=== PATIENT | male | born 1970 | race African-American/Black ===

== ENCOUNTER 2016-07-07 11:31 | Inpatient (IN) | payer OTHER ==
[2016-07-07 12:10] VITALS: BMI 34.2
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
[2016-07-07] MEDS ORDERED: guaiFENesin/D-METHORPHAN HB 10 ML UNIT-DOSE CUPS PO PRN (15:28)
[2016-07-07] MEDS ORDERED: MENTHOL/PHENOL 1 EACH UD MM PRN (15:28)
[2016-07-07] MEDS ORDERED: LOPERAMIDE HCL 2 MG CAPSULE PO PRN (15:28)
[2016-07-07] MEDS ORDERED: IBUPROFEN 400 MG TABLET (FP) PO PRN (15:28)
[2016-07-07] MEDS ORDERED: hydrOXYzine PAMOATE 50 MG CAPSULE (FP) PO PRN (15:28)
[2016-07-07] MEDS ORDERED: diphenhydrAMINE HCL 50 MG CAPSULE PO PRN (15:28)
[2016-07-07] MEDS ORDERED: chlordiazePOXIDE HCL 25 MG CAPSULE PO PRN (15:28)
[2016-07-07] MEDS ORDERED: P-EPHED 60MG/TRIPROLIDI 2.5MG TABLET PO PRN (15:28)
[2016-07-07] MEDS ORDERED: MAG HYDROX/AL HYDROX/SIMETH 30 ML UNIT-DOSE CUP PO PRN (15:28)
[2016-07-07] MEDS ORDERED: MAGNESIUM CITRATE 300 ML BOTTLE PO PRN (15:28)
[2016-07-07] MEDS ORDERED: MAGNESIUM HYDROX 2400MG/30ML ORAL SUSPENSION 30 ML CUP PO PRN (15:28)
[2016-07-07] MEDS ORDERED: ACETAMINOPHEN 325 MG TABLET (FP) PO PRN (15:28)
[2016-07-07] MEDS ORDERED: NICOTINE POLACRILEX 2 MG GUM BC PRN (15:28)
[2016-07-07] MEDS ORDERED: LABETALOL HCL 200 MG TABLET (FP) PO SCH (15:45)
[2016-07-07] MEDS ORDERED: chlordiazePOXIDE HCL 25 MG CAPSULE PO ONE (15:51)
[2016-07-07] MEDS: SPIRONOLACTONE 25 MG TABLET (FP) PO SCH (17:39)
[2016-07-07] MEDS: NICOTINE 21 MG/24 HOURS TOPICAL PATCH TD SCH (17:39)
[2016-07-07] MEDS: chlordiazePOXIDE HCL 25 MG CAPSULE PO SCH ×2 (17:39→22:23)
[2016-07-07] MEDS: amLODIPine BESYLATE 10 MG TABLET (FP) PO SCH (17:40)
--- NOTE | 2016-07-07 19:09 | PN ---
S Progress Note Note: Psychiatry Attending-trigonometry tutor note : Called by nurse to enter orders for medications :seroquel + trazodone. Readmission to [facility] for Thompson Venegas. 46 y/o male with issues of alcohol/nicotine dependence. Seeking detoxification treatment. [facility] report is appreciated.Medical co-morbidities noted. Patient is requesting continuation of his medications. Medications reconciled.Pharmacy claims revisited. Filled scripts on 06/26/16 @ [facility]. Doses are confirmed.Normal vitals. Orders are entered for : Seroquel 200 mg po hs. Trazodone 100 mg po hs. Discussed with nurse on duty.
[2016-07-07 20:09] LABS: URINE APPEARANCE CLEAR; URINE BILIRUBIN NEGATIVE (NEGATIVE); URINE BLOOD NEGATIVE (NEGATIVE); URINE COLOR YELLOW; URINE GLUCOSE (UA) NEGATIVE (NEGATIVE); URINE KETONE NEGATIVE (NEGATIVE); URINE LEUK ESTERASE NEGATIVE (NEGATIVE); URINE NITRITE NEGATIVE (NEGATIVE); URINE PROTEIN NEGATIVE (NEGATIVE); URINE UROBILINOGEN 2.0 E.U/dl E.U./dl (0.2-1.0)
[2016-07-07] MEDS: LABETALOL HCL 100 MG TABLET (FP) PO SCH (22:21)
[2016-07-07] MEDS: QUEtiapine FUMARATE 200 MG TABLET PO SCH (22:23)
[2016-07-07] MEDS: THIAMINE HCL 100 MG TABLET (FP) PO SCH (22:23)
[2016-07-07] MEDS: traZODone HCL 50 MG TABLET (FP) PO SCH (22:23)
[2016-07-08] MEDS: chlordiazePOXIDE HCL 25 MG CAPSULE PO SCH ×4 (06:01→22:15)
[2016-07-08] MEDS: LABETALOL HCL 100 MG TABLET (FP) PO SCH ×2 (06:05→13:33)
[2016-07-08] MEDS: PRENATAL VITAMINS W/ FOLIC ACID TABLET (FP) PO SCH (10:11)
[2016-07-08] MEDS: SPIRONOLACTONE 25 MG TABLET (FP) PO SCH ×2 (10:11→17:31)
[2016-07-08] MEDS: NICOTINE 21 MG/24 HOURS TOPICAL PATCH TD SCH (10:12)
[2016-07-08] MEDS: amLODIPine BESYLATE 10 MG TABLET (FP) PO SCH (10:12)
[2016-07-08 10:19] LABS: MCH 33.1 pg (25.7-33.7); MEAN CELL VOLUME 100.3 fl (80-96); PLATELET COUNT 221 K/MM3 (134-434); RDW 13.8 % (11.9-15.9); WHITE BLOOD COUNT 5.9 K/mm3 (4.0-10.0)
[2016-07-08 10:40] LABS: ALBUMIN 4.5 g/dl (3.4-5.0); ALK PHOS 59 U/L (45-117); ANION GAP 11 (8-16); BILIRUBIN,TOTAL 1.3 mg/dL (0.2-1.0); CALCIUM 8.5 mg/dL (8.5-10.1); CO2 25 mmol/L (21-32); CREATININE 1.1 mg/dL (0.7-1.3); GLUCOSE,RANDOM 102 mg/dL (74-106); SGOT/AST 70 U/L (15-37); SGPT/ALT 69 U/L (12-78); TOT PROT 8.6 g/dl (6.4-8.2)
--- NOTE | 2016-07-08 11:10 | PN ---
[facility] CIWA - CIWA Score Nausea/Vomitin-No Nausea/No Vomiting Muscle Tremors: 4-Moderate,w/Arms Extend Anxiety: 4-Mod. Anxious/Guarded Agitation: 4-Moderately Restless Paroxysmal Sweats: 1-Minimal Palms Moist Orientation: 0-Oriented Tacttile Disturbances: 3-Moderate Itch/Numb/Burn Auditory Disturbances: 0-None Visual Disturbances: 0-None Headache: 0-None Present CIWA-Ar Total Score: 16 BHS Progress Note (SOAP) Subjective: ANXIETY,SWEATS,TREMORS, NAUSEA. Objective: 07/08/16 11:06 Vital Signs Temperature 96.1 F L 07/08/16 09:40 Pulse Rate 87 07/08/16 09:40 Respiratory Rate 18 07/08/16 09:40 Blood Pressure 116/73 07/08/16 09:40 O2 Sat by Pulse Oximetry (%) Laboratory Last Values WBC 5.9 K/mm3 (4.0-10.0) 07/08/16 06:00 RBC 4.51 M/mm3 (4.00-5.60) 07/08/16 06:00 Hgb 14.9 GM/dL (11.7-16.9) 07/08/16 06:00 Hct 45.3 % (35.4-49) 07/08/16 06:00 MCV 100.3 fl (80-96) H 07/08/16 06:00 MCHC 33.0 g/dl (32.0-35.9) 07/08/16 06:00 RDW 13.8 % (11.9-15.9) D 07/08/16 06:00 Plt Count 221 K/MM3 (134-434) D 07/08/16 06:00 MPV 8.0 fl (7.5-11.1) 07/08/16 06:00 Sodium 138 mmol/L (136-145) 07/08/16 06:00 Potassium 4.1 mmol/L (3.5-5.1) 07/08/16 06:00 Chloride 102 mmol/L (98-107) 07/08/16 06:00 Carbon Dioxide 25 mmol/L (21-32) 07/08/16 06:00 Anion Gap 11 (8-16) 07/08/16 06:00 BUN 13 mg/dL (7-18) D 07/08/16 06:00 Creatinine 1.1 mg/dL (0.7-1.3) D 07/08/16 06:00 Creat Clearance w eGFR > 60 (>60) 07/08/16 06:00 Random Glucose 102 mg/dL (74-106) 07/08/16 06:00 Calcium 8.5 mg/dL (8.5-10.1) 07/08/16 06:00 Total Bilirubin 1.3 mg/dL (0.2-1.0) H 07/08/16 06:00 AST 70 U/L (15-37) H D 07/08/16 06:00 ALT 69 U/L (12-78) D 07/08/16 06:00 Alkaline Phosphatase 59 U/L (45-117) 07/08/16 06:00 Total Protein 8.6 g/dl (6.4-8.2) H 07/08/16 06:00 Albumin 4.5 g/dl (3.4-5.0) D 07/08/16 06:00 Urine Color Yellow 07/07/16 13:00 Urine Appearance Clear 07/07/16 13:00 Urine pH 6.0 (5.0-8.0) D 07/07/16 13:00 Ur Specific Summers 1.014 (1.001-1.035) 07/07/16 13:00 Urine Protein Negative (NEGATIVE) 07/07/16 13:00 Urine Glucose (UA) Negative (NEGATIVE) 07/07/16 13:00 Urine Ketones Negative (NEGATIVE) 07/07/16 13:00 Urine Blood Negative (NEGATIVE) 07/07/16 13:00 Urine Nitrite Negative (NEGATIVE) 07/07/16 13:00 Urine Bilirubin Negative (NEGATIVE) 07/07/16 13:00 Urine Urobilinogen 2.0 e.u/dl E.U./dl (0.2-1.0) 07/07/16 13:00 Ur Leukocyte Esterase Negative (NEGATIVE) 07/07/16 13:00 Assessment: 07/08/16 11:07 WITHDRAWAL SX Plan: CONTINUE DETOX
--- NOTE | 2016-07-08 11:13 | EKG ---
Test Reason : Blood Pressure : / mmHG Vent. Rate : 096 BPM Atrial Rate : 097 BPM P-R Int : 162 ms QRS Dur : 072 ms QT Int : 368 ms P-R-T Axes : 070 -10 025 degrees QTc Int : 464 ms NORMAL SINUS RHYTHM POSSIBLE LEFT ATRIAL ENLARGEMENT LEFT VENTRICULAR HYPERTROPHY CANNOT RULE OUT SEPTAL INFARCT (CITED ON OR BEFORE 07-DEC-2013) ABNORMAL ECG WHEN COMPARED WITH ECG OF 07-DEC-2013 08:52, ST NOW DEPRESSED IN ANTERIOR LEADS T WAVE INVERSION NO LONGER EVIDENT IN INFERIOR LEADS T WAVE INVERSION NO LONGER EVIDENT IN LATERAL LEADS Confirmed by NEW CARTER MD ([id number]) on 07/08/2016 11:13:25 AM Referred By: Confirmed By:NEW CARTER MD
[2016-07-08] MEDS ORDERED: ONDANSETRON *ODT* 4 MG TABLET SL PRN (11:19)
--- NOTE | 2016-07-08 13:36 | CONSULT ---
[id number] [facility] Identifying data: Readmission to [facility] for this 46 y/o AA male seeking detox treatment on for alcohol and marijuana dependence.Patient is single,a father of four,domiciled,unemployed and supported on SSI benefits. Substance Abuse History: - Smoking Cessation. Smoking history: Current every day smoker. Have you smoked in the past 12 months: Yes. Aproximately how many cigarettes per day: 10. Cigars Per Day: 0. Hx Chewing Tobacco Use: No. Initiated information on smoking cessation: Yes. 'Breaking Loose' booklet given : 07/07/16. - Substance & Tx. History. Hx Alcohol Use: Yes. Hx Substance Use : No. Substance Use Type: Alcohol. Hx Substance Use Treatment: Yes (detox). - Substances Abused. Alcohol. Route: Oral. Frequency: Daily. Amount used : 3 40 OZ BEERS/ 2 PINTS VODKA. Age of first use: 19. Date of Last Use: . Confirmed by the patient in this session. Medical History: Hypertension and history of CABG for dissecting aorta (2013). Psychiatric History: Reported history of two psychiatric hospitalizations about four years ago ([facility]).Diagnosed with Bipolar Disorder.Medications : seroquel 200 mg/hs + trazodone 100 mg/hs.No OPD care providers.Mr Venegas explains that he prefers using emergency room settings to get medications refills.Patient denies history of suicide attempts. Physical/Sexual Abuse/Trauma History: Patient denies. Additional Comment: Urine Drug Screen Results: BZO-Benzodiazepines.Noted. Mental Status Exam - Mental Status Exam Alert and Oriented to: Time, Place, Person Cognitive Function: Good Patient Appearance: Well Groomed Mood: Hopeful, Euthymic Affect: Appropriate, Normal Range Patient Behavior: Fatigued, Appropriate, Cooperative Speech Pattern: Clear, Appropriate Voice Loudness: Normal Thought Process: Goal Oriented Thought Disorder: Not Present Hallucinations: Denies Suicidal Ideation: Denies Homicidal Ideation: Denies Insight/Judgement: Poor Sleep: Well (on trazodone and seroquel) Appetite: Good Muscle strength/Tone: Normal Gait/Station: Normal Psychiatric Findings - Problem List ([place] 1, 2,3) (1) Alcohol dependence with uncomplicated withdrawal Status: Acute (2) Nicotine dependence Status: Acute (3) bipolar disorder Status: Active (4) Substance induced mood disorder Status: Acute (5) Essential hypertension Status: Chronic (6) Insomnia Status: Acute - Initial Treatment Plan Initial Treatment Plan: Psychoeducation.Detoxification.Medications : seroquel 200 mg po hs + trazodone 100 mg po hs.Side effects/benefits discussed with the patient.He is made aware of the risk of priapism (trazodone) and he is advised to alert MD/RN if painful/prolonged erection.Patient agrees with this plan of care.Observation.
[2016-07-08] MEDS: THIAMINE HCL 100 MG TABLET (FP) PO SCH (22:14)
[2016-07-08] MEDS: QUEtiapine FUMARATE 200 MG TABLET PO SCH (22:14)
[2016-07-08] MEDS: traZODone HCL 50 MG TABLET (FP) PO SCH (22:15)
[2016-07-08] MEDS: LABETALOL HCL 200 MG TABLET (FP) PO SCH (22:15)
[2016-07-09] MEDS: chlordiazePOXIDE HCL 25 MG CAPSULE PO SCH ×2 (05:53→10:10)
[2016-07-09] MEDS: LABETALOL HCL 200 MG TABLET (FP) PO SCH ×3 (05:53→23:36)
[2016-07-09] MEDS: PRENATAL VITAMINS W/ FOLIC ACID TABLET (FP) PO SCH (10:10)
[2016-07-09] MEDS: NICOTINE 21 MG/24 HOURS TOPICAL PATCH TD SCH (10:10)
[2016-07-09] MEDS: amLODIPine BESYLATE 10 MG TABLET (FP) PO SCH (10:10)
[2016-07-09] MEDS: SPIRONOLACTONE 25 MG TABLET (FP) PO SCH ×2 (10:10→17:43)
--- NOTE | 2016-07-09 16:05 | PN ---
S CIWA - CIWA Score Nausea/Vomitin-No Nausea/No Vomiting Muscle Tremors: 4-Moderate,w/Arms Extend Anxiety: 3 Agitation: 2 Paroxysmal Sweats: 3 Orientation: 1-Uncertain about Date Tacttile Disturbances: 1-Very Mild Itch/Numbness Auditory Disturbances: 0-None Visual Disturbances: 0-None Headache: 2-Mild CIWA-Ar Total Score: 16 BHS Progress Note (SOAP) Subjective: Tremors, Headache, Sweating, Hot / Cold Sensations. Objective: PT. A & O X 2 (DISORIENTED ABOUT DAY / DATE). 07/09/16 16:02 Vital Signs Temperature 96.9 F L 07/09/16 14:38 Pulse Rate 91 H 07/09/16 14:38 Respiratory Rate 18 07/09/16 14:38 Blood Pressure 122/78 07/09/16 14:38 O2 Sat by Pulse Oximetry (%) Laboratory Last Values WBC 5.9 K/mm3 (4.0-10.0) 07/08/16 06:00 RBC 4.51 M/mm3 (4.00-5.60) 07/08/16 06:00 Hgb 14.9 GM/dL (11.7-16.9) 07/08/16 06:00 Hct 45.3 % (35.4-49) 07/08/16 06:00 MCV 100.3 fl (80-96) H 07/08/16 06:00 MCHC 33.0 g/dl (32.0-35.9) 07/08/16 06:00 RDW 13.8 % (11.9-15.9) D 07/08/16 06:00 Plt Count 221 K/MM3 (134-434) D 07/08/16 06:00 MPV 8.0 fl (7.5-11.1) 07/08/16 06:00 Sodium 138 mmol/L (136-145) 07/08/16 06:00 Potassium 4.1 mmol/L (3.5-5.1) 07/08/16 06:00 Chloride 102 mmol/L (98-107) 07/08/16 06:00 Carbon Dioxide 25 mmol/L (21-32) 07/08/16 06:00 Anion Gap 11 (8-16) 07/08/16 06:00 BUN 13 mg/dL (7-18) D 07/08/16 06:00 Creatinine 1.1 mg/dL (0.7-1.3) D 07/08/16 06:00 Creat Clearance w eGFR > 60 (>60) 07/08/16 06:00 Random Glucose 102 mg/dL (74-106) 07/08/16 06:00 Calcium 8.5 mg/dL (8.5-10.1) 07/08/16 06:00 Total Bilirubin 1.3 mg/dL (0.2-1.0) H 07/08/16 06:00 AST 70 U/L (15-37) H D 07/08/16 06:00 ALT 69 U/L (12-78) D 07/08/16 06:00 Alkaline Phosphatase 59 U/L (45-117) 07/08/16 06:00 Total Protein 8.6 g/dl (6.4-8.2) H 07/08/16 06:00 Albumin 4.5 g/dl (3.4-5.0) D 07/08/16 06:00 Urine Color Yellow 07/07/16 13:00 Urine Appearance Clear 07/07/16 13:00 Urine pH 6.0 (5.0-8.0) D 07/07/16 13:00 Ur Specific Alvin 1.014 (1.001-1.035) 07/07/16 13:00 Urine Protein Negative (NEGATIVE) 07/07/16 13:00 Urine Glucose (UA) Negative (NEGATIVE) 07/07/16 13:00 Urine Ketones Negative (NEGATIVE) 07/07/16 13:00 Urine Blood Negative (NEGATIVE) 07/07/16 13:00 Urine Nitrite Negative (NEGATIVE) 07/07/16 13:00 Urine Bilirubin Negative (NEGATIVE) 07/07/16 13:00 Urine Urobilinogen 2.0 e.u/dl E.U./dl (0.2-1.0) 07/07/16 13:00 Ur Leukocyte Esterase Negative (NEGATIVE) 07/07/16 13:00 RPR Titer Nonreactive (NONREACTIVE) 07/08/16 06:00 LABS NOTED. 07/09/16 16:04 Assessment: 07/09/16 16:04 WITHDRAWAL SYMPTOMS. Plan: CONTINUE DETOX.
[2016-07-09 17:31] VITALS: BP 138/80; PULSE 83; TEMP 98.4
[2016-07-09] MEDS: chlordiazePOXIDE 5 MG CAPSULE PO SCH ×2 (17:43→23:34)
--- NOTE | 2016-07-09 20:05 | PN ---
S Progress Note Note: patient complaint of left precordial chest pain sclae of 10 history of surgery for aortic resection in 2013 in [facility] hx of hypertension alert heent normal heart normal heart sound mid sternal scar abdomen soft,no distension no guarding bowel sound active no calf tenderness ekg nsr 84/min inverted t in 3 pulse oxymetry 100 treatment o2 nasal canula 2 l.min to er for evaluation at [facility] to be transported by [facility] acls spoke with dr bridges bp 135/87,p88.r20,t96.1 impression chest pain etiology hx of surgery for aortic resection hypertension
[2016-07-09] MEDS: traZODone HCL 50 MG TABLET (FP) PO SCH (23:34)
[2016-07-09] MEDS: QUEtiapine FUMARATE 200 MG TABLET PO SCH (23:36)
[2016-07-09] MEDS: THIAMINE HCL 100 MG TABLET (FP) PO SCH (23:36)
[2016-07-10] MEDS ORDERED: chlordiazePOXIDE HCL 10 MG CAPSULE PO SCH (17:00)
--- NOTE | 2016-07-11 00:47 | EKG ---
Test Reason : Blood Pressure : / mmHG Vent. Rate : 088 BPM Atrial Rate : 088 BPM P-R Int : 122 ms QRS Dur : 080 ms QT Int : 378 ms P-R-T Axes : 039 -01 -13 degrees QTc Int : 457 ms NORMAL SINUS RHYTHM SEPTAL INFARCT (CITED ON OR BEFORE 07-DEC-2013) ABNORMAL ECG WHEN COMPARED WITH ECG OF 09-JUL-2016 19:20, NO SIGNIFICANT CHANGE WAS FOUND Confirmed by LATRELL DEJESUS, EFRA ([id number]) on 07/11/2016 12:47:15 AM Referred By: Confirmed By:EFRA SAMS MD
--- NOTE | 2016-07-30 17:20 | DS ---
[facility] Detox Discharge Summary Admission Date: 07/07/16 Discharge Date: 07/09/16 - History Present History: Alcohol Dependence Pertinent Past History: HTN Hx. of Aortic dissection repair - Physical Exam Results Vital Signs: Vital Signs Temperature 98.4 F 07/09/16 17:31 Pulse Rate 83 07/09/16 17:31 Respiratory Rate 18 07/09/16 17:31 Blood Pressure 138/80 07/09/16 17:31 O2 Sat by Pulse Oximetry (%) Pertinent Admission Physical Exam Findings: Withdrawal sx. Laboratory Last Values WBC 5.9 K/mm3 (4.0-10.0) 07/08/16 06:00 RBC 4.51 M/mm3 (4.00-5.60) 07/08/16 06:00 Hgb 14.9 GM/dL (11.7-16.9) 07/08/16 06:00 Hct 45.3 % (35.4-49) 07/08/16 06:00 MCV 100.3 fl (80-96) H 07/08/16 06:00 MCHC 33.0 g/dl (32.0-35.9) 07/08/16 06:00 RDW 13.8 % (11.9-15.9) D 07/08/16 06:00 Plt Count 221 K/MM3 (134-434) D 07/08/16 06:00 MPV 8.0 fl (7.5-11.1) 07/08/16 06:00 Sodium 138 mmol/L (136-145) 07/08/16 06:00 Potassium 4.1 mmol/L (3.5-5.1) 07/08/16 06:00 Chloride 102 mmol/L (98-107) 07/08/16 06:00 Carbon Dioxide 25 mmol/L (21-32) 07/08/16 06:00 Anion Gap 11 (8-16) 07/08/16 06:00 BUN 13 mg/dL (7-18) D 07/08/16 06:00 Creatinine 1.1 mg/dL (0.7-1.3) D 07/08/16 06:00 Creat Clearance w eGFR > 60 (>60) 07/08/16 06:00 Random Glucose 102 mg/dL (74-106) 07/08/16 06:00 Calcium 8.5 mg/dL (8.5-10.1) 07/08/16 06:00 Total Bilirubin 1.3 mg/dL (0.2-1.0) H 07/08/16 06:00 AST 70 U/L (15-37) H D 07/08/16 06:00 ALT 69 U/L (12-78) D 07/08/16 06:00 Alkaline Phosphatase 59 U/L (45-117) 07/08/16 06:00 Total Protein 8.6 g/dl (6.4-8.2) H 07/08/16 06:00 Albumin 4.5 g/dl (3.4-5.0) D 07/08/16 06:00 Urine Color Yellow 07/07/16 13:00 Urine Appearance Clear 07/07/16 13:00 Urine pH 6.0 (5.0-8.0) D 07/07/16 13:00 Ur Specific [place] 1.014 (1.001-1.035) 07/07/16 13:00 Urine Protein Negative (NEGATIVE) 07/07/16 13:00 Urine Glucose (UA) Negative (NEGATIVE) 07/07/16 13:00 Urine Ketones Negative (NEGATIVE) 07/07/16 13:00 Urine Blood Negative (NEGATIVE) 07/07/16 13:00 Urine Nitrite Negative (NEGATIVE) 07/07/16 13:00 Urine Bilirubin Negative (NEGATIVE) 07/07/16 13:00 Urine Urobilinogen 2.0 e.u/dl E.U./dl (0.2-1.0) 07/07/16 13:00 Ur Leukocyte Esterase Negative (NEGATIVE) 07/07/16 13:00 RPR Titer Nonreactive (NONREACTIVE) 07/08/16 06:00 labs noted - Treatment Patient has Accepted a Rehab Referral to: [facility] revelations when medically clear - Medication Discharge Medications: Ambulatory Orders Acetaminophen [Pain Relief] 650 mg PO Q4H PRN 07/07/16 Amlodipine Besylate [Norvasc -] 10 mg PO DAILY 07/07/16 Spironolactone [Aldactone -] 25 mg PO BID 07/07/16 Quetiapine Fumarate [Seroquel -] 200 mg PO HS #30 tab 07/08/16 Trazodone HCl 100 mg PO HS #30 tablet 07/08/16 Chlordiazepoxide [Librium -] 5 mg PO QID 07/10/16 Ondansetron HCl [Zofran] 4 mg PO PRN 07/10/16 Vitamins (Sjr) - 07/10/16 Thiamine HCl [B-1] 100 mg PO 07/10/16 Aspirin [ASA -] 81 mg PO DAILY tab.chew 07/12/16 Atorvastatin Ca [Lipitor] 20 mg NR HS #30 tablet 07/12/16 Ibuprofen [Motrin -] 600 mg PO Q6H PRN #0 tablet 07/12/16 Metoprolol Succinate [Toprol XL -] 25 mg PO DAILY #30 tab.sr.24h 07/12/16 - Diagnosis (1) Essential hypertension Status: Chronic (2) Aortic dissection Status: Resolved (3) Nicotine dependence Status: Acute Qualifiers: Nicotine product type: cigarettes Substance use status: uncomplicated Qualified Code(s): F17.210 - Nicotine dependence, cigarettes, uncomplicated (4) Alcohol dependence with uncomplicated withdrawal Status: Acute - AMA Did Patient Leave Against Medical Advice: No (transferred to medical unit)
== END 2016-07-09 20:22 | disposition short-term general hospital (02) | DRG 775 ==
LOC: YASAS 11:31 → Y3N 14:14
PROVIDERS: ADMIT Internal Medicine; ATTEND Internal Medicine
PROC: HZ2ZZZZ Detoxification Services for Substance Abuse Treatment (ICD-10-PCS; principal; 2016-07-09)
DX: F10.230 Alcohol dependence with withdrawal, uncomplicated (principal); F17.210 Nicotine dependence, cigarettes, uncomplicated; F32.9 Major depressive disorder, single episode, unspecified; F19.24 Other psychoactive substance dependence with psychoactive substance-induced mood disorder; G47.00 Insomnia, unspecified; I10 Essential (primary) hypertension
CPT/HCPCS: 36415; 80053; 81003; 85027; 86593; 93005; 93010

== ENCOUNTER 2016-07-09 20:39 | Observation (INO) | payer OTHER ==
[2016-07-09] MEDS ORDERED: ASPIRIN 81 MG CHEWABLE TABLETS PO ONE (21:02)
[2016-07-09] MEDS ORDERED: KETOROLAC TROMETHAMINE 30 MG/1 ML VIAL IVPUSH ONE (21:12)
[2016-07-09] MEDS ORDERED: ASPIRIN 81 MG CHEWABLE TABLETS ONE (21:15)
[2016-07-09] MEDS ORDERED: KETOROLAC TROMETHAMINE 30 MG/1 ML VIAL ONE ×2 (21:32→21:35)
[2016-07-09 21:49] LABS: BASOPHIL 0.5 % (0-2.0); EOSINOPHIL 2.3 % (0-4.5); MCH 33.1 pg (25.7-33.7); MCHC 33.9 g/dl (32.0-35.9); MEAN CELL VOLUME 97.8 fl (80-96); MEAN PLT VOLUME 7.3 fl (7.5-11.1); PLATELET COUNT 192 K/MM3 (134-434); RDW 13.9 % (11.9-15.9); WHITE BLOOD COUNT 7.1 K/mm3 (4.0-10.0)
--- NOTE | 2016-07-09 21:54 | PDOC ---
History of Present Illness - General Stated Complaint: CHEST PAIN Time Seen by Provider: 07/09/16 20:56 - History of Present Illness Initial Comments: 07/09/16 21:54 CHIEF COMPLAINT: chest pain HISTORY OF PRESENT ILLNESS: 46-year-old man with history of aortic dissection, chronic alcoholism, bipolar disorder, HTN, CAD and s/p CABG presents to ED with chest pain 1 hour. Patient describes the pain as lower localized to his left side and radiating to his left underarm. Patient denies any shortness of breath or palpitations. Patient requests pain medication for his pain. No recent travel or sick contacts. PAST MEDICAL HISTORY: as per HPI FAMILY HISTORY: Denies SOCIAL HISTORY: Hx of alcohol abuse, currently in detox program, reports drinking 2 bottles of liquor and 3 40s daily, last drink was 3 days ago prior to detox. Current smoker. Hx of drug abuse. SURGICAL HISTORY: Denies ALLERGIES: nitroglycerin, pork REVIEW OF SYSTEMS General/Constitutional: Denies fever or chills. Denies weakness, weight change. HEENT: Denies change in vision. Denies ear pain or discharge. Denies sore throat. Cardiovascular: Chest pain since 1 hour ago. Denies shortness of breath. Respiratory: Denies cough, wheezing, or hemoptysis. Gastrointestinal: Denies nausea, vomiting, diarrhea or constipation. Denies rectal bleeding. Genitourinary: Denies dysuria, frequency, or change in urination. Musculoskeletal: Denies joint or muscle swelling or pain. Denies neck or back pain. Skin and breasts: Denies rash or easy bruising. Neurologic: Denies headache, vertigo, loss of consciousness, or loss of sensation. PHYSICAL EXAM General Appearance: Well-appearing, appropriately dressed. No apparent distress , no intoxication. HEENT: EOMI, PERRLA, normal ENT inspection, normal voice, TMs normal, pharynx normal. No conjunctival pallor. No photophobia, scleral icterus. Neck: Supple. Trachea midline. No tenderness, rigidity, carotid bruit, stridor , lymphadenopathy, or thyromegaly. Respiratory/Chest: Lungs CTAB. No shortness of breath, chest tenderness, respiratory distress, accessory muscle use. No crackles, rales, rhonchi, stridor , wheezing, dullness Cardiovascular: RRR. S1, S2. No JVD, murmur, bradycardia, tachycardia. Vascular Pulses: Dorsalis-Pedis (R): 2+, Dorsalis-Pedis (L): 2+ Gastrointestinal/Abdominal: Normal bowel sounds. Abdomen soft, non-distended. No tenderness or rebound tenderness. No organomegaly, pulsatile mass, guarding , hernia, hepatomegaly, splenomegaly. Lymphatic: No adenopathy, tenderness. Musculoskeletal/Extremities: Normal inspection. FROM of all extremities, normal capillary refill. Pelvis Stable. No CVA tenderness. No tenderness to extremities, pedal edema, swelling, erythema or deformity. Integumentary: Appropriate color, dry, warm. No cyanosis, erythema, jaundice or rash Neurologic: floor worker well service II-XII intact. Fully oriented, alert. Appropriate mood/affect. Motor strength 5/5. No appreciable EOM palsy, facial droop or sensory deficit. 07/10/16 01:57 Past History - Past Medical History Allergies/Adverse Reactions: Allergies Allergy/AdvReac Type Severity Reaction Status Date / Time nitroglycerin Allergy Intermediate Rash Verified 07/07/16 13:48 No Known Drug Allergies Allergy Verified 07/07/16 13:48 Pork/Porcine Containing AdvReac Verified 07/07/16 13:48 Products Home Medications: Ambulatory Orders Acetaminophen [Pain Relief] 650 mg PO Q4H PRN 07/07/16 Amlodipine Besylate [Norvasc -] 10 mg PO DAILY 07/07/16 Clonidine HCl [Catapres -] 0.1 mg PO Q8H 07/07/16 Folic Acid/Mv,Fe,Min [One Daily Complete Tablet] 1 each PO DAILY 07/07/16 Gabapentin [Neurontin] 600 mg PO BID 07/07/16 Labetalol HCl [Normodyne -] 800 mg PO Q4H 07/07/16 Quetiapine Fumarate [Seroquel -] 200 mg PO HS 07/07/16 Spironolactone [Aldactone] 25 mg PO DAILY 07/07/16 Trazodone HCl [Desyrel -] 100 mg PO HS 07/07/16 Quetiapine Fumarate [Seroquel -] 200 mg PO HS #30 tab 07/08/16 Trazodone HCl 100 mg PO HS #30 tablet 07/08/16 Anemia: No Asthma: No Cancer: No Cardiac Disorders: Yes (aortic dissection in 2013) CVA: No COPD: No CHF: No Dementia: No Diabetes: No GI Disorders: No Disorders: No HTN: Yes (on meds.) Hypercholesterolemia: Yes Kidney Stones: No Liver Disease: No Suicide Attempt (Hx): No Seizures: No Thyroid Disease: No - Surgical History Abdominal Surgery: No Appendectomy: No Cardiac Surgery: Yes (CABG 2014 AORTIC DISSECTION IN 2013,Repair of aorta) Cholecystectomy: No Lung Surgery: No Neurologic Surgery: No Orthopedic Surgery: No - Reproductive History Testicular Surgery: No - Immunization History Immunization Up to Date: Yes - Psycho/Social/Smoking Cessation Hx Anxiety: Yes Suicidal Ideation: No Smoking History: Current every day smoker Have you smoked in the past 12 months: Yes Number of Cigarettes Smoked Daily: 10 Cigars Per Day: 0 'Breaking Loose' booklet given: 07/07/16 Hx Alcohol Use: Yes Drug/Substance Use Hx: No Substance Use Type: Alcohol Hx Substance Use Treatment: Yes (detox) Cardiac Specific PMH - Complaint Specific PMHX Pacemaker: No *Physical Exam - Vital Signs Last Vital Signs Temp Pulse Resp BP Pulse Ox 97.6 F 74 17 123/74 98 07/10/16 04:20 07/10/16 04:20 07/10/16 04:20 07/10/16 04:20 07/10/16 04:41 Heart Score/ECG Review - History History: Moderately suspicious - Electrocardiogram EKG: Normal - Age Age: </= 45 - Risk Factors Risk Factors Heart Score: Yes Hx Hypertension, Yes Smoking History, Yes Positive family hx of cardiac disease, Yes Hx Obesity Based on the list above the patient has:: >/=3 risk factors or Hx atherosclerotic disease - Troponin Troponin: </= normal limit - Score Heart Score - Total: 3 ED Treatment Course - LABORATORY CBC & Chemistry Diagram: 07/09/16 21:20 07/09/16 21:20 - ADDITIONAL ORDERS Additional order review: Laboratory Results 07/09/16 07/09/16 07/09/16 21:20 21:20 21:20 INR 1.06 Sodium 136 Potassium 4.1 Chloride 102 Carbon Dioxide 25 Anion Gap 9 BUN 10 D Creatinine 0.9 Creat Clearance w eGFR > 60 Random Glucose 96 Calcium 8.6 Magnesium 1.8 Total Bilirubin 0.6 D AST 50 H D ALT 57 Alkaline Phosphatase 47 D Creatine Kinase 600 H D Creatine Kinase Index 0.3 CK-MB (CK-2) 1.685 CK-MB (CK-2) Rel Index Cancelled Troponin I < 0.02 Total Protein 7.5 Albumin 3.6 07/09/16 21:20 RBC 4.35 MCV 97.8 H MCHC 33.9 RDW 13.9 MPV 7.3 L Neutrophils % 68.0 Lymphocytes % 23.2 Monocytes % 6.0 Eosinophils % 2.3 Basophils % 0.5 - RADIOLOGY Radiology Studies Ordered: Category Date Time Status CHEST CTA [CT] Stat CT Scan 07/10/16 00:18 Taken CHEST - PA [RAD] Stat Radiology 07/09/16 21:01 Taken - Medications Given in the ED: ED Medications Discontinued Medications Generic Name Dose Route Start Last Admin Trade Name Freq PRN Reason Stop Dose Admin Aspirin 162 mg 07/09/16 21:02 07/09/16 21:30 Asa - PO 07/09/16 21:03 162 mg ONCE ONE Administration Ketorolac Tromethamine 30 mg 07/09/16 21:12 07/09/16 21:41 Toradol Injection - IVPUSH 07/09/16 21:13 30 mg ONCE ONE Administration Morphine Sulfate 4 mg 07/09/16 23:24 07/09/16 23:30 Morphine Injection - IVPUSH 07/09/16 23:25 4 mg ONCE ONE Administration Morphine Sulfate 4 mg 07/10/16 01:33 07/10/16 02:15 Morphine Injection - IVPUSH 07/10/16 01:34 4 mg ONCE ONE Administration Quetiapine Fumarate 200 mg 07/10/16 03:10 07/10/16 03:31 Seroquel - PO 07/10/16 03:11 200 mg ONCE ONE Administration Trazodone HCl 100 mg 07/10/16 03:11 07/10/16 03:46 Desyrel - PO 07/10/16 03:12 100 mg ONCE ONE Administration Medical Decision Making - Medical Decision Making 07/10/16 01:57 46-year-old man with history of aortic dissection, chronic alcoholism, bipolar disorder, HTN, CAD and s/p CABG presents to ED with chest pain 1 hour. Patient is well appearing, vitals signs stable. Left BP 120/78, Right BP 109/ 66. -CXR, EKG -CBC, CMP, PT/INR, Mg, cardiac profile -CTA r/o dissection -ASA 162 mg Patient is allergic to nitroglycerin, will hold nitro SL tabs. Patient continues complaining of pain. -4 mg morphine IVPB CTA results: FINDINGS: Again note is made of a thoracoabdominal aortic dissection which begins just distal to the left subclavian artery and extends into the abdomen. The entire extent of the dissection is not included on the scan. The dissection was present previously. The aneurysmal dilatation of the distal arch is unchanged. Negative for pulmonary embolus. Lungs are clear acute disease. Borderline dilated pancreatic duct again noted, unchanged. Read by: Anthony Dangelo MD Patient reassessed continues to complain of pain. Discussed case with ER attending Nalini, will give one more dose of morphine for pain and admit to obs for LANDRY. Patient states he was told at [facility] that "they wanted to do stents" but has not gotten the procedure done yet. He also reports that he had a stress test done "at [facility] around 4 months ago" but he does not know what the results were. Discussed case with hospitalist MD Martini who admits patient to tele obs for LANDRY. 07/10/16 04:51 *DC/Admit/Observation/Transfer Diagnosis at time of Disposition: Alcohol dependence Chest pain Qualifiers: Chest pain type: unspecified Qualified Code(s): R07.9 - Chest pain, unspecified - Discharge Dispostion Admit: Yes
[2016-07-09 21:58] LABS: INR 1.06 (0.82-1.09); PROTHROMBIN TIME (PATIENT) 11.7 SEC (9.98-11.88)
[2016-07-09 22:04] VITALS: BMI 34.2
[2016-07-09 22:22] LABS: ALBUMIN 3.6 g/dl (3.4-5.0); ANION GAP 9 (8-16); BILIRUBIN,TOTAL 0.6 mg/dL (0.2-1.0); CALCIUM 8.6 mg/dL (8.5-10.1); CO2 25 mmol/L (21-32); CREATININE 0.9 mg/dL (0.7-1.3); GLUCOSE,RANDOM 96 mg/dL (74-106); MAGNESIUM 1.8 mg/dL (1.8-2.4); SGOT/AST 50 U/L (15-37); SGPT/ALT 57 U/L (12-78); TOT PROT 7.5 g/dl (6.4-8.2)
[2016-07-09 22:25] LABS: ALK PHOS 47 U/L (45-117); TROPONIN I < 0.02 ng/ml (0.00-0.05)
[2016-07-09] MEDS ORDERED: morphine CARPU-JECT 4 MG/1 ML DISP.SYRIN IVPUSH ONE (23:24)
[2016-07-09] MEDS ORDERED: morphine CARPU-JECT 4 MG/1 ML DISP.SYRIN ONE (23:26)
[2016-07-10] MEDS ORDERED: morphine CARPU-JECT 4 MG/1 ML DISP.SYRIN IVPUSH ONE (01:33)
[2016-07-10] MEDS ORDERED: morphine CARPU-JECT 4 MG/1 ML DISP.SYRIN ONE (02:27)
--- NOTE | 2016-07-10 02:34 | HP ---
CHIEF COMPLAINT: Chest Pain PCP: HISTORY OF PRESENT ILLNESS: This is a 46 y/o male with a past medical history of Aortic Dissection (2013), CAD s/p CABG, HTN, Chronic Alcoholism, Bipolar Disorder. Who presents to the emergency department from [facility] with chest pain x this am. Patient reports the pain as sharp radiating to his midsternum and left arm. Patient denies SOB, diaphoresis, N/V. Patient denies recent cocaine use. Patient denies fever, chills, cough, AP, constipation, dysuria. Patient reports last alcohol use 3-4 days ago. ER course was notable for: (1) CT of Chest: Negative for PE. Lungs are clear of acute disease. The aneurysmal dilatation of the distal arch is unchanged (2) EKG- NSR 88 bpm, Septal Infarct (cited on or before 2013) (3) CK 600, Trop I < 0.02 Recent Travel: None PAST MEDICAL HISTORY: See HPI PAST SURGICAL HISTORY: See HPI Social History: Smokin/2 PPD Alcohol: 2 Bottles Vodka, 3 Beers- 40oz daily (Last drink 3 days ago) Drugs: Denies Family History: Mother: HTN Allergies nitroglycerin Allergy (Intermediate, Verified 07/07/16 13:48) Rash No Known Drug Allergies Allergy (Verified 07/07/16 13:48) Pork/Porcine Containing Products Adverse Reaction (Verified 07/07/16 13:48) HOME MEDICATIONS: Home Medications Medication Instructions Recorded Acetaminophen [Pain Relief] 650 mg PO Q4H PRN 07/07/16 Amlodipine Besylate [Norvasc -] 10 mg PO DAILY 07/07/16 Clonidine HCl [Catapres -] 0.1 mg PO Q8H 07/07/16 Folic Acid/Mv,Fe,Min [One Daily 1 each PO DAILY 07/07/16 Complete Tablet] Gabapentin [Neurontin] 600 mg PO BID 07/07/16 Labetalol HCl [Normodyne -] 800 mg PO Q4H 07/07/16 Quetiapine Fumarate [Seroquel -] 200 mg PO HS 07/07/16 Spironolactone [Aldactone] 25 mg PO DAILY 07/07/16 Trazodone HCl [Desyrel -] 100 mg PO HS 07/07/16 Quetiapine Fumarate [Seroquel -] 200 mg PO HS #30 tab 07/08/16 Trazodone HCl 100 mg PO HS #30 tablet 07/08/16 REVIEW OF SYSTEMS CONSTITUTIONAL: Absent: fever, chills, diaphoresis, generalized weakness, malaise, loss of appetite, weight change HEENT: Absent: rhinorrhea, nasal congestion, throat pain, throat swelling, difficulty swallowing, mouth swelling, ear pain, eye pain, visual changes CARDIOVASCULAR: chest pain Absent: syncope, palpitations, irregular heart rate, lightheadedness, peripheral edema RESPIRATORY: Absent: cough, shortness of breath, dyspnea with exertion, orthopnea, wheezing, stridor, hemoptysis GASTROINTESTINAL: Absent: abdominal pain, abdominal distension, nausea, vomiting, diarrhea, constipation, melena, hematochezia GENITOURINARY: Absent: dysuria, frequency, urgency, hesitancy, hematuria, flank pain, genital pain MUSCULOSKELETAL: Absent: myalgia, arthralgia, joint swelling, back pain, neck pain SKIN: Absent: rash, itching, pallor HEMATOLOGIC/IMMUNOLOGIC: Absent: easy bleeding, easy bruising, lymphadenopathy, frequent infections ENDOCRINE: Absent: unexplained weight gain, unexplained weight loss, heat intolerance, cold intolerance NEUROLOGIC: Absent: headache, focal weakness or paresthesias, dizziness, unsteady gait, seizure, mental status changes, bladder or bowel incontinence PSYCHIATRIC: Absent: anxiety, depression, suicidal or homicidal ideation, hallucinations. PHYSICAL EXAMINATION Vital Signs - 24 hr 07/09/16 07/09/16 07/09/16 20:40 23:23 23:24 Temperature 98.6 F Pulse Rate 86 Pulse Rate [ 82 Left] Pulse Rate [ 81 Right] Respiratory 16 Rate Blood Pressure 136/75 Blood Pressure 120/78 109/66 [Left Arm] O2 Sat by Pulse 97 Oximetry (%) GENERAL: Awake, alert, and fully oriented, in no acute distress. HEAD: Normal with no signs of trauma. EYES: Pupils equal, round and reactive to light, extraocular movements intact, sclera anicteric, conjunctiva clear. No lid lag. EARS, NOSE, THROAT: Ears normal, nares patent, oropharynx clear without exudates. Moist mucous membranes. NECK: Normal range of motion, supple without lymphadenopathy, JVD, or masses. LUNGS: Breath sounds equal, clear to auscultation bilaterally. No wheezes, and no crackles. No accessory muscle use. HEART: Regular rate and rhythm, normal S1 and S2 without murmur, rub or gallop. Chest Pain reproducible on palpitation ABDOMEN: Soft, nontender, not distended, normoactive bowel sounds, no guarding, no rebound, no masses. No hepatomegaly or splenomegaly. MUSCULOSKELETAL: Normal range of motion at all joints. No bony deformities or tenderness. No CVA tenderness. UPPER EXTREMITIES: 2+ pulses, warm, well-perfused. No cyanosis. No clubbing. Cap refill <2 seconds. No peripheral edema. LOWER EXTREMITIES: 2+ pulses, warm, well-perfused. No calf tenderness. No peripheral edema. NEUROLOGICAL: Cranial nerves II-XII intact. Normal speech. Normal gait. PSYCHIATRIC: Cooperative. Good eye contact. Appropriate mood and affect. SKIN: Warm, dry, normal turgor, no rashes or lesions noted. Laboratory Results - last 24 hr 07/09/16 07/09/16 07/09/16 21:20 21:20 21:20 WBC 7.1 RBC 4.35 Hgb 14.4 Hct 42.5 MCV 97.8 H MCHC 33.9 RDW 13.9 Plt Count 192 MPV 7.3 L Neutrophils % 68.0 Lymphocytes % 23.2 Monocytes % 6.0 Eosinophils % 2.3 Basophils % 0.5 INR 1.06 Sodium 136 Potassium 4.1 Chloride 102 Carbon Dioxide 25 Anion Gap 9 BUN 10 D Creatinine 0.9 Creat Clearance w eGFR > 60 Random Glucose 96 Calcium 8.6 Magnesium 1.8 Total Bilirubin 0.6 D AST 50 H D ALT 57 Alkaline Phosphatase 47 D Creatine Kinase 600 H D Creatine Kinase Index 0.3 CK-MB (CK-2) 1.685 CK-MB (CK-2) Rel Index Troponin I < 0.02 Total Protein 7.5 Albumin 3.6 07/09/16 21:20 WBC RBC Hgb Hct MCV MCHC RDW Plt Count MPV Neutrophils % Lymphocytes % Monocytes % Eosinophils % Basophils % INR Sodium Potassium Chloride Carbon Dioxide Anion Gap BUN Creatinine Creat Clearance w eGFR Random Glucose Calcium Magnesium Total Bilirubin AST ALT Alkaline Phosphatase Creatine Kinase Creatine Kinase Index CK-MB (CK-2) CK-MB (CK-2) Rel Index Cancelled Troponin I Total Protein Albumin ASSESSMENT/PLAN: This is a 46 y/o male with a PMHx of: Aortic Dissection (2013), CAD s/p CABG ( 2013), HTN, Chronic Alcoholism, Bipolar Disorder. Presents to the ED with Chest Pain. Placed in Tele Observation for Chest Pain r/o NH for further evaluation of their emergent condition. Plan: 1. Chest Pain r/o NH vs Aortic Dissection - Tele monitoring - HEART Score 3 - Serial Enzymes - CT chest- reviewed - Echo in am - ASA, Morphine given in ED - Continue Asa - Lipid Panel, Hgb A1C in am - Continue home meds - f/u with [employer] upon d/c 2. HTN - Continue home med - Monitor BP 3. Chronic Alcoholism - Continue Rehab upon d/c - Counseled on Alcohol Cessation 4. Bipolar Disorder - Continue Seroquel 5. FEN - PO Fluids - Replete lytes prn - Low Na Diet 6. DVT Prophylaxis - OOB - SCDs - Consider AC if LOS > 48 hrs Code Status: Full Code Problem List - Problem (2) Alcohol dependence Code(s): F10.20 - ALCOHOL DEPENDENCE, UNCOMPLICATED (3) Chest pain Code(s): R07.9 - CHEST PAIN, UNSPECIFIED Qualifiers: Chest pain type: unspecified Qualified Code(s): R07.9 - Chest pain, unspecified (4) Essential hypertension Code(s): I10 - ESSENTIAL (PRIMARY) HYPERTENSION (5) Aortic aneurysm and dissection Code(s): I71.00 - DISSECTION OF UNSPECIFIED SITE OF AORTA (6) Nicotine dependence Code(s): F17.200 - NICOTINE DEPENDENCE, UNSPECIFIED, UNCOMPLICATED (7) Substance induced mood disorder Code(s): F19.94 - OTH PSYCHOACTIVE SUBSTANCE USE, UNSP W MOOD DISORDER (8) Bipolar disorder current episode depressed Code(s): F31.30 - BIPOLAR DISORD, CRNT EPSD DEPRESS, MILD OR MOD SEVERT, UNSP (9) DVT prophylaxis Code(s): RHB7791 - Visit type - Emergency Visit Emergency Visit: Yes ED Registration Date: 07/09/16 Care time: The patient presented to the Emergency Department on the above date and was hospitalized for further evaluation of their emergent condition. - New Patient This patient is new to me today: Yes Date on this admission: 07/10/16 - Critical Care Critical Care patient: No
[2016-07-10] MEDS ORDERED: QUEtiapine FUMARATE 200 MG TABLET PO ONE (03:10)
[2016-07-10] MEDS ORDERED: traZODone HCL 100 MG TABLET (FP) PO ONE (03:11)
[2016-07-10] MEDS ORDERED: traMADol HCL 50 MG TABLET ONE (03:20)
[2016-07-10] MEDS ORDERED: QUEtiapine FUMARATE 100 MG TABLET (FP) ONE (03:20)
[2016-07-10] MEDS ORDERED: SERTRALINE HCL 50 MG TABLET (FP) ONE (03:24)
[2016-07-10 03:55] LABS: TROPONIN I < 0.02 ng/ml (0.00-0.05)
[2016-07-10] MEDS ORDERED: morphine CARPU-JECT 2 MG/1 ML DISP.SYRIN IVPUSH ONE (06:24)
[2016-07-10 06:45] LABS: BASOPHIL 0.7 % (0-2.0); EOSINOPHIL 2.8 % (0-4.5); MCH 33.2 pg (25.7-33.7); MCHC 33.7 g/dl (32.0-35.9); MEAN CELL VOLUME 98.4 fl (80-96); MEAN PLT VOLUME 7.1 fl (7.5-11.1); NEUTROPHILS 57.3 % (42.8-82.8); PLATELET COUNT 196 K/MM3 (134-434); RDW 13.6 % (11.9-15.9); WHITE BLOOD COUNT 6.2 K/mm3 (4.0-10.0)
[2016-07-10 07:02] LABS: CALCIUM 8.7 mg/dL (8.5-10.1); CREATININE 0.9 mg/dL (0.7-1.3); PHOSPHOROUS 2.6 mg/dL (2.5-4.9)
[2016-07-10 07:07] LABS: TROPONIN I < 0.02 ng/ml (0.00-0.05)
[2016-07-10] MEDS ORDERED: chlordiazePOXIDE 5 MG CAPSULE ONE ×2 (10:18→14:10)
[2016-07-10] MEDS ORDERED: SPIRONOLACTONE 25 MG TABLET (FP) ONE (10:19)
[2016-07-10] MEDS ORDERED: ASPIRIN 81 MG CHEWABLE TABLETS ONE (10:19)
[2016-07-10] MEDS: SPIRONOLACTONE 25 MG TABLET (FP) PO SCH ×2 (10:19→21:48)
[2016-07-10] MEDS: chlordiazePOXIDE 5 MG CAPSULE PO SCH ×4 (10:19→21:48)
[2016-07-10] MEDS: ASPIRIN 81 MG CHEWABLE TABLETS PO SCH (10:19)
[2016-07-10] MEDS: amLODIPine BESYLATE 10 MG TABLET (FP) PO SCH (10:19)
[2016-07-10] MEDS ORDERED: amLODIPine BESYLATE 5 MG TABLET (FP) ONE (10:19)
--- NOTE | 2016-07-10 11:56 | PN ---
Physical Exam: SUBJECTIVE: Patient seen and examined at bedside. Pt states feeling sharp pain to the left side, under his arm and his back, that worsens with coughing and deep breathing, and improves only with morphine. OBJECTIVE: Vital Signs Period Temp Pulse Resp BP Sys/Garcia Pulse Ox Last 24 Hr 97.6 F-98 F 74-84 17-20 112-123/74-74 98-100 GENERAL: The patient is awake, alert, and fully oriented, in no acute distress. LUNGS: Breath sounds shallow, equal, clear to auscultation bilaterally, no wheezes, no accessory muscle use. HEART: Regular rate and rhythm, S1, S2 without murmur, rub or gallop. ABDOMEN: Soft, nontender, nondistended, rounded, normoactive bowel sounds. EXTREMITIES: 2+ pulses, warm, well-perfused, no edema. NEUROLOGICAL: Cranial nerves II through XII grossly intact. Normal speech, gait not observed. PSYCH: Normal mood, normal affect. SKIN: Warm, dry, normal turgor. CBCD WBC 6.2 K/mm3 (4.0-10.0) 07/10/16 06:25 RBC 4.25 M/mm3 (4.00-5.60) 07/10/16 06:25 Hgb 14.1 GM/dL (11.7-16.9) 07/10/16 06:25 Hct 41.8 % (35.4-49) 07/10/16 06:25 MCV 98.4 fl (80-96) H 07/10/16 06:25 MCHC 33.7 g/dl (32.0-35.9) 07/10/16 06:25 RDW 13.6 % (11.9-15.9) 07/10/16 06:25 Plt Count 196 K/MM3 (134-434) 07/10/16 06:25 MPV 7.1 fl (7.5-11.1) L 07/10/16 06:25 CMP Sodium 137 mmol/L (136-145) 07/10/16 06:25 Potassium 4.0 mmol/L (3.5-5.1) 07/10/16 06:25 Chloride 105 mmol/L (98-107) 07/10/16 06:25 Carbon Dioxide 25 mmol/L (21-32) 07/10/16 06:25 Anion Gap 7 (8-16) L 07/10/16 06:25 BUN 9 mg/dL (7-18) 07/10/16 06:25 Creatinine 0.9 mg/dL (0.7-1.3) 07/10/16 06:25 Creat Clearance w eGFR > 60 (>60) 07/09/16 21:20 Random Glucose 102 mg/dL (74-106) 07/10/16 06:25 Calcium 8.7 mg/dL (8.5-10.1) 07/10/16 06:25 Total Bilirubin 0.6 mg/dL (0.2-1.0) D 07/09/16 21:20 AST 50 U/L (15-37) H D 07/09/16 21:20 ALT 57 U/L (12-78) 07/09/16 21:20 Alkaline Phosphatase 47 U/L (45-117) D 07/09/16 21:20 Total Protein 7.5 g/dl (6.4-8.2) 07/09/16 21:20 Albumin 3.6 g/dl (3.4-5.0) 07/09/16 21:20 CARDIAC ENZYMES Laboratory Tests 07/09/16 07/10/16 07/10/16 21:20 03:20 06:25 Creatine Kinase 600 H D 952 H D CK-MB (CK-2) 1.685 2.665 Troponin I < 0.02 < 0.02 < 0.02 Active Medications Generic Name Dose Route Start Last Admin Trade Name Freq PRN Reason Stop Dose Admin Amlodipine Besylate 10 mg 07/10/16 10:00 07/10/16 10:19 Norvasc - PO 10 mg DAILY JOSE LUIS Administration Aspirin 81 mg 07/10/16 10:00 07/10/16 10:19 Asa - PO 81 mg DAILY JOSE LUIS Administration Chlordiazepoxide HCl 5 mg 07/10/16 10:00 07/10/16 10:19 Librium - PO 5 mg QID JOSE LUIS Administration Quetiapine Fumarate 200 mg 07/10/16 22:00 Seroquel - PO HS JOSE LUIS Spironolactone 25 mg 07/10/16 10:00 07/10/16 10:19 Aldactone - PO 25 mg BID JOSE LUIS Administration Trazodone HCl 100 mg 07/10/16 22:00 [address] - [facility] ASSESSMENT: This is a 46 year old male with a PMH of aortic dissection in 2013, CAD s/p CABG, HTN, Chronic Alcoholism, Bipolar disorder, who presented to the ED from [facility] with chest pain, the patient reported as sharp radiating to his midsternum and left arm. Patient admitted for chest pain to rule out DE vs Aortic dissection. PLAN: Cardiac: Chest pain work up to rule out DE/Aortic Dissection - Troponin negative x3 - CK 600 -> 952, CK-MB 1.685 -> 2.665, repeate CK-MB - EKG showed NSR, with septal infarct consistent with previous EKG - CXR showed no acute pathology or significant changes from previous - Echo pending - CTA showed aneurysmal dilatation of the distal arch is unchanged - Continue telemetry monitoring - Continue aspirin - Cardiology consult Hypertension: - Continue home medications Neuro: Bipolar Disorder - Continue home meds: seroquel, trazadone
--- NOTE | 2016-07-10 12:26 | HOSP ---
Physical Examination Vital Signs: Vital Signs Temperature 98 F 07/10/16 10:25 Pulse Rate 84 07/10/16 10:25 Respiratory Rate 20 07/10/16 10:25 Blood Pressure 112/74 07/10/16 10:25 O2 Sat by Pulse Oximetry (%) 100 07/10/16 10:25 Labs: CBC, BMP 07/10/16 06:25 07/10/16 06:25 Hospitalist Encounter Assessment: SUBJECTIVE: Patient seen and examined at bedside. Pt states feeling sharp pain to the left side, under his arm and his back, that worsens with coughing and deep breathing, and improves only with morphine. Trop x3 negative Current Medications Generic Name Dose Route Start Last Admin Trade Name Freq PRN Reason Stop Dose Admin Amlodipine Besylate 10 mg 07/10/16 10:00 07/10/16 10:19 Norvasc - PO 10 mg DAILY JOSE LUIS Administration Aspirin 81 mg 07/10/16 10:00 07/10/16 10:19 Asa - PO 81 mg DAILY JOSE LUIS Administration Chlordiazepoxide HCl 5 mg 07/10/16 10:00 07/10/16 10:19 Librium - PO 5 mg QID JOSE LUIS Administration Quetiapine Fumarate 200 mg 07/10/16 22:00 Seroquel - PO HS JOSE LUIS Spironolactone 25 mg 07/10/16 10:00 07/10/16 10:19 Aldactone - PO 25 mg BID JOSE LUIS Administration Trazodone HCl 100 mg 07/10/16 22:00 Desyrel - PO HS [facility] OBJECTIVE: Vital Signs Period Temp Pulse Resp BP Sys/Garcia Pulse Ox Last 24 Hr 97.6 F-98 F 74-84 17-20 112-123/74-74 98-100 GENERAL: The patient is awake, alert, and fully oriented, in no acute distress. LUNGS: Breath sounds shallow, equal, clear to auscultation bilaterally, no wheezes, no accessory muscle use. HEART: Regular rate and rhythm, S1, S2 without murmur, rub or gallop. ABDOMEN: Soft, nontender, nondistended, rounded, normoactive bowel sounds. EXTREMITIES: 2+ pulses, warm, well-perfused, no edema. NEUROLOGICAL: Cranial nerves II through XII grossly intact. Normal speech, gait not observed. PSYCH: Normal mood, normal affect. SKIN: Warm, dry, normal turgor. CBCD WBC 6.2 K/mm3 (4.0-10.0) 07/10/16 06:25 RBC 4.25 M/mm3 (4.00-5.60) 07/10/16 06:25 Hgb 14.1 GM/dL (11.7-16.9) 07/10/16 06:25 Hct 41.8 % (35.4-49) 07/10/16 06:25 MCV 98.4 fl (80-96) H 07/10/16 06:25 MCHC 33.7 g/dl (32.0-35.9) 07/10/16 06:25 RDW 13.6 % (11.9-15.9) 07/10/16 06:25 Plt Count 196 K/MM3 (134-434) 07/10/16 06:25 MPV 7.1 fl (7.5-11.1) L 07/10/16 06:25 CMP Sodium 137 mmol/L (136-145) 07/10/16 06:25 Potassium 4.0 mmol/L (3.5-5.1) 07/10/16 06:25 Chloride 105 mmol/L (98-107) 07/10/16 06:25 Carbon Dioxide 25 mmol/L (21-32) 07/10/16 06:25 Anion Gap 7 (8-16) L 07/10/16 06:25 BUN 9 mg/dL (7-18) 07/10/16 06:25 Creatinine 0.9 mg/dL (0.7-1.3) 07/10/16 06:25 Creat Clearance w eGFR > 60 (>60) 07/09/16 21:20 Random Glucose 102 mg/dL (74-106) 07/10/16 06:25 Calcium 8.7 mg/dL (8.5-10.1) 07/10/16 06:25 Total Bilirubin 0.6 mg/dL (0.2-1.0) D 07/09/16 21:20 AST 50 U/L (15-37) H D 07/09/16 21:20 ALT 57 U/L (12-78) 07/09/16 21:20 Alkaline Phosphatase 47 U/L (45-117) D 07/09/16 21:20 Total Protein 7.5 g/dl (6.4-8.2) 07/09/16 21:20 Albumin 3.6 g/dl (3.4-5.0) 07/09/16 21:20 CARDIAC ENZYMES Laboratory Tests 07/09/16 07/10/16 07/10/16 21:20 03:20 06:25 Creatine Kinase 600 H D 952 H D CK-MB (CK-2) 1.685 2.665 Troponin I < 0.02 < 0.02 < 0.02 ASSESSMENT: This is a 46 year old male with a PMH of aortic dissection in 2013, CAD s/p CABG, HTN, Chronic Alcoholism, Bipolar disorder, who presented to the ED from [facility] with chest pain, the patient reported as sharp radiating to his midsternum and left arm. Patient admitted for chest pain to rule out OR vs Aortic dissection. Denies dizziness, headache, dyspnea, palpitations. PLAN: Cardiac: Chest pain work up to rule out OR/Aortic Dissection - Troponin negative x3 - EKG showed NSR, with septal infarct consistent with previous EKG - CXR showed no acute pathology or significant changes from previous - Echo pending - Preliminary CTA showed aneurysmal dilatation of the distal arch is unchanged. Awaiting final read. Will need outpatient cardiology follow-up for close monitoring - Continue telemetry monitoring - Continue aspirin - Cardiology consult Hypertension: - Continue home medications - Continue to monitor - Pending lipid panel MSK: Mild rhabdomyolysis - CK trending up, encourgaged po intake - If continues to trend up, consider starting IV fluids - Continue to trend Neuro: Bipolar Disorder - Continue home meds: seroquel, trazadone Psych: Chronic Alcoholism - Return to [facility] upon discharge F/E/N: - Low sodium diet - Monitor electrolytes Disposition: - Discharge back to [facility] once improved Code Status: - Full code
[2016-07-10 15:15] LABS: TROPONIN I < 0.02 ng/ml (0.00-0.05)
[2016-07-10] MEDS ORDERED: IBUPROFEN 600 MG TABLET (FP) PO PRN (17:05)
--- NOTE | 2016-07-10 19:17 | CON.CARD ---
Consult Consult Specialty:: Cardiology Referred by:: Hospitalist Reason for Consultation:: Cardiac evaluation - History of Present Illness Chief Complaint: Chest pain History of Present Illness: Patient is a 46 year old male with underlying history of aortic dissection in 2013, s/p repair, hypertension, bipolar disorder and ETOH abuse who presents with chest pain started this morning. He describes the pain as sharp radiating to his left arm. He denies shortness of breath or palpitations. He denies fever or chills. Denies headache or lightheadedness. He has not drank ETOH for 3-4 days. Cardiology consultation was called for further evaluation. CTA results: FINDINGS: Again note is made of a thoracoabdominal aortic dissection which begins just distal to the left subclavian artery and extends into the abdomen. The entire extent of the dissection is not included on the scan. The dissection was present previously. The aneurysmal dilatation of the distal arch is unchanged. Negative for pulmonary embolus. Lungs are clear acute disease. Borderline dilated pancreatic duct again noted, unchanged. - History Source History Provided By: Patient, Medical Record Limitations to Obtaining History: No Limitations - Past Medical History Cardio/Vascular: Yes: Aneurysm (aortic dissection s/p repair), CAD, HTN Psych: Yes: Addictions, Bipolar - Past Surgical History Past Surgical History: Yes: CABG Additional Surgical History: Aortic dissection repair - Alcohol/Substance Use Hx Alcohol Use: Yes (LAST DRINK 07/07/16) - Smoking History Smoking history: Current every day smoker Have you smoked in the past 12 months: Yes Aproximately how many cigarettes per day: 10 Home Medications - Allergies Allergies/Adverse Reactions: Allergies Allergy/AdvReac Type Severity Reaction Status Date / Time nitroglycerin Allergy Intermediate Rash Verified 07/07/16 13:48 No Known Drug Allergies Allergy Verified 07/07/16 13:48 Pork/Porcine Containing AdvReac Verified 07/07/16 13:48 Products - Home Medications Home Medications: Ambulatory Orders Acetaminophen [Pain Relief] 650 mg PO Q4H PRN 07/07/16 Amlodipine Besylate [Norvasc -] 10 mg PO DAILY 07/07/16 Labetalol HCl [Normodyne -] 800 mg PO Q4H 07/07/16 Spironolactone [Aldactone] 25 mg PO BID 07/07/16 Quetiapine Fumarate [Seroquel -] 200 mg PO HS #30 tab 07/08/16 Trazodone HCl 100 mg PO HS #30 tablet 07/08/16 Chlordiazepoxide [Librium -] 5 mg PO QID 07/10/16 Ondansetron HCl [Zofran] 4 mg PO PRN 07/10/16 Vitamins (Sjr) - 07/10/16 Thiamine HCl [B-1] 100 mg PO 07/10/16 Family Disease History - Family Disease History Family Disease History: Heart Disease: Mother (HTN), Other: Father (Alcoholism) Review of Systems - Review of Systems Constitutional: denies: Chills, Fever Cardiovascular: reports: Chest Pain. denies: Palpitations, Shortness of Breath Respiratory: denies: Cough, Hemoptysis, Orthopnea, PND, SOB, SOB on Exertion Gastrointestinal: denies: Abdominal Pain, Constipation, Diarrhea, Melena, Nausea , Rectal Bleeding, Vomiting Neurological: denies: Dizziness, Headache, Numbness, Seizure, Syncope Vital Signs: Vital Signs Temperature 98.2 F 07/10/16 16:35 Pulse Rate 73 07/10/16 16:35 Respiratory Rate 18 07/10/16 16:35 Blood Pressure 127/71 07/10/16 16:35 O2 Sat by Pulse Oximetry (%) 98 07/10/16 15:38 Neck: Yes: Supple Respiratory: Yes: CTA Bilaterally Gastrointestinal: Yes: Normal Bowel Sounds, Soft. No: Tenderness Cardiovascular: Yes: Regular Rate and Rhythm JVD: No Carotid Bruit: No PMI: Non-Displaced Heart Sounds: Yes: S1, S2. No: Gallop Edema: No - Other Data Labs, Other Data: CBC, BMP 07/10/16 06:25 07/10/16 06:25 INR, PTT INR 1.06 (0.82-1.09) 07/09/16 21:20 Troponin, BNP 07/10/16 07/10/16 07/10/16 03:20 06:25 14:20 Troponin I < 0.02 < 0.02 < 0.02 Laboratory Results - last 24 hr 07/09/16 07/09/16 07/09/16 21:20 21:20 21:20 WBC 7.1 RBC 4.35 Hgb 14.4 Hct 42.5 MCV 97.8 H MCHC 33.9 RDW 13.9 Plt Count 192 MPV 7.3 L Neutrophils % 68.0 Lymphocytes % 23.2 Monocytes % 6.0 Eosinophils % 2.3 Basophils % 0.5 INR 1.06 Sodium 136 Potassium 4.1 Chloride 102 Carbon Dioxide 25 Anion Gap 9 BUN 10 D Creatinine 0.9 Creat Clearance w eGFR > 60 Random Glucose 96 Hemoglobin A1c % Calcium 8.6 Phosphorus Magnesium 1.8 Total Bilirubin 0.6 D AST 50 H D ALT 57 Alkaline Phosphatase 47 D Creatine Kinase 600 H D Creatine Kinase Index 0.3 CK-MB (CK-2) 1.685 CK-MB (CK-2) Rel Index Troponin I < 0.02 Total Protein 7.5 Albumin 3.6 07/10/16 07/10/16 07/10/16 06:25 06:25 06:25 WBC 6.2 RBC 4.25 Hgb 14.1 Hct 41.8 MCV 98.4 H MCHC 33.7 RDW 13.6 Plt Count 196 MPV 7.1 L Neutrophils % 57.3 Lymphocytes % 31.3 D Monocytes % 7.9 Eosinophils % 2.8 Basophils % 0.7 INR Sodium 137 Potassium 4.0 Chloride 105 Carbon Dioxide 25 Anion Gap 7 L BUN 9 Creatinine 0.9 Creat Clearance w eGFR Random Glucose 102 Hemoglobin A1c % Calcium 8.7 Phosphorus 2.6 D Magnesium 2.0 Total Bilirubin AST ALT Alkaline Phosphatase Creatine Kinase 952 H D Creatine Kinase Index 0.3 CK-MB (CK-2) 2.665 CK-MB (CK-2) Rel Index Troponin I < 0.02 Total Protein Albumin Sinus rhythm, possible septal infarct Imaging - Results Chest X-ray: Report Reviewed Cat Scan: Report Reviewed (CTA of chest: see HPI) EKG: Report Reviewed Problem List - Problems (1) Alcohol dependence Code(s): F10.20 - ALCOHOL DEPENDENCE, UNCOMPLICATED (2) Aortic aneurysm and dissection Code(s): I71.00 - DISSECTION OF UNSPECIFIED SITE OF AORTA (3) Chest pain Code(s): R07.9 - CHEST PAIN, UNSPECIFIED Qualifiers: Chest pain type: unspecified Qualified Code(s): R07.9 - Chest pain, unspecified (5) Essential hypertension Code(s): I10 - ESSENTIAL (PRIMARY) HYPERTENSION (6) Bipolar disorder current episode depressed Code(s): F31.30 - BIPOLAR DISORD, CRNT EPSD DEPRESS, MILD OR MOD SEVERT, UNSP Qualifiers: Current episode severity: mild Qualified Code(s): F31.31 - Bipolar disorder, current episode depressed, mild Assessment/Plan 1. Chest pain syndrome with underlying history of aortic dissection repair ( thoracic) 2. HTN/HCVD 3. Substance abuse (ETOH) 4. Bipolar disorder PLAN: 1. Currently on Amlodipine (tolerating) 2. Continue Spironoactone 3. Add ASA 81 mg QD 4. Check lipid panel 5. Librium taper 6. Consider low dose beta nehal 7. Transthoracic echocardiography to assess LV and valvular function. Further plans are to follow Hong Frausto MD
--- NOTE | 2016-07-10 21:28 | EKG ---
Test Reason : Blood Pressure : / mmHG Vent. Rate : 084 BPM Atrial Rate : 084 BPM P-R Int : 136 ms QRS Dur : 084 ms QT Int : 386 ms P-R-T Axes : 061 -11 -12 degrees QTc Int : 456 ms NORMAL SINUS RHYTHM POSSIBLE LEFT ATRIAL ENLARGEMENT LEFT VENTRICULAR HYPERTROPHY SEPTAL INFARCT (CITED ON OR BEFORE 07-DEC-2013) ABNORMAL ECG WHEN COMPARED WITH ECG OF 07-JUL-2016 17:44, Confirmed by EFRA SAMS MD ([id number]) on 07/10/2016 9:28:35 PM Referred By: Confirmed By:EFRA SAMS MD
[2016-07-10] MEDS ORDERED: traZODone HCL 50 MG TABLET (FP) ONE (21:44)
[2016-07-10] MEDS ORDERED: PT OWN MED DRAWER 7, Y5N ONE (21:44)
[2016-07-10] MEDS: traZODone HCL 100 MG TABLET (FP) PO SCH (21:48)
[2016-07-10] MEDS: QUEtiapine FUMARATE 200 MG TABLET PO SCH (22:06)
[2016-07-11] MEDS: chlordiazePOXIDE 5 MG CAPSULE PO SCH ×4 (09:25→21:45)
[2016-07-11] MEDS: amLODIPine BESYLATE 10 MG TABLET (FP) PO SCH (09:26)
--- NOTE | 2016-07-11 09:26 | PN ---
Progress Note, Physician - Current Medication List Current Medications: Active Medications Amlodipine Besylate (Norvasc -) 10 mg PO DAILY [facility] Last Admin: 07/10/16 10:19 Dose: 10 mg Aspirin (Asa -) 81 mg PO DAILY [facility] Last Admin: 07/10/16 10:19 Dose: 81 mg Chlordiazepoxide HCl (Librium -) 5 mg PO QID [facility] Last Admin: 07/10/16 21:48 Dose: 5 mg Ibuprofen (Motrin -) 600 mg PO Q6H PRN PRN Reason: FEVER Quetiapine Fumarate (Seroquel -) 200 mg PO [facility] Last Admin: 07/10/16 22:06 Dose: 200 mg Spironolactone (Aldactone -) 25 mg PO BID [facility] Last Admin: 07/10/16 21:48 Dose: 25 mg Trazodone HCl (Desyrel -) 100 mg PO [facility] Last Admin: 07/10/16 21:48 Dose: 100 mg - Objective Vital Signs: Vital Signs Temperature 97.8 F 07/11/16 06:00 Pulse Rate 82 07/11/16 06:00 Respiratory Rate 16 07/11/16 06:00 Blood Pressure 134/76 07/11/16 06:00 O2 Sat by Pulse Oximetry (%) 98 07/10/16 22:00 Labs: CBC, BMP 07/10/16 06:25 07/10/16 06:25 INR, PTT INR 1.06 (0.82-1.09) 07/09/16 21:20 Assessment/Plan - Problems (1) Alcohol dependence Code(s): F10.20 - ALCOHOL DEPENDENCE, UNCOMPLICATED (2) Aortic aneurysm and dissection Code(s): I71.00 - DISSECTION OF UNSPECIFIED SITE OF AORTA (3) Chest pain Code(s): R07.9 - CHEST PAIN, UNSPECIFIED Qualifiers: Chest pain type: unspecified Qualified Code(s): R07.9 - Chest pain, unspecified (5) Essential hypertension Code(s): I10 - ESSENTIAL (PRIMARY) HYPERTENSION (6) Bipolar disorder current episode depressed Code(s): F31.30 - BIPOLAR DISORD, CRNT EPSD DEPRESS, MILD OR MOD SEVERT, UNSP Qualifiers: Current episode severity: mild Qualified Code(s): F31.31 - Bipolar disorder, current episode depressed, mild Assessment/Plan 1. Chest pain syndrome with underlying history of CAD s/p CABG and aortic dissection repair (thoracic) 2. HTN/HCVD 3. Substance abuse (ETOH) 4. Bipolar disorder PLAN: 1. Currently on Amlodipine (tolerating) 2. Continue Spironoactone 3. Add ASA 81 mg QD 4. Check lipid panel 5. Librium taper 6. Consider low dose beta nehal 7. Transthoracic echocardiography to assess LV and valvular function. Amlodipine Besylate (Norvasc -) 10 mg PO DAILY [facility] Last Admin: 07/10/16 10:19 Dose: 10 mg Aspirin (Asa -) 81 mg PO DAILY [facility] Last Admin: 07/10/16 10:19 Dose: 81 mg Chlordiazepoxide HCl (Librium -) 5 mg PO QID [facility] Last Admin: 07/10/16 21:48 Dose: 5 mg Ibuprofen (Motrin -) 600 mg PO Q6H PRN PRN Reason: FEVER Quetiapine Fumarate (Seroquel -) 200 mg PO HS [facility] Last Admin: 07/10/16 22:06 Dose: 200 mg Spironolactone (Aldactone -) 25 mg PO BID [facility] Last Admin: 07/10/16 21:48 Dose: 25 mg Trazodone HCl (Desyrel -) 100 mg PO HS [facility] Last Admin: 07/10/16 21:48 Dose: 100 mg
[2016-07-11] MEDS: SPIRONOLACTONE 25 MG TABLET (FP) PO SCH ×2 (09:27→21:45)
[2016-07-11] MEDS: ASPIRIN 81 MG CHEWABLE TABLETS PO SCH (09:27)
--- NOTE | 2016-07-11 09:42 | PN ---
Progress Note, Physician Chief Complaint: Episode of chest discomfort left mid sternum intermittently History of Present Illness: Patient was seen and examined. Awake and alert. Chart was reviewed Intermittent mid sternal chest discomfort. Denies SOB or palpitations Asks for pain medications - Current Medication List Current Medications: Active Medications Amlodipine Besylate (Norvasc -) 10 mg PO DAILY [facility] Last Admin: 07/11/16 09:26 Dose: 10 mg Aspirin (Asa -) 81 mg PO DAILY [facility] Last Admin: 07/11/16 09:27 Dose: 81 mg Chlordiazepoxide HCl (Librium -) 5 mg PO QID [facility] Last Admin: 07/11/16 09:25 Dose: 5 mg Ibuprofen (Motrin -) 600 mg PO Q6H PRN PRN Reason: FEVER Last Admin: 07/11/16 09:26 Dose: 600 mg Quetiapine Fumarate (Seroquel -) 200 mg PO [facility] Last Admin: 07/10/16 22:06 Dose: 200 mg Spironolactone (Aldactone -) 25 mg PO BID [facility] Last Admin: 07/11/16 09:27 Dose: 25 mg Trazodone HCl (Desyrel -) 100 mg PO [facility] Last Admin: 07/10/16 21:48 Dose: 100 mg - Objective Vital Signs: Vital Signs Temperature 97.8 F 07/11/16 06:00 Pulse Rate 82 07/11/16 06:00 Respiratory Rate 16 07/11/16 06:00 Blood Pressure 134/76 07/11/16 06:00 O2 Sat by Pulse Oximetry (%) 98 07/10/16 22:00 Neck: Yes: Supple Cardiovascular: Yes: Regular Rate and Rhythm, S1, S2 Respiratory: Yes: CTA Bilaterally Gastrointestinal: Yes: Normal Bowel Sounds, Soft. No: Tenderness Edema: No Additional Findings/Remarks: - Review of Systems Constitutional: denies: Chills, Fever Cardiovascular: reports: Chest Pain. denies: Palpitations, Shortness of Breath Respiratory: denies: Cough, Hemoptysis, Orthopnea, PND, SOB, SOB on Exertion Gastrointestinal: denies: Abdominal Pain, Constipation, Diarrhea, Melena, Nausea , Rectal Bleeding, Vomiting Neurological: denies: Dizziness, Headache, Numbness, Seizure, Syncope Labs: CBC, BMP 07/10/16 06:25 07/10/16 06:25 Problem List - Problems (1) Alcohol dependence Code(s): F10.20 - ALCOHOL DEPENDENCE, UNCOMPLICATED (2) Aortic aneurysm and dissection Code(s): I71.00 - DISSECTION OF UNSPECIFIED SITE OF AORTA (3) Chest pain Code(s): R07.9 - CHEST PAIN, UNSPECIFIED Qualifiers: Chest pain type: unspecified Qualified Code(s): R07.9 - Chest pain, unspecified (5) Essential hypertension Code(s): I10 - ESSENTIAL (PRIMARY) HYPERTENSION (6) Bipolar disorder current episode depressed Code(s): F31.30 - BIPOLAR DISORD, CRNT EPSD DEPRESS, MILD OR MOD SEVERT, UNSP Qualifiers: Current episode severity: mild Qualified Code(s): F31.31 - Bipolar disorder, current episode depressed, mild Assessment/Plan 1. Chest pain syndrome with underlying history of aortic dissection repair ( thoracic) 2. HTN/HCVD 3. Substance abuse (ETOH) 4. Bipolar disorder PLAN: 1. Currently on Amlodipine (tolerating) 2. Continue Spironoactone 3. Add ASA 81 mg QD 4. Check lipid panel 5. Librium taper and monitor for withdrawl 6. Consider low dose beta nehal 7. Transthoracic echocardiography to assess LV and valvular function. 8. Consider nuclear myocardial perfusion imaging tomorrow Further plans are to follow Hong Frausto MD
[2016-07-11] MEDS: METOPROLOL SUCCINATE 25 MG TAB.SR.24H (FP) PO SCH (11:27)
--- NOTE | 2016-07-11 15:53 | PN ---
Physical Exam: SUBJECTIVE: Patient seen and examined. He states he has intermittent left sided chest pain, denies shortness of breath Asking for pain medications OBJECTIVE: Vital Signs Period Temp Pulse Resp BP Sys/Garcia Pulse Ox Last 24 Hr 97.0 F-98.2 F 73-90 16-20 124-147/64-76 98-98 GENERAL: The patient is awake, alert, and fully oriented, in no acute distress. HEAD: Normal with no signs of trauma. EYES: PERRL, extraocular movements intact, sclera anicteric, conjunctiva clear. No ptosis. ENT: Ears normal, nares patent, oropharynx clear without exudates, moist mucous membranes. NECK: Trachea midline, full range of motion, supple. LUNGS: Breath sounds equal, clear to auscultation bilaterally, no wheezes, no crackles, no accessory muscle use. HEART: Regular rate and rhythm ABDOMEN: Soft, nontender, nondistended, normoactive bowel sounds, no guarding NEUROLOGICAL: Normal speech PSYCH: Normal mood, normal affect. SKIN: Warm, dry, normal turgor, no rashes or lesions noted Active Medications Generic Name Dose Route Start Last Admin Trade Name Freq PRN Reason Stop Dose Admin Amlodipine Besylate 10 mg 07/10/16 10:00 07/11/16 09:26 Norvasc - PO 10 mg DAILY JOSE LUIS Administration Aspirin 81 mg 07/10/16 10:00 07/11/16 09:27 Asa - PO 81 mg DAILY JOSE LUIS Administration Chlordiazepoxide HCl 5 mg 07/10/16 10:00 07/11/16 13:42 Librium - PO 5 mg QID JOSE LUIS Administration Ibuprofen 600 mg 07/10/16 17:05 07/11/16 09:26 Motrin - PO 600 mg Q6H PRN Administration FEVER Metoprolol Succinate 25 mg 07/11/16 11:00 07/11/16 11:27 Toprol Xl - PO 25 mg DAILY JOSE LUIS Administration Morphine Sulfate 2 mg 07/11/16 16:00 Morphine Injection - IVPUSH 07/11/16 16:01 ONCE ONE Quetiapine Fumarate 200 mg 07/10/16 22:00 07/10/16 22:06 Seroquel - PO 200 mg HS JOSE LUIS Administration Spironolactone 25 mg 07/10/16 10:00 07/11/16 09:27 Aldactone - PO 25 mg BID JOSE LUIS Administration Trazodone HCl 100 mg 07/10/16 22:00 07/10/16 21:48 Desyrel - PO 100 mg HS JOSE LUIS Administration ASSESSMENT/PLAN: Mr. Venegas is a 46 year old male with a PMHx of aortic dissection in 2013, CAD s/p CABG, hypertension, ETOH abuse and bipolar disorder. He presented to the ED on 07/10/16 from [facility] with complaints of chest pain. He describes his pain as "sharp" pain that radiates from midsternum to the left side of his back. He denies any shortness of breath. Cardiology: Chest Pain Syndrome/rule out ACS Assessment/Plan: Troponins x 3 negative On ASA 81mg Echo 07/11/2016 - no regional wall abnormalities, mild tricuspid regurg, mild to mod aortic regurg, mild to mod pulm valvular regurg. Cardiology following Lipid panel for a.m. Nuclear myocardial perfusion test in a.m. Hypertension - chronic Assessment/Plan: On Toprol XL 25mg daily Muscular Skeletal Rhabdomyolysis - acute Assessment/Plan: CK 952 > 473 labs in a.m. Psych Bipolar Disorder Assessment/Plan: On seroquel and Trazadone Chronic Alcoholism Assessment/Plan: Librium QID, monitor Continue rehab at [facility] F.E.N. Fluids: Encourage PO intake Electrolytes: within normal limits Nutrition: Low sodium diet Prophylaxis: DVT: ambulatory GI: protonix PO Disposition: Discharge back to [facility] once improved. Full code. Visit type - Emergency Visit Emergency Visit: Yes ED Registration Date: 07/10/16 Care time: The patient presented to the Emergency Department on the above date and was hospitalized for further evaluation of their emergent condition. - New Patient This patient is new to me today: Yes Date on this admission: 07/12/16 - Critical Care Critical Care patient: No - Discharge Referral Referred to [facility] No
[2016-07-11] MEDS ORDERED: morphine CARPU-JECT 2 MG/1 ML DISP.SYRIN IVPUSH ONE ×2 (16:00→17:00)
[2016-07-11] MEDS ORDERED: traZODone HCL 50 MG TABLET (FP) ONE (21:43)
[2016-07-11] MEDS: traZODone HCL 100 MG TABLET (FP) PO SCH (21:45)
[2016-07-11] MEDS: QUEtiapine FUMARATE 200 MG TABLET PO SCH (21:45)
[2016-07-12 07:12] LABS: BASOPHIL 0.7 % (0-2.0); EOSINOPHIL 2.5 % (0-4.5); MCH 33.4 pg (25.7-33.7); MCHC 33.8 g/dl (32.0-35.9); MEAN CELL VOLUME 98.8 fl (80-96); NEUTROPHILS 58.4 % (42.8-82.8); PLATELET COUNT 190 K/MM3 (134-434); RDW 14.1 % (11.9-15.9)
--- NOTE | 2016-07-12 08:06 | DS ---
Physical Exam: SUBJECTIVE: Patient seen and examined. Primary RN asked me to see patient early this a.m. as pt was asking to leave AMA. On exam, pt appeared anxious, asking to go home. He is refusing nuclear stress test as he had one before and does not want another one. He denies any chest pain or shortness of breath. OBJECTIVE: GENERAL: The patient is awake, alert, and fully oriented. He is anxious about leaving, wants to leave without stress test. HEAD: Normal with no signs of trauma. EYES: PERRL, extraocular movements intact, sclera anicteric, conjunctiva clear. No ptosis. ENT: Ears normal, nares patent, oropharynx clear without exudates, moist mucous membranes. NECK: Trachea midline, full range of motion, supple. LUNGS: Breath sounds equal, clear to auscultation bilaterally, no wheezes, no crackles, no accessory muscle use. HEART: Regular rate and rhythm ABDOMEN: Soft, nontender, nondistended, normoactive bowel sounds, no guarding, RUQ without tenderness or pain on light/deep palpation NEUROLOGICAL: Normal speech PSYCH: Normal mood, normal affect. SKIN: Warm, dry, normal turgor, no rashes or lesions noted Vital Signs Period Temp Pulse Resp BP Sys/Garcia Pulse Ox Last 24 Hr 97.5 F-98.5 F 80-90 18-20 118-147/64-83 97-100 PHYSICAL EXAM LABS Laboratory Results - last 24 hr 07/12/16 07/12/16 05:35 05:35 WBC 8.0 RBC 4.65 Hgb 15.5 Hct 45.9 MCV 98.8 H MCHC 33.8 RDW 14.1 Plt Count 190 MPV 7.0 L Neutrophils % 58.4 Lymphocytes % 29.9 Monocytes % 8.5 Eosinophils % 2.5 Basophils % 0.7 Triglycerides Cancelled Cholesterol Cancelled Total LDL Cholesterol Cancelled HDL Cholesterol Cancelled HOSPITAL COURSE: Date of Admission:07/10/16 Date of Discharge: 07/12/16 ASSESSMENT/PLAN: Mr. Venegas is a 46 year old male with a PMHx of aortic dissection in 2013, CAD s/p CABG, hypertension, ETOH abuse and bipolar disorder. He presented to the ED on 07/10/16 from [facility] with complaints of chest pain. He describes his pain as "sharp" pain that radiates from midsternum to the left side of his back. He denies any shortness of breath. Cardiology: Chest Pain Syndrome/rule out ACS - resolved Assessment/Plan: Troponins x 3 negative On ASA 81mg Echo 07/11/2016 - no regional wall abnormalities, mild tricuspid regurg, mild to mod aortic regurg, mild to mod pulm valvular regurg. Patient denies chest pain, or shortness of breath Lipid panel LDL 118, triglycerides 135, cholesterol 163, HDL 39 Refusing stress test, pt states he will get stress test as an outpatient. GI: Elevated Liver Enzymes - acute vs. chronic Assessment/Plan: AST/ALT elevated, liver ultrasound shows mild diffuse fatty infiltration of the liver. Shown to be elevated on prior admissions. Also shows 3.1cm distal AAA. Reviewed findings with patient, patient follow up with a vascular surgeon as outpatient, (Dr. Crook), referral placed hepatitis panel ordered Will hold off on initiating Lipitor until pt sees PCP. Hypertension - chronic Assessment/Plan: On Toprol XL 25mg daily Follow up with outpatient cardiology Psych Bipolar Disorder Assessment/Plan: On seroquel and Trazadone Chronic Alcoholism Assessment/Plan: Librium taper complete Continue rehab at [facility] as outpatient Disposition: Discharge back to [facility] once improved, however, no beds available at [facility]. Pt choose to go home and will follow up with [facility]. Full code. Minutes to complete discharge: 60 Discharge Summary Reason For Visit: ALCOHOL DEPENDENCE, CHEST PAIN Current Active Problems Alcohol dependence (Acute 12/03/13) Aortic aneurysm and dissection (Acute) Chest pain (Acute) DVT prophylaxis (Acute) Condition: Improved - Instructions Diet, Activity, Other Instructions: Please follow up with your hub lead on discharge to discuss further work up such as a stress test. An exercise stress test is used to help your hub lead determine if your heart receives enough oxygen and proper blood flow when it needs it the most ( physical exertion). It is usually ordered for those who experience chest pain or other heart symptoms. Please return to the ER if you experience: Chest pain Shortness of breath Jaw pain As discussed, referrals have been made for the following: Dr. Xander Bassett MD [phone] - primary care physician Dr. Andrey Crook MD- vascular surgeon for follow up on CT findings ( 3.1cm distal AAA) [phone] or [address] Pitts - hub lead for outpatient stress test and hub lead follow up [phone] Do not take the Lipitor until cleared by PCP. Referrals: Devin Nam MD [Staff Physician] - Ambrocio Membreno MD [Staff Physician] - Andrey Crook MD [Staff Physician] - Disposition: HOME - Home Medications Comprehensive Discharge Medication List: Ambulatory Orders Acetaminophen [Pain Relief] 650 mg PO Q4H PRN 07/07/16 Amlodipine Besylate [Norvasc -] 10 mg PO DAILY 07/07/16 Spironolactone [Aldactone -] 25 mg PO BID 07/07/16 Quetiapine Fumarate [Seroquel -] 200 mg PO HS #30 tab 07/08/16 Trazodone HCl 100 mg PO HS #30 tablet 07/08/16 Chlordiazepoxide [Librium -] 5 mg PO QID 07/10/16 Ondansetron HCl [Zofran] 4 mg PO PRN 07/10/16 Vitamins (Sjr) - 07/10/16 Thiamine HCl [B-1] 100 mg PO 07/10/16 Aspirin [ASA -] 81 mg PO DAILY tab.chew 07/12/16 Ibuprofen [Motrin -] 600 mg PO Q6H PRN #0 tablet 07/12/16 Metoprolol Succinate [Toprol XL -] 25 mg PO DAILY #30 tab.sr.24h 07/12/16 This patient is new to me today: No Emergency Visit: Yes ED Registration Date: 07/10/16 Care time: The patient presented to the Emergency Department on the above date and was hospitalized for further evaluation of their emergent condition. Critical Care patient: No - Discharge Referral Referred to [facility] No
[2016-07-12 08:18] LABS: ALBUMIN 4.2 g/dl (3.4-5.0); ALK PHOS 50 U/L (45-117); ANION GAP 7 (8-16); BILIRUBIN,TOTAL 1.1 mg/dL (0.2-1.0); CALCIUM 9.1 mg/dL (8.5-10.1); CHOLESTEROL 163 mg/dL (50-200); CO2 29 mmol/L (21-32); CREATININE 1.1 mg/dL (0.7-1.3); GLUCOSE,RANDOM 90 mg/dL (74-106); LDL CHOLESTEROL (ONLY SJRH) 118 mg/dL (5-100); SGOT/AST 114 U/L (15-37); SGPT/ALT 126 U/L (12-78); TOT PROT 8.5 g/dl (6.4-8.2)
--- NOTE | 2016-07-12 09:14 | PN ---
Progress Note, Physician Chief Complaint: Feels better, but anxious about abnormal liver function Refused nuclear stress test History of Present Illness: Patient was seen and examined. Awake and alert. Chart was reviewed Intermittent mid sternal chest discomfort has resolved this am. Denies SOB or palpitations - Current Medication List Current Medications: Active Medications Amlodipine Besylate (Norvasc -) 10 mg PO DAILY [facility] Last Admin: 07/11/16 09:26 Dose: 10 mg Aspirin (Asa -) 81 mg PO DAILY [facility] Last Admin: 07/11/16 09:27 Dose: 81 mg Chlordiazepoxide HCl (Librium -) 5 mg PO QID [facility] Last Admin: 07/11/16 21:45 Dose: 5 mg Metoprolol Succinate (Toprol Xl -) 25 mg PO DAILY [facility] Last Admin: 07/11/16 11:27 Dose: 25 mg Quetiapine Fumarate (Seroquel -) 200 mg PO [facility] Last Admin: 07/11/16 21:45 Dose: 200 mg Spironolactone (Aldactone -) 25 mg PO BID [facility] Last Admin: 07/11/16 21:45 Dose: 25 mg Trazodone HCl (Desyrel -) 100 mg PO [facility] Last Admin: 07/11/16 21:45 Dose: 100 mg - Objective Vital Signs: Vital Signs Temperature 98.5 F 07/12/16 05:00 Pulse Rate 80 07/12/16 05:00 Respiratory Rate 18 07/12/16 05:00 Blood Pressure 118/64 07/12/16 05:00 O2 Sat by Pulse Oximetry (%) 100 07/12/16 05:00 Neck: Yes: Supple Cardiovascular: Yes: Regular Rate and Rhythm, S1, S2. No: Murmur Respiratory: Yes: CTA Bilaterally Gastrointestinal: Yes: Normal Bowel Sounds, Soft. No: Tenderness Edema: No Additional Findings/Remarks: - Review of Systems Constitutional: denies: Chills, Fever Cardiovascular: reports: Chest Pain. denies: Palpitations, Shortness of Breath Respiratory: denies: Cough, Hemoptysis, Orthopnea, PND, SOB, SOB on Exertion Gastrointestinal: denies: Abdominal Pain, Constipation, Diarrhea, Melena, Nausea , Rectal Bleeding, Vomiting Neurological: denies: Dizziness, Headache, Numbness, Seizure, Syncope Labs: CBC, BMP 07/12/16 05:35 07/12/16 05:35 INR, PTT INR 1.06 (0.82-1.09) 07/09/16 21:20 Laboratory Results - last 24 hr 07/12/16 07/12/16 07/12/16 05:35 05:35 05:35 WBC 8.0 RBC 4.65 Hgb 15.5 Hct 45.9 MCV 98.8 H MCHC 33.8 RDW 14.1 Plt Count 190 MPV 7.0 L Neutrophils % 58.4 Lymphocytes % 29.9 Monocytes % 8.5 Eosinophils % 2.5 Basophils % 0.7 Sodium 137 Potassium 4.2 Chloride 101 Carbon Dioxide 29 Anion Gap 7 L BUN 11 D Creatinine 1.1 D Creat Clearance w eGFR > 60 Random Glucose 90 Calcium 9.1 Total Bilirubin 1.1 H D AST 114 H D ALT 126 H D Alkaline Phosphatase 50 Total Protein 8.5 H Albumin 4.2 Triglycerides 135 D Cancelled Cholesterol 163 D Cancelled Total LDL Cholesterol 118 H D Cancelled HDL Cholesterol 39 L Cancelled Problem List - Problems (1) Alcohol dependence Code(s): F10.20 - ALCOHOL DEPENDENCE, UNCOMPLICATED (2) Aortic aneurysm and dissection Code(s): I71.00 - DISSECTION OF UNSPECIFIED SITE OF AORTA (3) Chest pain Code(s): R07.9 - CHEST PAIN, UNSPECIFIED Qualifiers: Chest pain type: unspecified Qualified Code(s): R07.9 - Chest pain, unspecified (5) Essential hypertension Code(s): I10 - ESSENTIAL (PRIMARY) HYPERTENSION (6) Bipolar disorder current episode depressed Code(s): F31.30 - BIPOLAR DISORD, CRNT EPSD DEPRESS, MILD OR MOD SEVERT, UNSP Qualifiers: Current episode severity: mild Qualified Code(s): F31.31 - Bipolar disorder, current episode depressed, mild (7) Abnormal LFTs (liver function tests) Code(s): R79.89 - OTHER SPECIFIED ABNORMAL FINDINGS OF BLOOD CHEMISTRY Assessment/Plan 1. Chest pain syndrome with underlying history of aortic dissection repair ( thoracic) 2. HTN/HCVD 3. Substance abuse (ETOH) 4. Bipolar disorder 5. Abnormal LFT PLAN: 1. Currently on Amlodipine (tolerating) 2. Continue Spironoactone 3. Continue ASA 81 mg QD 4. LFT and lipid panel noted. Liver US shows fatty liver. Consider alcoholic hepatits. GI evaluation if needed 5. Librium taper and monitor for withdrawl 6. Continue Metoptolol ER 7. Transthoracic echocardiography reviewed - normal left ventricular systolic function, moderate AR, TX and mild TR 8. Consider nuclear myocardial perfusion imaging, but patient refuses. Further plans are to follow Hong Frausto MD
[2016-07-12] MEDS: chlordiazePOXIDE 5 MG CAPSULE PO SCH (09:17)
[2016-07-12] MEDS: SPIRONOLACTONE 25 MG TABLET (FP) PO SCH (09:18)
[2016-07-12] MEDS: ASPIRIN 81 MG CHEWABLE TABLETS PO SCH (09:18)
[2016-07-12] MEDS: METOPROLOL SUCCINATE 25 MG TAB.SR.24H (FP) PO SCH (09:18)
[2016-07-12] MEDS: amLODIPine BESYLATE 10 MG TABLET (FP) PO SCH (09:18)
[2016-07-12 09:51] VITALS: BP 125/70; PULSE 84; TEMP 98
[2016-07-12] MEDS ORDERED: DIPYRIDAMOLE STRESS TEST 50 MG in DEXTROSE 5%-WATER - 40 ML IVPB ONE (10:00)
[2016-07-12] MEDS ORDERED: ATORVASTATIN CA 20 MG TABLET (FP) PO SCH (22:00)
== END 2016-07-12 11:44 | disposition home or self-care (01) ==
LOC: JER 20:39 → JERBED 07-10 02:31 → J4W 07-10 15:20
PROVIDERS: ADMIT Internal Medicine; ATTEND Nurse Practitioner Family
PROC: HZ2ZZZZ Detoxification Services for Substance Abuse Treatment (ICD-10-PCS; principal; 2016-07-10)
DX: R07.89 Other chest pain (principal); I25.10 Atherosclerotic heart disease of native coronary artery without angina pectoris; F31.89 Other bipolar disorder; R94.5 Abnormal results of liver function studies; F17.210 Nicotine dependence, cigarettes, uncomplicated; F10.10 Alcohol abuse, uncomplicated; I71.4 Abdominal aortic aneurysm, without rupture; M62.82 Rhabdomyolysis; F19.94 Other psychoactive substance use, unspecified with psychoactive substance-induced mood disorder; I71.00 Dissection of unspecified site of aorta; I11.9 Hypertensive heart disease without heart failure; Z95.1 Presence of aortocoronary bypass graft
CPT/HCPCS: 36415; 71010-TC; 71275-TC; 76705-TC; 80048; 80053; 80061; 80074; 82550; 82553; 83036; 83721; 83735; 84100; 84484; 85025; 85610; 93005; 93010; 93306-TC; 99284-25; G0378

== ENCOUNTER 2016-10-01 14:02 | Inpatient (IN) | payer OTHER ==
[2016-10-01 14:29] VITALS: BMI 35.2
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
[2016-10-01] MEDS ORDERED: chlordiazePOXIDE HCL 25 MG CAPSULE PO ONE (16:44)
[2016-10-01] MEDS ORDERED: MAGNESIUM HYDROX 2400MG/30ML ORAL SUSPENSION 30 ML CUP PO PRN (16:44)
[2016-10-01] MEDS ORDERED: LOPERAMIDE HCL 2 MG CAPSULE PO PRN (16:44)
[2016-10-01] MEDS ORDERED: MAGNESIUM CITRATE 300 ML BOTTLE PO PRN (16:44)
[2016-10-01] MEDS ORDERED: P-EPHED 60MG/TRIPROLIDI 2.5MG TABLET PO PRN (16:44)
[2016-10-01] MEDS ORDERED: MAG HYDROX/AL HYDROX/SIMETH 30 ML UNIT-DOSE CUP PO PRN (16:44)
[2016-10-01] MEDS ORDERED: guaiFENesin/D-METHORPHAN HB 10 ML UNIT-DOSE CUPS PO PRN (16:44)
[2016-10-01] MEDS ORDERED: diphenhydrAMINE HCL 50 MG CAPSULE PO PRN (16:44)
[2016-10-01] MEDS: NICOTINE 21 MG/24 HOURS TOPICAL PATCH TD SCH (18:07)
[2016-10-01] MEDS: IBUPROFEN 400 MG TABLET (FP) PO PRN (18:49)
[2016-10-01] MEDS ORDERED: PATIENT'S OWN MEDICATION (NON-FORMULARY) (Clonidine Hcl [Clonidine Hcl] 0.2 MG) PO SCH (22:00)
[2016-10-01] MEDS: chlordiazePOXIDE HCL 25 MG CAPSULE PO SCH (22:23)
[2016-10-01] MEDS: ATORVASTATIN CA 10 MG TABLET (FP) PO SCH (22:23)
[2016-10-01] MEDS: THIAMINE HCL 100 MG TABLET (FP) PO SCH (22:23)
[2016-10-01] MEDS: cloNIDine HCL 0.1 MG TABLET PO SCH (22:23)
[2016-10-02] MEDS: IBUPROFEN 400 MG TABLET (FP) PO PRN ×3 (01:29→20:58)
[2016-10-02] MEDS: hydrOXYzine PAMOATE 50 MG CAPSULE (FP) PO PRN ×2 (01:29→08:20)
[2016-10-02] MEDS: cloNIDine HCL 0.1 MG TABLET PO SCH ×3 (06:02→22:26)
[2016-10-02] MEDS: chlordiazePOXIDE HCL 25 MG CAPSULE PO SCH ×4 (06:03→22:26)
[2016-10-02 09:49] LABS: MCHC 33.2 g/dl (32.0-35.9); MEAN CELL VOLUME 99.3 fl (80-96); PLATELET COUNT 208 K/MM3 (134-434); RDW 15.7 % (11.9-15.9); WHITE BLOOD COUNT 6.2 K/mm3 (4.0-10.0)
[2016-10-02 10:20] LABS: ALBUMIN 3.5 g/dl (3.4-5.0); ALK PHOS 42 U/L (45-117); ANION GAP 11 (8-16); BILIRUBIN,TOTAL 0.7 mg/dL (0.2-1.0); CALCIUM 8.5 mg/dL (8.5-10.1); CO2 24 mmol/L (21-32); COCKROFT - GAULT 146.49; CREATININE 0.9 mg/dL (0.7-1.3); GLUCOSE,RANDOM 94 mg/dL (74-106); SGOT/AST 41 U/L (15-37); SGPT/ALT 40 U/L (12-78); TOT PROT 6.9 g/dl (6.4-8.2)
[2016-10-02] MEDS: PRENATAL VITAMINS W/ FOLIC ACID TABLET (FP) PO SCH (10:42)
[2016-10-02] MEDS: amLODIPine BESYLATE 10 MG TABLET (FP) PO SCH (10:42)
[2016-10-02] MEDS: ASPIRIN 81 MG CHEWABLE TABLETS PO SCH (10:42)
[2016-10-02] MEDS: METOPROLOL SUCCINATE 25 MG TAB.SR.24H (FP) PO SCH (10:43)
[2016-10-02] MEDS: NICOTINE 21 MG/24 HOURS TOPICAL PATCH TD SCH (10:43)
[2016-10-02] MEDS: VALSARTAN 160 MG TABLET (UD) PO SCH (12:38)
[2016-10-02] MEDS: chlordiazePOXIDE HCL 25 MG CAPSULE PO PRN (14:21)
--- NOTE | 2016-10-02 17:01 | PN ---
S CIWA - CIWA Score Nausea/Vomitin Muscle Tremors: 4-Moderate,w/Arms Extend Anxiety: 2 Agitation: 1-Slight > Activity Paroxysmal Sweats: 3 Orientation: 1-Uncertain about Date Tacttile Disturbances: 2-Mild Itch/Numbness/Burn Auditory Disturbances: 0-None Visual Disturbances: 3-Moderate Sensitivity Headache: 0-None Present CIWA-Ar Total Score: 19 S Progress Note (SOAP) Subjective: Interrupted Sleep, Tremors, Nausea, Body Aches, Sweating. Objective: PT. A & O X 2 (DISORIENTED ABOUT DAY / DATE). 10/02/16 16:59 Vital Signs Temperature 96.7 F L 10/02/16 13:26 Pulse Rate 97 H 10/02/16 13:26 Respiratory Rate 22 10/02/16 13:26 Blood Pressure 116/77 10/02/16 13:26 O2 Sat by Pulse Oximetry (%) Laboratory Last Values WBC 6.2 K/mm3 (4.0-10.0) 10/02/16 07:30 RBC 3.90 M/mm3 (4.00-5.60) L 10/02/16 07:30 Hgb 12.9 GM/dL (11.7-16.9) D 10/02/16 07:30 Hct 38.7 % (35.4-49) D 10/02/16 07:30 MCV 99.3 fl (80-96) H 10/02/16 07:30 MCHC 33.2 g/dl (32.0-35.9) 10/02/16 07:30 RDW 15.7 % (11.9-15.9) D 10/02/16 07:30 Plt Count 208 K/MM3 (134-434) 10/02/16 07:30 MPV 7.0 fl (7.5-11.1) L 10/02/16 07:30 Sodium 141 mmol/L (136-145) 10/02/16 07:30 Potassium 3.8 mmol/L (3.5-5.1) 10/02/16 07:30 Chloride 106 mmol/L (98-107) 10/02/16 07:30 Carbon Dioxide 24 mmol/L (21-32) 10/02/16 07:30 Anion Gap 11 (8-16) 10/02/16 07:30 BUN 14 mg/dL (7-18) D 10/02/16 07:30 Creatinine 0.9 mg/dL (0.7-1.3) 10/02/16 07:30 Creat Clearance w eGFR > 60 (>60) 10/02/16 07:30 Random Glucose 94 mg/dL (74-106) 10/02/16 07:30 Calcium 8.5 mg/dL (8.5-10.1) 10/02/16 07:30 Total Bilirubin 0.7 mg/dL (0.2-1.0) D 10/02/16 07:30 AST 41 U/L (15-37) H D 10/02/16 07:30 ALT 40 U/L (12-78) D 10/02/16 07:30 Alkaline Phosphatase 42 U/L (45-117) L 10/02/16 07:30 Total Protein 6.9 g/dl (6.4-8.2) 10/02/16 07:30 Albumin 3.5 g/dl (3.4-5.0) 10/02/16 07:30 RPR Titer Nonreactive (NONREACTIVE) 10/02/16 07:30 LABS NOTED. Assessment: 10/02/16 17:00 WITHDRAWAL SYMPTOMS. Plan: CONTINUE DETOX. ADVISED PATIENT TO FOLLOW-UP WITH GEODETIC SURVEY DIRECTOR AFTER DISCHARGE FROM DETOX FOR GENERAL MEDICAL ASSESSMENT AND FOR ABNORMAL ADMISSION LAB VALUES.
[2016-10-02] MEDS: THIAMINE HCL 100 MG TABLET (FP) PO SCH (22:27)
[2016-10-02] MEDS: ATORVASTATIN CA 10 MG TABLET (FP) PO SCH (22:27)
[2016-10-02] MEDS: traZODone HCL 100 MG TABLET (FP) PO SCH (22:27)
[2016-10-02] MEDS: QUEtiapine FUMARATE 200 MG TABLET PO SCH (22:27)
[2016-10-03] MEDS: cloNIDine HCL 0.1 MG TABLET PO SCH ×3 (05:59→22:43)
[2016-10-03] MEDS: chlordiazePOXIDE HCL 25 MG CAPSULE PO SCH ×3 (06:00→16:56)
[2016-10-03] MEDS: IBUPROFEN 400 MG TABLET (FP) PO PRN ×2 (06:02→13:59)
[2016-10-03] MEDS: ASPIRIN 81 MG CHEWABLE TABLETS PO SCH (10:49)
[2016-10-03] MEDS: PRENATAL VITAMINS W/ FOLIC ACID TABLET (FP) PO SCH (10:49)
[2016-10-03] MEDS: amLODIPine BESYLATE 10 MG TABLET (FP) PO SCH (10:49)
[2016-10-03] MEDS: NICOTINE 21 MG/24 HOURS TOPICAL PATCH TD SCH (10:50)
[2016-10-03] MEDS: VALSARTAN 160 MG TABLET (UD) PO SCH (10:50)
[2016-10-03] MEDS: METOPROLOL SUCCINATE 25 MG TAB.SR.24H (FP) PO SCH (10:50)
[2016-10-03] MEDS: ACETAMINOPHEN 325 MG TABLET (FP) PO PRN (10:51)
--- NOTE | 2016-10-03 12:43 | PN ---
S CIWA - CIWA Score Nausea/Vomitin-No Nausea/No Vomiting Muscle Tremors: 4-Moderate,w/Arms Extend Anxiety: 4-Mod. Anxious/Guarded Agitation: 3 Paroxysmal Sweats: 3 Orientation: 0-Oriented Tacttile Disturbances: 2-Mild Itch/Numbness/Burn Auditory Disturbances: 0-None Visual Disturbances: 0-None Headache: 0-None Present CIWA-Ar Total Score: 16 BHS Progress Note (SOAP) Subjective: Anxiety,tremors,sweating,interrupted sleep,restless. Objective: 10/03/16 12:42 Vital Signs - 8 hr 10/03/16 10/03/16 06:20 09:20 Temperature 96.6 F L 97.2 F L Pulse Rate 93 H 92 H Respiratory 18 20 Rate Blood Pressure 120/75 117/73 Laboratory Tests 10/02/16 10/02/16 10/02/16 07:30 07:30 07:30 WBC 6.2 RBC 3.90 L Hgb 12.9 D Hct 38.7 D MCV 99.3 H MCHC 33.2 RDW 15.7 D Plt Count 208 MPV 7.0 L Sodium 141 Potassium 3.8 Chloride 106 Carbon Dioxide 24 Anion Gap 11 BUN 14 D Creatinine 0.9 Creat Clearance w eGFR > 60 Random Glucose 94 Calcium 8.5 Total Bilirubin 0.7 D AST 41 H D ALT 40 D Alkaline Phosphatase 42 L Total Protein 6.9 Albumin 3.5 RPR Titer Nonreactive labs noted Assessment: 10/03/16 12:42 Withdrawal sx. Plan: Continue detox
--- NOTE | 2016-10-03 13:04 | EKG ---
Test Reason : Blood Pressure : / mmHG Vent. Rate : 128 BPM Atrial Rate : 128 BPM P-R Int : 128 ms QRS Dur : 078 ms QT Int : 332 ms P-R-T Axes : 076 -02 011 degrees QTc Int : 484 ms SINUS TACHYCARDIA POSSIBLE LEFT ATRIAL ENLARGEMENT LEFT VENTRICULAR HYPERTROPHY ABNORMAL ECG WHEN COMPARED WITH ECG OF 09-JUL-2016 20:53, T WAVE VARIATION VENT. RATE HAS INCREASED Confirmed by LATRELL DEJESUS, EFRA ([id number]) on 10/03/2016 1:03:46 PM Referred By: Confirmed By:EFRA SAMS MD
[2016-10-03] MEDS ORDERED: QUEtiapine FUMARATE 50 MG TABLET PO ONE (15:27)
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
[2016-10-03 16:15] LABS: URINE APPEARANCE CLEAR; URINE BILIRUBIN NEGATIVE (NEGATIVE); URINE BLOOD NEGATIVE (NEGATIVE); URINE COLOR STRAW; URINE GLUCOSE (UA) NEGATIVE (NEGATIVE); URINE KETONE NEGATIVE (NEGATIVE); URINE LEUK ESTERASE NEGATIVE (NEGATIVE); URINE NITRITE NEGATIVE (NEGATIVE); URINE PROTEIN NEGATIVE (NEGATIVE); URINE UROBILINOGEN NEGATIVE E.U./dl (0.2-1.0)
[2016-10-03] MEDS: chlordiazePOXIDE HCL 25 MG CAPSULE PO PRN (19:08)
[2016-10-03] MEDS: chlordiazePOXIDE 5 MG CAPSULE PO SCH (22:43)
[2016-10-03] MEDS: THIAMINE HCL 100 MG TABLET (FP) PO SCH (22:43)
[2016-10-03] MEDS: ATORVASTATIN CA 10 MG TABLET (FP) PO SCH (22:43)
[2016-10-03] MEDS: traZODone HCL 100 MG TABLET (FP) PO SCH (22:43)
[2016-10-03] MEDS: QUEtiapine FUMARATE 200 MG TABLET PO SCH (22:43)
[2016-10-04] MEDS: chlordiazePOXIDE 5 MG CAPSULE PO SCH ×3 (05:23→16:48)
[2016-10-04] MEDS: cloNIDine HCL 0.1 MG TABLET PO SCH ×3 (05:23→22:32)
[2016-10-04] MEDS: ACETAMINOPHEN 325 MG TABLET (FP) PO PRN (05:24)
[2016-10-04] MEDS: amLODIPine BESYLATE 10 MG TABLET (FP) PO SCH (11:04)
[2016-10-04] MEDS: ASPIRIN 81 MG CHEWABLE TABLETS PO SCH (11:04)
[2016-10-04] MEDS: QUEtiapine FUMARATE 100 MG TABLET (FP) PO SCH (11:04)
[2016-10-04] MEDS: METOPROLOL SUCCINATE 25 MG TAB.SR.24H (FP) PO SCH (11:05)
[2016-10-04] MEDS: VALSARTAN 160 MG TABLET (UD) PO SCH (11:05)
[2016-10-04] MEDS: PRENATAL VITAMINS W/ FOLIC ACID TABLET (FP) PO SCH (11:05)
[2016-10-04] MEDS: IBUPROFEN 400 MG TABLET (FP) PO PRN ×2 (11:06→20:08)
[2016-10-04] MEDS: NICOTINE 21 MG/24 HOURS TOPICAL PATCH TD SCH (11:10)
--- NOTE | 2016-10-04 11:58 | PN ---
BHS Progress Note (SOAP) Subjective: Sweating,interrupted sleep,restless Objective: 10/04/16 11:57 Vital Signs - 8 hr 10/04/16 10/04/16 06:30 10:03 Temperature 97.2 F L 95.2 F L Pulse Rate 93 H 102 H Respiratory 18 18 Rate Blood Pressure 137/86 112/73 Laboratory Last Values WBC 6.2 K/mm3 (4.0-10.0) 10/02/16 07:30 RBC 3.90 M/mm3 (4.00-5.60) L 10/02/16 07:30 Hgb 12.9 GM/dL (11.7-16.9) D 10/02/16 07:30 Hct 38.7 % (35.4-49) D 10/02/16 07:30 MCV 99.3 fl (80-96) H 10/02/16 07:30 MCHC 33.2 g/dl (32.0-35.9) 10/02/16 07:30 RDW 15.7 % (11.9-15.9) D 10/02/16 07:30 Plt Count 208 K/MM3 (134-434) 10/02/16 07:30 MPV 7.0 fl (7.5-11.1) L 10/02/16 07:30 Sodium 141 mmol/L (136-145) 10/02/16 07:30 Potassium 3.8 mmol/L (3.5-5.1) 10/02/16 07:30 Chloride 106 mmol/L (98-107) 10/02/16 07:30 Carbon Dioxide 24 mmol/L (21-32) 10/02/16 07:30 Anion Gap 11 (8-16) 10/02/16 07:30 BUN 14 mg/dL (7-18) D 10/02/16 07:30 Creatinine 0.9 mg/dL (0.7-1.3) 10/02/16 07:30 Creat Clearance w eGFR > 60 (>60) 10/02/16 07:30 Random Glucose 94 mg/dL (74-106) 10/02/16 07:30 Calcium 8.5 mg/dL (8.5-10.1) 10/02/16 07:30 Total Bilirubin 0.7 mg/dL (0.2-1.0) D 10/02/16 07:30 AST 41 U/L (15-37) H D 10/02/16 07:30 ALT 40 U/L (12-78) D 10/02/16 07:30 Alkaline Phosphatase 42 U/L (45-117) L 10/02/16 07:30 Total Protein 6.9 g/dl (6.4-8.2) 10/02/16 07:30 Albumin 3.5 g/dl (3.4-5.0) 10/02/16 07:30 Urine Color Straw 10/03/16 15:30 Urine Appearance Clear 10/03/16 15:30 Urine pH 5.0 (5.0-8.0) 10/03/16 15:30 Ur Specific [place] <= 1.005 (1.005-1.025) 10/03/16 15:30 Urine Protein Negative (NEGATIVE) 10/03/16 15:30 Urine Glucose (UA) Negative (NEGATIVE) 10/03/16 15:30 Urine Ketones Negative (NEGATIVE) 10/03/16 15:30 Urine Blood Negative (NEGATIVE) 10/03/16 15:30 Urine Nitrite Negative (NEGATIVE) 10/03/16 15:30 Urine Bilirubin Negative (NEGATIVE) 10/03/16 15:30 Urine Urobilinogen Negative E.U./dl (0.2-1.0) 10/03/16 15:30 Ur Leukocyte Esterase Negative (NEGATIVE) 10/03/16 15:30 RPR Titer Nonreactive (NONREACTIVE) 10/02/16 07:30 labs noted Assessment: 10/04/16 11:58 Withdrawal sx. Plan: Continue detox
[2016-10-04] MEDS: THIAMINE HCL 100 MG TABLET (FP) PO SCH (22:32)
[2016-10-04] MEDS: ATORVASTATIN CA 10 MG TABLET (FP) PO SCH (22:32)
[2016-10-04] MEDS: traZODone HCL 100 MG TABLET (FP) PO SCH (22:32)
[2016-10-04] MEDS: chlordiazePOXIDE HCL 10 MG CAPSULE PO SCH (22:32)
[2016-10-04] MEDS: QUEtiapine FUMARATE 200 MG TABLET PO SCH (22:32)
[2016-10-05] MEDS: chlordiazePOXIDE HCL 10 MG CAPSULE PO SCH ×2 (05:52→11:05)
--- NOTE | 2016-10-05 07:52 | PN ---
S Progress Note (SOAP) Subjective: ALERT,NO COMPLAINT Objective: 10/05/16 07:50 Vital Signs Temperature 97.2 F L 10/05/16 06:33 Pulse Rate 111 H 10/05/16 06:33 Respiratory Rate 18 10/05/16 06:33 Blood Pressure 114/71 10/05/16 06:33 O2 Sat by Pulse Oximetry (%) Assessment: 10/05/16 07:50 DETOX COMPLETED,NO WITHDRAWAL SYMPTOM Plan: DISCHARGE TODAY,FOLLOW UP WITH AFTER CARE PROGRAM ARRANGEMENT
[2016-10-05] MEDS: cloNIDine HCL 0.1 MG TABLET PO SCH (08:00)
--- NOTE | 2016-10-05 08:09 | DS ---
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 PATIENT HAS ALL MEDICATION WITH HIM Pertinent Past History: AORTIC ANEURYSM WITH DISSECTION S/P SURGERY HYPERTENSION HYPERCHOLESTEROLEMIA HISTORY OF RIGHT ANKLE INJURY CRUTCHES AMBULATORY AID BIPOLAR DISORDER INSOMNIA - Physical Exam Results Vital Signs: Vital Signs Temperature 97.2 F L 10/05/16 06:33 Pulse Rate 111 H 10/05/16 06:33 Respiratory Rate 18 10/05/16 06:33 Blood Pressure 114/71 10/05/16 06:33 O2 Sat by Pulse Oximetry (%) - Treatment Hospital Course: Detox Protocol Followed, Detoxed Safely, Responded well, Discharged Condition Good, Rehab Referral Accepted Patient has Accepted a Rehab Referral to: [facility] - Medication Discharge Medications: Ambulatory Orders Amlodipine Besylate [Norvasc -] 10 mg PO DAILY 07/07/16 Quetiapine Fumarate [Seroquel -] 200 mg PO HS #30 tab 07/08/16 Trazodone HCl 100 mg PO HS #30 tablet 07/08/16 Thiamine HCl [B-1] 100 mg PO DAILY 07/10/16 Aspirin [ASA -] 81 mg PO DAILY tab.chew 07/12/16 Metoprolol Succinate [Toprol XL -] 25 mg PO DAILY #30 tab.sr.24h 07/12/16 Clonidine HCl 0.2 mg PO TID 10/01/16 Folic Acid - 1 mg PO DAILY 10/01/16 Gabapentin 600 mg PO BID 10/01/16 Oxycodone HCl/Acetaminophen [Oxycodone-Acetaminophen 10-325] 1 each PO BID 10/01 Rosuvastatin [Crestor -] 10 mg PO HS 10/01/16 Valsartan 160 mg PO DAILY 10/01/16 Quetiapine Fumarate [Seroquel -] 200 mg PO BID #60 tab 10/03/16 Trazodone HCl 100 mg PO HS #30 tablet 10/03/16 - Diagnosis (1) Alcohol dependence with uncomplicated withdrawal Current Visit: Yes Status: Acute (2) Aortic aneurysm and dissection Current Visit: Yes Status: Acute (3) Bipolar disorder current episode depressed Current Visit: No Status: Acute Qualifiers: Current episode severity: mild Qualified Code(s): F31.31 - Bipolar disorder, current episode depressed, mild (4) Insomnia Current Visit: Yes Status: Acute (5) Nicotine dependence Current Visit: Yes Status: Acute Qualifiers: Nicotine product type: cigarettes Substance use status: uncomplicated Qualified Code(s): F17.210 - Nicotine dependence, cigarettes, uncomplicated (6) Essential hypertension Current Visit: Yes Status: Chronic (7) Hypercholesterolemia Current Visit: Yes Status: Acute (8) Injury of right ankle Current Visit: Yes Status: Acute (9) Crutches as ambulation aid Current Visit: Yes Status: Acute - AMA Did Patient Leave Against Medical Advice: No
[2016-10-05 10:18] VITALS: BP 137/86; PULSE 97; TEMP 96.1
[2016-10-05] MEDS: QUEtiapine FUMARATE 100 MG TABLET (FP) PO SCH (10:52)
[2016-10-05] MEDS: VALSARTAN 160 MG TABLET (UD) PO SCH (10:52)
[2016-10-05] MEDS: PRENATAL VITAMINS W/ FOLIC ACID TABLET (FP) PO SCH (10:52)
[2016-10-05] MEDS: ASPIRIN 81 MG CHEWABLE TABLETS PO SCH (10:52)
[2016-10-05] MEDS: amLODIPine BESYLATE 10 MG TABLET (FP) PO SCH (10:52)
[2016-10-05] MEDS: METOPROLOL SUCCINATE 25 MG TAB.SR.24H (FP) PO SCH (10:52)
[2016-10-05] MEDS: NICOTINE 21 MG/24 HOURS TOPICAL PATCH TD SCH (10:58)
== END 2016-10-05 11:20 | disposition home or self-care (01) | DRG 775 ==
LOC: YASAS 14:02 → Y3N 15:13
PROVIDERS: ADMIT Internal Medicine Addiction Medicine; ATTEND Internal Medicine Addiction Medicine
PROC: HZ2ZZZZ Detoxification Services for Substance Abuse Treatment (ICD-10-PCS; principal; 2016-10-05)
DX: F10.230 Alcohol dependence with withdrawal, uncomplicated (principal); F17.210 Nicotine dependence, cigarettes, uncomplicated; F31.81 Bipolar II disorder; G47.00 Insomnia, unspecified; I10 Essential (primary) hypertension; E78.00 Pure hypercholesterolemia, unspecified; Z86.79 Personal history of other diseases of the circulatory system; R26.89 Other abnormalities of gait and mobility; Z99.89 Dependence on other enabling machines and devices
CPT/HCPCS: 36415; 80053; 81003; 85027; 86593; 93005; 93010

== ENCOUNTER 2018-07-05 10:36 | Inpatient (IN) | payer OTHER ==
[2018-07-05 10:59] VITALS: BMI 35.6
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
[2018-07-05] MEDS ORDERED: guaiFENesin/D-METHORPHAN HB 10 ML UNIT-DOSE CUPS PO PRN (13:49)
[2018-07-05] MEDS ORDERED: MAG HYDROX/AL HYDROX/SIMETH 30 ML UNIT-DOSE CUP PO PRN (13:49)
[2018-07-05] MEDS ORDERED: MAGNESIUM CITRATE 300 ML BOTTLE PO PRN (13:49)
[2018-07-05] MEDS ORDERED: hydrOXYzine PAMOATE 50 MG CAPSULE (FP) PO PRN (13:49)
[2018-07-05] MEDS ORDERED: IBUPROFEN 400 MG TABLET (FP) PO PRN (13:49)
[2018-07-05] MEDS ORDERED: MENTHOL/PHENOL 1 EACH UD MM PRN (13:49)
[2018-07-05] MEDS ORDERED: LOPERAMIDE HCL 2 MG CAPSULE PO PRN (13:49)
[2018-07-05] MEDS ORDERED: MAGNESIUM HYDROX 2400MG/30ML ORAL SUSPENSION 30 ML CUP PO PRN (13:49)
[2018-07-05] MEDS ORDERED: P-EPHED 60MG/TRIPROLIDI 2.5MG TABLET PO PRN (13:49)
[2018-07-05] MEDS: chlordiazePOXIDE HCL 25 MG CAPSULE PO SCH ×2 (16:36→22:14)
[2018-07-05] MEDS: NICOTINE 21 MG/24 HOURS TOPICAL PATCH TD SCH (16:39)
[2018-07-05] MEDS: ACETAMINOPHEN 325 MG TABLET (FP) PO PRN (20:51)
[2018-07-05] MEDS ORDERED: MELATONIN 5 MG TABLETS PO PRN (22:00)
[2018-07-05] MEDS: THIAMINE HCL 100 MG TABLET (FP) PO SCH (22:13)
[2018-07-05] MEDS: LABETALOL HCL 200 MG TABLET (FP) PO SCH (22:14)
[2018-07-05] MEDS: ROSUVASTATIN CA 10 MG TABLET (FP) PO SCH (22:14)
[2018-07-06] MEDS: chlordiazePOXIDE HCL 25 MG CAPSULE PO SCH ×4 (06:37→22:26)
--- NOTE | 2018-07-06 10:54 | PN ---
BHS CIWA - CIWA Score Nausea/Vomitin Muscle Tremors: 2 Anxiety: 2 Agitation: 2 Paroxysmal Sweats: 1-Minimal Palms Moist Orientation: 0-Oriented Tacttile Disturbances: 1-Very Mild Itch/Numbness Auditory Disturbances: 1-Very Mild Visual Disturbances: 0-None Headache: 2-Mild CIWA-Ar Total Score: 13 BHS Progress Note (SOAP) Subjective: alert,irritable,tremor,interrupted sleep,pain in the body Objective: 07/06/18 10:53 Vital Signs Temperature 98.2 F 07/06/18 09:20 Pulse Rate 97 H 07/06/18 09:20 Respiratory Rate 20 07/06/18 09:20 Blood Pressure 125/77 07/06/18 09:20 O2 Sat by Pulse Oximetry (%) Laboratory Last Values POC Glucometer 116 UNITS (80-120) 07/06/18 06:34 Assessment: 07/06/18 10:53 labs pending 07/06/18 10:54 withdrawal symptom Plan: continue detox
[2018-07-06] MEDS: ASPIRIN 81 MG CHEWABLE TABLETS PO SCH (11:00)
[2018-07-06] MEDS: NICOTINE 21 MG/24 HOURS TOPICAL PATCH TD SCH (11:00)
[2018-07-06] MEDS: LABETALOL HCL 200 MG TABLET (FP) PO SCH ×2 (11:00→22:26)
[2018-07-06] MEDS: PRENATAL VITAMINS W/ FOLIC ACID TABLET (FP) PO SCH (11:00)
[2018-07-06 11:22] LABS: HEMATOCRIT 40.1 % (35.4-49); HEMOGLOBIN 13.6 GM/dL (11.7-16.9); MCH 33.4 pg (25.7-33.7); MCHC 33.9 g/dl (32.0-35.9); MEAN CELL VOLUME 98.8 fl (80-96); MEAN PLT VOLUME 7.6 fl (7.5-11.1); PLATELET COUNT 220 K/MM3 (134-434); RBC 4.06 M/mm3 (4.00-5.60); RDW 15.6 % (11.9-15.9); WHITE BLOOD COUNT 8.6 K/mm3 (4.0-10.0)
[2018-07-06] MEDS ORDERED: FLU VACCINE QUAD 60 MCG/0.5 ML (MDV 18-19) IM ONE (12:00)
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
[2018-07-06 12:18] LABS: ALBUMIN 3.9 g/dl (3.4-5.0); ALK PHOS 53 U/L (45-117); ANION GAP 10 MMOL/L (8-16); BILIRUBIN,TOTAL 0.6 mg/dL (0.2-1); BLOOD UREA NITROGEN 25 mg/dL (7-18); CALCIUM 8.7 mg/dL (8.5-10.1); CHLORIDE 102 mmol/L (98-107); CHOLESTEROL 102 mg/dL (50-200); CO2 24 mmol/L (21-32); CREATININE 1.7 mg/dL (0.55-1.3); GLUCOSE,RANDOM 131 mg/dL (74-106); HDL CHOLESTEROL 14 mg/dL (40-60); POTASSIUM 3.7 mmol/L (3.5-5.1); SGOT/AST 46 U/L (15-37); SGPT/ALT 38 U/L (13-61); SODIUM 136 mmol/L (136-145); TRIGLYCERIDES 416 mg/dL (0-150)
--- NOTE | 2018-07-06 12:43 | EKG ---
Test Reason : Blood Pressure : / mmHG Vent. Rate : 144 BPM Atrial Rate : 144 BPM P-R Int : 122 ms QRS Dur : 072 ms QT Int : 270 ms P-R-T Axes : 073 -09 -21 degrees QTc Int : 418 ms SINUS TACHYCARDIA POSSIBLE LEFT ATRIAL ENLARGEMENT LEFT VENTRICULAR HYPERTROPHY NONSPECIFIC ST AND T WAVE ABNORMALITY ABNORMAL ECG WHEN COMPARED WITH ECG OF 01-OCT-2016 17:10, NONSPECIFIC T WAVE ABNORMALITY, WORSE IN INFERIOR LEADS Confirmed by PATRICIA CORRALES MD ([id number]) on 07/06/2018 12:43:00 PM Referred By: Confirmed By:PATRICIA CORRALES MD
[2018-07-06] MEDS: ROSUVASTATIN CA 10 MG TABLET (FP) PO SCH (22:26)
[2018-07-06] MEDS: QUEtiapine FUMARATE 400 MG TABLET PO SCH (22:26)
[2018-07-06] MEDS: THIAMINE HCL 100 MG TABLET (FP) PO SCH (22:26)
[2018-07-07] MEDS: chlordiazePOXIDE HCL 25 MG CAPSULE PO PRN (02:52)
[2018-07-07] MEDS: metFORMIN HCL 500 MG TABLET (FP) PO SCH ×2 (06:31→17:30)
[2018-07-07] MEDS: chlordiazePOXIDE HCL 25 MG CAPSULE PO SCH ×2 (06:31→12:01)
[2018-07-07] MEDS: ACETAMINOPHEN 325 MG TABLET (FP) PO PRN (07:35)
[2018-07-07] MEDS: PRENATAL VITAMINS W/ FOLIC ACID TABLET (FP) PO SCH (12:01)
[2018-07-07] MEDS: LABETALOL HCL 200 MG TABLET (FP) PO SCH ×2 (12:01→22:04)
[2018-07-07] MEDS: ASPIRIN 81 MG CHEWABLE TABLETS PO SCH (12:01)
--- NOTE | 2018-07-07 12:01 | PN ---
S CIWA - CIWA Score Nausea/Vomitin-No Nausea/No Vomiting Muscle Tremors: None Anxiety: 2 Agitation: 0-Normal Activity Paroxysmal Sweats: No Perspiration Orientation: 0-Oriented Tacttile Disturbances: 0-None Auditory Disturbances: 0-None Visual Disturbances: 0-None Headache: 2-Mild CIWA-Ar Total Score: 4 BHS Progress Note (SOAP) Subjective: pt c/o headache, o/w doing well with detox protocol O: Vital Signs - 24 hr 07/06/18 07/06/18 07/07/18 18:54 22:33 08:43 Temperature 98.4 F 98.4 F 97.9 F Pulse Rate 104 H 101 H 94 H Respiratory 20 18 20 Rate Blood Pressure 140/93 141/86 116/74 07/07/18 09:42 Temperature 98 F Pulse Rate 94 H Respiratory 18 Rate Blood Pressure 123/66 Laboratory Tests 07/05/18 07/05/18 07/06/18 12:11 16:32 06:00 WBC 8.6 RBC 4.06 Hgb 13.6 Hct 40.1 MCV 98.8 H MCH 33.4 MCHC 33.9 RDW 15.6 Plt Count 220 MPV 7.6 Sodium Potassium Chloride Carbon Dioxide Anion Gap BUN Creatinine Creat Clearance w eGFR POC Glucometer 212 141 Random Glucose Calcium Total Bilirubin AST ALT Alkaline Phosphatase Total Protein Albumin Triglycerides Cholesterol Total LDL Cholesterol HDL Cholesterol RPR Titer 07/06/18 07/06/18 07/06/18 06:00 06:00 06:34 WBC RBC Hgb Hct MCV MCH MCHC RDW Plt Count MPV Sodium 136 Potassium 3.7 Chloride 102 Carbon Dioxide 24 Anion Gap 10 BUN 25 H Creatinine 1.7 H Creat Clearance w eGFR 43.61 POC Glucometer 116 Random Glucose 131 H Calcium 8.7 Total Bilirubin 0.6 AST 46 H ALT 38 Alkaline Phosphatase 53 Total Protein 8.0 Albumin 3.9 Triglycerides 416 H Cholesterol 102 Total LDL Cholesterol 35 HDL Cholesterol 14 L RPR Titer Nonreactive 07/06/18 07/07/18 16:37 07:29 WBC RBC Hgb Hct MCV MCH MCHC RDW Plt Count MPV Sodium Potassium Chloride Carbon Dioxide Anion Gap BUN Creatinine Creat Clearance w eGFR POC Glucometer 130 140 Random Glucose Calcium Total Bilirubin AST ALT Alkaline Phosphatase Total Protein Albumin Triglycerides Cholesterol Total LDL Cholesterol HDL Cholesterol RPR Titer a/p: renal insufficiency alcohol detox protocol- pt doing well f/u counselor re d/c f/u
[2018-07-07] MEDS: NICOTINE 21 MG/24 HOURS TOPICAL PATCH TD SCH (12:02)
[2018-07-07] MEDS: chlordiazePOXIDE 5 MG CAPSULE PO SCH ×2 (17:42→22:04)
[2018-07-07] MEDS: traZODone HCL 100 MG TABLET (FP) PO PRN (22:04)
[2018-07-07] MEDS: THIAMINE HCL 100 MG TABLET (FP) PO SCH (22:04)
[2018-07-07] MEDS: ROSUVASTATIN CA 10 MG TABLET (FP) PO SCH (22:05)
[2018-07-07] MEDS: QUEtiapine FUMARATE 400 MG TABLET PO SCH (22:05)
[2018-07-08] MEDS: chlordiazePOXIDE HCL 25 MG CAPSULE PO PRN (02:25)
[2018-07-08] MEDS: ACETAMINOPHEN 325 MG TABLET (FP) PO PRN (04:00)
[2018-07-08] MEDS: chlordiazePOXIDE 5 MG CAPSULE PO SCH ×2 (09:19→10:46)
[2018-07-08] MEDS: metFORMIN HCL 500 MG TABLET (FP) PO SCH ×2 (09:19→17:17)
[2018-07-08] MEDS: ASPIRIN 81 MG CHEWABLE TABLETS PO SCH (10:46)
[2018-07-08] MEDS: PRENATAL VITAMINS W/ FOLIC ACID TABLET (FP) PO SCH (10:46)
[2018-07-08] MEDS: NICOTINE 21 MG/24 HOURS TOPICAL PATCH TD SCH (10:46)
[2018-07-08] MEDS: LABETALOL HCL 200 MG TABLET (FP) PO SCH ×2 (10:47→22:31)
--- NOTE | 2018-07-08 12:31 | PN ---
[facility] Progress Note Note: PATIENT CONTINUES WITH DETOX REGIMEN FOR ETOH WITHDRAWAL SX. PATIENT STATES HE FEELS BETTER. C/O MILD SHAKES AND ANXIETY. Laboratory Tests 07/05/18 07/05/18 07/06/18 12:11 16:32 06:00 WBC 8.6 RBC 4.06 Hgb 13.6 Hct 40.1 MCV 98.8 H MCH 33.4 MCHC 33.9 RDW 15.6 Plt Count 220 MPV 7.6 Sodium Potassium Chloride Carbon Dioxide Anion Gap BUN Creatinine Creat Clearance w eGFR POC Glucometer 212 141 Random Glucose Calcium Total Bilirubin AST ALT Alkaline Phosphatase Total Protein Albumin Triglycerides Cholesterol Total LDL Cholesterol HDL Cholesterol RPR Titer 07/06/18 07/06/18 07/06/18 06:00 06:00 06:34 WBC RBC Hgb Hct MCV MCH MCHC RDW Plt Count MPV Sodium 136 Potassium 3.7 Chloride 102 Carbon Dioxide 24 Anion Gap 10 BUN 25 H Creatinine 1.7 H Creat Clearance w eGFR 43.61 POC Glucometer 116 Random Glucose 131 H Calcium 8.7 Total Bilirubin 0.6 AST 46 H ALT 38 Alkaline Phosphatase 53 Total Protein 8.0 Albumin 3.9 Triglycerides 416 H Cholesterol 102 Total LDL Cholesterol 35 HDL Cholesterol 14 L RPR Titer Nonreactive 07/06/18 07/07/18 07/07/18 16:37 07:29 16:35 WBC RBC Hgb Hct MCV MCH MCHC RDW Plt Count MPV Sodium Potassium Chloride Carbon Dioxide Anion Gap BUN Creatinine Creat Clearance w eGFR POC Glucometer 130 140 143 Random Glucose Calcium Total Bilirubin AST ALT Alkaline Phosphatase Total Protein Albumin Triglycerides Cholesterol Total LDL Cholesterol HDL Cholesterol RPR Titer 07/08/18 09:15 WBC RBC Hgb Hct MCV MCH MCHC RDW Plt Count MPV Sodium Potassium Chloride Carbon Dioxide Anion Gap BUN Creatinine Creat Clearance w eGFR POC Glucometer 160 Random Glucose Calcium Total Bilirubin AST ALT Alkaline Phosphatase Total Protein Albumin Triglycerides Cholesterol Total LDL Cholesterol HDL Cholesterol RPR Titer PE: ALERT AND ORIENTED X 3 SKIN WARM AND DRY EXT FULL ROM, NO VISIBLE TREMORS AMB AD HOLLIE MILDLY ANXIOUS A/P: WITHDRAWAL SX CONTINUE DETOX ENCOURAGE ORAL FLUIDS FOR D/ HOME IN AM
[2018-07-08] MEDS: chlordiazePOXIDE HCL 10 MG CAPSULE PO SCH ×2 (17:18→22:31)
[2018-07-08] MEDS: ROSUVASTATIN CA 10 MG TABLET (FP) PO SCH (22:31)
[2018-07-08] MEDS: traZODone HCL 100 MG TABLET (FP) PO PRN (22:31)
[2018-07-08] MEDS: QUEtiapine FUMARATE 400 MG TABLET PO SCH (22:31)
[2018-07-08] MEDS: THIAMINE HCL 100 MG TABLET (FP) PO SCH (23:05)
[2018-07-09] MEDS: chlordiazePOXIDE HCL 10 MG CAPSULE PO SCH (06:11)
[2018-07-09] MEDS: metFORMIN HCL 500 MG TABLET (FP) PO SCH (06:11)
--- NOTE | 2018-07-09 09:46 | PN ---
[facility] Progress Note Note: PATIENT SCHEDULED FOR DISCHARGE FROM DETOX UNIT TODAY. HOWEVER, PATIENT REPORTS CHEST PAIN X LAST FEW MINUTES. PATIENT REPORTS PAIN TO HAVE SHARP QUALITY. PATIENT REPORTS HISTORY OF AORTIC DISSECTION, FOR WHICH HE HAD ONE SURGICAL PROCEDURE APPROX. 5 YEARS AGO. HOWEVER, ACCORDING TO PATIENT, HE WAS RECOMMENDED BY MEDICAL PROVIDER TO HAVE ADDITIONAL SURGICAL PROCEDURE WITHIN THE LAST YEAR, ALTHOUGH HE DID NOT FOLLOW-UP AND HAVE 2nd PROCEDURE RECOMMEND. PATIENT REPORTS THAT MEDICAL PROVIDER WAS LOCATED AT [facility] ([place], [place]), HOWEVER, PATIENT UNABLE TO RECALL MEDICAL PROVIDER'S NAME A THIS TIME. PATIENT HISTORY OF SIMILAR INCIDENTS OF CHEST PAIN OVER LAST YEAR. STAT ECG ORDERED. RESULTS: POSSIBLE LEFT ATRIAL ENLARGEMENT; LEFT VENTRICULAR HYPERTROPHY, T WAVE ABNORMALITY (CONSIDER INFERIOR ISCHEMIA), PROLONGED QT). CONTACT WITH PHARMACIST (ALONA) AT PATIENT'S PHARMACY ([facility], [place], [place]) REVEALS THAT PATIENT HAS BEEN PRESCRIBED SEVERAL DIFFERENT CARDIAC (ANTI-HYPERTENSIVE) MEDICATIONS OVER LAST COUPLE OF MONTHS BY DIFFERENT MEDICAL PROVIDERS. SOME OF THESE MEDICATIONS ARE DIFFERENT THAN THAT WHICH PATIENT REPORTED AT TIME OF ADMISSION TO DETOX. VS: BP: 109/63; P: 94; RR : 18; T: 97.0; OS: 100%. REPORT GIVEN TO DR. SHEPARD AT [facility]. PATIENT TO BE TAKEN VIA AMBULANCE TO [facility] FOR FURTHER MEDICAL EVALUATION. PENDING MEDICAL EVALUATION / TREATMENT BY MEDICAL PROVIDER AT [facility], PATIENT ADVISED TO FOLLOW-UP WITH MEDICAL PROVIDER AT [facility] SOON POSSIBLE AFTER DISCHARGE FROM [facility]. PATIENT VERBALIZED UNDERSTANDING OF RECOMMENDATION. PATIENT TO BE TAKEN VIA AMBULANCE TO [facility] FOR FURTHER MEDICAL EVALUATION. PATIENT ROLLINS NOT NEED TO RETURN TO [facility] DETOX UNIT AFTER EVALUATION AT [facility] BECAUSE HE HAS COMPLETED HIS FULL DETOX REGIMEN AT THIS TIME. Cristiano MAY NP
[2018-07-09 09:52] VITALS: BP 109/63; PULSE 94; TEMP 97
[2018-07-09] MEDS: PRENATAL VITAMINS W/ FOLIC ACID TABLET (FP) PO SCH (10:13)
[2018-07-09] MEDS: ASPIRIN 81 MG CHEWABLE TABLETS PO SCH (10:13)
--- NOTE | 2018-07-09 10:24 | DS ---
[facility] Detox Discharge Summary Admission Date: 07/05/18 Discharge Date: 07/09/18 - History Present History: Alcohol Dependence Additional Comments: PATIENT SCHEDULED FOR DISCHARGE FROM [facility] DETOX UNIT TODAY. HOWEVER, PATIENT REPORTS CHEST PAIN DURING AM ROUNDS ASSESSMENT PRIOR TO TIME OF DISCHARGE FROM DETOX UNIT. PATIENT TO BE TAKEN VIA AMBULANCE TO [facility] ER FOR FURTHER MEDICAL EVALUATION AND TO BE DISCHARGED FROM [facility] PENDING DISCHARGE RECOMMENDATIONS / INSTRUCTIONS FROM ER MEDICAL PROVIDER. SEE PRECEDING [facility] PROGRESS NOTE. Pertinent Past History: Nicotine Dependence, History of Aortic Dissection (with Repair, 2013), History of Bipolar Disorder, HTN, Hypercholesterolemia, Insomnia, Schizoaffective Disorder, Chest Pain, Type II DM. - Physical Exam Results Vital Signs: Vital Signs Temperature 97.0 F L 07/09/18 09:52 Pulse Rate 94 H 07/09/18 09:52 Respiratory Rate 18 07/09/18 09:52 Blood Pressure 109/63 07/09/18 09:52 O2 Sat by Pulse Oximetry (%) Pertinent Admission Physical Exam Findings: WITHDRAWAL SYMPTOMS. Laboratory Tests 07/05/18 07/05/18 07/06/18 12:11 16:32 06:00 WBC 8.6 RBC 4.06 Hgb 13.6 Hct 40.1 MCV 98.8 H MCH 33.4 MCHC 33.9 RDW 15.6 Plt Count 220 MPV 7.6 Sodium Potassium Chloride Carbon Dioxide Anion Gap BUN Creatinine Creat Clearance w eGFR POC Glucometer 212 141 Random Glucose Calcium Total Bilirubin AST ALT Alkaline Phosphatase Total Protein Albumin Triglycerides Cholesterol Total LDL Cholesterol HDL Cholesterol RPR Titer 07/06/18 07/06/18 07/06/18 06:00 06:00 06:34 WBC RBC Hgb Hct MCV MCH MCHC RDW Plt Count MPV Sodium 136 Potassium 3.7 Chloride 102 Carbon Dioxide 24 Anion Gap 10 BUN 25 H Creatinine 1.7 H Creat Clearance w eGFR 43.61 POC Glucometer 116 Random Glucose 131 H Calcium 8.7 Total Bilirubin 0.6 AST 46 H ALT 38 Alkaline Phosphatase 53 Total Protein 8.0 Albumin 3.9 Triglycerides 416 H Cholesterol 102 Total LDL Cholesterol 35 HDL Cholesterol 14 L RPR Titer Nonreactive 07/06/18 07/07/18 07/07/18 16:37 07:29 16:35 WBC RBC Hgb Hct MCV MCH MCHC RDW Plt Count MPV Sodium Potassium Chloride Carbon Dioxide Anion Gap BUN Creatinine Creat Clearance w eGFR POC Glucometer 130 140 143 Random Glucose Calcium Total Bilirubin AST ALT Alkaline Phosphatase Total Protein Albumin Triglycerides Cholesterol Total LDL Cholesterol HDL Cholesterol RPR Titer 07/08/18 07/08/18 07/09/18 09:15 16:33 06:36 WBC RBC Hgb Hct MCV MCH MCHC RDW Plt Count MPV Sodium Potassium Chloride Carbon Dioxide Anion Gap BUN Creatinine Creat Clearance w eGFR POC Glucometer 160 143 167 Random Glucose Calcium Total Bilirubin AST ALT Alkaline Phosphatase Total Protein Albumin Triglycerides Cholesterol Total LDL Cholesterol HDL Cholesterol RPR Titer LABS NOTED. - Treatment Hospital Course: Detox Protocol Followed, Detoxed Safely, Responded well, Discharged Condition Good Patient has Accepted a Rehab Referral to: PT TO BE TAKEN TO [facility] , SEE PRECEDING S PROGRESS NOTE - Medication Discharge Medications: Ambulatory Orders Quetiapine Fumarate [Seroquel -] 300 mg PO BID 07/05/18 Aspirin [ASA -] 81 mg PO DAILY #14 tab.chew 07/08/18 Labetalol HCl [Normodyne -] 200 mg PO BID #28 tablet 07/08/18 Rosuvastatin [Crestor -] 10 mg PO HS #14 tablet 07/08/18 metFORMIN HCL [Metformin HCl] 850 mg PO DAILY #14 tablet 07/08/18 - Diagnosis (1) DM2 (diabetes mellitus, type 2) Current Visit: Yes Status: Chronic Qualifiers: Diabetes mellitus detention insulin use: without intermediate school teacher use Diabetes mellitus complication status: with unspecified complications Qualified Code(s) : E11.8 - Type 2 diabetes mellitus with unspecified complications (2) Alcohol dependence with uncomplicated withdrawal Current Visit: Yes Status: Acute (3) Chest pain Current Visit: Yes Status: Acute Qualifiers: Chest pain type: unspecified Qualified Code(s): R07.9 - Chest pain, unspecified (4) Essential hypertension Current Visit: Yes Status: Chronic (5) Hypercholesterolemia Current Visit: Yes Status: Chronic (6) Nicotine dependence Current Visit: Yes Status: Chronic Qualifiers: Nicotine product type: cigarettes Substance use status: uncomplicated Qualified Code(s): F17.210 - Nicotine dependence, cigarettes, uncomplicated (7) bipolar disorder Current Visit: Yes Status: Chronic (8) Aortic aneurysm and dissection Current Visit: Yes Status: Chronic (9) Bipolar disorder current episode depressed Current Visit: Yes Status: Ruled-out Qualifiers: Current episode severity: mild Qualified Code(s): F31.31 - Bipolar disorder , current episode depressed, mild (10) Cannabis dependence Current Visit: Yes Status: Acute (11) Substance-induced sleep disorder Current Visit: Yes Status: Acute (12) Schizoaffective disorder Current Visit: Yes Status: Chronic Qualifiers: Schizoaffective disorder type: unspecified Qualified Code(s): F25.9 - Schizoaffective disorder, unspecified (13) Insomnia Current Visit: Yes Status: Acute Qualifiers: Insomnia type: unspecified Qualified Code(s): G47.00 - Insomnia, unspecified - AMA Did Patient Leave Against Medical Advice: No
--- NOTE | 2018-07-09 10:39 | EKG ---
Test Reason : Blood Pressure : / mmHG Vent. Rate : 093 BPM Atrial Rate : 093 BPM P-R Int : 126 ms QRS Dur : 086 ms QT Int : 370 ms P-R-T Axes : 075 -17 -41 degrees QTc Int : 460 ms NORMAL SINUS RHYTHM POSSIBLE LEFT ATRIAL ENLARGEMENT LEFT VENTRICULAR HYPERTROPHY T WAVE ABNORMALITY, CONSIDER INFERIOR ISCHEMIA PROLONGED QT ABNORMAL ECG WHEN COMPARED WITH ECG OF 05-JUL-2018 15:41, VENT. RATE HAS DECREASED BY 51 BPM Confirmed by EFRA SAMS MD ([id number]) on 07/09/2018 10:39:12 AM Referred By: KAVON MAY Confirmed By:EFRA SAMS MD
== END 2018-07-09 10:50 | disposition short-term general hospital (02) | DRG 775 ==
LOC: YASAS 10:36 → Y6N 14:14
PROVIDERS: ADMIT Surgery; ATTEND Surgery
PROC: HZ2ZZZZ Detoxification Services for Substance Abuse Treatment (ICD-10-PCS; principal; 2018-07-05)
DX: F10.230 Alcohol dependence with withdrawal, uncomplicated (principal); F12.20 Cannabis dependence, uncomplicated; F17.210 Nicotine dependence, cigarettes, uncomplicated; F31.31 Bipolar disorder, current episode depressed, mild; F25.9 Schizoaffective disorder, unspecified; F19.24 Other psychoactive substance dependence with psychoactive substance-induced mood disorder; F19.282 Other psychoactive substance dependence with psychoactive substance-induced sleep disorder; I10 Essential (primary) hypertension; E11.8 Type 2 diabetes mellitus with unspecified complications; E78.00 Pure hypercholesterolemia, unspecified; I71.01 Dissection of thoracic aorta; G47.00 Insomnia, unspecified; R07.9 Chest pain, unspecified; Z95.1 Presence of aortocoronary bypass graft
CPT/HCPCS: 36415; 80053; 80061; 82962; 83721; 85027; 86593; 90688; 93005; 93010; G0008

== ENCOUNTER 2018-07-09 11:10 | Emergency (ER) | payer OTHER ==
[2018-07-09 11:18] VITALS: TEMP 98.7; BMI 35.2
--- NOTE | 2018-07-09 11:36 | PDOC ---
History of Present Illness - General Chief Complaint: Chest Pain Stated Complaint: CHEST PAIN Time Seen by Provider: 07/09/18 11:23 - History of Present Illness Initial Comments: 07/09/18 11:30 48 year old man coming from [facility] with a history of aortic dissection (2013), CAD s/o CABG, HTN, chronic alcoholism, bipolar disorder who presents with constant chest pain that started apprx 2 hours ago, rated 10/10 stabbing contact non radiating chest pain, associated with some nausea, slight diaphoresis and slight lightheadedness. The patient got ASA en route to the ED. He denies palpitations, loss of consciousness. Patient denies recent recreational drug abuse. Patient reports last alcohol use 3-4 days ago. He has no other complaints at bedside. Past History - Past Medical History Allergies/Adverse Reactions: Allergies Allergy/AdvReac Type Severity Reaction Status Date / Time nitroglycerin Allergy Intermediate Rash Verified 07/05/18 11:53 Pork/Porcine Containing AdvReac Verified 07/05/18 11:53 Products Home Medications: Ambulatory Orders Quetiapine Fumarate [Seroquel -] 300 mg PO BID 07/05/18 Aspirin [ASA -] 81 mg PO DAILY #14 tab.chew 07/08/18 Labetalol HCl [Normodyne -] 200 mg PO BID #28 tablet 07/08/18 Rosuvastatin [Crestor -] 10 mg PO HS #14 tablet 07/08/18 metFORMIN HCL [Metformin HCl] 850 mg PO DAILY #14 tablet 07/08/18 Anemia: No Asthma: No Cancer: No Cardiac Disorders: Yes (diseccting aortic aneurysm-2013 at [facility]) CVA: No COPD: No CHF: No Dementia: No Diabetes: Yes GI Disorders: No Disorders: No HTN: Yes (on meds) Hypercholesterolemia: Yes (on med) Kidney Stones: No Liver Disease: No Seizures: No Thyroid Disease: No - Surgical History Abdominal Surgery: No Appendectomy: No Cardiac Surgery: Yes (CABG 2014 AORTIC DISSECTION IN 2013,Repair of aorta) Cholecystectomy: No Lung Surgery: No Neurologic Surgery: No Orthopedic Surgery: Yes (torn ligaments in rt ankle 1 month ago) - Reproductive History Testicular Surgery: No - Immunization History Immunization Up to Date: Yes - Suicide/Smoking/Psychosocial Hx Smoking History: Unknown if ever smoked Have you smoked in the past 12 months: Yes Number of Cigarettes Smoked Daily: 10 Cigars Per Day: 0 'Breaking Loose' booklet given: 07/05/18 Hx Alcohol Use: Yes Drug/Substance Use Hx: Yes Substance Use Type: Alcohol, Marijuana Hx Substance Use Treatment: Yes (aci in 04/08 completed) *Physical Exam - Vital Signs Last Vital Signs Temp Pulse Resp BP Pulse Ox 98.7 F 86 18 130/75 99 07/09/18 11:15 07/09/18 11:15 07/09/18 11:15 07/09/18 11:15 07/09/18 11:15 - Physical Exam Comments: 07/09/18 11:35 GENERAL: Awake, alert, and fully oriented, in no acute distress HEAD: No signs of trauma, normocephalic, atraumatic EYES: EOMI, + scleral icterus, conjunctiva clear ENT: oropharynx clear without exudates. Moist mucosa NECK: Normal ROM, supple LUNGS: No distress, speaks full sentences, clear to auscultation bilaterally HEART: Regular rate and rhythm, normal S1 and S2, no murmurs, rubs or gallops, peripheral pulses normal and equal bilaterally. ABDOMEN: Soft, nontender, normoactive bowel sounds. No guarding, no rebound. No masses EXTREMITIES : Normal inspection, Normal range of motion, no edema. No clubbing or cyanosis. slight hand tremor, equal bilateral pulses NEUROLOGICAL: Cranial nerves II through XII grossly intact. Normal speech, no focal sensorimotor deficits SKIN: Warm, Dry, normal turgor, no rashes or lesions noted Moderate Sedation - Procedure Monitoring Vital Signs: Procedure Monitoring Vital Signs Temperature 98.7 F 07/09/18 11:15 Pulse Rate 86 07/09/18 11:15 Respiratory Rate 18 07/09/18 11:15 Blood Pressure 130/75 07/09/18 11:15 O2 Sat by Pulse Oximetry (%) 99 07/09/18 11:15 ED Treatment Course - LABORATORY CBC & Chemistry Diagram: 07/09/18 11:40 07/09/18 11:42 - RADIOLOGY Radiology Studies Ordered: Category Date Time Status CHEST X-RAY PORTABLE* [RAD] Stat Radiology 07/09/18 11:24 Ordered Medical Decision Making - Medical Decision Making 07/09/18 11:36 48 year old man coming from [facility] with a history of aortic dissection (2013), CAD s/o CABG, HTN, chronic alcoholism, bipolar disorder who presents with constant chest pain that started apprx 2 hours ago, rated 10/10 stabbing contact non radiating chest pain, associated with some nausea, slight diaphoresis and slight lightheadedness. The patient got ASA en route to the ED. He denies palpitations, loss of consciousness ED Course: consider ACS vs arrythmia vs dissection vs substance abuse cbc, cmp, ekg, trop, cxr *DC/Admit/Observation/Transfer Diagnosis at time of Disposition: Aortic dissection - Discharge Dispostion Disposition: TRANSFER ACUTE CARE/OTHER HOSP Condition at time of disposition: Fair Decision to Admit order: No - Referrals - Patient Instructions - Post Discharge Activity
[2018-07-09] MEDS ORDERED: morphine CARPU-JECT 2 MG/1 ML DISP.SYRIN IVPUSH ONE (11:48)
[2018-07-09 11:51] LABS: BASO % 1.3 % (0-2.0); EOS % 2.5 % (0-4.5); HEMATOCRIT 41.1 % (35.4-49); HEMOGLOBIN 14.4 GM/dL (11.7-16.9); LYMPH % 29.9 % (8-40); MCH 34.2 pg (25.7-33.7); MEAN CELL VOLUME 97.7 fl (80-96); MONO % 9.6 % (3.8-10.2); NEUT % 56.7 % (42.8-82.8); PLATELET COUNT 242 K/MM3 (134-434); RBC 4.21 M/mm3 (4.00-5.60); RDW 14.9 % (11.9-15.9); WHITE BLOOD COUNT 6.5 K/mm3 (4.0-10.0)
[2018-07-09] MEDS ORDERED: MORPHINE SULFATE 2 MG/ML VIAL ONE (11:57)
[2018-07-09 12:20] LABS: INR 1.13 (0.83-1.09); PROTHROMBIN TIME (PATIENT) 13.3 SEC (9.7-13.0)
[2018-07-09 12:22] LABS: ACTIVATED PTT 35.4 SECONDS (25.2-36.5)
[2018-07-09 12:33] LABS: ALBUMIN 3.6 g/dl (3.4-5.0); ALK PHOS 55 U/L (45-117); ANION GAP 7 MMOL/L (8-16); BILIRUBIN,TOTAL 0.3 mg/dL (0.2-1); BLOOD UREA NITROGEN 7 mg/dL (7-18); CALCIUM 8.7 mg/dL (8.5-10.1); CHLORIDE 104 mmol/L (98-107); CO2 26 mmol/L (21-32); CREATININE 0.9 mg/dL (0.55-1.3); GLUCOSE,RANDOM 134 mg/dL (74-106); POTASSIUM 4.5 mmol/L (3.5-5.1); SGOT/AST 46 U/L (15-37); SGPT/ALT 45 U/L (13-61); SODIUM 137 mmol/L (136-145); TOT PROT 7.8 g/dl (6.4-8.2)
--- NOTE | 2018-07-09 13:51 | EKG ---
Test Reason : Blood Pressure : / mmHG Vent. Rate : 090 BPM Atrial Rate : 090 BPM P-R Int : 132 ms QRS Dur : 076 ms QT Int : 370 ms P-R-T Axes : 065 -14 -42 degrees QTc Int : 452 ms NORMAL SINUS RHYTHM POSSIBLE LEFT ATRIAL ENLARGEMENT LEFT VENTRICULAR HYPERTROPHY CANNOT RULE OUT SEPTAL INFARCT , AGE UNDETERMINED T WAVE ABNORMALITY, CONSIDER INFEROLATERAL ISCHEMIA ABNORMAL ECG WHEN COMPARED WITH ECG OF 09-JUL-2018 09:35, MINIMAL CRITERIA FOR SEPTAL INFARCT ARE NOW PRESENT Confirmed by LEATHA CANO MD ([id number]) on 07/09/2018 1:50:55 PM Referred By: Confirmed By:LEATHA CANO MD
[2018-07-09] MEDS ORDERED: morphine CARPU-JECT 4 MG/1 ML DISP.SYRIN IVPUSH ONE ×2 (13:57→15:50)
--- NOTE | 2018-07-09 14:11 | PDOC ---
Attending Attestation - HPI HPI: 07/09/18 14:40 The patient is a 48 year old male, with a significant past medical history of aortic dissection (2014), CAD (s/p CABG), HTN, chronic alcoholism, and bipolar disorder, who presents to the emergency department with, sharp, pressure-like, constant chest pain with associated nausea, diaphoresis, and lightheadedness. He notes the pain is similar to his previous dissection. While en route, patient was administered aspirin. He denies any recent dysuria, frequency, urgency or hematuria. Allergies: nitroglycerin, pork Past surgical history: None reported. Social History: Alcohol abuse (d/c from [facility] today). - Physicial Exam PE: 07/09/18 14:34 +GENERAL: Uncomfortably appearing. Awake, alert, and fully oriented. HEAD: No signs of trauma NECK: Normal ROM LUNGS: Breath sounds equal, clear to auscultation bilaterally. No wheezes, and no crackles HEART: Regular rate and rhythm, normal S1 and S2, no murmurs, rubs or gallops ABDOMEN: Soft, nontender, normoactive bowel sounds. No guarding, no rebound. No masses EXTREMITIES: Normal range of motion, no edema. No clubbing or cyanosis. No cords, erythema, or tenderness NEUROLOGICAL: Cranial nerves II through XII grossly intact. Normal speech, normal gait SKIN: Warm, Dry, normal turgor, no rashes or lesions noted. - Medical Decision Making 07/09/18 14:[address] Thomas, thoracic surgeon transportation design engineer, awaiting call back. 14:56 Second call placed to Dr. Thomas, thoracic surgeon transportation design engineer, awaiting call back. 15:[address] Thomas, resident Dr. Cuevas discussed case. Call placed to Dr. Nando Box, resident discussed case. Made aware to transfer to [facility]. <Osorio Javier - Last Filed: 07/09/18 15:27> - Resident Resident Name: Deepika Cuevas - ED Attending Attestation I have performed the following: I have examined & evaluated the patient, The case was reviewed & discussed with the resident, I agree w/resident's findings & plan, Exceptions are as noted - Medical Decision Making 07/09/18 14:08 A portion of this note was documented by scribe services under my direction. I have reviewed the details of the note, within reason, and agree with the documentation with the following case summary and management plan written by me. Patient treated in the ED. Nursing notes are reviewed and incorporated into the medical decision-making. Vital signs reviewed. Peripheral IV access obtained by the nurse, laboratory studies are drawn and sent, reviewed and interpreted by myself. Vital Signs Temp Pulse Resp BP Pulse Ox 98.7 F 86 18 130/75 98 07/09/18 11:15 07/09/18 11:15 07/09/18 11:15 07/09/18 11:15 07/09/18 12:32 48-year-old male with history of aortic dissection, coronary disease status post CABG, hypertension, chronic alcoholism, bipolar disorder sent from [address] [place] [address] for constant sharp and pressure chest pain with nausea, diaphoresis, lightheadedness. Patient was plan for discharge today from [facility]. Today, the patient complained about chest pain today. Patient was given aspirin by EMS prior to arrival. Patient is concerned as he feels like this is like his prior dissection. Patient's findings are concerning for aortic dissection. The patient will need a stat CTA of the chest and pelvis. Otherwise, we'll need to rule out CO. The patient should be admitted for further evaluation and management. 07/09/18 14:28 CTA demonstrates an aortic dissection (descending). Will consult thoracic. 07/09/18 15:[address] Mc Carlos Requests transfer to [facility]. Pt consents for transfer. <Steve Zee - Last Filed: 07/09/18 15:52> Heart Score/ECG Review #1 ECG reviewed & interpreted by me at: 11:20 07/09/18 14:11 NSR 90, LVH, TWI III, avF, submm STD III, Q wave V2, TWI V6, QTC 452 msec, left axis deviation <Steve Zee - Last Filed: 07/09/18 15:52> Attestations - Attestations 07/09/18 14:33 Documentation prepared by Osorio Javier, acting as medical coding technician for Steve Zee MD. <Osorio Javier - Last Filed: 07/09/18 15:27>
[2018-07-09] MEDS ORDERED: morphine SULFATE 4 MG/ML VIAL ONE ×2 (14:13→15:58)
[2018-07-09 17:58] VITALS: BP 102/81; PULSE 86
== END 2018-07-09 18:25 | disposition short-term general hospital (02) ==
LOC: JER 11:10
PROC: 3E033NZ Introduction of Analgesics, Hypnotics, Sedatives into Peripheral Vein, Percutaneous Approach (ICD-10-PCS; principal; 2018-07-09)
DX: I71.00 Dissection of unspecified site of aorta (principal); I25.10 Atherosclerotic heart disease of native coronary artery without angina pectoris; I10 Essential (primary) hypertension; Z95.1 Presence of aortocoronary bypass graft; E11.9 Type 2 diabetes mellitus without complications; Z79.84 Long term (current) use of oral hypoglycemic drugs; R31.9 Hematuria, unspecified; F10.20 Alcohol dependence, uncomplicated; E78.00 Pure hypercholesterolemia, unspecified; Z79.82 Long term (current) use of aspirin
CPT/HCPCS: 36415; 71045-TC-FY; 71275-TC; 74174-TC; 80053; 84484; 85025; 85610; 85730; 93005; 93010; 99285-25

== ENCOUNTER 2018-08-31 14:22 | Inpatient (IN) | payer OTHER ==
[2018-08-31 16:32] VITALS: BMI 36.1
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
[2018-08-31] MEDS ORDERED: BISMUTH SUBSALICYLATE 524 MG/30 ML UD PO PRN (18:48)
[2018-08-31] MEDS ORDERED: MENTHOL/PHENOL 1 EACH UD MM PRN (18:48)
[2018-08-31] MEDS ORDERED: chlordiazePOXIDE HCL 25 MG CAPSULE PO ONE (18:48)
[2018-08-31] MEDS ORDERED: ACETAMINOPHEN 325 MG TABLET (FP) PO PRN ×2 (18:48)
[2018-08-31] MEDS ORDERED: MELATONIN 5 MG TABLETS PO PRN (18:48)
[2018-08-31] MEDS ORDERED: MAGNESIUM CITRATE 300 ML BOTTLE PO PRN (18:48)
[2018-08-31] MEDS ORDERED: guaiFENesin 200 MG/10 ML 10 ML UNIT-DOSE CUPS PO PRN (18:48)
[2018-08-31] MEDS ORDERED: NICOTINE POLACRILEX 2 MG GUM BUC PRN (18:48)
[2018-08-31] MEDS ORDERED: IBUPROFEN 400 MG TABLET (FP) PO PRN (18:48)
[2018-08-31] MEDS ORDERED: MAGNESIUM HYDROX 2400MG/30ML ORAL SUSPENSION 30 ML CUP PO PRN (18:48)
[2018-08-31] MEDS ORDERED: LABETALOL HCL 200 MG TABLET (FP) PO SCH (22:00)
[2018-08-31] MEDS: CARVEDILOL 25 MG TABLET (FP) PO SCH (22:44)
[2018-08-31] MEDS: THIAMINE HCL 100 MG TABLET (FP) PO SCH (22:45)
[2018-08-31] MEDS: chlordiazePOXIDE HCL 25 MG CAPSULE PO SCH (22:45)
[2018-08-31] MEDS: ROSUVASTATIN CA 10 MG TABLET (FP) PO SCH (22:48)
[2018-08-31] MEDS ORDERED: QUEtiapine FUMARATE 100 MG TABLET (FP) PO ONE (22:51)
[2018-08-31 23:49] LABS: URINE APPEARANCE CLEAR; URINE BILIRUBIN NEGATIVE (NEGATIVE); URINE COLOR DK YELLOW; URINE GLUCOSE (UA) NEGATIVE (NEGATIVE); URINE KETONE TRACE (NEGATIVE); URINE LEUK ESTERASE NEGATIVE (NEGATIVE); URINE NITRITE NEGATIVE (NEGATIVE); URINE PROTEIN NEGATIVE (NEGATIVE)
[2018-09-01] MEDS: chlordiazePOXIDE HCL 25 MG CAPSULE PO SCH ×4 (05:47→22:17)
[2018-09-01] MEDS: LOSARTAN POTASSIUM 50 MG TABLET (FP) PO SCH (10:05)
[2018-09-01] MEDS: PRENATAL VITAMINS W/ FOLIC ACID TABLET (FP) PO SCH (10:05)
[2018-09-01] MEDS: CARVEDILOL 25 MG TABLET (FP) PO SCH ×2 (10:05→22:15)
[2018-09-01] MEDS: ASPIRIN 81 MG CHEWABLE TABLETS PO SCH (10:05)
[2018-09-01] MEDS: NICOTINE 14 MG/24 HOURS TOPICAL PATCH TD SCH (10:07)
[2018-09-01 10:58] LABS: ALBUMIN 3.4 g/dl (3.4-5.0); ALK PHOS 52 U/L (45-117); ANION GAP 7 MMOL/L (8-16); BILIRUBIN,TOTAL 0.6 mg/dL (0.2-1); BLOOD UREA NITROGEN 12 mg/dL (7-18); CALCIUM 8.1 mg/dL (8.5-10.1); CHLORIDE 106 mmol/L (98-107); CO2 27 mmol/L (21-32); CREATININE 0.9 mg/dL (0.55-1.3); GLUCOSE,RANDOM 88 mg/dL (74-106); POTASSIUM 3.7 mmol/L (3.5-5.1); SGOT/AST 80 U/L (15-37); SGPT/ALT 70 U/L (13-61); SODIUM 139 mmol/L (136-145); TOT PROT 7.4 g/dl (6.4-8.2)
[2018-09-01 11:03] LABS: HEMATOCRIT 37.9 % (35.4-49); HEMOGLOBIN 12.6 GM/dL (11.7-16.9); MCH 32.2 pg (25.7-33.7); MCHC 33.3 g/dl (32.0-35.9); MEAN CELL VOLUME 96.8 fl (80-96); MEAN PLT VOLUME 7.4 fl (7.5-11.1); PLATELET COUNT 178 K/MM3 (134-434); RBC 3.91 M/mm3 (4.00-5.60); RDW 16.1 % (11.9-15.9); WHITE BLOOD COUNT 4.8 K/mm3 (4.0-10.0)
--- NOTE | 2018-09-01 11:11 | PN ---
S CIWA - CIWA Score Nausea/Vomitin Muscle Tremors: 2 Anxiety: 3 Agitation: 2 Paroxysmal Sweats: 2 Orientation: 0-Oriented Tacttile Disturbances: 1-Very Mild Itch/Numbness Auditory Disturbances: 0-None Visual Disturbances: 0-None Headache: 3-Moderate CIWA-Ar Total Score: 15 BHS Progress Note (SOAP) Subjective: Tremors, sweats,nausea, headache and anxiety Objective: 09/01/18 11:10 Last Vital Signs Temp Pulse Resp BP Pulse Ox 97.9 F 97 H 20 145/89 09/01/18 10:16 09/01/18 10:16 09/01/18 10:16 09/01/18 10:16 Laboratory Last Values Sodium 139 mmol/L (136-145) 09/01/18 07:30 Potassium 3.7 mmol/L (3.5-5.1) 09/01/18 07:30 Chloride 106 mmol/L (98-107) 09/01/18 07:30 Carbon Dioxide 27 mmol/L (21-32) 09/01/18 07:30 Anion Gap 7 MMOL/L (8-16) L 09/01/18 07:30 BUN 12 mg/dL (7-18) 09/01/18 07:30 Creatinine 0.9 mg/dL (0.55-1.3) 09/01/18 07:30 Creat Clearance w eGFR 90.84 (>60) 09/01/18 07:30 POC Glucometer 115 UNITS (80-120) 09/01/18 05:43 Random Glucose 88 mg/dL (74-106) 09/01/18 07:30 Calcium 8.1 mg/dL (8.5-10.1) L 09/01/18 07:30 Total Bilirubin 0.6 mg/dL (0.2-1) 09/01/18 07:30 AST 80 U/L (15-37) H 09/01/18 07:30 ALT 70 U/L (13-61) H 09/01/18 07:30 Alkaline Phosphatase 52 U/L (45-117) 09/01/18 07:30 Total Protein 7.4 g/dl (6.4-8.2) 09/01/18 07:30 Albumin 3.4 g/dl (3.4-5.0) 09/01/18 07:30 Urine Color Dk yellow 08/31/18 18:37 Urine Appearance Clear 08/31/18 18:37 Urine pH 5.0 (5.0-8.0) 08/31/18 18:37 Ur Specific [place] 1.023 (1.010-1.035) 08/31/18 18:37 Urine Protein Negative (NEGATIVE) 08/31/18 18:37 Urine Glucose (UA) Negative (NEGATIVE) 08/31/18 18:37 Urine Ketones Trace (NEGATIVE) H 08/31/18 18:37 Urine Blood Negative (NEGATIVE) 08/31/18 18:37 Urine Nitrite Negative (NEGATIVE) 08/31/18 18:37 Urine Bilirubin Negative (NEGATIVE) 08/31/18 18:37 Urine Urobilinogen 2.0 mg/dL (0.2-1.0) 08/31/18 18:37 Ur Leukocyte Esterase Negative (NEGATIVE) 08/31/18 18:37 Labs noted Assessment: 09/01/18 11:11 Withdrawal sx Plan: Continue detox
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
[2018-09-01] MEDS: ROSUVASTATIN CA 10 MG TABLET (FP) PO SCH (22:14)
[2018-09-01] MEDS: QUEtiapine FUMARATE 200 MG TABLET PO SCH (22:14)
[2018-09-01] MEDS: traZODone HCL 50 MG TABLET (FP) PO SCH (22:15)
[2018-09-01] MEDS: METHOCARBAMOL 500 MG TABLET PO PRN (22:16)
[2018-09-01] MEDS: THIAMINE HCL 100 MG TABLET (FP) PO SCH (22:54)
[2018-09-02] MEDS: chlordiazePOXIDE HCL 25 MG CAPSULE PO PRN ×2 (03:18→19:08)
[2018-09-02] MEDS: chlordiazePOXIDE HCL 25 MG CAPSULE PO SCH ×3 (06:05→17:33)
[2018-09-02] MEDS: PRENATAL VITAMINS W/ FOLIC ACID TABLET (FP) PO SCH (10:19)
[2018-09-02] MEDS: ASPIRIN 81 MG CHEWABLE TABLETS PO SCH (10:19)
[2018-09-02] MEDS: LOSARTAN POTASSIUM 50 MG TABLET (FP) PO SCH (10:19)
[2018-09-02] MEDS: QUEtiapine FUMARATE 100 MG TABLET (FP) PO SCH (10:19)
[2018-09-02] MEDS: CARVEDILOL 25 MG TABLET (FP) PO SCH ×2 (10:19→23:07)
[2018-09-02] MEDS: NICOTINE 14 MG/24 HOURS TOPICAL PATCH TD SCH (10:20)
--- NOTE | 2018-09-02 10:56 | PN ---
S CIWA - CIWA Score Nausea/Vomitin-Mild Nausea/No Vomiting Muscle Tremors: None Anxiety: 2 Agitation: 0-Normal Activity Paroxysmal Sweats: 2 Orientation: 0-Oriented Tacttile Disturbances: 0-None Auditory Disturbances: 0-None Visual Disturbances: 0-None Headache: 0-None Present CIWA-Ar Total Score: 5 BHS Progress Note (SOAP) Subjective: PATIENT C/O NAUSEA, CHILLS (AT NIGHT) AND MILD ANXIETY. Objective: 09/02/18 10:54 Laboratory Tests 08/31/18 09/01/18 09/01/18 18:37 05:43 07:30 WBC 4.8 RBC 3.91 L Hgb 12.6 Hct 37.9 MCV 96.8 H MCH 32.2 MCHC 33.3 RDW 16.1 H Plt Count 178 D MPV 7.4 L Sodium Potassium Chloride Carbon Dioxide Anion Gap BUN Creatinine Creat Clearance w eGFR POC Glucometer 115 Random Glucose Calcium Total Bilirubin AST ALT Alkaline Phosphatase Total Protein Albumin Urine Color Dk yellow Urine Appearance Clear Urine pH 5.0 Ur Specific [place] 1.023 Urine Protein Negative Urine Glucose (UA) Negative Urine Ketones Trace H Urine Blood Negative Urine Nitrite Negative Urine Bilirubin Negative Urine Urobilinogen 2.0 Ur Leukocyte Esterase Negative RPR Titer 09/01/18 09/01/18 09/01/18 07:30 07:30 16:41 WBC RBC Hgb Hct MCV MCH MCHC RDW Plt Count MPV Sodium 139 Potassium 3.7 Chloride 106 Carbon Dioxide 27 Anion Gap 7 L BUN 12 Creatinine 0.9 Creat Clearance w eGFR 90.84 POC Glucometer 110 Random Glucose 88 Calcium 8.1 L Total Bilirubin 0.6 AST 80 H ALT 70 H Alkaline Phosphatase 52 Total Protein 7.4 Albumin 3.4 Urine Color Urine Appearance Urine pH Ur Specific [place] Urine Protein Urine Glucose (UA) Urine Ketones Urine Blood Urine Nitrite Urine Bilirubin Urine Urobilinogen Ur Leukocyte Esterase RPR Titer Nonreactive 09/02/18 07:07 WBC RBC Hgb Hct MCV MCH MCHC RDW Plt Count MPV Sodium Potassium Chloride Carbon Dioxide Anion Gap BUN Creatinine Creat Clearance w eGFR POC Glucometer 140 Random Glucose Calcium Total Bilirubin AST ALT Alkaline Phosphatase Total Protein Albumin Urine Color Urine Appearance Urine pH Ur Specific [place] Urine Protein Urine Glucose (UA) Urine Ketones Urine Blood Urine Nitrite Urine Bilirubin Urine Urobilinogen Ur Leukocyte Esterase RPR Titer PE: ALERT AND ORIENTED X 3 SKIN WARM AND DRY GI NT, ND EXT NO VISIBLE TREMORS AMB AD HOLLIE MILDLY ANXIOUS Assessment: 09/02/18 10:56 WITHDRAWAL SX Plan: CONTINUE DETOX ENCOURAGE FLUIDS MONITOR CLINICALLY
[2018-09-02] MEDS: MAG HYDROX/AL HYDROX/SIMETH 30 ML UNIT-DOSE CUP PO PRN (19:08)
[2018-09-02] MEDS: METHOCARBAMOL 500 MG TABLET PO PRN (19:08)
[2018-09-02] MEDS ORDERED: ASPIRIN 81 MG CHEWABLE TABLETS PO ONE (19:43)
--- NOTE | 2018-09-02 19:46 | PN ---
S Progress Note Note: complaint of chest pain,subternal,no radiation denied sob no diaphoretic bp 149/89,p96,r20,t97.2 no jvd heart normal heart sound lung no crepitation,no wheezing abdomen soft no distension,no pain no calf tenderness ekg nsr ,invertet t in 2,3,avf,lvh impression chest pain r/o mi history of surgery for aortic dissection essential hypertension type 2 dm alcohol dependence cocaine dependence treatment o2 by nasal canula 2 lit/min asa 162 mgs po to er at [facility] ,endorsed to Dr Toscano,transported by [facility]
[2018-09-02] MEDS ORDERED: chlordiazePOXIDE HCL 10 MG CAPSULE PO PRN (23:00)
[2018-09-02] MEDS: ROSUVASTATIN CA 10 MG TABLET (FP) PO SCH (23:07)
[2018-09-02] MEDS: QUEtiapine FUMARATE 200 MG TABLET PO SCH (23:08)
[2018-09-02] MEDS: traZODone HCL 50 MG TABLET (FP) PO SCH (23:08)
[2018-09-02] MEDS: THIAMINE HCL 100 MG TABLET (FP) PO SCH (23:08)
[2018-09-02] MEDS: chlordiazePOXIDE HCL 10 MG CAPSULE PO SCH (23:08)
[2018-09-03] MEDS: chlordiazePOXIDE HCL 10 MG CAPSULE PO SCH ×3 (05:02→17:36)
[2018-09-03] MEDS ORDERED: PROCHLORPERAZINE MALEATE 5 MG TABLET PO PRN (10:22)
[2018-09-03] MEDS: PRENATAL VITAMINS W/ FOLIC ACID TABLET (FP) PO SCH (10:28)
[2018-09-03] MEDS: QUEtiapine FUMARATE 100 MG TABLET (FP) PO SCH (10:28)
[2018-09-03] MEDS: CARVEDILOL 25 MG TABLET (FP) PO SCH ×2 (10:28→21:44)
[2018-09-03] MEDS: LOSARTAN POTASSIUM 50 MG TABLET (FP) PO SCH (10:28)
[2018-09-03] MEDS: ASPIRIN 81 MG CHEWABLE TABLETS PO SCH (10:33)
--- NOTE | 2018-09-03 10:40 | EKG ---
Test Reason : Blood Pressure : / mmHG Vent. Rate : 110 BPM Atrial Rate : 110 BPM P-R Int : 140 ms QRS Dur : 084 ms QT Int : 340 ms P-R-T Axes : 067 -20 -56 degrees QTc Int : 460 ms SINUS TACHYCARDIA POSSIBLE LEFT ATRIAL ENLARGEMENT LEFT VENTRICULAR HYPERTROPHY T WAVE ABNORMALITY, CONSIDER INFERIOR ISCHEMIA ABNORMAL ECG WHEN COMPARED WITH ECG OF 09-JUL-2018 11:20, MINIMAL CRITERIA FOR SEPTAL INFARCT ARE NO LONGER PRESENT Confirmed by MERLE DHILLON MD ([id number]) on 09/03/2018 10:40:03 AM Referred By: ROME GARCIA Confirmed By:MERLE DHILLON MD
[2018-09-03] MEDS: NICOTINE 14 MG/24 HOURS TOPICAL PATCH TD SCH (10:44)
[2018-09-03] MEDS: CALCIUM (OYSTER SHELL) 500 MG TABLET (FP) PO SCH ×2 (11:18→21:44)
--- NOTE | 2018-09-03 14:08 | PN ---
[facility] Progress Note (SOAP) Subjective: Nausea, Sweating, Tremors. Objective: PATIENT A & O X 3, OBSERVED AMBULATING ON UNIT. IN NO ACUTE DISTRESS. PATIENT DENIES CHEST PAIN AT THIS TIME. 09/03/18 14:01 Vital Signs Temperature 98.6 F 09/03/18 13:56 Pulse Rate 95 H 09/03/18 13:56 Respiratory Rate 18 09/03/18 13:56 Blood Pressure 153/88 09/03/18 13:56 O2 Sat by Pulse Oximetry (%) Laboratory Tests 08/31/18 09/01/18 09/01/18 18:37 05:43 07:30 WBC 4.8 RBC 3.91 L Hgb 12.6 Hct 37.9 MCV 96.8 H MCH 32.2 MCHC 33.3 RDW 16.1 H Plt Count 178 D MPV 7.4 L Sodium Potassium Chloride Carbon Dioxide Anion Gap BUN Creatinine Creat Clearance w eGFR POC Glucometer 115 Random Glucose Calcium Total Bilirubin AST ALT Alkaline Phosphatase Total Protein Albumin Urine Color Dk yellow Urine Appearance Clear Urine pH 5.0 Ur Specific [place] 1.023 Urine Protein Negative Urine Glucose (UA) Negative Urine Ketones Trace H Urine Blood Negative Urine Nitrite Negative Urine Bilirubin Negative Urine Urobilinogen 2.0 Ur Leukocyte Esterase Negative RPR Titer 09/01/18 09/01/18 09/01/18 07:30 07:30 16:41 WBC RBC Hgb Hct MCV MCH MCHC RDW Plt Count MPV Sodium 139 Potassium 3.7 Chloride 106 Carbon Dioxide 27 Anion Gap 7 L BUN 12 Creatinine 0.9 Creat Clearance w eGFR 90.84 POC Glucometer 110 Random Glucose 88 Calcium 8.1 L Total Bilirubin 0.6 AST 80 H ALT 70 H Alkaline Phosphatase 52 Total Protein 7.4 Albumin 3.4 Urine Color Urine Appearance Urine pH Ur Specific [place] Urine Protein Urine Glucose (UA) Urine Ketones Urine Blood Urine Nitrite Urine Bilirubin Urine Urobilinogen Ur Leukocyte Esterase RPR Titer Nonreactive 09/02/18 09/02/18 07:07 16:23 WBC RBC Hgb Hct MCV MCH MCHC RDW Plt Count MPV Sodium Potassium Chloride Carbon Dioxide Anion Gap BUN Creatinine Creat Clearance w eGFR POC Glucometer 140 148 Random Glucose Calcium Total Bilirubin AST ALT Alkaline Phosphatase Total Protein Albumin Urine Color Urine Appearance Urine pH Ur Specific [place]dwell Urine Protein Urine Glucose (UA) Urine Ketones Urine Blood Urine Nitrite Urine Bilirubin Urine Urobilinogen Ur Leukocyte Esterase RPR Titer LABS NOTED. Assessment: 09/03/18 14:02 WITHDRAWAL SYMPTOMS. HYPOCALCEMIA. 09/03/18 14:09 Plan: CONTINUE DETOX. PRN COMPAZINE PO FOR NAUSEA. OSCAL, 500 MG PO BID FOR HYPOCALCEMIA. PATIENT RETURNED FROM [facility]LIER THIS AM. PATIENT DENIES CHEST PAIN AT THIS TIME. PATIENT HAS KNOWN HISTORY OF CARDIOVASCULAR DISEASE ( INCLUDING HISTORY OF DVT AND OF AORTIC DISSECTION), FOR WHICH HE HAS NOT SOUGHT MEDICAL EVALUATION FOR QUITE SOME TIME. PATIENT ADVISED TO FOLLOW-UP WITH BUSINESS ANALYSIS PROFESSIONAL ([place], [place]) FOR GENERAL MEDICAL ASSESSMENT AND FOR FURTHER MEDICAL EVALUATION FOR HISTORY OF CHEST PAIN AND OF CARDIOVASCULAR DISORDER SOON POSSIBLE AFTER DISCHARGE FROM DETOX UNIT. PATIENT NOTES THAT HE WISHES TO GO IMMEDIATELY TO REHAB AFTER DISCHARGE FROM DETOX. HOWEVER, PATIENT ADVISED BY CUSHION ASSEMBLER TO HAVE MEDICAL / CARDIAC EVALUATION SOON POSSIBLE AND PRIOR TO GOING TO REHAB. PATIENT VERBALIZED UNDERSTANDING OF ALL RECOMMENDATIONS.
[2018-09-03] MEDS: MAG HYDROX/AL HYDROX/SIMETH 30 ML UNIT-DOSE CUP PO PRN (17:11)
[2018-09-03] MEDS: METHOCARBAMOL 500 MG TABLET PO PRN (17:36)
[2018-09-03 21:17] VITALS: BP 148/81; PULSE 94; TEMP 98.3
--- NOTE | 2018-09-03 21:23 | PN ---
[facility] Progress Note Note: c/o of left side, non-radiating chest pain, non-reproducible, patient reports the pain woke him up pout of his sleep, rates pain as constant 10/10, with occasional SOB. Patient with hx of surgery for aortic dissection, HTN, DM II, alcohol dependence and cocaine dependence. Patient AOx3, no distress EENT WNL s1, s2, no JVD lungs clear through out, no adventitious breath sounds skin intact , no edema or erythema +pulses present full ROM ambulating in the unit Chest PAIN EKG : NSR : ST and T wave abnormality , 90 BPM, QT/QTC 366/477 O2 PRN 2L NC ASA 162 mg STAT Evaluate patient in the ED, transported via [facility] endorsed to Dr. Nehemiah Bello.
[2018-09-03] MEDS: ROSUVASTATIN CA 10 MG TABLET (FP) PO SCH (21:44)
[2018-09-03] MEDS ORDERED: ASPIRIN 81 MG CHEWABLE TABLETS PO SCH (21:45)
[2018-09-03] MEDS: QUEtiapine FUMARATE 200 MG TABLET PO SCH (21:46)
[2018-09-03] MEDS: traZODone HCL 50 MG TABLET (FP) PO SCH (21:48)
[2018-09-03] MEDS: THIAMINE HCL 100 MG TABLET (FP) PO SCH (22:03)
[2018-09-03] MEDS ORDERED: chlordiazePOXIDE HCL 10 MG CAPSULE PO SCH (23:00)
--- NOTE | 2018-09-04 10:54 | EKG ---
Test Reason : Blood Pressure : / mmHG Vent. Rate : 094 BPM Atrial Rate : 094 BPM P-R Int : 140 ms QRS Dur : 072 ms QT Int : 356 ms P-R-T Axes : 062 -13 -38 degrees QTc Int : 445 ms NORMAL SINUS RHYTHM MODERATE VOLTAGE CRITERIA FOR LVH, MAY BE NORMAL VARIANT T WAVE ABNORMALITY, CONSIDER INFERIOR ISCHEMIA ABNORMAL ECG WHEN COMPARED WITH ECG OF 31-AUG-2018 18:03, NO SIGNIFICANT CHANGE WAS FOUND Confirmed by MD Arnulfo, Robbi ([id number]) on 09/04/2018 10:53:57 AM Referred By: Confirmed By:Robbi Arredondo MD
--- NOTE | 2018-09-04 10:55 | EKG ---
Test Reason : Blood Pressure : / mmHG Vent. Rate : 090 BPM Atrial Rate : 090 BPM P-R Int : 144 ms QRS Dur : 074 ms QT Int : 366 ms P-R-T Axes : 064 -23 -36 degrees QTc Int : 447 ms NORMAL SINUS RHYTHM VOLTAGE CRITERIA FOR LEFT VENTRICULAR HYPERTROPHY ABNORMAL ECG WHEN COMPARED WITH ECG OF 02-SEP-2018 21:51, T WAVE INVERSION NOW EVIDENT IN ANTERIOR LEADS Confirmed by MD Arnulfo, Robbi ([id number]) on 09/04/2018 10:54:47 AM Referred By: Radhika BLACKMON Confirmed By:Robbi Arredondo MD
== END 2018-09-04 07:03 | disposition short-term general hospital (02) | DRG 775 ==
LOC: YASAS 14:22 → Y6N 18:37
PROVIDERS: ADMIT Surgery; ATTEND Surgery
PROC: HZ2ZZZZ Detoxification Services for Substance Abuse Treatment (ICD-10-PCS; principal; 2018-08-31)
DX: F10.230 Alcohol dependence with withdrawal, uncomplicated (principal); F12.20 Cannabis dependence, uncomplicated; F17.210 Nicotine dependence, cigarettes, uncomplicated; F19.24 Other psychoactive substance dependence with psychoactive substance-induced mood disorder; F25.9 Schizoaffective disorder, unspecified; R07.9 Chest pain, unspecified; R06.02 Shortness of breath; R00.0 Tachycardia, unspecified; I10 Essential (primary) hypertension; E11.9 Type 2 diabetes mellitus without complications; E83.51 Hypocalcemia; E78.5 Hyperlipidemia, unspecified; G47.00 Insomnia, unspecified; Z91.19 Patient's noncompliance with other medical treatment and regimen; Z86.79 Personal history of other diseases of the circulatory system; Z95.1 Presence of aortocoronary bypass graft; Z86.718 Personal history of other venous thrombosis and embolism
CPT/HCPCS: 36415; 80053; 81003; 82962; 85027; 86593; 93005; 93010

== ENCOUNTER → 2018-09-02 | Emergency (ER) | payer OTHER ==
[~2018-09-02] MED LIST: LABETALOL HCL 100 MG TABLET (FP) ONE; LABETALOL HCL 100 MG TABLET (FP) PO ONE; MORPHINE SULFATE 2 MG/ML VIAL ONE; QUEtiapine FUMARATE 100 MG TABLET (FP) ONE; QUEtiapine FUMARATE 300 MG TABLET PO ONE; SODIUM CHLORIDE 0.9% 500 ML INFUS.BAG IV ONE; morphine CARPU-JECT 2 MG/1 ML DISP.SYRIN IVPUSH ONE; morphine SULFATE 4 MG/ML VIAL ONE
--- NOTE | 2018-09-02 20:55 | PDOC ---
Attending Attestation - HPI HPI: 09/02/18 23:08 The patient is a 48 year old male with a past medical history of HTN, diabetes, and an ascending aortic aneurysm (resolved 2013) brought in by EMS today from [facility] for evaluation of chest pain. The patient reports that he was at [facility] for alcohol withdrawal and that he has been having 2 hours of chest pain that is non radiating, started at rest, non exertional, and slightly better when sitting up. He also reports nausea and diaphoresis. Patient was given aspirin at [facility] which he reports provided no relief. Patient denies headache, lightheadedness. Denies fever, chills. Denies shortness of breath. Denies vomiting, diarrhea, abdominal pain. Allergies: nitroglycerine, pork/porcine containing products PCP: Tani Clinton - Physicial Exam PE: 09/02/18 23:14 ADULT EXAM GENERAL: Awake, alert, and fully oriented, in no acute distress HEAD: No signs of trauma EYES: PERRLA, EOMI, sclera anicteric, conjunctiva clear ENT: Auricles normal inspection, hearing grossly normal, nares patent, oropharynx clear without exudates. Moist mucosa NECK: Normal ROM, supple, no lymphadenopathy, JVD, or masses LUNGS: Breath sounds equal, clear to auscultation bilaterally. No wheezes, and no crackles HEART: Regular rate and rhythm, normal S1 and S2, no murmurs, rubs or gallops ABDOMEN: Soft, nontender, normoactive bowel sounds. No guarding, no rebound. No masses EXTREMITIES: Normal range of motion, no edema. No clubbing or cyanosis. No cords , erythema, or tenderness NEUROLOGICAL: Cranial nerves II through XII grossly intact. Normal speech, normal gait SKIN: Warm, Dry, normal turgor, no rashes or lesions noted. <Sherrell Fuller - Last Filed: 09/02/18 23:14> - Resident Resident Name: Michaela Brandon - ED Attending Attestation I have performed the following: I have examined & evaluated the patient, The case was reviewed & discussed with the resident, I agree w/resident's findings & plan - HPI HPI: 09/02/18 22:05 Pt comes with CP that began 2 hrs prior to arrival at [facility]. He has extensive hx of Aortic aneurysm. - Medical Decision Making 09/02/18 20:54 Pt came with complaint of CP from [facility]. He is admitted there for alcohol detox. 09/02/18 22:07 CBC and chem normal. card enz are pending 09/02/18 22:24 Pt feeling better with morphine. 09/02/18 22:53 CXR is normal. PA/LAT no widened mediatrinum or uncoled aorta 09/03/18 02:49 Pt's CK iscoming down with hydration. trop is normal x 2 . He will return to [facility] via ambulance. <Dara Toscano - Last Filed: 09/03/18 02:49>
[2018-09-02 20:59] VITALS: BMI 35.2
--- NOTE | 2018-09-02 21:16 | PDOC ---
History of Present Illness <Dara Toscano - Last Filed: 09/03/18 02:50> - General History Source: Patient Exam Limitations: No Limitations - History of Present Illness Initial Comments: 09/02/18 21:10 48 y/o male with PMH of DB, HTN, previous aortic anyerusm, pysch history presents from [facility] where he is being treated for alcohol detox with ongoing chest pain. The patient states he has had the pain for about an hour or so. He describes it as a sharp, non-radiating pain that started when he was laying down. There is no change with exertion however he states that sitting up slightly makes the pain feel a little bit better. The pain has been continuous in nature. He describes the pain as a 9 out of 10. He also is having some associated diaphoresis and nausea. He had an episode of chest pain like this a few years back. He had a pharmacologic stress test a few years back which to his knowledge was normal. he has not seen a patient services coordinator is many years. His last drink was around 4 days ago. He denies any recent travel or any sick contacts or recent illnesses. His CIWA score is a 4. 09/02/18 21:16 Timing/Duration: constant Severity: severe Associated Symptoms: reports: chest pain, diaphoresis, nausea/vomiting <Nancy Brandon - Last Filed: 09/03/18 02:56> - General Chief Complaint: Chest Pain Stated Complaint: CHEST PAIN Time Seen by Provider: 09/02/18 20:53 Past History <Dara Toscano - Last Filed: 09/03/18 02:50> - Travel Traveled outside of the country in the last 30 days: No Close contact w/someone who was outside of country & ill: No - Past Medical History Anemia: No Asthma: No Cancer: No Cardiac Disorders: Yes (diseccting aortic aneurysm-2014 at [place]) CVA: No COPD: No CHF: No Dementia: No Diabetes: Yes GI Disorders: No Disorders: No HTN: Yes (on meds) Hypercholesterolemia: Yes (on med) Kidney Stones: No Liver Disease: No Seizures: No Thyroid Disease: No - Surgical History Abdominal Surgery: No Appendectomy: No Cardiac Surgery: Yes (CABG 2014 AORTIC DISSECTION IN 2014,Repair of aorta) Cholecystectomy: No Lung Surgery: No Neurologic Surgery: No Orthopedic Surgery: Yes (torn ligaments in rt ankle 1 month ago) - Family Disease History Family Disease History: Diabetes: Father, Heart Disease: Father, Mother - Reproductive History Testicular Surgery: No - Immunization History Immunization Up to Date: Yes - Suicide/Smoking/Psychosocial Hx Smoking History: Smoker current status UNK Have you smoked in the past 12 months: Yes Number of Cigarettes Smoked Daily: 10 Cigars Per Day: 0 Information on smoking cessation initiated: No 'Breaking Loose' booklet given: 08/31/18 Hx Alcohol Use: Yes (Daily 2 pints) Drug/Substance Use Hx: No Substance Use Type: Alcohol, Marijuana Hx Substance Use Treatment: Yes (detoxes, rehabs) <Nancy Brandon - Last Filed: 09/03/18 02:56> - Past Medical History Allergies/Adverse Reactions: Allergies Allergy/AdvReac Type Severity Reaction Status Date / Time nitroglycerin Allergy Intermediate Rash Verified 09/02/18 20:58 Pork/Porcine Containing AdvReac Verified 09/02/18 20:58 Products Home Medications: Ambulatory Orders Quetiapine Fumarate [Seroquel -] 300 mg PO BID 07/05/18 Aspirin [ASA -] 81 mg PO DAILY #14 tab.chew 07/08/18 Labetalol HCl [Normodyne -] 200 mg PO BID #28 tablet 07/08/18 Rosuvastatin [Crestor -] 10 mg PO HS #14 tablet 07/08/18 metFORMIN HCL [Metformin HCl] 850 mg PO DAILY #14 tablet 07/08/18 Carvedilol 25 mg PO BID 07/09/18 Losartan Potassium 50 mg PO DAILY 07/09/18 Review of Systems - Review of Systems Able to Perform ROS?: Yes Is the patient limited Danish proficient: No Constitutional: Yes: Diaphoresis HEENTM: No: Blurred Vision Respiratory: No: Cough, Shortness of Breath Cardiac (ROS): Yes: Chest Pain ABD/GI: Yes: Nausea : No: Burning, Dysuria Neurological: Yes: Headache. No: Numbness, Tingling Psychiatric: Yes: Anxiety <Nancy Brandon - Last Filed: 09/03/18 02:56> *Physical Exam - Vital Signs Last Vital Signs Temp Pulse Resp BP Pulse Ox 98.1 F 92 H 18 149/89 99 09/02/18 20:50 09/02/18 20:50 09/02/18 20:50 09/02/18 20:50 09/02/18 20:50 <Dara Toscano - Last Filed: 09/03/18 02:50> - Vital Signs Last Vital Signs Temp Pulse Resp BP Pulse Ox 98.1 F 92 H 18 149/89 99 09/02/18 20:50 09/02/18 20:50 09/02/18 20:50 09/02/18 20:50 09/02/18 20:50 - Physical Exam General Appearance: Yes: Mild Distress Neck: positive: Normal Thyroid Respiratory/Chest: positive: Lungs Clear, Normal Breath Sounds. negative: Chest Tender Cardiovascular: positive: Regular Rhythm, Regular Rate. negative: Edema Gastrointestinal/Abdominal: positive: Soft, Protuberent Musculoskeletal: negative: CVA Tenderness Extremity: positive: Other (mild b/l arm tremors) Neurologic: positive: Fully Oriented, Alert <Nancy Brandon - Last Filed: 09/03/18 02:56> ED Treatment Course - LABORATORY CBC & Chemistry Diagram: 09/02/18 21:20 09/02/18 21:20 - ADDITIONAL ORDERS Additional order review: Laboratory Results 09/03/18 09/02/18 09/02/18 01:42 21:20 21:20 Sodium 138 Potassium 4.0 Chloride 106 Carbon Dioxide 27 Anion Gap 5 L BUN 9 Creatinine 1.0 Creat Clearance w eGFR 80.44 Random Glucose 120 H Calcium 8.8 Total Bilirubin 0.6 AST 56 H ALT 60 Alkaline Phosphatase 58 Creatine Kinase 1081 H 1161 H Creatine Kinase Index 0.2 CK-MB (CK-2) 3.1 Troponin I < 0.02 < 0.02 Total Protein 8.0 Albumin 3.7 09/02/18 21:20 RBC 4.16 MCV 97.4 H MCHC 33.6 RDW 15.5 MPV 7.2 L Neutrophils % 46.8 Lymphocytes % 35.4 Monocytes % 14.5 H Eosinophils % 2.3 Basophils % 1.0 - RADIOLOGY Radiology Studies Ordered: Category Date Time Status CHEST PA & LAT [RAD] Stat Radiology 09/02/18 20:58 Taken - Medications Given in the ED: ED Medications Discontinued Medications Generic Name Dose Route Start Last Admin Trade Name Freq PRN Reason Stop Dose Admin Labetalol HCl 100 mg 09/02/18 21:40 09/02/18 22:40 Normodyne - PO 09/02/18 21:41 100 mg ONCE ONE Administration Morphine Sulfate 2 mg 09/02/18 21:40 09/02/18 21:46 Morphine Injection - IVPUSH 09/02/18 21:41 2 mg ONCE ONE Administration Morphine Sulfate 2 mg 09/03/18 01:48 09/03/18 01:59 Morphine Injection - IVPUSH 09/03/18 01:49 2 mg ONCE ONE Administration Quetiapine Fumarate 300 mg 09/03/18 02:21 09/03/18 02:33 Seroquel - PO 09/03/18 02:22 300 mg ONCE ONE Administration Sodium Chloride 1,000 ml 09/02/18 23:01 09/02/18 23:08 Normal Saline - IV 09/02/18 23:02 1,000 ml ONCE ONE Administration <Dara Toscano - Last Filed: 09/03/18 02:50> - LABORATORY CBC & Chemistry Diagram: 09/02/18 21:20 09/02/18 21:20 <Nancy Brandon - Last Filed: 09/03/18 02:56> Medical Decision Making - Medical Decision Making 09/02/18 21:19 cbc/cmp/trop ekg morphine with relief first trop negative elevated CK- normal saline given will repeat a second trop and CK @ 2am 09/02/18 21:46 09/02/18 22:53 09/03/18 00:05 <Nancy Brandon - Last Filed: 09/03/18 02:56> *DC/Admit/Observation/Transfer <Dara Toscano - Last Filed: 09/03/18 02:50> - Attestations Physician Attestion: 09/03/18 02:55 nancy brandon <Nancy Brandon - Last Filed: 09/03/18 02:56> Diagnosis at time of Disposition: Chest pain, Alcohol dependence with uncomplicated withdrawal - Discharge Dispostion Disposition: HOME Condition at time of disposition: Fair - Referrals Referrals: Tani Clinton MD [Primary Care Provider] - - Patient Instructions Additional Instructions: BACK TO [facility] please follow up with your primary care physician within one week if you have worsening chest pains, trouble breathing please return to the emergency room immediately
[2018-09-02 21:35] LABS: EOS % 2.3 % (0-4.5); HEMATOCRIT 40.5 % (35.4-49); HEMOGLOBIN 13.6 GM/dL (11.7-16.9); LYMPH % 35.4 % (8-40); MCH 32.7 pg (25.7-33.7); MCHC 33.6 g/dl (32.0-35.9); MEAN CELL VOLUME 97.4 fl (80-96); MEAN PLT VOLUME 7.2 fl (7.5-11.1); MONO % 14.5 % (3.8-10.2); NEUT % 46.8 % (42.8-82.8); PLATELET COUNT 187 K/MM3 (134-434); RBC 4.16 M/mm3 (4.00-5.60); RDW 15.5 % (11.9-15.9); WHITE BLOOD COUNT 5.3 K/mm3 (4.0-10.0)
[2018-09-02 22:00] LABS: ALBUMIN 3.7 g/dl (3.4-5.0); ALK PHOS 58 U/L (45-117); ANION GAP 5 MMOL/L (8-16); BILIRUBIN,TOTAL 0.6 mg/dL (0.2-1); BLOOD UREA NITROGEN 9 mg/dL (7-18); CALCIUM 8.8 mg/dL (8.5-10.1); CHLORIDE 106 mmol/L (98-107); CO2 27 mmol/L (21-32); GLUCOSE,RANDOM 120 mg/dL (74-106); SGOT/AST 56 U/L (15-37); SGPT/ALT 60 U/L (13-61); SODIUM 138 mmol/L (136-145)
[2018-09-03 03:21] VITALS: BP 136/103; PULSE 83; TEMP 98.2
--- NOTE | 2018-09-03 10:28 | EKG ---
Test Reason : Blood Pressure : / mmHG Vent. Rate : 088 BPM Atrial Rate : 088 BPM P-R Int : 146 ms QRS Dur : 080 ms QT Int : 364 ms P-R-T Axes : 056 -20 -40 degrees QTc Int : 440 ms NORMAL SINUS RHYTHM VOLTAGE CRITERIA FOR LEFT VENTRICULAR HYPERTROPHY T WAVE ABNORMALITY, CONSIDER INFERIOR ISCHEMIA ABNORMAL ECG WHEN COMPARED WITH ECG OF 31-AUG-2018 18:03, no significant change Confirmed by TANVIR CADENA MD ([id number]) on 09/03/2018 10:27:49 AM Referred By: Confirmed By:TANVIR CADENA MD
== END | disposition home or self-care (01) ==
LOC: JER 20:50
PROC: 3E033NZ Introduction of Analgesics, Hypnotics, Sedatives into Peripheral Vein, Percutaneous Approach (ICD-10-PCS; principal; 2018-09-02)
DX: R07.9 Chest pain, unspecified (principal); F10.230 Alcohol dependence with withdrawal, uncomplicated; I25.10 Atherosclerotic heart disease of native coronary artery without angina pectoris; I10 Essential (primary) hypertension; Z95.1 Presence of aortocoronary bypass graft; E78.00 Pure hypercholesterolemia, unspecified; E11.9 Type 2 diabetes mellitus without complications
CPT/HCPCS: 36415; 71046-TC-FY; 80053; 82550; 82553; 82962; 84484; 85025; 93005; 93010; 96374; 96376; 99281-25

== ENCOUNTER 2018-09-03 22:33 | Emergency (ER) | payer OTHER ==
[2018-09-03 22:38] VITALS: BMI 35.2
--- NOTE | 2018-09-04 00:06 | PDOC ---
History of Present Illness - General Chief Complaint: Chest Pain Stated Complaint: CHEST PAIN Time Seen by Provider: 09/03/18 23:37 History Source: Patient Exam Limitations: No Limitations - History of Present Illness Initial Comments: 09/04/18 00:09 48y M hx of AO dissection, dm, htn, hl, etoh abuse presents from [facility] for evaluation of chest pain. Pt notes that he has interrmittent sharp left chest pain that is non radiating for the past few years (Started approx 3 months after his initial dissection repair). The last for several hours before resolving spontaneously. PT endorses mild diaphoresis/nausea when he has these episodes. Denies any known cardiac disease. There are no known exacerbating or alleviating factors and the symptoms are not worse with food intake, exertion, breathing. Denies any vomtiing, associated numbness/tingling/weakness, neck pain, back pain, abd pain. notes that approx 6 months ago, he was offered a cath in [place] but he declined. +1/2 pack a day smoker denies cocaine/crack/meth use endorses marijuana use Past History - Past Medical History Allergies/Adverse Reactions: Allergies Allergy/AdvReac Type Severity Reaction Status Date / Time nitroglycerin Allergy Intermediate Rash Verified 09/03/18 22:39 Pork/Porcine Containing AdvReac Verified 09/03/18 22:39 Products Home Medications: Ambulatory Orders Quetiapine Fumarate [Seroquel -] 300 mg PO BID 07/05/18 Aspirin [ASA -] 81 mg PO DAILY #14 tab.chew 07/08/18 Labetalol HCl [Normodyne -] 200 mg PO BID #28 tablet 07/08/18 Rosuvastatin [Crestor -] 10 mg PO HS #14 tablet 07/08/18 metFORMIN HCL [Metformin HCl] 850 mg PO DAILY #14 tablet 07/08/18 Carvedilol 25 mg PO BID 07/09/18 Losartan Potassium 50 mg PO DAILY 07/09/18 Anemia: No Asthma: No Cancer: No Cardiac Disorders: Yes (diseccting aortic aneurysm-2014 at [place]) CVA: No COPD: No CHF: No Dementia: No Diabetes: Yes GI Disorders: No Disorders: No HTN: Yes (on meds) Hypercholesterolemia: Yes (on med) Kidney Stones: No Liver Disease: No Seizures: No Thyroid Disease: No - Surgical History Abdominal Surgery: No Appendectomy: No Cardiac Surgery: Yes (CABG 2014 AORTIC DISSECTION IN 2014,Repair of aorta) Cholecystectomy: No Lung Surgery: No Neurologic Surgery: No Orthopedic Surgery: Yes (torn ligaments in rt ankle 1 month ago) - Family Disease History Family Disease History: Diabetes: Father, Heart Disease: Father, Mother - Reproductive History Testicular Surgery: No - Immunization History Immunization Up to Date: Yes - Suicide/Smoking/Psychosocial Hx Smoking History: Current every day smoker Have you smoked in the past 12 months: No Number of Cigarettes Smoked Daily: 10 Cigars Per Day: 0 Information on smoking cessation initiated: Yes 'Breaking Loose' booklet given: 08/31/18 Hx Alcohol Use: Yes Drug/Substance Use Hx: No Substance Use Type: Alcohol, Marijuana Hx Substance Use Treatment: Yes (detoxes, rehabs) Cardiac Specific PMH - Complaint Specific PMHX Pacemaker: No Review of Systems - Review of Systems Able to Perform ROS?: Yes Comments:: 09/04/18 00:12 Constitutional - +diaphoresis no reported Fever, Chills, HEENT: no reported vision changes, sore throat Respiratory: no reported cough, sob, hemoptysis Cardiac: + chest pain,no reported palpitations, light headedness, leg swelling Abd/GI: + nausea, no reported abd pain, vomiting, blood per rectum, melena, diarrhea : no reported dysuria, frequency, discharge Musculskelatal - no reported back pain, joint swelling skin - no reported bruising, erythema, rash neurological: no reported headache, numbness, focal weakness, tingling, ataxia, hematologic: no reported easy bruising, easy bleeding *Physical Exam - Vital Signs Last Vital Signs Temp Pulse Resp BP Pulse Ox 98.2 F 85 18 158/102 H 99 09/04/18 06:40 09/04/18 06:40 09/04/18 06:40 09/04/18 06:40 09/04/18 06:40 - Physical Exam Comments: 09/04/18 00:13 GENERAL: The patient is awake, alert, and fully oriented, Nontoxic - in no acute distress. HEAD: Normocephalic, atraumatic. EYES: extraocular movements intact, sclera anicteric, conjunctiva clear. ENT: Normal voice, Moist mucous membranes. NECK: Normal range of motion, supple LUNGS/CHEST: Breath sounds equal, clear to auscultation bilaterally. No wheezes , no rhonchi, no rales. CABG scar in mid chest, no focal ttp on chest HEART: Regular rate and rhythm, normal S1 and S2 without murmur, rub or gallop. ABDOMEN: Soft, nontender, normoactive bowel sounds. No guarding, no rebound. No CVA tenderness EXTREMITIES: Normal range of motion, no edema. neg hoamns, neg calf tenderness , pulses symmetric in the upper extremities NEUROLOGICAL: No facial assymetry, Normal speech, PSYCH: Normal mood, normal affect. SKIN: Warm, Dry, normal turgor, No rashes ED Treatment Course - LABORATORY CBC & Chemistry Diagram: 09/04/18 00:35 09/04/18 00:35 - ADDITIONAL ORDERS Additional order review: Laboratory Results 09/04/18 09/04/18 09/04/18 05:38 00:35 00:35 PT with INR 12.00 INR 1.02 D-Dimer Sodium 136 Potassium 4.5 Chloride 107 Carbon Dioxide 25 Anion Gap 4 L BUN 8 Creatinine 0.8 Creat Clearance w eGFR 104.07 Random Glucose 116 H Calcium 8.6 Total Bilirubin 0.5 AST 79 H ALT 77 H Alkaline Phosphatase 52 Creatine Kinase 922 H Creatine Kinase Index CK-MB (CK-2) Troponin I < 0.02 Total Protein 8.2 Albumin 3.7 Lipase 399 H 09/04/18 09/04/18 00:35 00:35 PT with INR INR D-Dimer 797 H Sodium Potassium Chloride Carbon Dioxide Anion Gap BUN Creatinine Creat Clearance w eGFR Random Glucose Calcium Total Bilirubin AST ALT Alkaline Phosphatase Creatine Kinase 1040 H Creatine Kinase Index 0.3 CK-MB (CK-2) 3.9 H Troponin I < 0.02 Total Protein Albumin Lipase 09/04/18 00:35 RBC 3.98 L MCV 96.6 H MCHC 34.4 RDW 15.8 MPV 6.9 L Neutrophils % 48.5 Lymphocytes % 34.0 Monocytes % 13.9 H Eosinophils % 2.3 Basophils % 1.3 - RADIOLOGY Radiology Studies Ordered: Category Date Time Status CHEST CTA [CT] Stat CT Scan 09/04/18 02:09 Taken - Medications Given in the ED: ED Medications Discontinued Medications Generic Name Dose Route Start Last Admin Trade Name Freq PRN Reason Stop Dose Admin Sodium Chloride 1,000 mls @ 1,000 mls/hr 09/04/18 02:09 09/04/18 03:26 Normal Saline - IV 09/04/18 03:08 1,000 mls/hr .Q1H ONE Administration Labetalol HCl 200 mg 09/04/18 03:50 09/04/18 04:23 Normodyne - PO 09/04/18 03:51 200 mg ONCE ONE Administration Morphine Sulfate 4 mg 09/04/18 00:14 09/04/18 01:15 Morphine Injection - IVPUSH 09/04/18 00:15 4 mg ONCE ONE Administration Morphine Sulfate 2 mg 09/04/18 03:49 09/04/18 04:22 Morphine Injection - IVPUSH 09/04/18 03:50 2 mg ONCE ONE Administration Oxycodone/Acetaminophen 1 combo 09/04/18 03:38 09/04/18 04:33 Percocet 5/325 - PO 09/04/18 03:39 1 combo ONCE ONE Administration Quetiapine Fumarate 200 mg 09/04/18 02:25 09/04/18 03:27 Seroquel - PO 09/04/18 02:26 200 mg ONCE ONE Administration Medical Decision Making - Medical Decision Making 09/04/18 00:14 ddx - consider acs - pt had trop x 2 last night will repeat trop, cxr, ekg consider dissection - will obtain ddimer will give analgesia will reassess 09/04/18 02:10 The patient's labs were reviewed the patient's CK is elevated, Troponin negative D-dimer elevated 700s, we'll obtain a CTA of the chest further evaluate for pulmonary embolism or dissection 09/04/18 03:[address] negatieve for PE per prelim read- visualized portion of the dissection appears unchanged from previous However as the patient still has persistent pain we'll admit the patient for further management of his chest pain and rule out ACS 09/04/18 04:27 Pts repeat bp 131/86 on R, 144/93 on L pain improved on morphine will consult Thoracic Surgery 09/04/18 05:[address] Thomas - does not cover aortic - recommends us calling Dr. Nazario ([phone]) 09/04/18 06:[address] Carlos ([phone]) - states he recalls the pt - had worked pt up including stress that were negative and it was thought his cp was due to sternal wires, recommended ahving the pt fu with him for reevaluation but he never came back. After discussing with the pt he recalls the discussion that someone suggested it may be the wires causing him pain. 09/04/18 06:[address] Garcia - will accept the pt for further evaluation of his chest pain at [facility] *DC/Admit/Observation/Transfer Diagnosis at time of Disposition: Chest pain Qualifiers: Chest pain type: chest pain on breathing Qualified Code(s): R07.1 - Chest pain on breathing; R07.81 - Pleurodynia Aortic dissection Qualifiers: Aortic location: thoracic aorta Qualified Code(s): I71.01 - Dissection of thoracic aorta - Discharge Dispostion Disposition: TRANSFER ACUTE CARE/OTHER HOSP Condition at time of disposition: Stable Decision to Admit order: No - Referrals - Patient Instructions - Post Discharge Activity - Transfer to Acute Care Facility Receiving Facility: Other hosp. not listed Accepting Physician:: Dr. Nazario
[2018-09-04] MEDS ORDERED: morphine CARPU-JECT 4 MG/1 ML DISP.SYRIN IVPUSH ONE ×2 (00:14→08:09)
[2018-09-04 01:09] LABS: BASO % 1.3 % (0-2.0); EOS % 2.3 % (0-4.5); HEMATOCRIT 38.4 % (35.4-49); HEMOGLOBIN 13.2 GM/dL (11.7-16.9); MCH 33.3 pg (25.7-33.7); MCHC 34.4 g/dl (32.0-35.9); MEAN CELL VOLUME 96.6 fl (80-96); MEAN PLT VOLUME 6.9 fl (7.5-11.1); MONO % 13.9 % (3.8-10.2); NEUT % 48.5 % (42.8-82.8); PLATELET COUNT 197 K/MM3 (134-434); RBC 3.98 M/mm3 (4.00-5.60); RDW 15.8 % (11.9-15.9); WHITE BLOOD COUNT 5.2 K/mm3 (4.0-10.0)
[2018-09-04 01:22] LABS: INR 1.02 (0.83-1.09)
[2018-09-04 01:50] LABS: ALBUMIN 3.7 g/dl (3.4-5.0); ALK PHOS 52 U/L (45-117); ANION GAP 4 MMOL/L (8-16); BILIRUBIN,TOTAL 0.5 mg/dL (0.2-1); BLOOD UREA NITROGEN 8 mg/dL (7-18); CALCIUM 8.6 mg/dL (8.5-10.1); CHLORIDE 107 mmol/L (98-107); CO2 25 mmol/L (21-32); CREATININE 0.8 mg/dL (0.55-1.3); GLUCOSE,RANDOM 116 mg/dL (74-106); LIPASE 399 U/L (73-393); POTASSIUM 4.5 mmol/L (3.5-5.1); SGOT/AST 79 U/L (15-37); SGPT/ALT 77 U/L (13-61); SODIUM 136 mmol/L (136-145); TOT PROT 8.2 g/dl (6.4-8.2)
[2018-09-04] MEDS ORDERED: SODIUM CHLORIDE 1,000 ML IV ONE (02:09)
[2018-09-04] MEDS ORDERED: QUEtiapine FUMARATE 200 MG TABLET PO ONE ×2 (02:25→11:04)
[2018-09-04] MEDS ORDERED: morphine CARPU-JECT 2 MG/1 ML DISP.SYRIN IVPUSH ONE (03:49)
[2018-09-04] MEDS ORDERED: LABETALOL HCL 200 MG TABLET (FP) PO ONE (03:50)
[2018-09-04] MEDS ORDERED: morphine SULFATE 4 MG/ML VIAL ONE (08:17)
[2018-09-04 10:57] VITALS: PULSE 82; TEMP 98
[2018-09-04] MEDS ORDERED: LABETALOL HCL 5 MG/1 ML (100MG/20 ML VIAL) IVPUSH ONE (11:04)
[2018-09-04] MEDS ORDERED: QUEtiapine FUMARATE 100 MG TABLET (FP) ONE ×2 (11:18→11:21)
[2018-09-04] MEDS ORDERED: LABETALOL HCL 5 MG/1 ML (200MG/40ML VIAL) IVPB ONE (11:18)
[2018-09-04 12:32] VITALS: BP 176/113
--- NOTE | 2018-09-05 12:27 | EKG ---
Test Reason : Blood Pressure : / mmHG Vent. Rate : 094 BPM Atrial Rate : 094 BPM P-R Int : 148 ms QRS Dur : 074 ms QT Int : 372 ms P-R-T Axes : 070 -05 -48 degrees QTc Int : 465 ms SINUS RHYTHM WITH OCCASIONAL PREMATURE VENTRICULAR COMPLEXES POSSIBLE LEFT ATRIAL ENLARGEMENT LEFT VENTRICULAR HYPERTROPHY T WAVE ABNORMALITY, CONSIDER INFERIOR ISCHEMIA ABNORMAL ECG WHEN COMPARED WITH ECG OF 03-SEP-2018 20:31, PREMATURE VENTRICULAR COMPLEXES ARE NOW PRESENT ST ELEVATION NOW PRESENT IN LATERAL LEADS T WAVE INVERSION NO LONGER EVIDENT IN ANTEROLATERAL LEADS Confirmed by PATRICIA CORRALES MD ([id number]) on 09/05/2018 12:27:25 PM Referred By: Confirmed By:PATRICIA CORRALES MD
== END 2018-09-04 12:25 | disposition short-term general hospital (02) ==
LOC: JER 22:33
PROC: 3E033NZ Introduction of Analgesics, Hypnotics, Sedatives into Peripheral Vein, Percutaneous Approach (ICD-10-PCS; principal; 2018-09-03)
PROC: 3E033NZ Introduction of Analgesics, Hypnotics, Sedatives into Peripheral Vein, Percutaneous Approach (ICD-10-PCS; 2018-09-03)
PROC: 3E033NZ Introduction of Analgesics, Hypnotics, Sedatives into Peripheral Vein, Percutaneous Approach (ICD-10-PCS; 2018-09-03)
PROC: 3E033GC Introduction of Other Therapeutic Substance into Peripheral Vein, Percutaneous Approach (ICD-10-PCS; 2018-09-03)
PROC: 3E0337Z Introduction of Electrolytic and Water Balance Substance into Peripheral Vein, Percutaneous Approach (ICD-10-PCS; 2018-09-03)
DX: R07.9 Chest pain, unspecified (principal); R07.1 Chest pain on breathing; I10 Essential (primary) hypertension; E11.9 Type 2 diabetes mellitus without complications; Z79.84 Long term (current) use of oral hypoglycemic drugs; E78.5 Hyperlipidemia, unspecified; I71.01 Dissection of thoracic aorta; F10.10 Alcohol abuse, uncomplicated
CPT/HCPCS: 36415; 71275-TC; 80053; 82550; 82553; 83690; 84484; 85025; 85379; 85610; 93005; 93010; 96361; 96374; 96375; 96376; 99285-25; J7030

== ENCOUNTER 2019-03-19 14:56 | Inpatient (IN) | payer OTHER ==
[2019-03-19 16:10] VITALS: BMI 38.3
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
[2019-03-19] MEDS ORDERED: METHOCARBAMOL 500 MG TABLET PO PRN (18:04)
[2019-03-19] MEDS ORDERED: MAG HYDROX/AL HYDROX/SIMETH 30 ML UNIT-DOSE CUP PO PRN (18:04)
[2019-03-19] MEDS ORDERED: MELATONIN 5 MG TABLETS PO PRN (18:04)
[2019-03-19] MEDS ORDERED: MAGNESIUM CITRATE 300 ML BOTTLE PO PRN (18:04)
[2019-03-19] MEDS ORDERED: BISMUTH SUBSALICYLATE 524 MG/30 ML UD PO PRN (18:04)
[2019-03-19] MEDS ORDERED: chlordiazePOXIDE HCL 25 MG CAPSULE PO PRN (18:04)
[2019-03-19] MEDS ORDERED: IBUPROFEN 400 MG TABLET (FP) PO PRN (18:04)
[2019-03-19] MEDS ORDERED: MENTHOL/PHENOL 1 EACH UD MM PRN (18:04)
[2019-03-19] MEDS ORDERED: hydrOXYzine PAMOATE 25 MG CAPSULE (FP) PO PRN (18:04)
[2019-03-19] MEDS ORDERED: MAGNESIUM HYDROX 2400MG/30ML ORAL SUSPENSION 30 ML CUP PO PRN (18:04)
[2019-03-19] MEDS ORDERED: ACETAMINOPHEN 325 MG TABLET (FP) PO PRN ×2 (18:04)
--- NOTE | 2019-03-19 18:08 | PN ---
Teaching Attending Note Name of Resident: Deepika Leal ATTENDING PHYSICIAN STATEMENT I saw and evaluated the patient. I reviewed the resident's note and discussed the case with the resident. I agree with the resident's findings and plan as documented. SUBJECTIVE: pt here requesting detox from etoh use , reports 2 pints vodka and 2 x 40-oz beer daily , latest use this morning , denies seizure . cannabis- weekly 2 blunts tobacco : 1/2 ppd PMHx aortic dissection, HTN, DM2, bipolar d/o, schizophrenia. reports compliance w/ meds . PSH: open heart surgery 2013 Social hx: lives with mother , unemployed , SSI , denies legal issues. OBJECTIVE:WNWD , TRACE PEDAL EDEMA Vital Signs - 24 hr 03/19/19 03/19/19 15:58 17:09 Temperature 98.1 F 98.1 F Pulse Rate 118 H 118 H Respiratory 18 18 Rate Blood Pressure 157/97 157/97 ASSESSMENT AND PLAN: ALCOHOL USE DISORDER - LIBRIUM DETOX smoking cessation counseling
[2019-03-19] MEDS: chlordiazePOXIDE HCL 25 MG CAPSULE PO SCH (22:46)
[2019-03-19] MEDS: THIAMINE HCL 100 MG TABLET (FP) PO SCH (22:47)
[2019-03-20] MEDS: chlordiazePOXIDE HCL 25 MG CAPSULE PO SCH ×4 (05:48→22:24)
[2019-03-20] MEDS: metFORMIN HCL 500 MG TABLET (FP) PO SCH ×2 (06:09→18:25)
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
[2019-03-20] MEDS ORDERED: GEMFIBROZIL 600 MG TABLET (FP) PO SCH (10:00)
[2019-03-20 10:08] LABS: HEMOGLOBIN 13.2 GM/dL (11.7-16.9); MCH 34.2 pg (25.7-33.7); MCHC 33.8 g/dl (32.0-35.9); MEAN CELL VOLUME 101.2 fl (80-96); MEAN PLT VOLUME 7.2 fl (7.5-11.1); PLATELET COUNT 315 K/MM3 (134-434); RBC 3.85 M/mm3 (4.00-5.60); RDW 15.2 % (11.9-15.9); WHITE BLOOD COUNT 5.3 K/mm3 (4.0-10.0)
[2019-03-20 10:23] LABS: ALBUMIN 3.4 g/dl (3.4-5.0); BILIRUBIN,TOTAL 0.3 mg/dL (0.2-1); BLOOD UREA NITROGEN 10.7 mg/dL (7-18); CALCIUM 8.5 mg/dL (8.5-10.1); POTASSIUM 3.9 mmol/L (3.5-5.1); TOT PROT 7.2 g/dl (6.4-8.2)
[2019-03-20] MEDS: PRENATAL VITAMINS W/ FOLIC ACID TABLET (FP) PO SCH (10:26)
[2019-03-20] MEDS: NICOTINE 14 MG/24 HOURS TOPICAL PATCH TD SCH (10:26)
[2019-03-20] MEDS: ATORVASTATIN CA 40 MG TABLET (FP) PO SCH ×2 (10:27→22:25)
[2019-03-20] MEDS: LOSARTAN POTASSIUM 50 MG TABLET (FP) PO SCH ×2 (10:27→22:24)
[2019-03-20] MEDS: ASPIRIN 81 MG CHEWABLE TABLETS PO SCH (10:27)
[2019-03-20] MEDS: QUEtiapine FUMARATE 100 MG TABLET (FP) PO SCH ×2 (10:28→22:25)
--- NOTE | 2019-03-20 11:51 | PN ---
S CIWA - CIWA Score Nausea/Vomitin-No Nausea/No Vomiting Muscle Tremors: 3 Anxiety: 2 Agitation: 2 Paroxysmal Sweats: 2 Orientation: 0-Oriented Tacttile Disturbances: 0-None Auditory Disturbances: 0-None Visual Disturbances: 0-None Headache: 0-None Present CIWA-Ar Total Score: 9 B[facility] Progress Note (SOAP) Subjective: sweats shakes interrupted sleep body aches nausea Objective: 03/20/19 11:54 Vital Signs Temperature 97.7 F 03/20/19 09:33 Pulse Rate 101 H 03/20/19 09:33 Respiratory Rate 18 03/20/19 09:33 Blood Pressure 155/84 03/20/19 09:33 O2 Sat by Pulse Oximetry (%) Laboratory Tests 03/20/19 03/20/19 03/20/19 05:54 08:00 08:00 WBC 5.3 RBC 3.85 L Hgb 13.2 Hct 39.0 MCV 101.2 H MCH 34.2 H MCHC 33.8 RDW 15.2 Plt Count 315 D MPV 7.2 L Sodium 139 Potassium 3.9 Chloride 106 Carbon Dioxide 25 Anion Gap 7 L BUN 10.7 Creatinine 1.0 Est GFR (CKD-EPI)AfAm 104.15 Est GFR (CKD-EPI)NonAf 89.86 POC Glucometer 118 Random Glucose 120 H Calcium 8.5 Total Bilirubin 0.3 AST 53 H ALT 46 Alkaline Phosphatase 49 Total Protein 7.2 Albumin 3.4 RPR Titer 03/20/19 08:00 WBC RBC Hgb Hct MCV MCH MCHC RDW Plt Count MPV Sodium Potassium Chloride Carbon Dioxide Anion Gap BUN Creatinine Est GFR (CKD-EPI)AfAm Est GFR (CKD-EPI)NonAf POC Glucometer Random Glucose Calcium Total Bilirubin AST ALT Alkaline Phosphatase Total Protein Albumin RPR Titer Nonreactive lab noted aaox3 ambulating no acute distress Assessment: 03/20/19 11:54 withdrawals Plan: continue detox increase fluids
[2019-03-20] MEDS ORDERED: PNEUMOC 13-VAL CONJ-DIP CRM/PF 0.5 ML DISP.SYRIN IM ONE (12:00)
[2019-03-20] MEDS ORDERED: PNEUMOCOCCAL 23 VACCINE 0.5 ML VIAL IM ONE (12:00)
[2019-03-20] MEDS ORDERED: FLU VACCINE QUAD 60 MCG/0.5 ML (MDV 19-20) IM ONE (12:00)
[2019-03-20] MEDS ORDERED: traZODone HCL 50 MG TABLET (FP) PO SCH (22:00)
[2019-03-20] MEDS: THIAMINE HCL 100 MG TABLET (FP) PO SCH (22:25)
[2019-03-21] MEDS: metFORMIN HCL 500 MG TABLET (FP) PO SCH (06:05)
[2019-03-21] MEDS: chlordiazePOXIDE HCL 25 MG CAPSULE PO SCH ×2 (06:05→10:38)
[2019-03-21 09:38] VITALS: TEMP 98.2
--- NOTE | 2019-03-21 10:34 | PN ---
S CIWA - CIWA Score Nausea/Vomitin-No Nausea/No Vomiting Muscle Tremors: 2 Anxiety: 2 Agitation: 2 Paroxysmal Sweats: 2 Orientation: 0-Oriented Tacttile Disturbances: 0-None Auditory Disturbances: 0-None Visual Disturbances: 0-None Headache: 0-None Present CIWA-Ar Total Score: 8 BHS Progress Note (SOAP) Subjective: headache sweats irritable agitation Objective: 03/21/19 10:33 Vital Signs Temperature 98.2 F 03/21/19 09:37 Pulse Rate 110 H 03/21/19 09:37 Respiratory Rate 03/21/19 09:37 Blood Pressure 149/99 03/21/19 09:37 O2 Sat by Pulse Oximetry (%) Laboratory Tests 03/20/19 03/20/19 03/20/19 05:54 08:00 08:00 WBC 5.3 RBC 3.85 L Hgb 13.2 Hct 39.0 MCV 101.2 H MCH 34.2 H MCHC 33.8 RDW 15.2 Plt Count 315 D MPV 7.2 L Sodium 139 Potassium 3.9 Chloride 106 Carbon Dioxide 25 Anion Gap 7 L BUN 10.7 Creatinine 1.0 Est GFR (CKD-EPI)AfAm 104.15 Est GFR (CKD-EPI)NonAf 89.86 POC Glucometer 118 Random Glucose 120 H Calcium 8.5 Total Bilirubin 0.3 AST 53 H ALT 46 Alkaline Phosphatase 49 Total Protein 7.2 Albumin 3.4 RPR Titer 03/20/19 03/20/19 03/21/19 08:00 16:46 06:06 WBC RBC Hgb Hct MCV MCH MCHC RDW Plt Count MPV Sodium Potassium Chloride Carbon Dioxide Anion Gap BUN Creatinine Est GFR (CKD-EPI)AfAm Est GFR (CKD-EPI)NonAf POC Glucometer 144 163 Random Glucose Calcium Total Bilirubin AST ALT Alkaline Phosphatase Total Protein Albumin RPR Titer Nonreactive labs noted aaox3 ambulating no acute distress Assessment: 03/21/19 10:34 withdrawals Plan: continue detox increase fluids
[2019-03-21] MEDS: ASPIRIN 81 MG CHEWABLE TABLETS PO SCH (10:37)
[2019-03-21] MEDS: QUEtiapine FUMARATE 100 MG TABLET (FP) PO SCH (10:37)
[2019-03-21] MEDS: PRENATAL VITAMINS W/ FOLIC ACID TABLET (FP) PO SCH (10:37)
[2019-03-21] MEDS: LOSARTAN POTASSIUM 50 MG TABLET (FP) PO SCH (10:37)
[2019-03-21] MEDS: NICOTINE 14 MG/24 HOURS TOPICAL PATCH TD SCH (10:41)
[2019-03-21 11:16] VITALS: BP 135/95; PULSE 104
--- NOTE | 2019-03-21 11:18 | PN ---
BHS Progress Note (SOAP) Subjective: I am having chest pain 01/29 PS Objective: 03/21/19 11:15 Vital Signs Temperature 98.2 F 03/21/19 09:37 Pulse Rate 110 H 03/21/19 09:37 Respiratory Rate 19 03/21/19 09:37 Blood Pressure 149/99 03/21/19 09:37 O2 Sat by Pulse Oximetry (%) assessed pt c/o of chest pain PS 01/29. It feels like an elephant on my chest. BP repeated and ordered EKG Assessment: 03/21/19 11:16 ekg shows normal sinus rhythm , possible left atrial enlargement, left ventricular hypertrophy, cannot rule out septal infarct. Plan: ED evaluation ordered report given to Dr. Patel at [place] [facility] for eval.
[2019-03-22] MEDS ORDERED: chlordiazePOXIDE HCL 10 MG CAPSULE PO PRN
[2019-03-22] MEDS ORDERED: chlordiazePOXIDE HCL 10 MG CAPSULE PO SCH (05:00)
--- NOTE | 2019-03-22 14:32 | DS ---
[facility] Detox Discharge Summary Admission Date: 03/19/19 Discharge Date: 03/21/19 - History Present History: Alcohol Dependence, Cannabis Dependence - Physical Exam Results Vital Signs: Vital Signs Temperature 98.2 F 03/21/19 11:10 Pulse Rate 104 H 03/21/19 11:10 Respiratory Rate 18 03/21/19 11:10 Blood Pressure 135/95 03/21/19 11:10 O2 Sat by Pulse Oximetry (%) 97 03/21/19 10:40 Pertinent Admission Physical Exam Findings: pt arrived in withdrawal Vital Signs Temperature 98.2 F 03/21/19 11:10 Pulse Rate 104 H 03/21/19 11:10 Respiratory Rate 18 03/21/19 11:10 Blood Pressure 135/95 03/21/19 11:10 O2 Sat by Pulse Oximetry (%) 97 03/21/19 10:40 Laboratory Tests 03/20/19 03/20/19 03/20/19 05:54 08:00 08:00 WBC 5.3 RBC 3.85 L Hgb 13.2 Hct 39.0 MCV 101.2 H MCH 34.2 H MCHC 33.8 RDW 15.2 Plt Count 315 D MPV 7.2 L Sodium 139 Potassium 3.9 Chloride 106 Carbon Dioxide 25 Anion Gap 7 L BUN 10.7 Creatinine 1.0 Est GFR (CKD-EPI)AfAm 104.15 Est GFR (CKD-EPI)NonAf 89.86 POC Glucometer 118 Random Glucose 120 H Calcium 8.5 Total Bilirubin 0.3 AST 53 H ALT 46 Alkaline Phosphatase 49 Total Protein 7.2 Albumin 3.4 RPR Titer 03/20/19 03/20/19 03/21/19 08:00 16:46 06:06 WBC RBC Hgb Hct MCV MCH MCHC RDW Plt Count MPV Sodium Potassium Chloride Carbon Dioxide Anion Gap BUN Creatinine Est GFR (CKD-EPI)AfAm Est GFR (CKD-EPI)NonAf POC Glucometer 144 163 Random Glucose Calcium Total Bilirubin AST ALT Alkaline Phosphatase Total Protein Albumin RPR Titer Nonreactive pt c/o chest pain pt sent to [place] ED for evaluation - Treatment Hospital Course: Detox Protocol Followed - Medication Discharge Medications: Ambulatory Orders Aspirin [ASA -] 81 mg PO DAILY 03/19/19 Atorvastatin Ca [Lipitor] 40 mg PO HS 03/19/19 Gemfibrozil [Lopid -] 600 mg PO BID 03/19/19 Losartan Potassium 50 mg PO BID 03/19/19 Metformin HCl [Glucophage] 500 mg PO BID 03/19/19 Quetiapine Fumarate [Seroquel -] 100 mg PO BID 03/19/19 traZODone HCL [Trazodone HCl] 50 mg PO HS PRN 03/19/19 Librium - 10 mg PO Q6H 03/21/19 Nicotine Patch [Nicoderm Patch -] 1 patch TD DAILY 03/21/19 Thiamine HCl [Vitamin B-1] 100 mg PO HS 03/21/19 - AMA Did Patient Leave Against Medical Advice: No (sent to [facility] ED.)
[2019-03-23] MEDS ORDERED: chlordiazePOXIDE HCL 10 MG CAPSULE PO SCH (05:00)
[2019-03-24] MEDS ORDERED: chlordiazePOXIDE HCL 10 MG CAPSULE PO ONE (05:00)
== END 2019-03-21 16:00 | disposition short-term general hospital (02) | DRG 775 ==
LOC: YASAS 14:56 → Y6N 18:25
PROVIDERS: ADMIT Allergy & Immunology; ATTEND Allergy & Immunology
PROC: HZ2ZZZZ Detoxification Services for Substance Abuse Treatment (ICD-10-PCS; principal; 2019-03-19)
DX: F10.230 Alcohol dependence with withdrawal, uncomplicated (principal); F12.20 Cannabis dependence, uncomplicated; F17.210 Nicotine dependence, cigarettes, uncomplicated; F19.282 Other psychoactive substance dependence with psychoactive substance-induced sleep disorder; F31.9 Bipolar disorder, unspecified; F25.9 Schizoaffective disorder, unspecified; F90.9 Attention-deficit hyperactivity disorder, unspecified type; R07.9 Chest pain, unspecified; E78.5 Hyperlipidemia, unspecified; E78.00 Pure hypercholesterolemia, unspecified; I25.10 Atherosclerotic heart disease of native coronary artery without angina pectoris; I10 Essential (primary) hypertension; Z95.1 Presence of aortocoronary bypass graft; E11.9 Type 2 diabetes mellitus without complications; Z79.84 Long term (current) use of oral hypoglycemic drugs; Z86.79 Personal history of other diseases of the circulatory system; Z79.01 Long term (current) use of anticoagulants; Z91.018 Allergy to other foods; Z88.8 Allergy status to other drugs, medicaments and biological substances; Z98.890 Other specified postprocedural states
CPT/HCPCS: 36415; 80053; 82962; 85027; 86593

== ENCOUNTER 2019-03-21 12:10 | Inpatient (IN) | payer OTHER ==
[2019-03-21 12:47] VITALS: BMI 35.2
--- NOTE | 2019-03-21 13:38 | PDOC ---
History of Present Illness - General Chief Complaint: Chest Pain Stated Complaint: CHEST PAIN Time Seen by Provider: 03/21/19 12:55 History Source: Patient Exam Limitations: No Limitations - History of Present Illness Initial Comments: 03/21/19 15:21 48 yo M with a hx of HTN, DM2, aortic dissection (initially repaired 5 years ago at [facility] per patient) and ETOH abuse (currently at [facility] for alcohol detox; admitted 03/19/2019 with last drink then) presents to the emergency department with chest pain. Per the patient, he states he had sudden onset of "piercing pain" in the center of the chest that it radiates to the left side of the chest with worsening pain with deep respirations. The patient was seen in our emergency department in the past and sent to [facility] for evaluation of his dissection. Per the patient, he endorses the following: SOB and diaphoresis. Denies the following: fever, chills, nausea, vomiting, dysuria, hematuria, diarrhea, leg pain/swelling, recent travels, and hx of DVT/PE. Allergies: nitroglycerin Social: ETOH use. Denies tobacco and substance abuse. 03/21/19 16:49 Past History - Past Medical History Allergies/Adverse Reactions: Allergies Allergy/AdvReac Type Severity Reaction Status Date / Time nitroglycerin Allergy Intermediate Rash Verified 03/27/19 19:20 Pork/Porcine Containing AdvReac Verified 03/27/19 19:20 Products Home Medications: Ambulatory Orders Aspirin [ASA -] 81 mg PO DAILY 03/19/19 Atorvastatin Ca [Lipitor] 40 mg PO HS 03/19/19 Gemfibrozil [Lopid -] 600 mg PO BID 03/19/19 Losartan Potassium 50 mg PO BID 03/19/19 Metformin HCl [Glucophage] 500 mg PO BID 03/19/19 Quetiapine Fumarate [Seroquel -] 100 mg PO BID 03/19/19 traZODone HCL [Trazodone HCl] 50 mg PO HS PRN 03/19/19 Thiamine HCl [Vitamin B-1] 100 mg PO HS 03/21/19 Amlodipine Besylate [Norvasc -] 10 mg PO DAILY tablet 03/27/19 Insulin Sliding Scale [Novolog Vial Sliding Scale -] 1 vial SQ BIDAC units 11/07 Labetalol HCl [Normodyne -] 200 mg PO TID tablet 03/27/19 Nicotine Patch [Nicoderm Patch -] 21 mg TD DAILY patch 03/27/19 Anemia: No Asthma: No Cancer: No Cardiac Disorders: No CVA: No COPD: No CHF: No Dementia: No Diabetes: Yes GI Disorders: No Disorders: No HTN: Yes Hypercholesterolemia: Yes (on med) Kidney Stones: No Liver Disease: No Seizures: No Thyroid Disease: No - Surgical History Abdominal Surgery: No Appendectomy: No Cardiac Surgery: Yes (CABG 2014 AORTIC DISSECTION IN 2013,Repair of aorta) Cholecystectomy: No Lung Surgery: No Neurologic Surgery: No Orthopedic Surgery: Yes (torn ligaments in rt ankle 1 month ago) - Reproductive History Testicular Surgery: No - Immunization History Immunization Up to Date: Yes - Psycho Social/Smoking Cessation Hx Smoking History: Current every day smoker Have you smoked in the past 12 months: Yes Number of Cigarettes Smoked Daily: 10 Cigars Per Day: 0 Information on smoking cessation initiated: Yes 'Breaking Loose' booklet given: 03/19/19 Hx Alcohol Use: Yes Drug/Substance Use Hx: No Substance Use Type: Alcohol, Marijuana Hx Substance Use Treatment: No Review of Systems - Review of Systems Able to Perform ROS?: Yes Is the patient limited [place] Citizen proficient: No Constitutional: Yes: Diaphoresis. No: Chills, Fever, Weakness HEENTM: No: Eye Pain, Ear Pain, Nose Pain, Throat Pain, Mouth Pain Respiratory: Yes: Shortness of Breath. No: Cough, Hemoptysis Cardiac (ROS): Yes: Chest Pain, Lightheadedness. No: Palpitations, Syncope, Chest Tightness ABD/GI: No: Constipated, Diarrhea, Nausea, Rectal Bleeding, Vomiting, Tarry Stools : No: Burning, Dysuria, Hematuria, Incontinence Musculoskeletal: No: Back Pain, Joint Pain, Neck Pain Integumentary: No: Bruising, Erythema, Sweating Neurological: No: Headache, Numbness, Tingling, Tremors Psychiatric: No: Change in Appetite Endocrine: No: Unexplained Weight Gain Hematologic/Lymphatic: No: Anemia *Physical Exam - Vital Signs Last Vital Signs Temp Pulse Resp BP Pulse Ox 98.7 F 111 H 18 152/93 100 03/21/19 12:11 03/21/19 12:11 03/21/19 12:11 03/21/19 12:11 03/21/19 12:11 - Physical Exam General Appearance: Yes: Nourished, Appropriately Dressed. No: Apparent Distress, Intoxicated HEENT: positive: EOMI, TANIA, Normal Voice, Symmetrical, Pharynx Normal, Hearing Grossly Normal. negative: Pale Conjunctivae, Scleral Icterus (R), Scleral Icterus (L), Muffled/Hoarse voice, Excessive drooling Neck: positive: Trachea midline, Supple. negative: Tender, Lymphadenopathy (R) , Lymphadenopathy (L) Respiratory/Chest: positive: Lungs Clear, Normal Breath Sounds. negative: Chest Tender, Respiratory Distress, Accessory Muscle Use, Crackles, Rales, Rhonchi, Stridor, Wheezing Cardiovascular: positive: Regular Rhythm, Regular Rate, S1, S2. negative: Systolic Murmur Gastrointestinal/Abdominal: positive: Normal Bowel Sounds, Flat, Soft. negative : Tender Lymphatic: negative: Adenopathy Musculoskeletal: positive: Normal Inspection. negative: CVA Tenderness, Vertebral Tenderness Extremity: positive: Normal Capillary Refill, Normal Inspection, Normal Range of Motion. negative: Tender Integumentary: positive: Normal Color, Dry, Warm. negative: Swelling, Ecchymosis Neurologic: positive: cane pusher II-XII NML intact, Fully Oriented, Alert, Normal Mood/ Affect, Normal Response, Motor Strength 5/5. negative: Facial Droop, Numbness, Sensory Deficit ED Treatment Course - LABORATORY CBC & Chemistry Diagram: 03/27/19 06:46 03/27/19 06:46 Medical Decision Making - Medical Decision Making 03/21/19 18:20 Initial vitals: Initial Vital Signs Temp Pulse Resp BP Pulse Ox 98.7 F 111 H 18 152/93 100 03/21/19 12:11 03/21/19 12:11 03/21/19 12:11 03/21/19 12:11 03/21/19 12:11 Work up: ddx: aortic dissection vs ACS vs PNA CK elevated in the 1100s. Trop negative. See discussion above. Stable previously described dissection extending from the distal portion of the aortic arch down to the right external iliac artery with enhancement of the true and false lumen. It is also extending to and involving the proximal portion of the celiac artery. Otherwise, there is normal enhancement of the celiac artery and its branches, superior mesenteric, inferior mesenteric and left common iliac artery. No para-aortic fluid collection is seen. No gross aneurysmal dilatation is identified. Case discussed with Dr. Guido Emerson, caring physician. Vascular surgeon consult is suggested. Spoke to Dr. Carlos at [facility]. States the patient is a poor follow up and has not been seen in the office in awhile. Last time the patient was transferred over, found to have a stable dissection per CT and was managed for pain and blood pressure. Recommends tight control of the blood pressure but does not think a surgical intervention is needed at this time. Per Breanna, patient can follow up at his office next week once BP controlled ([phone]) , I spoke to Dr. Thomas who states he does not intervene in dissections. However , gives recommendations of blood pressure control with follow up with Dr. Carlos. Currently patient is on esmolol drip and given labetalol 10 mg initially. Received 4 mg of morphine and another 2 mg of morphine for pain control. MAPs have been adequate. Can titrate down on esmolol drip and manage with IV pushes. Patient to be admitted. Discharge - Discharge Information Problems reviewed: Yes Clinical Impression/Diagnosis: Essential hypertension Aortic dissection Qualifiers: Aortic location: thoracic aorta Qualified Code(s): I71.01 - Dissection of thoracic aorta Condition: Improved Disposition: HOME - Follow up/Referral - Patient Discharge Instructions - Post Discharge Activity
[2019-03-21] MEDS ORDERED: ACETAMINOPHEN 1000 MG/100 ML VIAL (NON FORMULARY) IVPB ONE (13:39)
[2019-03-21] MEDS ORDERED: ACETAMINOPHEN INJECTION 100 ML IVPB ONE (13:50)
[2019-03-21 14:08] LABS: BASO % 0.6 % (0-2.0); EOS % 1.3 % (0-4.5); HEMATOCRIT 41.2 % (35.4-49); HEMOGLOBIN 13.9 GM/dL (11.7-16.9); LYMPH % 27.7 % (8-40); MCHC 33.7 g/dl (32.0-35.9); MEAN PLT VOLUME 6.9 fl (7.5-11.1); MONO % 6.4 % (3.8-10.2); PLATELET COUNT 298 K/MM3 (134-434); RBC 4.08 M/mm3 (4.00-5.60); RDW 14.3 % (11.9-15.9)
[2019-03-21 14:38] LABS: ALBUMIN 3.6 g/dl (3.4-5.0); BILIRUBIN,TOTAL 0.4 mg/dL (0.2-1); BLOOD UREA NITROGEN 8.4 mg/dL (7-18); CALCIUM 8.8 mg/dL (8.5-10.1); CREATININE 0.9 mg/dL (0.55-1.3); POTASSIUM 4.3 mmol/L (3.5-5.1)
[2019-03-21 14:55] LABS: INR 1.08 (0.83-1.09); PROTHROMBIN TIME (PATIENT) 12.7 SEC (9.7-13.0)
--- NOTE | 2019-03-21 15:30 | PDOC ---
Attending Attestation - Resident Resident Name: Guido Emerson - ED Attending Attestation I have performed the following: I have examined & evaluated the patient, The case was reviewed & discussed with the resident, I agree w/resident's findings & plan, Exceptions are as noted - HPI HPI: 03/21/19 15:26 48 M with h/o AO dissection, dm, htn, hl, etoh abuse, presenting to ED with chest pain. Pt reports diffuse chest pressure that started yesterday and worsened today. He reports feeling like an elephant is sitting on his chest. Denies SOB. Denies leg swelling. Pt is currently admitted to [facility] for ETOH detox. Does not feel like he is actively withdrawing. - Physicial Exam PE: 03/21/19 15:26 "GENERAL: Awake, alert, and fully oriented, in no acute distress. HEAD: No signs of trauma EYES: PERRLA, EOMI, sclera anicteric, conjunctiva clear ENT: Auricles normal inspection, hearing grossly normal, nares patent, oropharynx clear without exudates. Moist mucosa NECK: Nontender, no stepoffs, Normal ROM, supple, no lymphadenopathy, JVD, or masses LUNGS: Breath sounds equal, clear to auscultation bilaterally. No wheezes, and no crackles HEART: Regular rate and rhythm, normal S1 and S2, no murmurs, rubs or gallops ABDOMEN: Soft, nontender, normoactive bowel sounds. No guarding, no rebound. No masses EXTREMITIES: Normal range of motion, no edema. No clubbing or cyanosis. No cords, erythema, or tenderness NEUROLOGICAL: Cranial nerves II through XII intact. 5/5 strength and sensation in all extremities, Normal speech, normal gait, normal cerebellar function SKIN: Warm, Dry, normal turgor, no rashes or lesions noted. - Medical Decision Making 03/21/19 15:27 48 M with h/o aortic dissection presenting with chest pain. Will need to r/o dissection. - Labs, trop - CTA chest 03/21/19 16:04 CTA shows stable dissection Pt continues to endorse severe chest pain, BP becoming more elevated despite Labetalol administration Esmolol gtt initiated 03/21/19 17:[address] Carlos, pt's CT surgeon. Given stability of dissection, no surgical intervention indicated at this time. He recommends tight BP control but does not want to transfer pt at this time.
[2019-03-21] MEDS ORDERED: LABETALOL HCL 5 MG/1 ML (100MG/20 ML VIAL) IVPUSH ONE (15:31)
[2019-03-21] MEDS ORDERED: ESMOLOL 2500 MG/250 ML 2,500,000 MCG/250 ML INFUS.BAG IVPB ONE (15:43)
[2019-03-21] MEDS ORDERED: ESMOLOL 2500 MG/250 ML 2,500,000 MCG/250 ML INFUS.BAG IVPB SCH (15:45)
[2019-03-21] MEDS ORDERED: morphine CARPU-JECT 4 MG/1 ML DISP.SYRIN IVPUSH ONE (16:12)
[2019-03-21] MEDS ORDERED: morphine SULFATE 4 MG/ML VIAL ONE (16:12)
[2019-03-21] MEDS ORDERED: morphine CARPU-JECT 2 MG/1 ML DISP.SYRIN IVPUSH ONE (18:15)
--- NOTE | 2019-03-21 19:09 | HP ---
CHIEF COMPLAINT:severe midsternal chest pain CT Surgeon: Dr. Guevara History of Present Illness: Mr. Venegas is a 48 year old male with history of hypertension, type B dissection repair [address] Geuvara at [facility], diabetes mellitus, hyperlipidemia,and ETOH abuse who presents from [facility](in detox from ETOH abuse, used cannabis, admitted on 03/19) who presents with severe midsternal chest pain rating 10/10 which started yesterday and worsened today. He denied upper back pain, nausea or vomiting. He reported shortness of breath and diaphoresis and reported chest pain was worse on deep breathing. CT scan of chest with IV contrast was obtained which showed a stable type B dissection. Systolic blood pressures have been ranging between 150-170's and diastolic blood pressure in the 100's. As reported case was discussed by the ER physician with his CT surgeon- Dr. Guevara and he did not feel patient needed to be transferred to his facility and recommended good blood pressure control. He was started on IV esmolol drip and he got two dosages of IV labatelol 10 mg with improvement in blood pressures. Labs notable for a normal troponin, elevated creatinine kinase, normal hgb/hct, LFT's and creatinine. EKG revealed a normal sinus rhythm with T wave abnormality in lead II, aVF and v4-v6. Patient was admitted to telemetry for further medical and cardiac management. Recent Travel: denies PAST MEDICAL HISTORY: hypertension diabetes mellitus hyperlipidemia ETOH abuse PAST SURGICAL HISTORY: type B dissection repair 5 years ago Social History: Smoking:no Alcohol:yes, currently in DETOX Drugs: yes, cannabis Allergies nitroglycerin Allergy (Intermediate, Verified 03/19/19 15:59) Rash Pork/Porcine Containing Products Adverse Reaction (Verified 03/19/19 15:59) HOME MEDICATIONS: Home Medications Medication Instructions Recorded Aspirin [ASA -] 81 mg PO DAILY 03/19/19 Atorvastatin Ca [Lipitor] 40 mg PO HS 03/19/19 Gemfibrozil [Lopid -] 600 mg PO BID 03/19/19 Losartan Potassium 50 mg PO BID 03/19/19 Metformin HCl [Glucophage] 500 mg PO BID 03/19/19 Quetiapine Fumarate [Seroquel -] 100 mg PO BID 03/19/19 traZODone HCL [Trazodone HCl] 50 mg PO HS PRN 03/19/19 REVIEW OF SYSTEMS CONSTITUTIONAL: Absent: fever, chills, diaphoresis, generalized weakness, malaise, loss of appetite, weight change HEENT: Absent: rhinorrhea, nasal congestion, throat pain, throat swelling, difficulty swallowing, mouth swelling, ear pain, eye pain, visual changes CARDIOVASCULAR: Absent: midsternal chest pain, syncope, palpitations, irregular heart rate, lightheadedness, peripheral edema RESPIRATORY: Absent: cough, shortness of breath, dyspnea with exertion, orthopnea, wheezing, stridor, hemoptysis GASTROINTESTINAL: Absent: abdominal pain, abdominal distension, nausea, vomiting, diarrhea, constipation, melena, hematochezia GENITOURINARY: Absent: dysuria, frequency, urgency, hesitancy, hematuria, flank pain, genital pain MUSCULOSKELETAL: Absent: myalgia, arthralgia, joint swelling, back pain, neck pain SKIN: Absent: rash, itching, pallor HEMATOLOGIC/IMMUNOLOGIC: Absent: easy bleeding, easy bruising, lymphadenopathy, frequent infections ENDOCRINE: Absent: unexplained weight gain, unexplained weight loss, heat intolerance, cold intolerance NEUROLOGIC: Absent: headache, focal weakness or paresthesias, dizziness, unsteady gait, seizure, mental status changes, bladder or bowel incontinence PSYCHIATRIC: Absent: anxiety, depression, suicidal or homicidal ideation, hallucinations. PHYSICAL EXAMINATION Vital Signs - 24 hr 03/21/19 03/21/19 12:11 15:52 Temperature 98.7 F Pulse Rate 111 H 89 Respiratory 18 Rate Blood Pressure 152/93 174/109 H O2 Sat by Pulse 100 Oximetry (%) GENERAL: awake alert and fully oriented HEAD: normal EYES: pupils equal round and reactive to light EARS, NOSE, THROAT: ears normal nares patent NECK: no JVD LUNGS: breath sounds equal clear to auscultation bilaterally no wheezes and no crackles no accessory muscle use HEART: regular rhythm and tachycardia normal S1 and S2 ABDOMEN: soft nontender not distended normoactive bowel sounds MUSCULOSKELETAL: normal range of motion UPPER EXTREMITIES: 2+ pulses warm well-perfused no cyanosis LOWER EXTREMITIES: 2+ pulses warm well-perfused no pitting edema Neuro: no focal deficits PSYCHIATRIC: cooperative good eye contact SKIN: warm dry normal turgor no rashes or lesions noted midsternal chest incision with no erythema Laboratory Results - last 24 hr 1003/21/19 03/21/19 13:50 13:50 13:50 WBC RBC Hgb Hct MCV MCH MCHC RDW Plt Count MPV Absolute Neuts (auto) Neutrophils % Lymphocytes % Monocytes % Eosinophils % Basophils % Nucleated RBC % PT with INR 12.70 INR 1.08 D-Dimer Cancelled Sodium Potassium Chloride Carbon Dioxide Anion Gap BUN Creatinine Est GFR (CKD-EPI)AfAm Est GFR (CKD-EPI)NonAf Random Glucose Calcium Total Bilirubin AST ALT Alkaline Phosphatase Creatine Kinase 1127 H Creatine Kinase Index 0.2 CK-MB (CK-2) 3.2 Troponin I < 0.02 B-Natriuretic Peptide Total Protein Albumin 03/21/19 03/21/19 13:50 13:50 WBC 7.0 RBC 4.08 Hgb 13.9 Hct 41.2 MCV 101.0 H MCH 34.0 H MCHC 33.7 RDW 14.3 Plt Count 298 MPV 6.9 L Absolute Neuts (auto) 4.5 Neutrophils % 64.0 D Lymphocytes % 27.7 Monocytes % 6.4 Eosinophils % 1.3 Basophils % 0.6 Nucleated RBC % 0 PT with INR INR D-Dimer Sodium 137 Potassium 4.3 Chloride 106 Carbon Dioxide 22 Anion Gap 10 BUN 8.4 Creatinine 0.9 Est GFR (CKD-EPI)AfAm 118.30 Est GFR (CKD-EPI)NonAf 102.07 Random Glucose 127 H Calcium 8.8 Total Bilirubin 0.4 AST 51 H ALT 46 Alkaline Phosphatase 54 Creatine Kinase Creatine Kinase Index CK-MB (CK-2) Troponin I B-Natriuretic Peptide 158.0 H Total Protein 8.0 Albumin 3.6 ASSESSMENT/PLAN: In summary Mr. Venegas is a 48 year old male with history of hypertension, type B dissection repair [address] Guevara at [facility], diabetes mellitus,hyperlipidemia,and ETOH abuse who is in detox from ETOH abuse and was using cannabis at [facility] who presents with severe midsternal chest pain which started yesterday and worsened today. He denied upper back pain. CT scan of chest/abdomen and pelvis with contrast was obtained which showed a stable type B dissection as per Radiology report with no gross aneurysmal dilatation. #1 Chest Pain / History of Type B Aortic Dissection Repair Stable type B dissection as per CT scan of chest/abdomen and pelvis with IV contrast BP elevated systolic 150-170/ diastolic 100-110 - improved with IV esmolol gtt, weaned off esmolol gtt EKG abnormal w/ T wave inversion, two troponins normal --Continue with IV labatalol 10 mg q6hr prn for SBP >170 and oral labatalol 200 mg TID --Continue with losartan 50mg BID --Continue with close monitoring of BP --Check echocardiogram to evaluate aortic anatomy, LV function and exclude wall motion and valvular abnormalities --Continue to trend troponins --Continue with aspirin and statin therapy --Cardiology consulted- Dr. Garcia #2 Hypertension Improved BP with IV esmolol gtt and IV labetalol --Continue with IV labatalol 10 mg q6hr prn for SBP >170 and oral labatalol 200 mg TID and titrate if needed --Continue with losartan 50mg BID #3 Hyperlipidemia --Continue with atorvastatin(LFT's normal) #4 Diabetes mellitus --Accucheks before meals and at bedtime -- Will hold metformin --Insulin as per sliding scale #5 ETOH Abuse Patient does not appear to be in withdrawal Ativan prn ordered FEN --low sodium and DM diet --monitor electrolytes closely DVT Prophylaxsis -SCD's Visit type - Emergency Visit Emergency Visit: Yes ED Registration Date: 03/21/19 Care time: The patient presented to the Emergency Department on the above date and was hospitalized for further evaluation of their emergent condition. - New Patient This patient is new to me today: Yes Date on this admission: 03/21/19 - Critical Care Critical Care patient: No
[2019-03-21] MEDS ORDERED: MORPHINE SULFATE 2 MG/ML VIAL ONE (19:46)
[2019-03-21] MEDS ORDERED: LABETALOL HCL 5 MG/1 ML (100MG/20 ML VIAL) IVPUSH PRN ×2 (20:00→20:18)
[2019-03-21] MEDS: QUEtiapine FUMARATE 100 MG TABLET (FP) PO SCH (21:50)
[2019-03-21] MEDS: GEMFIBROZIL 600 MG TABLET (FP) PO SCH (21:50)
[2019-03-21] MEDS: traZODone HCL 50 MG TABLET (FP) PO PRN (21:51)
[2019-03-21] MEDS: LOSARTAN POTASSIUM 50 MG TABLET (FP) PO SCH (21:51)
[2019-03-21] MEDS: LABETALOL HCL 200 MG TABLET (FP) PO SCH (21:51)
[2019-03-21] MEDS: ATORVASTATIN CA 40 MG TABLET (FP) PO SCH (21:51)
[2019-03-22] MEDS: LABETALOL HCL 200 MG TABLET (FP) PO SCH ×3 (06:13→21:06)
[2019-03-22] MEDS: INSULIN SLIDING SCALE (NOVOLOG) 1 VIAL SQ SCH ×2 (06:14→17:17)
[2019-03-22] MEDS ORDERED: metFORMIN HCL 500 MG TABLET (FP) PO SCH (07:00)
[2019-03-22 07:40] LABS: HEMOGLOBIN 13.3 GM/dL (11.7-16.9); MCH 34.5 pg (25.7-33.7); MCHC 34.1 g/dl (32.0-35.9); MEAN CELL VOLUME 101.2 fl (80-96); PLATELET COUNT 273 K/MM3 (134-434); RBC 3.86 M/mm3 (4.00-5.60); RDW 14.6 % (11.9-15.9); WHITE BLOOD COUNT 7.3 K/mm3 (4.0-10.0)
[2019-03-22] MEDS ORDERED: PNEUMOC 13-VAL CONJ-DIP CRM/PF 0.5 ML DISP.SYRIN IM ONE (08:00)
[2019-03-22 08:06] LABS: BLOOD UREA NITROGEN 11.2 mg/dL (7-18); CALCIUM 8.2 mg/dL (8.5-10.1); POTASSIUM 3.9 mmol/L (3.5-5.1)
--- NOTE | 2019-03-22 08:50 | CON.CARD ---
Consult Consult Specialty:: cardiology Reason for Consultation:: chest pain; hx aortic disscetion repair - History of Present Illness History of Present Illness: 48 black man with h/o AO dissection, DM, HTN, hyperlipidemia, etoh/opiates abuse ,obesity, presenting to ED with chest pain. Pt reports diffuse chest pressure that started yesterday and worsened today. He reports feeling like an elephant is sitting on his chest. Denies SOB. Denies leg swelling. Pt is currently admitted to [facility] for ETOH detox. Does not feel like he is actively withdrawing. - History Source History Provided By: Patient, Medical Record Limitations to Obtaining History: Poor Historian - Past Medical History Cardio/Vascular: Yes: Aneurysm (aortic dissection s/p repair), CAD (s/p CABG), CHF (diastolic), HTN Renal/: No: Renal Failure Heme/Onc: No: Anemia Psych: Yes: Addictions, Bipolar - Past Surgical History Past Surgical History: Yes: CABG - Alcohol/Substance Use Hx Alcohol Use: Yes History of Substance Use: reports: Prescription (opiates) - Smoking History Smoking history: Current every day smoker Have you smoked in the past 12 months: Yes Aproximately how many cigarettes per day: 10 Home Medications - Allergies Allergies/Adverse Reactions: Allergies Allergy/AdvReac Type Severity Reaction Status Date / Time nitroglycerin Allergy Intermediate Rash Verified 03/19/19 15:59 Pork/Porcine Containing AdvReac Verified 03/19/19 15:59 Products - Home Medications Home Medications: Ambulatory Orders Aspirin [ASA -] 81 mg PO DAILY 03/19/19 Atorvastatin Ca [Lipitor] 40 mg PO HS 03/19/19 Gemfibrozil [Lopid -] 600 mg PO BID 03/19/19 Losartan Potassium 50 mg PO BID 03/19/19 Metformin HCl [Glucophage] 500 mg PO BID 03/19/19 Quetiapine Fumarate [Seroquel -] 100 mg PO BID 03/19/19 traZODone HCL [Trazodone HCl] 50 mg PO HS PRN 03/19/19 Librium - 10 mg PO Q6H 03/21/19 Nicotine Patch [Nicoderm Patch -] 1 patch TD DAILY 03/21/19 Thiamine HCl [Vitamin B-1] 100 mg PO HS 03/21/19 Family Medical History Family History: Denies Review of Systems - Review of Systems Constitutional: reports: No Symptoms Eyes: reports: No Symptoms HENT: reports: No Symptoms Neck: reports: No Symptoms Cardiovascular: reports: Chest Pain (both heavy and sharp occurs at rest; may last all day) Respiratory: reports: Exercise Intolerance Gastrointestinal: reports: No Symptoms Genitourinary: reports: No Symptoms Breasts: reports: No Symptoms Reported Musculoskeletal: reports: Muscle Weakness Integumentary: reports: No Symptoms Neurological: reports: No Symptoms Endocrine: reports: No Symptoms Hematology/Lymphatic: reports: No Symptoms Psychiatric: reports: Other (addictions) - Risk Factors Known Risk Factors: Yes: Age, Diabetes Mellitus, Gender, Hypercholesterolemia, Hypertension, Physical Inactivity, Race, Smoking, Other (ECHO/opiate abuse) Vital Signs: Vital Signs Temperature 98.8 F 03/22/19 01:00 Pulse Rate 86 03/22/19 03:02 Respiratory Rate 20 03/22/19 03:02 Blood Pressure 167/98 03/22/19 03:02 O2 Sat by Pulse Oximetry (%) 98 03/21/19 20:00 Constitutional: Yes: Obese Eyes: Yes: WNL HENT: Yes: WNL Neck: Yes: WNL Respiratory: Yes: WNL Gastrointestinal: Yes: Abdomen, Obese Renal/: Yes: WNL Cardiovascular: Yes: WNL JVD: No Carotid Bruit: Yes Heart Sounds: Yes: S1, S2, S4 Murmur: Yes: Systolic Murmur, Grade 2 Musculoskeletal: Yes: Back Pain, Joint Stiffness Extremities: Yes: WNL Edema: No Peripheral Pulses WNL: Yes Integumentary: Yes: WNL Neurological: Yes: WNL ...Motor Strength: WNL Psychiatric: Yes: Alert, Oriented, Other (addictions) - Other Data Labs, Other Data: CBC, BMP 03/22/19 06:30 03/22/19 06:30 INR, PTT INR 1.08 (0.83-1.09) 03/21/19 13:50 Troponin, BNP 03/21/19 03/21/19 03/21/19 13:50 13:50 21:30 Troponin I < 0.02 < 0.02 B-Natriuretic Peptide 158.0 H Troponin, BNP 03/21/19 03/21/19 03/21/19 13:50 13:50 21:30 Troponin I < 0.02 < 0.02 B-Natriuretic Peptide 158.0 H Abnormal Lab Results 03/22/19 03/22/19 03/22/19 06:30 06:30 12:16 RBC 3.86 L MCV 101.2 H MCH 34.5 H MPV 7.0 L Anion Gap 7 L Random Glucose 130 H Calcium 8.2 L Creatine Kinase 965 H Opiates Screen Benzodiazepines Screen 03/22/19 18:23 RBC MCV MCH MPV Anion Gap Random Glucose Calcium Creatine Kinase Opiates Screen Positive A* Benzodiazepines Screen Positive A* Echo: Report Reviewed Ejection Fraction %: LVEF > or = 40 % Imaging - Results Chest X-ray: Image Reviewed Cat Scan: Image Reviewed EKG: Image Reviewed Other: Image Reviewed (telemetry: NSR) Problem List - Problems (1) Atypical chest pain Assessment/Plan: TNI < 0.02 x 2. EKG: NSR; T wave changes. Hx CABG and aortic dissection repair in 2013: CT scan shows stable surgical sites. Pt reproduced with palpation of left anterior/parasternal chest wall. ?stress test done within the past 2 years. Code(s): R07.89 - OTHER CHEST PAIN (2) Alcohol dependence Assessment/Plan: For detox when stable medically. Code(s): F10.20 - ALCOHOL DEPENDENCE, UNCOMPLICATED (3) Aortic dissection Assessment/Plan: CT results noted: stable distal thoracic aorta repair. ER note: pt's cardiac surgeon contacted; no need for surgery at this point. Code(s): I71.00 - DISSECTION OF UNSPECIFIED SITE OF AORTA Qualifiers: Aortic location: thoracic aorta Qualified Code(s): I71.01 - Dissection of thoracic aorta (4) CAD (coronary artery disease) Code(s): I25.10 - ATHSCL HEART DISEASE OF [place] CORONARY ARTERY W/O ANG PCTRS (5) DM2 (diabetes mellitus, type 2) Code(s): E11.9 - TYPE 2 DIABETES MELLITUS WITHOUT COMPLICATIONS Qualifiers: Diabetes mellitus manager terminal insulin use: without manager terminal use Diabetes mellitus complication status: with unspecified complications (6) Nicotine dependence Assessment/Plan: Placed on nicotine patch 21 mg/d. Code(s): F17.200 - NICOTINE DEPENDENCE, UNSPECIFIED, UNCOMPLICATED Qualifiers: Nicotine product type: cigarettes Substance use status: uncomplicated Qualified Code(s): F17.210 - Nicotine dependence, cigarettes, uncomplicated (7) Non-compliance Code(s): Z91.19 - PATIENT'S NONCOMPLIANCE W OTH MEDICAL TREATMENT AND REGIMEN (8) Schizoaffective disorder Code(s): F25.9 - SCHIZOAFFECTIVE DISORDER, UNSPECIFIED Qualifiers: Schizoaffective disorder type: unspecified Qualified Code(s): F25.9 - Schizoaffective disorder, unspecified (10) HTN (hypertension) Assessment/Plan: On labetolol (would stop beta blockers if pt has hx of cocaine abuse) and losartan. Add 3rd class of antihypertensive if necessary (e.g. amlodipine). Code(s): I10 - ESSENTIAL (PRIMARY) HYPERTENSION
[2019-03-22] MEDS ORDERED: FLU VACCINE QUAD 60 MCG/0.5 ML (MDV 19-20) IM ONE (10:00)
[2019-03-22] MEDS ORDERED: PNEUMOCOCCAL 23 VACCINE 0.5 ML VIAL IM ONE (10:00)
[2019-03-22] MEDS: LOSARTAN POTASSIUM 50 MG TABLET (FP) PO SCH ×2 (10:33→21:06)
[2019-03-22] MEDS: ASPIRIN 81 MG CHEWABLE TABLETS PO SCH (10:33)
[2019-03-22] MEDS: GEMFIBROZIL 600 MG TABLET (FP) PO SCH ×2 (10:33→21:06)
[2019-03-22] MEDS: QUEtiapine FUMARATE 100 MG TABLET (FP) PO SCH ×2 (10:34→21:50)
[2019-03-22] MEDS: LORazepam 2 MG/ML SDV VIAL IVPUSH PRN ×2 (10:59→21:05)
--- NOTE | 2019-03-22 11:13 | ECHO ---
Name: VALDEMAR BUSH Exam:Adult Echocardiogram Study Date: 03/22/2019 09:58 AM Age: 48 yrs Reason For Study: Chest pain Height: 67 in Weight: 225 lb BSA: 2.1 m2 MMode/2D Measurements & Calculations IVSd: 1.6 cm Ao root diam: 3.9 cm LVIDd: 4.0 cm LA dimension: 4.3 cm LVIDs: 3.0 cm LVPWd: 1.5 cm EDV(Teich): 71.6 ml LVOT diam: 2.4 cm ESV(Teich): 34.8 ml LAV (MOD-bp): 67.8 ml Doppler Measurements & Calculations MV E max madi: 65.0 cm/sec Ao V2 max: 130.8 cm/sec MV A max madi: 63.5 cm/sec Ao max P.8 mmHg MV E/A: 1.0 AI P1/2t: 467.1 msec MV dec time: 0.17 sec BYRON(V,D): 3.2 cm2 AI max madi: 525.7 cm/sec LV V1 max P.8 mmHg AI max P.1 mmHg LV V1 max: 97.0 cm/sec AI dec slope: 329.6 cm/sec2 MR max madi: 480.0 cm/sec TR max madi: 205.9 cm/sec MR max P.2 mmHg TR max P.0 mmHg PA V2 max: 105.9 cm/sec Med Peak E' Madi: 6.2 cm/sec PA max P.5 mmHg Med E/e': 10.5 Lat Peak E' Madi: 9.5 cm/sec Lat E/e': 6.9 PI Vmax: 262.0 cm/sec Left Ventricle There is mild concentric left ventricular hypertrophy. Left ventricular systolic function is normal. Ejection Fraction = 55-60%. The transmitral spectral Doppler flow pattern is suggestive of pseudonormalization . Right Ventricle The right ventricle is normal in size and function. Atria The left atrium is mildly dilated. Right atrial size is normal. Mitral Valve The mitral valve is normal in structure and function. There is no mitral valve stenosis. There is mil d mitral regurgitation. Tricuspid Valve The tricuspid valve is normal in structure and function. There is mild tricuspid regurgitation. Right ventricular systolic pressure is normal. Aortic Valve The aortic valve is trileaflet. No hemodynamically significant valvular aortic stenosis. Mild aortic regurgitation. Pulmonic Valve The pulmonic valve is not well seen, but is grossly normal. There is no pulmonic valvular stenosis. T race to mild pulmonic valvular regurgitation. Great Vessels Mild aortic root dilatation. Pericardium/Pleura There is no pericardial effusion. Interpretation Summary There is mild concentric left ventricular hypertrophy. Left ventricular systolic function is normal. Ejection Fraction = 55-60%. The right ventricle is normal in size and function. The left atrium is mildly dilated. There is mild mitral regurgitation. There is mild tricuspid regurgitation. Right ventricular systolic pressure is normal. Mild aortic regurgitation. Mild aortic root dilatation. MD Melendez *Karlee 03/22/2019 11:12 AM
[2019-03-22] MEDS ORDERED: MORPHINE SULFATE 2 MG/ML VIAL IVPUSH ONE ×3 (11:22→15:15)
[2019-03-22] MEDS ORDERED: PT OWN MED DRAWER 7, Y5N ONE ×2 (12:24→20:42)
--- NOTE | 2019-03-22 12:32 | PN ---
Physical Exam: SUBJECTIVE: chest pain OBJECTIVE: Patient seen and examined at the bedside. reports severe chest pain 10/10, non radiating, mid sternal that feels like there is something sitting on his chest. patient allergic to nitro, gets hives. therefore will not order repeat ekg shows depressed t waves spoke to cardiology will continue to trend troponins patient reports some relief of chest pain with morphine trop repeated and negative, will continue trend cpk elevated and chest pain reproducible on palpation of chest. start on ivf and monitor cpk daily. Mr. Venegas is a 48 year old male with history of hypertension, type B dissection repair [address] Guevara at [facility], diabetes mellitus, hyperlipidemia,and ETOH abuse who presents from [facility](in detox from ETOH abuse, used cannabis, admitted on 03/19) who presents with severe midsternal chest pain rating 10/10. he denies cocaine use. EKG revealed a normal sinus rhythm with T wave abnormality in lead II, aVF and v4-v6. Patient was admitted to telemetry for further medical and cardiac management. Vital Signs Period Temp Pulse Resp BP Sys/Garcia Pulse Ox Last 24 Hr 98.2 F-98.8 F 86-103 18-20 135-174/91-109 98-98 GENERAL: The patient is awake, alert, and fully oriented, in no acute distress. HEAD: Normal with no signs of trauma. EYES: PERRL, extraocular movements intact, sclera anicteric, conjunctiva clear. No ptosis. ENT: Ears normal, nares patent, oropharynx clear without exudates, moist mucous membranes. NECK: Trachea midline, full range of motion, supple. LUNGS: Breath sounds equal, clear to auscultation bilaterally, no wheezes, no crackles HEART: Regular rate and rhythm ABDOMEN: Soft, nontender, nondistended, normoactive bowel sounds, no guarding, no rebound, no hepatosplenomegaly, no masses. EXTREMITIES: no edema. NEUROLOGICAL: Normal speech, gait not observed. PSYCH: Normal mood, normal affect. SKIN: Warm, dry, normal turgor, no rashes or lesions noted Laboratory Results - last 24 hr 03/21/19 03/21/19 03/21/19 13:50 13:50 13:50 WBC RBC Hgb Hct MCV MCH MCHC RDW Plt Count MPV Absolute Neuts (auto) Neutrophils % Lymphocytes % Monocytes % Eosinophils % Basophils % Nucleated RBC % PT with INR 12.70 INR 1.08 D-Dimer Cancelled Sodium Potassium Chloride Carbon Dioxide Anion Gap BUN Creatinine Est GFR (CKD-EPI)AfAm Est GFR (CKD-EPI)NonAf POC Glucometer Random Glucose Hemoglobin A1c % Calcium Total Bilirubin AST ALT Alkaline Phosphatase Creatine Kinase 1127 H Creatine Kinase Index 0.2 CK-MB (CK-2) 3.2 Troponin I < 0.02 B-Natriuretic Peptide Total Protein Albumin Cholesterol TSH 03/21/19 03/21/19 03/21/19 13:50 13:50 21:30 WBC 7.0 RBC 4.08 Hgb 13.9 Hct 41.2 MCV 101.0 H MCH 34.0 H MCHC 33.7 RDW 14.3 Plt Count 298 MPV 6.9 L Absolute Neuts (auto) 4.5 Neutrophils % 64.0 D Lymphocytes % 27.7 Monocytes % 6.4 Eosinophils % 1.3 Basophils % 0.6 Nucleated RBC % 0 PT with INR INR D-Dimer Sodium 137 Potassium 4.3 Chloride 106 Carbon Dioxide 22 Anion Gap 10 BUN 8.4 Creatinine 0.9 Est GFR (CKD-EPI)AfAm 118.30 Est GFR (CKD-EPI)NonAf 102.07 POC Glucometer Random Glucose 127 H Hemoglobin A1c % Calcium 8.8 Total Bilirubin 0.4 AST 51 H ALT 46 Alkaline Phosphatase 54 Creatine Kinase Creatine Kinase Index CK-MB (CK-2) Troponin I < 0.02 B-Natriuretic Peptide 158.0 H Total Protein 8.0 Albumin 3.6 Cholesterol TSH 03/22/19 03/22/19 03/22/19 06:06 06:30 06:30 WBC 7.3 RBC 3.86 L Hgb 13.3 Hct 39.0 MCV 101.2 H MCH 34.5 H MCHC 34.1 RDW 14.6 Plt Count 273 MPV 7.0 L Absolute Neuts (auto) Neutrophils % Lymphocytes % Monocytes % Eosinophils % Basophils % Nucleated RBC % PT with INR INR D-Dimer Sodium 136 Potassium 3.9 Chloride 104 Carbon Dioxide 24 Anion Gap 7 L BUN 11.2 Creatinine 1.0 Est GFR (CKD-EPI)AfAm 104.15 Est GFR (CKD-EPI)NonAf 89.86 POC Glucometer 131 Random Glucose 130 H Hemoglobin A1c % Calcium 8.2 L Total Bilirubin AST ALT Alkaline Phosphatase Creatine Kinase Creatine Kinase Index CK-MB (CK-2) Troponin I B-Natriuretic Peptide Total Protein Albumin Cholesterol 128 TSH 2.52 03/22/19 03/22/19 06:30 12:20 WBC RBC Hgb Hct MCV MCH MCHC RDW Plt Count MPV Absolute Neuts (auto) Neutrophils % Lymphocytes % Monocytes % Eosinophils % Basophils % Nucleated RBC % PT with INR INR D-Dimer Sodium Potassium Chloride Carbon Dioxide Anion Gap BUN Creatinine Est GFR (CKD-EPI)AfAm Est GFR (CKD-EPI)NonAf POC Glucometer 152 Random Glucose Hemoglobin A1c % 5.9 Calcium Total Bilirubin AST ALT Alkaline Phosphatase Creatine Kinase Creatine Kinase Index CK-MB (CK-2) Troponin I B-Natriuretic Peptide Total Protein Albumin Cholesterol TSH Active Medications Generic Name Dose Route Start Last Admin Trade Name Freq PRN Reason Stop Dose Admin Aspirin 81 mg 03/22/19 10:00 03/22/19 10:33 Asa - PO 81 mg DAILY JOSE LUIS Administration Atorvastatin Calcium 40 mg 03/21/19 22:00 03/21/19 21:51 Lipitor - PO 40 mg HS JOSE LUIS Administration Gemfibrozil 600 mg 03/21/19 22:00 03/22/19 10:33 Lopid - PO 600 mg BID JOSE LUIS Administration Insulin Aspart 1 vial 03/22/19 07:00 03/22/19 06:14 Novolog Vial Sliding Scale - SQ Not Given BIDAC [facility] Protocol Labetalol HCl 200 mg 03/21/19 22:00 03/22/19 06:13 Normodyne - PO 200 mg TID JOSE LUIS Administration Labetalol HCl 10 mg 03/21/19 20:18 Normodyne Injection - IVPUSH ONCE PRN HYPERTENSION Lorazepam 0.5 mg 03/21/19 20:21 03/22/19 10:59 Ativan Injection - IVPUSH 0.5 mg BID PRN Administration WITHDRAWAL(CONT SUBST) Losartan Potassium 50 mg 03/21/19 22:00 03/22/19 10:33 Cozaar - PO 50 mg BID JOSE LUIS Administration Quetiapine Fumarate 100 mg 03/21/19 22:00 03/22/19 10:34 Seroquel - PO 100 mg BID JOSE LUIS Administration Trazodone HCl 50 mg 03/21/19 22:00 03/21/19 21:51 Desyrel - PO 50 mg HS PRN Administration INSOMNIA ASSESSMENT/PLAN: Problem List - Problems (1) Chest pain Assessment/Plan: Chest Pain, persistent with a history of Type B Aortic Dissection Repair Stable type B dissection as per CT scan of chest/abdomen and pelvis with IV contrast two EKGs abnormal w/ T wave inversion, troponins normal On labetalol 200mg bid on losartan 50mg bid monitor bp, labs echo reviewed on asa and statin therapy Cardiology following Code(s): R07.9 - CHEST PAIN, UNSPECIFIED Qualifiers: Chest pain type: chest pain on breathing Qualified Code(s): R07.1 - Chest pain on breathing; R07.81 - Pleurodynia (2) Alcohol dependence Assessment/Plan: see ciwa score Code(s): F10.20 - ALCOHOL DEPENDENCE, UNCOMPLICATED (3) DM2 (diabetes mellitus, type 2) Assessment/Plan: on novolog SS Code(s): E11.9 - TYPE 2 DIABETES MELLITUS WITHOUT COMPLICATIONS Qualifiers: Diabetes mellitus fdc insulin use: without fdc use Diabetes mellitus complication status: with unspecified complications (4) DVT prophylaxis Code(s): [id number] - Visit type - Emergency Visit Emergency Visit: Yes ED Registration Date: 03/21/19 Care time: The patient presented to the Emergency Department on the above date and was hospitalized for further evaluation of their emergent condition. - New Patient This patient is new to me today: Yes Date on this admission: 03/22/19 - Critical Care Critical Care patient: No - Discharge Referral Referred to [facility] Med [facility] No CIWA Score Nausea/Vomitin-No Nausea/No Vomiting Muscle Tremors: None Anxiety: 1-Mildly Anxious Agitation: 0-Normal Activity Paroxysmal Sweats: No Perspiration Orientation: 0-Oriented Tacttile Disturbances: 0-None Auditory Disturbances: 0-None Visual Disturbances: 0-None Headache: 0-None Present CIWA-Ar Total Score: 1 - Admission Criteria [facility]ASAS Guidelines: Admission for Medically Managed Detox: Requires at least one of the followin. CIWA greater than 12 2. Seizures within the past 24 hours 3. Delirium tremens within the past 24 hours 4. Hallucinations within the past 24 hours 5. Acute intervention needed for co occurring medical disorder 6. Acute intervention needed for co occurring psychiatric disorder 7. Severe withdrawal that cannot be handled at a lower level of care (continued vomiting, continued diarrhea, abnormal vital signs) requiring intravenous medication and/or fluids 8.
[2019-03-22] MEDS: SODIUM CHLORIDE 1,000 ML IV SCH (12:54)
--- NOTE | 2019-03-22 14:20 | EKG ---
Test Reason : Blood Pressure : / mmHG Vent. Rate : 089 BPM Atrial Rate : 089 BPM P-R Int : 144 ms QRS Dur : 082 ms QT Int : 370 ms P-R-T Axes : 068 -17 -47 degrees QTc Int : 450 ms NORMAL SINUS RHYTHM VOLTAGE CRITERIA FOR LEFT VENTRICULAR HYPERTROPHY NONSPECIFIC T WAVE ABNORMALITY ABNORMAL ECG WHEN COMPARED WITH ECG OF 21-MAR-2019 12:19, T WAVE INVERSION MORE EVIDENT IN INFERIOR LEADS Confirmed by NEW CARTER MD ([id number]) on 03/22/2019 2:19:50 PM Referred By: Confirmed By:NEW CARTER MD
--- NOTE | 2019-03-22 14:39 | EKG ---
Test Reason : Blood Pressure : / mmHG Vent. Rate : 105 BPM Atrial Rate : 105 BPM P-R Int : 126 ms QRS Dur : 072 ms QT Int : 334 ms P-R-T Axes : 071 -17 -22 degrees QTc Int : 441 ms SINUS TACHYCARDIA POSSIBLE LEFT ATRIAL ENLARGEMENT LEFT VENTRICULAR HYPERTROPHY NONSPECIFIC T WAVE ABNORMALITY ABNORMAL ECG Confirmed by NEW CARTER MD ([id number]) on 03/22/2019 2:39:06 PM Referred By: Confirmed By:NEW CARTER MD
[2019-03-22] MEDS: NICOTINE 21 MG/24 HOURS TOPICAL PATCH TD SCH (17:14)
[2019-03-22 20:40] LABS: COCAINE, UR NEGATIVE ng/ml (CUTOFF=300); METHADONE, UR NEGATIVE ng/ml (CUTOFF=300); PHENCYCLIDINE,URINE NEGATIVE ng/ml (CUTOFF=25); URINE AMPHETAMINES NEGATIVE ng/ml (CUTOFF=500); URINE BARBITURATES NEGATIVE ng/ml (CUTOFF=200)
[2019-03-22 20:59] LABS: OPIATES, URI POSITIVE ng/ml (CUTOFF=300); URINE BENZODIAZEPINES POSITIVE ng/ml (CUTOFF=200)
[2019-03-22] MEDS: ATORVASTATIN CA 40 MG TABLET (FP) PO SCH (21:06)
[2019-03-22] MEDS: traZODone HCL 50 MG TABLET (FP) PO PRN (21:50)
[2019-03-23] MEDS ORDERED: MORPHINE SULFATE 2 MG/ML VIAL IVPUSH ONE ×3 (02:02→20:16)
[2019-03-23] MEDS: LABETALOL HCL 200 MG TABLET (FP) PO SCH ×3 (06:01→21:51)
[2019-03-23] MEDS: INSULIN SLIDING SCALE (NOVOLOG) 1 VIAL SQ SCH ×2 (06:03→16:30)
[2019-03-23 07:43] LABS: BASO % 0.7 % (0-2.0); HEMATOCRIT 39.6 % (35.4-49); HEMOGLOBIN 13.4 GM/dL (11.7-16.9); LYMPH % 27.2 % (8-40); MCH 34.4 pg (25.7-33.7); MCHC 33.8 g/dl (32.0-35.9); MEAN CELL VOLUME 101.6 fl (80-96); MEAN PLT VOLUME 7.4 fl (7.5-11.1); MONO % 7.9 % (3.8-10.2); NEUT % 62.2 % (42.8-82.8); PLATELET COUNT 267 K/MM3 (134-434); RDW 14.8 % (11.9-15.9)
[2019-03-23 08:06] LABS: ALBUMIN 3.4 g/dl (3.4-5.0); BILIRUBIN,TOTAL 0.6 mg/dL (0.2-1); BLOOD UREA NITROGEN 9.4 mg/dL (7-18); CALCIUM 8.3 mg/dL (8.5-10.1); POTASSIUM 4.1 mmol/L (3.5-5.1); TOT PROT 7.1 g/dl (6.4-8.2)
[2019-03-23] MEDS: NICOTINE 21 MG/24 HOURS TOPICAL PATCH TD SCH ×2 (10:15→10:33)
[2019-03-23] MEDS: ASPIRIN 81 MG CHEWABLE TABLETS PO SCH (10:15)
[2019-03-23] MEDS: GEMFIBROZIL 600 MG TABLET (FP) PO SCH ×2 (10:16→21:54)
[2019-03-23] MEDS: QUEtiapine FUMARATE 100 MG TABLET (FP) PO SCH ×2 (10:16→21:54)
[2019-03-23] MEDS: LOSARTAN POTASSIUM 50 MG TABLET (FP) PO SCH ×2 (10:16→21:50)
--- NOTE | 2019-03-23 11:41 | PN ---
Progress Note, Physician Chief Complaint: Coverage for Dr. Otto Complained of Chest discomfort, currently better History of Present Illness: Patient was seen and examined. Awake and alert. Chart was reviewed Denies SOB or palpitations - Current Medication List Current Medications: Active Medications Aspirin (Asa -) 81 mg PO DAILY [facility] Last Admin: 03/23/19 10:15 Dose: 81 mg Atorvastatin Calcium (Lipitor -) 40 mg PO HS [facility] Last Admin: 03/22/19 21:06 Dose: 40 mg Gemfibrozil (Lopid -) 600 mg PO BID [facility] Last Admin: 03/23/19 10:16 Dose: 600 mg Sodium Chloride (Normal Saline -) 1,000 mls @ 100 mls/hr IV ASDIR [facility] Last Admin: 03/22/19 12:54 Dose: 100 mls/hr Insulin Aspart (Novolog Vial Sliding Scale -) 1 vial SQ BIDAC [facility]; Protocol Last Admin: 03/23/19 06:03 Dose: Not Given Labetalol HCl (Normodyne -) 200 mg PO TID [facility] Last Admin: 03/23/19 06:01 Dose: 200 mg Labetalol HCl (Normodyne Injection -) 10 mg IVPUSH ONCE PRN PRN Reason: HYPERTENSION Lorazepam (Ativan Injection -) 0.5 mg IVPUSH BID PRN PRN Reason: WITHDRAWAL(CONT SUBST) Last Admin: 03/22/19 21:05 Dose: 0.5 mg Losartan Potassium (Cozaar -) 50 mg PO BID [facility] Last Admin: 03/23/19 10:16 Dose: 50 mg Nicotine (Nicoderm Patch -) 21 mg TD DAILY [facility] Last Admin: 03/23/19 10:33 Dose: Not Given Quetiapine Fumarate (Seroquel -) 100 mg PO BID [facility] Last Admin: 03/23/19 10:16 Dose: 100 mg Trazodone HCl (Desyrel -) 50 mg PO HS PRN PRN Reason: INSOMNIA Last Admin: 03/22/19 21:50 Dose: 50 mg - Objective Vital Signs: Vital Signs Temperature 98.1 F 03/23/19 06:00 Pulse Rate 88 03/23/19 06:00 Respiratory Rate 18 03/23/19 06:00 Blood Pressure 147/97 03/23/19 06:00 O2 Sat by Pulse Oximetry (%) 98 03/23/19 06:47 Eyes: Yes: PERRL HENT: Yes: Atraumatic Neck: Yes: Supple Cardiovascular: Yes: Regular Rate and Rhythm, S1, S2 Respiratory: Yes: CTA Bilaterally Gastrointestinal: Yes: Normal Bowel Sounds, Soft. No: Tenderness Edema: No Additional Findings/Remarks: - Review of Systems Constitutional: denies: Chills, Fever Cardiovascular: denies Shortness of Breath. (+) Chest Pain, denies: Palpitations Respiratory: denies Cough, SOB, SOB on Exertion. denies: Hemoptysis, Orthopnea , PND Gastrointestinal: denies: Abdominal Pain, Constipation, Diarrhea, Melena, Nausea , Rectal Bleeding, Vomiting Genitourinary: denies: Dysuria, Hematuria Musculoskeletal: denies: Back Pain, Joint Pain Neurological: denies: Dizziness, Headache, Seizure, Syncope Labs: CBC, BMP 03/23/19 05:42 03/23/19 05:42 Problem List - Problems (1) Atypical chest pain Code(s): R07.89 - OTHER CHEST PAIN (2) HTN (hypertension) Code(s): I10 - ESSENTIAL (PRIMARY) HYPERTENSION (3) Alcohol dependence Code(s): F10.20 - ALCOHOL DEPENDENCE, UNCOMPLICATED (4) Aortic dissection Code(s): I71.00 - DISSECTION OF UNSPECIFIED SITE OF AORTA Qualifiers: Aortic location: thoracic aorta Qualified Code(s): I71.01 - Dissection of thoracic aorta (5) CAD (coronary artery disease) Code(s): I25.10 - ATHSCL HEART DISEASE OF [place] CORONARY ARTERY W/O ANG PCTRS (6) DM2 (diabetes mellitus, type 2) Code(s): E11.9 - TYPE 2 DIABETES MELLITUS WITHOUT COMPLICATIONS Qualifiers: Diabetes mellitus termination clerk insulin use: without termination clerk use Diabetes mellitus complication status: with unspecified complications (7) Hypercholesterolemia Code(s): E78.00 - PURE HYPERCHOLESTEROLEMIA, UNSPECIFIED (8) Schizoaffective disorder Code(s): F25.9 - SCHIZOAFFECTIVE DISORDER, UNSPECIFIED Qualifiers: Schizoaffective disorder type: unspecified Qualified Code(s): F25.9 - Schizoaffective disorder, unspecified (9) Aortic aneurysm and dissection Code(s): I71.00 - DISSECTION OF UNSPECIFIED SITE OF AORTA Assessment/Plan 1. Atypical chest pain syndrome 2. History of thoracic aortic aneurysm and dissection s/p repair 3. CAD s/p CABG 4. Type 2 DM 5. HTN 6. Schizoaffective disorder 7 Substance abuse (ETOH) PLAN: 1. Echocardiography report reviewed 2. Consider nuclear stress testing if continues to be symptomatic and if patient remains inpatient and clinically able. 3. Continue Labetalol 200 mg TID and Cozaar 50 mg BID. Add Amlodipine 5 mg QD 4. Continue ASA 81 mg QD 5. Continue Atorvastatin 40 mg QHS and Lopid 600 mg BID 6. Detox - started on Librium taper Further plans are to follow Hong Frausto MD
[2019-03-23] MEDS: LORazepam 2 MG/ML SDV VIAL IVPUSH PRN (11:51)
[2019-03-23] MEDS ORDERED: PT OWN MED DRAWER 7, Y5N ONE ×2 (11:57→21:53)
--- NOTE | 2019-03-23 12:03 | PN ---
Physical Exam: SUBJECTIVE: Patient seen and examined, chest pain persists. having some headaches, anxiety, sweaty palms. admits to feeling symptoms of etoh w/drawal. OBJECTIVE: Mr. eVnegas is a 48 year old male with history of hypertension, type B dissection repair [address] Guevara at [facility], diabetes mellitus, hyperlipidemia,and ETOH abuse who presents from [facility](in detox from ETOH abuse, used cannabis, admitted on 03/19) who presents with severe midsternal chest pain rating 10/10. he denies cocaine use. EKG revealed a normal sinus rhythm with T wave abnormality in lead II, aVF and v4-v6. Patient was admitted to telemetry for further medical and cardiac management. he continues to have chest pain, but now with anxiety, and feels like he may be withdrawing. denies any hallucinations. see ciwa score. Vital Signs Period Temp Pulse Resp BP Sys/Garcia Pulse Ox Last 24 Hr 98.1 F-98.4 F 84-96 18-20 133-169/79-108 98-98 GENERAL: The patient is awake, alert, and fully oriented, in no acute distress. HEAD: Normal with no signs of trauma. EYES: PERRL, extraocular movements intact, sclera anicteric, conjunctiva clear. No ptosis. ENT: Ears normal, nares patent, oropharynx clear without exudates, moist mucous membranes. NECK: Trachea midline, full range of motion, supple. LUNGS: Breath sounds equal, clear to auscultation bilaterally, no wheezes, no crackles HEART: Regular rate and rhythm ABDOMEN: Soft, nontender, nondistended, normoactive bowel sounds, no guarding, no rebound, no hepatosplenomegaly, no masses. EXTREMITIES: no edema. NEUROLOGICAL: Normal speech, gait not observed. PSYCH: Normal mood, normal affect. SKIN: anterior chest large surgical scar, healed. Laboratory Results - last 24 hr 03/22/19 03/22/19 03/22/19 12:16 12:20 17:15 WBC RBC Hgb Hct MCV MCH MCHC RDW Plt Count MPV Absolute Neuts (auto) Neutrophils % Lymphocytes % Monocytes % Eosinophils % Basophils % Nucleated RBC % Sodium Potassium Chloride Carbon Dioxide Anion Gap BUN Creatinine Est GFR (CKD-EPI)AfAm Est GFR (CKD-EPI)NonAf POC Glucometer 152 160 Random Glucose Calcium Total Bilirubin AST ALT Alkaline Phosphatase Creatine Kinase 965 H Creatine Kinase Index 0.3 CK-MB (CK-2) 3.5 Troponin I < 0.02 Total Protein Albumin Triglycerides Cholesterol Total LDL Cholesterol HDL Cholesterol Opiates Screen Methadone Screen Barbiturate Screen Phencyclidine Screen Ur Amphetamines Screen MDMA (Ecstasy) Screen Benzodiazepines Screen Cocaine Screen U Marijuana (THC) Screen 03/22/19 03/22/19 03/23/19 18:23 20:10 05:42 WBC RBC Hgb Hct MCV MCH MCHC RDW Plt Count MPV Absolute Neuts (auto) Neutrophils % Lymphocytes % Monocytes % Eosinophils % Basophils % Nucleated RBC % Sodium 138 Potassium 4.1 Chloride 107 Carbon Dioxide 25 Anion Gap 6 L BUN 9.4 Creatinine 1.0 Est GFR (CKD-EPI)AfAm 104.15 Est GFR (CKD-EPI)NonAf 89.86 POC Glucometer Random Glucose 101 Calcium 8.3 L Total Bilirubin 0.6 AST 75 H ALT 52 Alkaline Phosphatase 46 Creatine Kinase 864 H Creatine Kinase Index 0.4 CK-MB (CK-2) 3.6 Troponin I 0.02 Total Protein 7.1 Albumin 3.4 Triglycerides 252 H Cholesterol 123 Total LDL Cholesterol 70 HDL Cholesterol 18 L Opiates Screen Positive A* Methadone Screen Negative Barbiturate Screen Negative Phencyclidine Screen Negative Ur Amphetamines Screen Negative MDMA (Ecstasy) Screen Negative Benzodiazepines Screen Positive A* Cocaine Screen Negative U Marijuana (THC) Screen Negative 03/23/19 03/23/19 03/23/19 05:42 06:00 10:30 WBC 7.0 RBC 3.90 L Hgb 13.4 Hct 39.6 MCV 101.6 H MCH 34.4 H MCHC 33.8 RDW 14.8 Plt Count 267 MPV 7.4 L Absolute Neuts (auto) 4.4 Neutrophils % 62.2 Lymphocytes % 27.2 Monocytes % 7.9 Eosinophils % 2.0 Basophils % 0.7 Nucleated RBC % 0 Sodium Potassium Chloride Carbon Dioxide Anion Gap BUN Creatinine Est GFR (CKD-EPI)AfAm Est GFR (CKD-EPI)NonAf POC Glucometer 113 200 Random Glucose Calcium Total Bilirubin AST ALT Alkaline Phosphatase Creatine Kinase Creatine Kinase Index CK-MB (CK-2) Troponin I Total Protein Albumin Triglycerides Cholesterol Total LDL Cholesterol HDL Cholesterol Opiates Screen Methadone Screen Barbiturate Screen Phencyclidine Screen Ur Amphetamines Screen MDMA (Ecstasy) Screen Benzodiazepines Screen Cocaine Screen U Marijuana (THC) Screen 03/23/19 11:38 WBC RBC Hgb Hct MCV MCH MCHC RDW Plt Count MPV Absolute Neuts (auto) Neutrophils % Lymphocytes % Monocytes % Eosinophils % Basophils % Nucleated RBC % Sodium Potassium Chloride Carbon Dioxide Anion Gap BUN Creatinine Est GFR (CKD-EPI)AfAm Est GFR (CKD-EPI)NonAf POC Glucometer 155 Random Glucose Calcium Total Bilirubin AST ALT Alkaline Phosphatase Creatine Kinase Creatine Kinase Index CK-MB (CK-2) Troponin I Total Protein Albumin Triglycerides Cholesterol Total LDL Cholesterol HDL Cholesterol Opiates Screen Methadone Screen Barbiturate Screen Phencyclidine Screen Ur Amphetamines Screen MDMA (Ecstasy) Screen Benzodiazepines Screen Cocaine Screen U Marijuana (THC) Screen Active Medications Generic Name Dose Route Start Last Admin Trade Name Freq PRN Reason Stop Dose Admin Amlodipine Besylate 5 mg 03/23/19 12:00 Norvasc - PO DAILY JOSE LUIS Aspirin 81 mg 03/22/19 10:00 03/23/19 10:15 Asa - PO 81 mg DAILY JOSE LUIS Administration Atorvastatin Calcium 40 mg 03/21/19 22:00 03/22/19 21:06 Lipitor - PO 40 mg HS JOSE LUIS Administration Gemfibrozil 600 mg 03/21/19 22:00 03/23/19 10:16 Lopid - PO 600 mg BID JOSE LUIS Administration Sodium Chloride 1,000 mls @ 100 mls/hr 03/22/19 12:45 03/22/19 12:54 Normal Saline - IV 100 mls/hr ASDIR JOSE LUIS Administration Insulin Aspart 1 vial 03/22/19 07:00 03/23/19 06:03 Novolog Vial Sliding Scale - SQ Not Given BIDAC JOSE LUIS Protocol Labetalol HCl 200 mg 03/21/19 22:00 03/23/19 06:01 Normodyne - PO 200 mg TID JOSE LUIS Administration Labetalol HCl 10 mg 03/21/19 20:18 Normodyne Injection - IVPUSH ONCE PRN HYPERTENSION Lorazepam 0.5 mg 03/21/19 20:21 03/23/19 11:51 Ativan Injection - IVPUSH 0.5 mg BID PRN Administration WITHDRAWAL(CONT SUBST) Losartan Potassium 50 mg 03/21/19 22:00 03/23/19 10:16 Cozaar - PO 50 mg BID JOSE LUIS Administration Nicotine 21 mg 03/22/19 15:45 03/23/19 10:33 Nicoderm Patch - TD Not Given DAILY JOSE LUIS Quetiapine Fumarate 100 mg 03/21/19 22:00 03/23/19 10:16 Seroquel - PO 100 mg BID JOSE LUIS Administration Trazodone HCl 50 mg 03/21/19 22:00 03/22/19 21:50 Desyrel - PO 50 mg HS PRN Administration INSOMNIA ASSESSMENT/PLAN: Problem List - Problems (1) Chest pain Assessment/Plan: Chest Pain, persistent with a history of Type B Aortic Dissection Repair Stable type B dissection as per CT scan of chest/abdomen and pelvis with IV contrast two EKGs abnormal w/ T wave inversion, troponins normal On labetalol 200mg bid on losartan 50mg bid monitor bp, labs echo reviewed on asa and statin therapy Cardiology following Code(s): R07.9 - CHEST PAIN, UNSPECIFIED Qualifiers: Chest pain type: chest pain on breathing Qualified Code(s): R07.1 - Chest pain on breathing; R07.81 - Pleurodynia (2) Alcohol dependence Assessment/Plan: see ciwa score, will start librium taper Code(s): F10.20 - ALCOHOL DEPENDENCE, UNCOMPLICATED (3) DM2 (diabetes mellitus, type 2) Assessment/Plan: on novolog SS. bgm levels reviewed. Code(s): E11.9 - TYPE 2 DIABETES MELLITUS WITHOUT COMPLICATIONS Qualifiers: Diabetes mellitus radiation protection engineer insulin use: without fpc use Diabetes mellitus complication status: with unspecified complications (4) Rhabdomyolysis Assessment/Plan: improving with ivf Problems reviewed: Yes Code(s): M62.82 - RHABDOMYOLYSIS (5) ETOH abuse Code(s): F10.10 - ALCOHOL ABUSE, UNCOMPLICATED (6) EtOH dependence Assessment/Plan: showing signs of withdrawal. now with elevated ciwa. start librium taper. Code(s): F10.20 - ALCOHOL DEPENDENCE, UNCOMPLICATED (7) DVT prophylaxis Code(s): [id number] - Visit type - Emergency Visit Emergency Visit: Yes ED Registration Date: 03/23/19 Care time: The patient presented to the Emergency Department on the above date and was hospitalized for further evaluation of their emergent condition. - New Patient This patient is new to me today: No - Critical Care Critical Care patient: No - Discharge Referral Referred to [facility] Med P.C.: No CIWA Score Nausea/Vomitin-No Nausea/No Vomiting Muscle Tremors: 1-None Visible, but [place] Anxiety: 4-Mod. Anxious/Guarded Agitation: 1-Slight > Activity Paroxysmal Sweats: 1-Minimal Palms Moist Orientation: 0-Oriented Tacttile Disturbances: 1-Very Mild Itch/Numbness Auditory Disturbances: 0-None Visual Disturbances: 0-None Headache: 2-Mild CIWA-Ar Total Score: 10 - Admission Criteria OASAS Guidelines: Admission for Medically Managed Detox: Requires at least one of the followin. CIWA greater than 12 2. Seizures within the past 24 hours 3. Delirium tremens within the past 24 hours 4. Hallucinations within the past 24 hours 5. Acute intervention needed for co occurring medical disorder 6. Acute intervention needed for co occurring psychiatric disorder 7. Severe withdrawal that cannot be handled at a lower level of care (continued vomiting, continued diarrhea, abnormal vital signs) requiring intravenous medication and/or fluids 8.
[2019-03-23] MEDS ORDERED: chlordiazePOXIDE HCL 10 MG CAPSULE PO PRN (12:06)
[2019-03-23] MEDS: amLODIPine BESYLATE 5 MG TABLET (FP) PO SCH (12:22)
[2019-03-23] MEDS: SODIUM CHLORIDE 1,000 ML IV SCH (13:09)
[2019-03-23] MEDS: chlordiazePOXIDE HCL 25 MG CAPSULE PO SCH ×2 (13:11→21:50)
[2019-03-23] MEDS ORDERED: FLU VACCINE QUAD 60 MCG/0.5 ML (MDV 19-20) IM ONE (15:00)
[2019-03-23] MEDS ORDERED: MORPHINE SULFATE 2 MG/ML VIAL ONE (20:25)
[2019-03-23] MEDS: ATORVASTATIN CA 40 MG TABLET (FP) PO SCH (21:50)
[2019-03-23] MEDS: traZODone HCL 50 MG TABLET (FP) PO PRN (21:52)
[2019-03-24 06:47] LABS: BASO % 0.6 % (0-2.0); HEMATOCRIT 39.8 % (35.4-49); HEMOGLOBIN 14.1 GM/dL (11.7-16.9); LYMPH % 20.3 % (8-40); MCH 36.3 pg (25.7-33.7); MCHC 35.4 g/dl (32.0-35.9); MEAN CELL VOLUME 102.5 fl (80-96); MEAN PLT VOLUME 7.2 fl (7.5-11.1); MONO % 8.1 % (3.8-10.2); PLATELET COUNT 259 K/MM3 (134-434); RBC 3.88 M/mm3 (4.00-5.60); RDW 14.9 % (11.9-15.9); WHITE BLOOD COUNT 8.4 K/mm3 (4.0-10.0)
[2019-03-24] MEDS: LABETALOL HCL 200 MG TABLET (FP) PO SCH ×3 (06:47→21:11)
[2019-03-24] MEDS: chlordiazePOXIDE HCL 25 MG CAPSULE PO SCH ×3 (06:47→21:10)
[2019-03-24] MEDS: INSULIN SLIDING SCALE (NOVOLOG) 1 VIAL SQ SCH ×2 (06:48→16:40)
[2019-03-24 07:29] LABS: ALBUMIN 3.5 g/dl (3.4-5.0); BILIRUBIN,TOTAL 0.6 mg/dL (0.2-1); CALCIUM 8.8 mg/dL (8.5-10.1); MAGNESIUM 1.9 mg/dL (1.8-2.4); POTASSIUM 4.1 mmol/L (3.5-5.1); TOT PROT 7.4 g/dl (6.4-8.2)
[2019-03-24] MEDS: ASPIRIN 81 MG CHEWABLE TABLETS PO SCH (09:51)
[2019-03-24] MEDS: LOSARTAN POTASSIUM 50 MG TABLET (FP) PO SCH ×2 (09:51→21:10)
[2019-03-24] MEDS: amLODIPine BESYLATE 5 MG TABLET (FP) PO SCH (09:52)
[2019-03-24] MEDS: QUEtiapine FUMARATE 100 MG TABLET (FP) PO SCH ×2 (09:53→21:11)
[2019-03-24] MEDS: GEMFIBROZIL 600 MG TABLET (FP) PO SCH ×2 (09:53→21:10)
[2019-03-24] MEDS: NICOTINE 21 MG/24 HOURS TOPICAL PATCH TD SCH (09:54)
--- NOTE | 2019-03-24 10:19 | PN ---
Progress Note, Physician Chief Complaint: Coverage for Dr. Otto Mild tremor History of Present Illness: Patient was seen and examined. Awake and alert. Chart was reviewed Denies SOB or palpitations. Denies chest pain - Current Medication List Current Medications: Active Medications Amlodipine Besylate (Norvasc -) 5 mg PO DAILY [facility] Last Admin: 03/24/19 09:52 Dose: 5 mg Aspirin (Asa -) 81 mg PO DAILY [facility] Last Admin: 03/24/19 09:51 Dose: 81 mg Atorvastatin Calcium (Lipitor -) 40 mg PO HS [facility] Last Admin: 03/23/19 21:50 Dose: 40 mg Chlordiazepoxide HCl (Librium -) 10 mg PO Q12H PRN PRN Reason: Signs/symptoms of Withdrawal Stop: 03/26/19 23:59 Chlordiazepoxide HCl (Librium -) 10 mg PO Q8H PRN PRN Reason: Signs/symptoms of Withdrawal Stop: 03/25/19 23:59 Chlordiazepoxide HCl (Librium -) 25 mg PO Q8H [facility] Stop: 03/24/19 21:01 Last Admin: 03/24/19 06:47 Dose: 25 mg Chlordiazepoxide HCl (Librium -) 15 mg PO Q8H [facility] Stop: 03/25/19 21:01 Chlordiazepoxide HCl (Librium -) 10 mg PO Q8H [facility] Stop: 03/26/19 21:01 Chlordiazepoxide HCl (Librium -) 10 mg PO ONCE ONE Stop: 03/27/19 05:01 Gemfibrozil (Lopid -) 600 mg PO BID [facility] Last Admin: 03/24/19 09:53 Dose: 600 mg Sodium Chloride (Normal Saline -) 1,000 mls @ 100 mls/hr IV ASDIR [facility] Last Admin: 03/23/19 13:09 Dose: 100 mls/hr Insulin Aspart (Novolog Vial Sliding Scale -) 1 vial SQ BIDAC [facility]; Protocol Last Admin: 03/24/19 06:48 Dose: 2 units Labetalol HCl (Normodyne -) 200 mg PO TID [facility] Last Admin: 03/24/19 06:47 Dose: 200 mg Labetalol HCl (Normodyne Injection -) 10 mg IVPUSH ONCE PRN PRN Reason: HYPERTENSION Losartan Potassium (Cozaar -) 50 mg PO BID [facility] Last Admin: 03/24/19 09:51 Dose: 50 mg Nicotine (Nicoderm Patch -) 21 mg TD DAILY [facility] Last Admin: 03/24/19 09:54 Dose: Not Given Quetiapine Fumarate (Seroquel -) 100 mg PO BID [facility] Last Admin: 03/24/19 09:53 Dose: 100 mg Trazodone HCl (Desyrel -) 50 mg PO HS PRN PRN Reason: INSOMNIA Last Admin: 03/23/19 21:52 Dose: 50 mg - Objective Vital Signs: Vital Signs Temperature 98.2 F 03/24/19 09:48 Pulse Rate 94 H 03/24/19 09:48 Respiratory Rate 20 03/24/19 09:48 Blood Pressure 128/90 03/24/19 09:48 O2 Sat by Pulse Oximetry (%) 97 03/24/19 01:33 EDT Eyes: Yes: PERRL HENT: Yes: Atraumatic Neck: Yes: Supple Cardiovascular: Yes: Regular Rate and Rhythm, S1, S2 Respiratory: Yes: CTA Bilaterally Gastrointestinal: Yes: Normal Bowel Sounds, Soft. No: Tenderness Edema: No Additional Findings/Remarks: - Review of Systems Constitutional: denies: Chills, Fever Cardiovascular: denies Shortness of Breath. (+) Chest Pain, denies: Palpitations Respiratory: denies Cough, SOB, SOB on Exertion. denies: Hemoptysis, Orthopnea , PND Gastrointestinal: denies: Abdominal Pain, Constipation, Diarrhea, Melena, Nausea , Rectal Bleeding, Vomiting Genitourinary: denies: Dysuria, Hematuria Musculoskeletal: denies: Back Pain, Joint Pain Neurological: denies: Dizziness, Headache, Seizure, Syncope Labs: CBC, BMP 03/24/19 06:00 03/24/19 06:00 Problem List - Problems (1) Atypical chest pain Code(s): R07.89 - OTHER CHEST PAIN (2) HTN (hypertension) Code(s): I10 - ESSENTIAL (PRIMARY) HYPERTENSION (3) Alcohol dependence Code(s): F10.20 - ALCOHOL DEPENDENCE, UNCOMPLICATED (4) Aortic dissection Code(s): I71.00 - DISSECTION OF UNSPECIFIED SITE OF AORTA Qualifiers: Aortic location: thoracic aorta Qualified Code(s): I71.01 - Dissection of thoracic aorta (5) CAD (coronary artery disease) Code(s): I25.10 - ATHSCL HEART DISEASE OF [place] CORONARY ARTERY W/O ANG PCTRS (6) DM2 (diabetes mellitus, type 2) Code(s): E11.9 - TYPE 2 DIABETES MELLITUS WITHOUT COMPLICATIONS Qualifiers: Diabetes mellitus intermediate card tender insulin use: without intermediate card tender use Diabetes mellitus complication status: with unspecified complications (7) Hypercholesterolemia Code(s): E78.00 - PURE HYPERCHOLESTEROLEMIA, UNSPECIFIED (8) Schizoaffective disorder Code(s): F25.9 - SCHIZOAFFECTIVE DISORDER, UNSPECIFIED Qualifiers: Schizoaffective disorder type: unspecified Qualified Code(s): F25.9 - Schizoaffective disorder, unspecified Assessment/Plan 1. Atypical chest pain syndrome 2. History of thoracic aortic aneurysm and dissection s/p repair 3. CAD s/p CABG 4. Type 2 DM 5. HTN 6. Schizoaffective disorder 7. Substance abuse (ETOH) PLAN: 1. Consider nuclear stress testing if continues to be symptomatic and if patient remains inpatient and clinically able. May need to postpone until finished with Detox 2. Continue Labetalol 200 mg TID and Cozaar 50 mg BID. Add Amlodipine 5 mg QD 3. Continue ASA 81 mg QD 4. Continue Atorvastatin 40 mg QHS and Lopid 600 mg BID 5. Detox - started on Librium taper Further plans are to follow Hong Frausto MD
--- NOTE | 2019-03-24 11:00 | PN ---
Physical Exam: SUBJECTIVE: Patient seen and examined at the bedside. still with chest pain OBJECTIVE: patient for stress test per cardiology. Mr. Venegas is a 48 year old male with history of hypertension, type B dissection repair [address] Guevara at [facility], diabetes mellitus, hyperlipidemia,and ETOH abuse who presents from [facility](in detox from ETOH abuse, used cannabis, admitted on 03/19) who presents with severe midsternal chest pain rating 10/10. he denies cocaine use. EKG revealed a normal sinus rhythm with T wave abnormality in lead II, aVF and v4-v6. Patient was admitted to telemetry for further medical and cardiac management. he continues to have chest pain, but now with anxiety, and feels like he may be withdrawing, started on librium taper on 03/23/2019. denies any hallucinations. see ciwa score. Vital Signs Period Temp Pulse Resp BP Sys/Garcia Pulse Ox Last 24 Hr 97.7 F-98.5 F 80-97 20-20 128-181/80-113 97 GENERAL: The patient is awake, alert, and fully oriented, in no acute distress. HEAD: Normal with no signs of trauma. EYES: PERRL, extraocular movements intact, sclera anicteric, conjunctiva clear. No ptosis. ENT: Ears normal, nares patent, oropharynx clear without exudates, moist mucous membranes. NECK: Trachea midline, full range of motion, supple. LUNGS: Breath sounds equal, clear to auscultation bilaterally, no wheezes, no crackles HEART: Regular rate and rhythm ABDOMEN: Soft, nontender, nondistended, normoactive bowel sounds, no guarding, no rebound, no hepatosplenomegaly, no masses. EXTREMITIES: no edema. NEUROLOGICAL: Normal speech, gait not observed. PSYCH: Normal mood, normal affect. SKIN: anterior chest large surgical scar, healed. Laboratory Results - last 24 hr 03/23/19 03/24/19 03/24/19 16:29 06:00 06:00 WBC 8.4 RBC 3.88 L Hgb 14.1 Hct 39.8 MCV 102.5 H MCH 36.3 H MCHC 35.4 RDW 14.9 Plt Count 259 MPV 7.2 L Absolute Neuts (auto) 5.8 Neutrophils % 69.0 Lymphocytes % 20.3 D Monocytes % 8.1 Eosinophils % 2.0 Basophils % 0.6 Nucleated RBC % 0 Sodium 136 Potassium 4.1 Chloride 106 Carbon Dioxide 26 Anion Gap 5 L BUN 9.0 Creatinine 1.0 Est GFR (CKD-EPI)AfAm 104.15 Est GFR (CKD-EPI)NonAf 89.86 POC Glucometer 156 Random Glucose 113 H Calcium 8.8 Magnesium 1.9 Total Bilirubin 0.6 AST 66 H ALT 57 Alkaline Phosphatase 46 Total Protein 7.4 Albumin 3.5 03/24/19 06:46 WBC RBC Hgb Hct MCV MCH MCHC RDW Plt Count MPV Absolute Neuts (auto) Neutrophils % Lymphocytes % Monocytes % Eosinophils % Basophils % Nucleated RBC % Sodium Potassium Chloride Carbon Dioxide Anion Gap BUN Creatinine Est GFR (CKD-EPI)AfAm Est GFR (CKD-EPI)NonAf POC Glucometer 203 Random Glucose Calcium Magnesium Total Bilirubin AST ALT Alkaline Phosphatase Total Protein Albumin Active Medications Generic Name Dose Route Start Last Admin Trade Name Freq PRN Reason Stop Dose Admin Amlodipine Besylate 5 mg 03/23/19 12:00 03/24/19 09:52 Norvasc - PO 5 mg DAILY JOSE LUIS Administration Aspirin 81 mg 03/22/19 10:00 03/24/19 09:51 Asa - PO 81 mg DAILY JOSE LUIS Administration Atorvastatin Calcium 40 mg 03/21/19 22:00 03/23/19 21:50 Lipitor - PO 40 mg HS JOSE LUIS Administration Chlordiazepoxide HCl 10 mg 03/26/19 00:00 Librium - PO 03/26/19 23:59 Q12H PRN Signs/symptoms of Withdrawal Chlordiazepoxide HCl 10 mg 03/23/19 12:06 Librium - PO 03/25/19 23:59 Q8H PRN Signs/symptoms of Withdrawal Chlordiazepoxide HCl 25 mg 03/23/19 13:00 03/24/19 06:47 Librium - PO 03/24/19 21:01 25 mg Q8H JOSE LUIS Administration Chlordiazepoxide HCl 15 mg 03/25/19 05:00 Librium - PO 03/25/19 21:01 Q8H JOSE LUIS Chlordiazepoxide HCl 10 mg 03/26/19 05:00 Librium - PO 03/26/19 21:01 Q8H JOSE LUIS Chlordiazepoxide HCl 10 mg 03/27/19 05:00 Librium - PO 03/27/19 05:01 ONCE ONE Gemfibrozil 600 mg 03/21/19 22:00 03/24/19 09:53 Lopid - PO 600 mg BID JOSE LUIS Administration Sodium Chloride 1,000 mls @ 100 mls/hr 03/22/19 12:45 03/23/19 13:09 Normal Saline - IV 100 mls/hr ASDIR JOSE LUIS Administration Insulin Aspart 1 vial 03/22/19 07:00 03/24/19 06:48 Novolog Vial Sliding Scale - SQ 2 units BIDAC JOSE LUIS Administration Protocol Labetalol HCl 200 mg 03/21/19 22:00 03/24/19 06:47 Normodyne - PO 200 mg TID JOSE LUIS Administration Labetalol HCl 10 mg 03/21/19 20:18 Normodyne Injection - IVPUSH ONCE PRN HYPERTENSION Losartan Potassium 50 mg 03/21/19 22:00 03/24/19 09:51 Cozaar - PO 50 mg BID JOSE LUIS Administration Nicotine 21 mg 03/22/19 15:45 03/24/19 09:54 Nicoderm Patch - TD Not Given DAILY JOSE LUIS Quetiapine Fumarate 100 mg 03/21/19 22:00 03/24/19 09:53 Seroquel - PO 100 mg BID JOSE LUIS Administration Trazodone HCl 50 mg 03/21/19 22:00 03/23/19 21:52 Desyrel - PO 50 mg HS PRN Administration INSOMNIA ASSESSMENT/PLAN: Problem List - Problems (1) Chest pain Assessment/Plan: Chest Pain, persistent with a history of Type B Aortic Dissection Repair Stable type B dissection as per CT scan of chest/abdomen and pelvis with IV contrast two EKGs abnormal w/ T wave inversion, troponins normal On labetalol 200mg bid on losartan 50mg bid monitor bp, labs echo reviewed on asa and statin therapy Cardiology following Code(s): R07.9 - CHEST PAIN, UNSPECIFIED Qualifiers: Chest pain type: chest pain on breathing Qualified Code(s): R07.1 - Chest pain on breathing; R07.81 - Pleurodynia (2) Alcohol dependence Assessment/Plan: see ciwa score, librium taper day 2 Code(s): F10.20 - ALCOHOL DEPENDENCE, UNCOMPLICATED (3) DM2 (diabetes mellitus, type 2) Assessment/Plan: on novolog SS. bgm levels reviewed. Code(s): E11.9 - TYPE 2 DIABETES MELLITUS WITHOUT COMPLICATIONS Qualifiers: Diabetes mellitus shelter insulin use: without shelter use Diabetes mellitus complication status: with unspecified complications (4) Rhabdomyolysis Assessment/Plan: improving with ivf Code(s): M62.82 - RHABDOMYOLYSIS (5) ETOH abuse Assessment/Plan: librium taper day 2 Code(s): F10.10 - ALCOHOL ABUSE, UNCOMPLICATED (6) EtOH dependence Assessment/Plan: showing signs of withdrawal. now with elevated ciwa. start librium taper. Code(s): F10.20 - ALCOHOL DEPENDENCE, UNCOMPLICATED (7) DVT prophylaxis Assessment/Plan: SCDs/ambulation. Code(s): [id number] - Visit type - Emergency Visit Emergency Visit: Yes ED Registration Date: 03/23/19 Care time: The patient presented to the Emergency Department on the above date and was hospitalized for further evaluation of their emergent condition. - New Patient This patient is new to me today: No - Critical Care Critical Care patient: No - Discharge Referral Referred to [facility] Med P.C.: No CIWA Score Nausea/Vomitin-No Nausea/No Vomiting Muscle Tremors: 1-None Visible, but [place] Anxiety: 4-Mod. Anxious/Guarded Agitation: 0-Normal Activity Paroxysmal Sweats: 1-Minimal Palms Moist Orientation: 0-Oriented Tacttile Disturbances: 0-None Auditory Disturbances: 0-None Visual Disturbances: 0-None Headache: 2-Mild CIWA-Ar Total Score: 8 - Admission Criteria OASAS Guidelines: Admission for Medically Managed Detox: Requires at least one of the followin. CIWA greater than 12 2. Seizures within the past 24 hours 3. Delirium tremens within the past 24 hours 4. Hallucinations within the past 24 hours 5. Acute intervention needed for co occurring medical disorder 6. Acute intervention needed for co occurring psychiatric disorder 7. Severe withdrawal that cannot be handled at a lower level of care (continued vomiting, continued diarrhea, abnormal vital signs) requiring intravenous medication and/or fluids 8.
[2019-03-24] MEDS: MORPHINE SULFATE 2 MG/ML VIAL IVPUSH PRN ×2 (11:55→21:08)
[2019-03-24] MEDS: SODIUM CHLORIDE 1,000 ML IV SCH (13:22)
[2019-03-24] MEDS: ATORVASTATIN CA 40 MG TABLET (FP) PO SCH (21:10)
[2019-03-24] MEDS: traZODone HCL 50 MG TABLET (FP) PO PRN (21:11)
[2019-03-25] MEDS: LABETALOL HCL 200 MG TABLET (FP) PO SCH ×3 (06:26→21:19)
[2019-03-25] MEDS: chlordiazePOXIDE 5 MG CAPSULE PO SCH ×3 (06:26→21:17)
[2019-03-25] MEDS: INSULIN SLIDING SCALE (NOVOLOG) 1 VIAL SQ SCH ×2 (06:26→16:36)
[2019-03-25 06:45] LABS: BASO % 0.7 % (0-2.0); EOS % 2.1 % (0-4.5); HEMATOCRIT 40.8 % (35.4-49); LYMPH % 23.1 % (8-40); MCH 34.9 pg (25.7-33.7); MCHC 34.3 g/dl (32.0-35.9); MEAN CELL VOLUME 101.9 fl (80-96); MONO % 9.7 % (3.8-10.2); NEUT % 64.4 % (42.8-82.8); PLATELET COUNT 257 K/MM3 (134-434); RDW 14.8 % (11.9-15.9); WHITE BLOOD COUNT 7.4 K/mm3 (4.0-10.0)
[2019-03-25 07:02] LABS: ALBUMIN 3.4 g/dl (3.4-5.0); BILIRUBIN,TOTAL 0.5 mg/dL (0.2-1); BLOOD UREA NITROGEN 11.1 mg/dL (7-18); CALCIUM 8.6 mg/dL (8.5-10.1); MAGNESIUM 1.7 mg/dL (1.8-2.4); POTASSIUM 4.2 mmol/L (3.5-5.1); TOT PROT 7.5 g/dl (6.4-8.2)
[2019-03-25] MEDS ORDERED: chlordiazePOXIDE 5 MG CAPSULE ONE (09:02)
[2019-03-25] MEDS ORDERED: morphine CARPU-JECT 2 MG/1 ML DISP.SYRIN IVPUSH PRN (09:09)
[2019-03-25] MEDS ORDERED: MAGNESIUM OXIDE 400 MG TABLET (FP) PO ONE (09:15)
[2019-03-25] MEDS ORDERED: PT OWN MED DRAWER 7, Y5N ONE ×3 (10:18→21:15)
[2019-03-25] MEDS: ASPIRIN 81 MG CHEWABLE TABLETS PO SCH (10:19)
[2019-03-25] MEDS: GEMFIBROZIL 600 MG TABLET (FP) PO SCH ×2 (10:19→21:19)
[2019-03-25] MEDS: amLODIPine BESYLATE 5 MG TABLET (FP) PO SCH (10:19)
[2019-03-25] MEDS: LOSARTAN POTASSIUM 50 MG TABLET (FP) PO SCH ×2 (10:19→21:17)
[2019-03-25] MEDS: QUEtiapine FUMARATE 100 MG TABLET (FP) PO SCH ×2 (10:20→21:19)
[2019-03-25] MEDS: NICOTINE 21 MG/24 HOURS TOPICAL PATCH TD SCH (10:22)
--- NOTE | 2019-03-25 10:52 | EKG ---
Test Reason : Blood Pressure : / mmHG Vent. Rate : 089 BPM Atrial Rate : 089 BPM P-R Int : 146 ms QRS Dur : 084 ms QT Int : 376 ms P-R-T Axes : 068 -18 -50 degrees QTc Int : 457 ms NORMAL SINUS RHYTHM POSSIBLE LEFT ATRIAL ENLARGEMENT LEFT VENTRICULAR HYPERTROPHY CANNOT RULE OUT SEPTAL INFARCT (CITED ON OR BEFORE 22-MAR-2019) T WAVE ABNORMALITY, CONSIDER INFERIOR ISCHEMIA ABNORMAL ECG WHEN COMPARED WITH ECG OF 22-MAR-2019 20:35, NO SIGNIFICANT CHANGE WAS FOUND Confirmed by LATRELL DEJESUS, EFRA ([id number]) on 03/25/2019 10:51:59 AM Referred By: Sadiq MUNIZ Confirmed By:EFRA SAMS MD
--- NOTE | 2019-03-25 10:58 | EKG ---
Test Reason : Blood Pressure : / mmHG Vent. Rate : 086 BPM Atrial Rate : 086 BPM P-R Int : 158 ms QRS Dur : 084 ms QT Int : 380 ms P-R-T Axes : 063 -14 -28 degrees QTc Int : 454 ms NORMAL SINUS RHYTHM POSSIBLE LEFT ATRIAL ENLARGEMENT LEFT VENTRICULAR HYPERTROPHY CANNOT RULE OUT SEPTAL INFARCT , AGE UNDETERMINED ABNORMAL ECG WHEN COMPARED WITH ECG OF 22-MAR-2019 11:01, NO SIGNIFICANT CHANGE WAS FOUND Confirmed by LATRELL DEJESUS, EFRA ([id number]) on 03/25/2019 10:58:00 AM Referred By: Confirmed By:EFRA SAMS MD
[2019-03-25] MEDS: MORPHINE SULFATE 2 MG/ML VIAL IVPUSH PRN ×2 (11:13→16:32)
--- NOTE | 2019-03-25 13:04 | PN ---
Progress Note, Physician History of Present Illness: 48 black man with h/o AO dissection, DM, HTN, hyperlipidemia, etoh/opiates abuse ,obesity, presenting to ED with chest pain. Pt reports diffuse chest pressure that started yesterday and worsened today. He reports feeling like an elephant is sitting on his chest. Denies SOB. Denies leg swelling. Pt is currently admitted to [facility] for ETOH detox. Does not feel like he is actively withdrawing. - Current Medication List Current Medications: Active Medications Amlodipine Besylate (Norvasc -) 5 mg PO DAILY [facility] Last Admin: 03/25/19 10:19 Dose: 5 mg Aspirin (Asa -) 81 mg PO DAILY [facility] Last Admin: 03/25/19 10:19 Dose: 81 mg Atorvastatin Calcium (Lipitor -) 40 mg PO HS [facility] Last Admin: 03/24/19 21:10 Dose: 40 mg Chlordiazepoxide HCl (Librium -) 10 mg PO Q12H PRN PRN Reason: Signs/symptoms of Withdrawal Stop: 03/26/19 23:59 Chlordiazepoxide HCl (Librium -) 10 mg PO Q8H PRN PRN Reason: Signs/symptoms of Withdrawal Stop: 03/25/19 23:59 Chlordiazepoxide HCl (Librium -) 15 mg PO Q8H [facility] Stop: 03/25/19 21:01 Last Admin: 03/25/19 06:26 Dose: 15 mg Chlordiazepoxide HCl (Librium -) 10 mg PO Q8H [facility] Stop: 03/26/19 21:01 Chlordiazepoxide HCl (Librium -) 10 mg PO ONCE ONE Stop: 03/27/19 05:01 Gemfibrozil (Lopid -) 600 mg PO BID [facility] Last Admin: 03/25/19 10:19 Dose: 600 mg Sodium Chloride (Normal Saline -) 1,000 mls @ 100 mls/hr IV ASDIR [facility] Last Admin: 03/24/19 13:22 Dose: Not Given Insulin Aspart (Novolog Vial Sliding Scale -) 1 vial SQ BIDAC [facility]; Protocol Last Admin: 03/25/19 06:26 Dose: Not Given Labetalol HCl (Normodyne -) 200 mg PO TID [facility] Last Admin: 03/25/19 06:26 Dose: 200 mg Labetalol HCl (Normodyne Injection -) 10 mg IVPUSH ONCE PRN PRN Reason: HYPERTENSION Losartan Potassium (Cozaar -) 50 mg PO BID [facility] Last Admin: 03/25/19 10:19 Dose: 50 mg Morphine Sulfate (Morphine Sulfate) 1 mg IVPUSH Q4H PRN PRN Reason: PAIN LEVEL 7 - 10 Last Admin: 03/25/19 11:13 Dose: 1 mg Nicotine (Nicoderm Patch -) 21 mg TD DAILY [facility] Last Admin: 03/25/19 10:22 Dose: Not Given Quetiapine Fumarate (Seroquel -) 100 mg PO BID [facility] Last Admin: 03/25/19 10:20 Dose: 100 mg Trazodone HCl (Desyrel -) 50 mg PO HS PRN PRN Reason: INSOMNIA Last Admin: 03/24/19 21:11 Dose: 50 mg - Objective Vital Signs: Vital Signs Temperature 98.2 F 03/25/19 10:00 Pulse Rate 91 H 03/25/19 10:00 Respiratory Rate 20 03/25/19 10:00 Blood Pressure 130/79 03/25/19 10:00 O2 Sat by Pulse Oximetry (%) 100 03/25/19 09:00 Eyes: Yes: WNL, Conjunctiva Clear, EOM Intact HENT: Yes: WNL, Atraumatic, Normocephalic Neck: Yes: WNL, Supple, Trachea Midline Cardiovascular: Yes: WNL, Regular Rate and Rhythm Respiratory: Yes: WNL, Regular, CTA Bilaterally Gastrointestinal: Yes: WNL, Normal Bowel Sounds Genitourinary: Yes: WNL Musculoskeletal: Yes: WNL Extremities: Yes: WNL Edema: No Integumentary: Yes: WNL Neurological: Yes: WNL, Alert, Oriented ...Motor Strength: WNL Psychiatric: Yes: WNL Labs: CBC, BMP 03/25/19 05:27 03/25/19 05:27 INR, PTT INR 1.08 (0.83-1.09) 03/21/19 13:50 Assessment/Plan 1. Atypical chest pain syndrome 2. History of thoracic aortic aneurysm and dissection s/p repair 3. CAD s/p CABG 4. Type 2 DM 5. HTN 6. Schizoaffective disorder 7. Substance abuse (ETOH) PLAN: 1. Consider nuclear stress testing if continues to be symptomatic and if patient remains inpatient and clinically able. May need to postpone until finished with Detox 2. Continue Labetalol 200 mg TID and Cozaar 50 mg BID. Add Amlodipine 5 mg QD 3. Continue ASA 81 mg QD 4. Continue Atorvastatin 40 mg QHS and Lopid 600 mg BID 5. Detox - started on Librium taper
[2019-03-25] MEDS: SODIUM CHLORIDE 1,000 ML IV SCH (13:37)
--- NOTE | 2019-03-25 16:27 | PN ---
Physical Exam: SUBJECTIVE: Patient seen and examined, having chest pain. will order daily ekgs. seen by cardiology OBJECTIVE: Mr. Venegas is a 48 year old male with history of hypertension, type B dissection repair [address] Guevara at [facility], diabetes mellitus, hyperlipidemia,and ETOH abuse who presents from [facility](in detox from ETOH abuse, used cannabis, admitted on 03/19) who presents with severe midsternal chest pain rating 10/10. he denies cocaine use. EKG revealed a normal sinus rhythm with T wave abnormality in lead II, aVF and v4-v6. Patient was admitted to telemetry for further medical and cardiac management. he continues to have chest pain, but now with anxiety. He as noted to be withdrawaing from ETOH a/e/b by elevated ciwa score and started on librium on . denies any hallucinations. see ciwa score. Patient has a history of CABG and aortic dissection repair 2013. CT scan shows stable surgical sites. Chest pain reproducible with palpation of chest. for a stress test per cardiology for further evaluation of chest pain. Period Temp Pulse Resp BP Sys/Garcia Pulse Ox Last 24 Hr 97.9 F-98.5 F 84-98 20-20 115-154/68-100 100-100 GENERAL: The patient is awake, alert, and fully oriented, in no acute distress. HEAD: Normal with no signs of trauma. EYES: PERRL, extraocular movements intact, sclera anicteric, conjunctiva clear. No ptosis. ENT: Ears normal, nares patent, oropharynx clear without exudates, moist mucous membranes. NECK: Trachea midline, full range of motion, supple. LUNGS: Breath sounds equal, clear to auscultation bilaterally, no wheezes, no crackles HEART: Regular rate and rhythm ABDOMEN: Soft, nontender, nondistended, normoactive bowel sounds, no guarding, no rebound, no hepatosplenomegaly, no masses. EXTREMITIES: no edema. NEUROLOGICAL: Normal speech, gait not observed. PSYCH: Normal mood, normal affect. SKIN: anterior chest large surgical scar, healed. Laboratory Results - last 24 hr 03/24/19 03/25/19 03/25/19 16:38 05:27 05:27 WBC 7.4 RBC 4.00 Hgb 14.0 Hct 40.8 MCV 101.9 H MCH 34.9 H MCHC 34.3 RDW 14.8 Plt Count 257 MPV 7.0 L Absolute Neuts (auto) 4.7 Neutrophils % 64.4 Lymphocytes % 23.1 Monocytes % 9.7 Eosinophils % 2.1 Basophils % 0.7 Nucleated RBC % 0 Sodium 136 Potassium 4.2 Chloride 106 Carbon Dioxide 24 Anion Gap 6 L BUN 11.1 Creatinine 1.0 Est GFR (CKD-EPI)AfAm 104.15 Est GFR (CKD-EPI)NonAf 89.86 POC Glucometer 178 Random Glucose 148 H Calcium 8.6 Magnesium 1.7 L Total Bilirubin 0.5 AST 52 H ALT 55 Alkaline Phosphatase 46 Total Protein 7.5 Albumin 3.4 03/25/19 06:25 WBC RBC Hgb Hct MCV MCH MCHC RDW Plt Count MPV Absolute Neuts (auto) Neutrophils % Lymphocytes % Monocytes % Eosinophils % Basophils % Nucleated RBC % Sodium Potassium Chloride Carbon Dioxide Anion Gap BUN Creatinine Est GFR (CKD-EPI)AfAm Est GFR (CKD-EPI)NonAf POC Glucometer 158 Random Glucose Calcium Magnesium Total Bilirubin AST ALT Alkaline Phosphatase Total Protein Albumin Active Medications Generic Name Dose Route Start Last Admin Trade Name Freq PRN Reason Stop Dose Admin Amlodipine Besylate 5 mg 03/23/19 12:00 03/25/19 10:19 Norvasc - PO 5 mg DAILY [facility] Administration Aspirin 81 mg 03/22/19 10:00 03/25/19 10:19 Asa - PO 81 mg DAILY [facility] Administration Atorvastatin Calcium 40 mg 03/21/19 22:00 03/24/19 21:10 Lipitor - PO 40 mg HS [facility] Administration Chlordiazepoxide HCl 10 mg 03/26/19 00:00 Librium - PO 03/26/19 23:59 Q12H PRN Signs/symptoms of Withdrawal Chlordiazepoxide HCl 10 mg 03/23/19 12:06 Librium - PO 03/25/19 23:59 Q8H PRN Signs/symptoms of Withdrawal Chlordiazepoxide HCl 15 mg 03/25/19 05:00 03/25/19 13:38 Librium - PO 03/25/19 21:01 15 mg Q8H [facility] Administration Chlordiazepoxide HCl 10 mg 03/26/19 05:00 Librium - PO 03/26/19 21:01 Q8H [facility] Chlordiazepoxide HCl 10 mg 03/27/19 05:00 Librium - PO 03/27/19 05:01 ONCE ONE Gemfibrozil 600 mg 03/21/19 22:00 03/25/19 10:19 Lopid - PO 600 mg BID [facility] Administration Sodium Chloride 1,000 mls @ 100 mls/hr 03/22/19 12:45 03/25/19 13:37 Normal Saline - IV Not Given ASDIR [facility] Insulin Aspart 1 vial 03/22/19 07:00 03/25/19 06:26 Novolog Vial Sliding Scale - SQ Not Given BIDAC [facility] Protocol Labetalol HCl 200 mg 03/21/19 22:00 03/25/19 13:38 Normodyne - PO 200 mg TID [facility] Administration Labetalol HCl 10 mg 03/21/19 20:18 Normodyne Injection - IVPUSH ONCE PRN HYPERTENSION Losartan Potassium 50 mg 03/21/19 22:00 03/25/19 10:19 Cozaar - PO 50 mg BID [facility] Administration Morphine Sulfate 1 mg 03/25/19 10:46 03/25/19 11:13 Morphine Sulfate IVPUSH 1 mg Q4H PRN Administration PAIN LEVEL 7 - 10 Nicotine 21 mg 03/22/19 15:45 03/25/19 10:22 Nicoderm Patch - TD Not Given DAILY [facility] Quetiapine Fumarate 100 mg 03/21/19 22:00 03/25/19 10:20 Seroquel - PO 100 mg BID [facility] Administration Trazodone HCl 50 mg 03/21/19 22:00 03/24/19 21:11 Desyrel - PO 50 mg HS PRN Administration INSOMNIA ASSESSMENT/PLAN: Problem List - Problems (1) Chest pain Assessment/Plan: Chest Pain, persistent with a history of Type B Aortic Dissection Repair Stable type B dissection as per CT scan of chest/abdomen and pelvis with IV contrast two EKGs abnormal w/ T wave inversion, troponins normal On labetalol 200mg bid on losartan 50mg bid monitor bp, labs echo reviewed on asa and statin therapy Cardiology following Code(s): R07.9 - CHEST PAIN, UNSPECIFIED Qualifiers: Chest pain type: chest pain on breathing Qualified Code(s): R07.1 - Chest pain on breathing; R07.81 - Pleurodynia (2) Alcohol dependence Assessment/Plan: see ciwa score, librium taper day 3 Code(s): F10.20 - ALCOHOL DEPENDENCE, UNCOMPLICATED (3) DM2 (diabetes mellitus, type 2) Assessment/Plan: on novolog SS. bgm levels reviewed. Code(s): E11.9 - TYPE 2 DIABETES MELLITUS WITHOUT COMPLICATIONS Qualifiers: Diabetes mellitus extermination supervisor insulin use: without penitentiary use Diabetes mellitus complication status: with unspecified complications (4) Rhabdomyolysis Assessment/Plan: improving with ivf, recheck cpk Code(s): M62.82 - RHABDOMYOLYSIS (5) ETOH abuse Assessment/Plan: librium taper day 3 Code(s): F10.10 - ALCOHOL ABUSE, UNCOMPLICATED (6) EtOH dependence Assessment/Plan: started librium taper. Code(s): F10.20 - ALCOHOL DEPENDENCE, UNCOMPLICATED (7) DVT prophylaxis Assessment/Plan: SCDs/ambulation. Code(s): AQE3100 - Visit type - Emergency Visit Emergency Visit: Yes ED Registration Date: 03/23/19 Care time: The patient presented to the Emergency Department on the above date and was hospitalized for further evaluation of their emergent condition. - New Patient This patient is new to me today: No - Critical Care Critical Care patient: No - Discharge Referral Referred to [facility] No
[2019-03-25] MEDS ORDERED: MORPHINE SULFATE 2 MG/ML VIAL IVPUSH ONE (20:56)
[2019-03-25] MEDS: ATORVASTATIN CA 40 MG TABLET (FP) PO SCH (21:18)
[2019-03-25] MEDS: traZODone HCL 50 MG TABLET (FP) PO PRN (21:20)
[2019-03-26] MEDS ORDERED: chlordiazePOXIDE HCL 10 MG CAPSULE PO PRN
[2019-03-26] MEDS ORDERED: chlordiazePOXIDE 5 MG CAPSULE ONE ×3 (05:56→21:09)
[2019-03-26] MEDS: chlordiazePOXIDE HCL 10 MG CAPSULE PO SCH ×3 (06:14→21:15)
[2019-03-26] MEDS: INSULIN SLIDING SCALE (NOVOLOG) 1 VIAL SQ SCH ×2 (06:14→16:32)
[2019-03-26] MEDS: LABETALOL HCL 200 MG TABLET (FP) PO SCH ×3 (06:14→21:16)
--- NOTE | 2019-03-26 08:30 | PN ---
Progress Note, Physician Chief Complaint: Sitting at bedside. c/o intermittent chest pain. History of Present Illness: 48 year old male with history of hypertension, type B dissection repair [address] Guevara at [facility], diabetes mellitus, hyperlipidemia, and ETOH abuse who presents from [facility](in detox from ETOH abuse, used cannabis, admitted on 03/19) who presents with severe midsternal chest pain rating 10/10. he denies cocaine use. EKG revealed a normal sinus rhythm with T wave abnormality in lead II, aVF and v4-v6. Patient was admitted to telemetry for further medical and cardiac management. he continues to have chest pain, but now with anxiety. He as noted to be withdrawaing from ETOH a/e/b by elevated ciwa score and started on librium on 03/23/2019. denies any hallucinations. see ciwa score. Patient has a history of CABG and aortic dissection repair 2013. CT scan shows stable surgical sites. Chest pain reproducible with palpation of chest. for a stress test per cardiology for further evaluation of chest pain. - Current Medication List Current Medications: Active Medications Amlodipine Besylate (Norvasc -) 5 mg PO DAILY [facility] Last Admin: 03/25/19 10:19 Dose: 5 mg Aspirin (Asa -) 81 mg PO DAILY [facility] Last Admin: 03/25/19 10:19 Dose: 81 mg Atorvastatin Calcium (Lipitor -) 40 mg PO HS [facility] Last Admin: 03/25/19 21:18 Dose: 40 mg Chlordiazepoxide HCl (Librium -) 10 mg PO Q12H PRN PRN Reason: Signs/symptoms of Withdrawal Stop: 03/26/19 23:59 Chlordiazepoxide HCl (Librium -) 10 mg PO Q8H [facility] Stop: 03/26/19 21:01 Last Admin: 03/26/19 06:14 Dose: 10 mg Chlordiazepoxide HCl (Librium -) 10 mg PO ONCE ONE Stop: 03/27/19 05:01 Gemfibrozil (Lopid -) 600 mg PO BID [facility] Last Admin: 03/25/19 21:19 Dose: 600 mg Sodium Chloride (Normal Saline -) 1,000 mls @ 100 mls/hr IV ASDIR [facility] Last Admin: 03/25/19 13:37 Dose: Not Given Insulin Aspart (Novolog Vial Sliding Scale -) 1 vial SQ BIDAC [facility]; Protocol Last Admin: 03/26/19 06:14 Dose: Not Given Labetalol HCl (Normodyne -) 200 mg PO TID [facility] Last Admin: 03/26/19 06:14 Dose: 200 mg Labetalol HCl (Normodyne Injection -) 10 mg IVPUSH ONCE PRN PRN Reason: HYPERTENSION Losartan Potassium (Cozaar -) 50 mg PO BID [facility] Last Admin: 03/25/19 21:17 Dose: 50 mg Nicotine (Nicoderm Patch -) 21 mg TD DAILY [facility] Last Admin: 03/25/19 10:22 Dose: Not Given Quetiapine Fumarate (Seroquel -) 100 mg PO BID [facility] Last Admin: 03/25/19 21:19 Dose: 100 mg Trazodone HCl (Desyrel -) 50 mg PO HS PRN PRN Reason: INSOMNIA Last Admin: 03/25/19 21:20 Dose: 50 mg - Objective Vital Signs: Vital Signs Temperature 97.7 F 03/26/19 04:59 Pulse Rate 90 03/26/19 04:59 Respiratory Rate 20 03/26/19 04:59 Blood Pressure 112/78 03/26/19 04:59 O2 Sat by Pulse Oximetry (%) 97 03/25/19 20:18 Constitutional: Yes: Well Nourished, No Distress, Anxious (about medcial condition) Eyes: Yes: WNL, Conjunctiva Clear HENT: Yes: WNL, Atraumatic, Normocephalic Neck: Yes: WNL, Supple, Trachea Midline Cardiovascular: Yes: WNL, Regular Rate and Rhythm Respiratory: Yes: WNL, Regular, CTA Bilaterally Gastrointestinal: Yes: Normal Bowel Sounds, Soft, Abdomen, Obese ...Rectal Exam: Yes: Deferred Genitourinary: Yes: WNL Breast(s): Yes: WNL Musculoskeletal: Yes: WNL Extremities: Yes: WNL Edema: No Peripheral Pulses WNL: Yes Peripheral Pulses: Left Radial: 2+, Right Radial: 2+, Left Doralis Pedis: 2+, Right Dorsalis Pedis: 2+, Left Femoral: 2+, Right Femoral: 2+ Integumentary: Yes: WNL Neurological: Yes: WNL, Alert, Oriented ...Motor Strength: WNL Psychiatric: Yes: Alert, Oriented Labs: CBC, BMP 03/25/19 05:27 03/25/19 05:27 INR, PTT INR 1.08 (0.83-1.09) 03/21/19 13:50 - ....Imaging Cat Scan: Report Reviewed (CTA Chest: stable aortic dissection A/P no acute pathology) Problem List - Problems (1) Hx of CABG Assessment/Plan: c/w asa, statin Code(s): Z95.1 - PRESENCE OF AORTOCORONARY BYPASS GRAFT (2) Atypical chest pain Assessment/Plan: Chest Pain, intermittent with a history of Type B Aortic Dissection Repair Stable type B dissection as per CT scan of chest/abdomen and pelvis with IV contrast two EKGs abnormal w/ T wave inversion, troponins normal c/w labetalol 200mg bid c/w losartan 50mg bid c/w asa and statin therapy toradol ineffective, will give one time dose of MSO4 ST ordred for tmrw, NPO past MN appreciate Cardiology consultation Code(s): R07.89 - OTHER CHEST PAIN (3) EtOH dependence Assessment/Plan: completing librium protocol discharge back to [facility] when medcially stable requested addition medicine consultation Code(s): F10.20 - ALCOHOL DEPENDENCE, UNCOMPLICATED (4) Cannabis dependence Assessment/Plan: addiction medicine consultation pending Code(s): F12.20 - CANNABIS DEPENDENCE, UNCOMPLICATED (5) DM2 (diabetes mellitus, type 2) Assessment/Plan: BGM AC/HS with novolog sliding scale diabetic diet Code(s): E11.9 - TYPE 2 DIABETES MELLITUS WITHOUT COMPLICATIONS Qualifiers: Diabetes mellitus correction insulin use: without correction use Diabetes mellitus complication status: with unspecified complications (6) Aortic aneurysm and dissection Assessment/Plan: stable on CT Code(s): I71.00 - DISSECTION OF UNSPECIFIED SITE OF AORTA Visit type - Emergency Visit Emergency Visit: Yes ED Registration Date: 03/23/19 Care time: The patient presented to the Emergency Department on the above date and was hospitalized for further evaluation of their emergent condition. - New Patient This patient is new to me today: Yes Date on this admission: 03/26/19 - Critical Care Critical Care patient: No - Discharge Referral Referred to [facility] No
[2019-03-26] MEDS ORDERED: PT OWN MED DRAWER 7, Y5N ONE ×2 (08:35→21:11)
[2019-03-26 09:09] LABS: BASO % 1.5 % (0-2.0); EOS % 2.4 % (0-4.5); HEMATOCRIT 41.8 % (35.4-49); HEMOGLOBIN 13.7 GM/dL (11.7-16.9); LYMPH % 24.4 % (8-40); MCH 33.3 pg (25.7-33.7); MCHC 32.7 g/dl (32.0-35.9); MEAN CELL VOLUME 101.8 fl (80-96); MEAN PLT VOLUME 7.5 fl (7.5-11.1); MONO % 9.8 % (3.8-10.2); NEUT % 61.9 % (42.8-82.8); PLATELET COUNT 220 K/MM3 (134-434); RBC 4.11 M/mm3 (4.00-5.60); RDW 14.8 % (11.9-15.9); WHITE BLOOD COUNT 7.9 K/mm3 (4.0-10.0)
--- NOTE | 2019-03-26 09:23 | EKG ---
Test Reason : Blood Pressure : / mmHG Vent. Rate : 091 BPM Atrial Rate : 091 BPM P-R Int : 140 ms QRS Dur : 084 ms QT Int : 362 ms P-R-T Axes : 064 -20 -59 degrees QTc Int : 445 ms NORMAL SINUS RHYTHM POSSIBLE LEFT ATRIAL ENLARGEMENT LEFT VENTRICULAR HYPERTROPHY T WAVE ABNORMALITY, CONSIDER INFERIOR ISCHEMIA ABNORMAL ECG WHEN COMPARED WITH ECG OF 23-MAR-2019 09:18, NO SIGNIFICANT CHANGE WAS FOUND Confirmed by MD Arnulfo, Robbi ([id number]) on 03/26/2019 9:23:11 AM Referred By: ROBI BOURNE Confirmed By:Robbi Arredondo MD
[2019-03-26 09:36] LABS: ALBUMIN 3.4 g/dl (3.4-5.0); BILIRUBIN,TOTAL 0.6 mg/dL (0.2-1); BLOOD UREA NITROGEN 13.4 mg/dL (7-18); CALCIUM 8.7 mg/dL (8.5-10.1); POTASSIUM 4.7 mmol/L (3.5-5.1); TOT PROT 7.5 g/dl (6.4-8.2)
[2019-03-26] MEDS: NICOTINE 21 MG/24 HOURS TOPICAL PATCH TD SCH (10:28)
[2019-03-26] MEDS: LOSARTAN POTASSIUM 50 MG TABLET (FP) PO SCH ×2 (10:29→21:15)
[2019-03-26] MEDS: GEMFIBROZIL 600 MG TABLET (FP) PO SCH ×2 (10:29→21:16)
[2019-03-26] MEDS: amLODIPine BESYLATE 5 MG TABLET (FP) PO SCH (10:29)
[2019-03-26] MEDS: ASPIRIN 81 MG CHEWABLE TABLETS PO SCH (10:29)
[2019-03-26] MEDS: QUEtiapine FUMARATE 100 MG TABLET (FP) PO SCH ×2 (10:29→21:16)
[2019-03-26] MEDS: KETOROLAC TROMETHAMINE 30 MG/1 ML VIAL IVPUSH SCH ×2 (11:17→17:44)
--- NOTE | 2019-03-26 12:34 | PN ---
Progress Note, Physician Chief Complaint: Pt A&Ox3; c/o chest pain; says he is "afraid", and that morphine is the only pain medication that helps. He says his heart races just walking across the room (sedentary lifestyle; obese). History of Present Illness: 48 black man with h/o AO dissection, DM, HTN, hyperlipidemia, etoh/opiates abuse ,obesity, presenting to ED with chest pain. Pt reports diffuse chest pressure that started yesterday and worsened today. He reports feeling like an elephant is sitting on his chest. Denies SOB. Denies leg swelling. Pt is currently admitted to [facility] for ETOH detox. Does not feel like he is actively withdrawing. - Current Medication List Current Medications: Active Medications Amlodipine Besylate (Norvasc -) 5 mg PO DAILY [facility] Last Admin: 03/26/19 10:29 Dose: 5 mg Aspirin (Asa -) 81 mg PO DAILY [facility] Last Admin: 03/26/19 10:29 Dose: 81 mg Atorvastatin Calcium (Lipitor -) 40 mg PO HS [facility] Last Admin: 03/25/19 21:18 Dose: 40 mg Chlordiazepoxide HCl (Librium -) 10 mg PO Q12H PRN PRN Reason: Signs/symptoms of Withdrawal Stop: 03/26/19 23:59 Chlordiazepoxide HCl (Librium -) 10 mg PO Q8H [facility] Stop: 03/26/19 21:01 Last Admin: 03/26/19 06:14 Dose: 10 mg Chlordiazepoxide HCl (Librium -) 10 mg PO ONCE ONE Stop: 03/27/19 05:01 Gemfibrozil (Lopid -) 600 mg PO BID [facility] Last Admin: 03/26/19 10:29 Dose: 600 mg Sodium Chloride (Normal Saline -) 1,000 mls @ 100 mls/hr IV ASDIR [facility] Last Admin: 03/25/19 13:37 Dose: Not Given Insulin Aspart (Novolog Vial Sliding Scale -) 1 vial SQ BIDAC [facility]; Protocol Last Admin: 03/26/19 06:14 Dose: Not Given Ketorolac Tromethamine (Toradol Injection -) 30 mg IVPUSH Q8H-IV [facility] Stop: 03/27/19 02:01 Last Admin: 03/26/19 11:17 Dose: 30 mg Labetalol HCl (Normodyne -) 200 mg PO TID [facility] Last Admin: 03/26/19 06:14 Dose: 200 mg Labetalol HCl (Normodyne Injection -) 10 mg IVPUSH ONCE PRN PRN Reason: HYPERTENSION Losartan Potassium (Cozaar -) 50 mg PO BID [facility] Last Admin: 03/26/19 10:29 Dose: 50 mg Nicotine (Nicoderm Patch -) 21 mg TD DAILY [facility] Last Admin: 03/26/19 10:28 Dose: Not Given Quetiapine Fumarate (Seroquel -) 100 mg PO BID [facility] Last Admin: 03/26/19 10:29 Dose: 100 mg Trazodone HCl (Desyrel -) 50 mg PO HS PRN PRN Reason: INSOMNIA Last Admin: 03/25/19 21:20 Dose: 50 mg - Objective Vital Signs: Vital Signs Temperature 97.7 F 03/26/19 04:59 Pulse Rate 90 03/26/19 04:59 Respiratory Rate 20 03/26/19 04:59 Blood Pressure 112/78 03/26/19 04:59 O2 Sat by Pulse Oximetry (%) 97 03/25/19 20:18 Constitutional: Yes: Anxious, Mild Distress Eyes: Yes: WNL HENT: Yes: WNL Cardiovascular: Yes: S1, S2, S4 Respiratory: Yes: WNL Gastrointestinal: Yes: Soft, Abdomen, Obese ...Rectal Exam: Yes: Deferred Genitourinary: No: Anuria Breast(s): Yes: WNL Musculoskeletal: Yes: Joint Stiffness Extremities: Yes: WNL Edema: Yes Edema: LLE: Trace, RLE: Trace Peripheral Pulses WNL: Yes Integumentary: Yes: WNL Neurological: Yes: WNL Psychiatric: Yes: Other (addictions) Labs: CBC, BMP 03/26/19 08:45 03/26/19 08:45 INR, PTT INR 1.08 (0.83-1.09) 03/21/19 13:50 Abnormal Lab Results 03/26/19 03/26/19 03/27/19 08:45 08:45 06:46 RBC 3.80 L MCV 101.8 H 102.6 H MCH 36.4 H Sodium 135 L Chloride Anion Gap 7 L Random Glucose 217 H AST 60 H Creatine Kinase 702 H CK-MB (CK-2) 3.8 H 03/27/19 06:46 RBC MCV MCH Sodium Chloride 108 H Anion Gap 5 L Random Glucose 125 H AST 47 H Creatine Kinase CK-MB (CK-2) - ....Imaging Chest X-ray: Image Reviewed EKG: Image Reviewed Problem List - Problems (1) Atypical chest pain Assessment/Plan: TNI < 0.02 x 2. EKG: NSR; T wave changes. Hx CABG and aortic dissection repair in 2014: CT scan shows stable surgical sites. Pt reproduced with palpation of left anterior/parasternal chest wall. ?stress test done within the past 2 years; if unable to acquire results, will repeat. Pt wants morphine for pain, and says Toradol dose not work; recommend cork painter and grader. Code(s): R07.89 - OTHER CHEST PAIN (2) Alcohol dependence Assessment/Plan: For detox when stable medically. Code(s): F10.20 - ALCOHOL DEPENDENCE, UNCOMPLICATED (3) Aortic dissection Assessment/Plan: CT results noted: stable distal thoracic aorta repair. ER note: pt's cardiac surgeon contacted; no need for surgery at this point. Code(s): I71.00 - DISSECTION OF UNSPECIFIED SITE OF AORTA Qualifiers: Aortic location: thoracic aorta Qualified Code(s): I71.01 - Dissection of thoracic aorta (4) CAD (coronary artery disease) Assessment/Plan: May require pharmacoloigc (Lexiscan--pt denies asthma) stress MIBI. Code(s): I25.10 - ATHSCL HEART DISEASE OF [place] CORONARY ARTERY W/O ANG PCTRS (5) DM2 (diabetes mellitus, type 2) Code(s): E11.9 - TYPE 2 DIABETES MELLITUS WITHOUT COMPLICATIONS Qualifiers: Diabetes mellitus retirement insulin use: without salvage determiner use Diabetes mellitus complication status: with unspecified complications (6) Nicotine dependence Assessment/Plan: Placed on nicotine patch 21 mg/d. Code(s): F17.200 - NICOTINE DEPENDENCE, UNSPECIFIED, UNCOMPLICATED Qualifiers: Nicotine product type: cigarettes Substance use status: uncomplicated Qualified Code(s): F17.210 - Nicotine dependence, cigarettes, uncomplicated (7) Non-compliance Code(s): Z91.19 - PATIENT'S NONCOMPLIANCE W OTH MEDICAL TREATMENT AND REGIMEN (8) Schizoaffective disorder Code(s): F25.9 - SCHIZOAFFECTIVE DISORDER, UNSPECIFIED Qualifiers: Schizoaffective disorder type: unspecified Qualified Code(s): F25.9 - Schizoaffective disorder, unspecified (10) HTN (hypertension) Assessment/Plan: On labetolol (would stop beta blockers if pt has hx of cocaine abuse) and losartan. Increase amlodipine to 10 mg daily; f/u BP and HR. Code(s): I10 - ESSENTIAL (PRIMARY) HYPERTENSION (11) Anxiety Assessment/Plan: Fear about his health condition, yet continues to smoke. The benefits of outpatient carciac and physical rehabilitation, regulart exercise, diet modification and weight loss were discussed in detail. He says he is fearful when his heart races when he walks across the room (no arrhythmias on telemetry); he is quite sedentary. Cardiac monitoring while exercising (at a cardiac rehab program) might help him overcome this fear. Code(s): F41.9 - ANXIETY DISORDER, UNSPECIFIED (12) Hyperlipidemia Assessment/Plan: On statin (consider increase to 80 mg daily atorvatatin) and Lopid; f/u LFTs ( elevated AST). DIet modification and weight loos, as well as [id number], are important. Code(s): E78.5 - HYPERLIPIDEMIA, UNSPECIFIED
[2019-03-26] MEDS ORDERED: MORPHINE SULFATE 2 MG/ML VIAL IVPUSH ONE ×2 (13:15→20:40)
[2019-03-26] MEDS: SODIUM CHLORIDE 1,000 ML IV SCH (13:39)
[2019-03-26] MEDS ORDERED: MORPHINE SULFATE 2 MG/ML VIAL IM ONE (20:29)
[2019-03-26] MEDS: ATORVASTATIN CA 40 MG TABLET (FP) PO SCH (21:15)
[2019-03-26] MEDS: traZODone HCL 50 MG TABLET (FP) PO PRN (21:16)
[2019-03-27] MEDS: KETOROLAC TROMETHAMINE 30 MG/1 ML VIAL IVPUSH SCH (04:23)
[2019-03-27] MEDS ORDERED: chlordiazePOXIDE HCL 10 MG CAPSULE PO ONE (05:00)
[2019-03-27] MEDS ORDERED: chlordiazePOXIDE 5 MG CAPSULE ONE (06:10)
[2019-03-27] MEDS: INSULIN SLIDING SCALE (NOVOLOG) 1 VIAL SQ SCH ×2 (06:53→17:11)
[2019-03-27] MEDS: LABETALOL HCL 200 MG TABLET (FP) PO SCH ×3 (06:53→14:47)
[2019-03-27 07:13] LABS: BASO % 1.1 % (0-2.0); EOS % 2.1 % (0-4.5); HEMOGLOBIN 13.8 GM/dL (11.7-16.9); LYMPH % 26.2 % (8-40); MCH 36.4 pg (25.7-33.7); MCHC 35.5 g/dl (32.0-35.9); MEAN CELL VOLUME 102.6 fl (80-96); MEAN PLT VOLUME 7.5 fl (7.5-11.1); MONO % 9.3 % (3.8-10.2); NEUT % 61.3 % (42.8-82.8); PLATELET COUNT 215 K/MM3 (134-434); RDW 14.9 % (11.9-15.9); WHITE BLOOD COUNT 7.4 K/mm3 (4.0-10.0)
[2019-03-27 07:31] LABS: ALBUMIN 3.5 g/dl (3.4-5.0); BILIRUBIN,TOTAL 0.5 mg/dL (0.2-1); BLOOD UREA NITROGEN 13.2 mg/dL (7-18); MAGNESIUM 1.8 mg/dL (1.8-2.4); POTASSIUM 4.6 mmol/L (3.5-5.1); TOT PROT 7.3 g/dl (6.4-8.2)
--- NOTE | 2019-03-27 07:48 | PN ---
Progress Note, Physician History of Present Illness: 48 year old male with history of hypertension, type B dissection repair [address] Gue[address] at [facility], diabetes mellitus, hyperlipidemia, and ETOH abuse who presents from [facility](in detox from ETOH abuse, used cannabis, admitted on 03/19) who presents with severe midsternal chest pain rating 10/10. he denies cocaine use. EKG revealed a normal sinus rhythm with T wave abnormality in lead II, aVF and v4-v6. Patient was admitted to telemetry for further medical and cardiac management. he continues to have chest pain, but now with anxiety. He as noted to be withdrawaing from ETOH a/e/b by elevated ciwa score and started on librium on 03/23/2019. denies any hallucinations. see ciwa score. Patient has a history of CABG and aortic dissection repair 2013. CT scan shows stable surgical sites. Chest pain reproducible with palpation of chest. for a stress test per cardiology for further evaluation of chest pain. - Current Medication List Current Medications: Active Medications Amlodipine Besylate (Norvasc -) 5 mg PO DAILY [facility] Last Admin: 03/26/19 10:29 Dose: 5 mg Aspirin (Asa -) 81 mg PO DAILY [facility] Last Admin: 03/26/19 10:29 Dose: 81 mg Atorvastatin Calcium (Lipitor -) 40 mg PO HS [facility] Last Admin: 03/26/19 21:15 Dose: 40 mg Gemfibrozil (Lopid -) 600 mg PO BID [facility] Last Admin: 03/26/19 21:16 Dose: 600 mg Sodium Chloride (Normal Saline -) 1,000 mls @ 100 mls/hr IV ASDIR [facility] Last Admin: 03/26/19 13:39 Dose: 100 mls/hr Insulin Aspart (Novolog Vial Sliding Scale -) 1 vial SQ BIDAC [facility]; Protocol Last Admin: 03/27/19 06:53 Dose: Not Given Labetalol HCl (Normodyne -) 200 mg PO TID [facility] Last Admin: 03/27/19 06:53 Dose: Not Given Labetalol HCl (Normodyne Injection -) 10 mg IVPUSH ONCE PRN PRN Reason: HYPERTENSION Losartan Potassium (Cozaar -) 50 mg PO BID [facility] Last Admin: 03/26/19 21:15 Dose: 50 mg Nicotine (Nicoderm Patch -) 21 mg TD DAILY [facility] Last Admin: 03/26/19 10:28 Dose: Not Given Quetiapine Fumarate (Seroquel -) 100 mg PO BID [facility] Last Admin: 03/26/19 21:16 Dose: 100 mg Trazodone HCl (Desyrel -) 50 mg PO HS PRN PRN Reason: INSOMNIA Last Admin: 03/26/19 21:16 Dose: 50 mg - Objective Vital Signs: Vital Signs Temperature 97.8 F 03/27/19 05:43 Pulse Rate 84 03/27/19 05:43 Respiratory Rate 20 03/27/19 05:43 Blood Pressure 154/98 03/27/19 05:43 O2 Sat by Pulse Oximetry (%) 95 03/26/19 21:00 Labs: CBC, BMP 03/27/19 06:46 03/27/19 06:46 INR, PTT INR 1.08 (0.83-1.09) 03/21/19 13:50 Problem List - Problems (1) Hx of CABG Code(s): Z95.1 - PRESENCE OF AORTOCORONARY BYPASS GRAFT (2) Atypical chest pain Code(s): R07.89 - OTHER CHEST PAIN (3) EtOH dependence Code(s): F10.20 - ALCOHOL DEPENDENCE, UNCOMPLICATED (4) Cannabis dependence Code(s): F12.20 - CANNABIS DEPENDENCE, UNCOMPLICATED (5) DM2 (diabetes mellitus, type 2) Code(s): E11.9 - TYPE 2 DIABETES MELLITUS WITHOUT COMPLICATIONS Qualifiers: Diabetes mellitus long chain quiller tender insulin use: without usp use Diabetes mellitus complication status: with unspecified complications (6) Aortic aneurysm and dissection Code(s): I71.00 - DISSECTION OF UNSPECIFIED SITE OF AORTA
[2019-03-27] MEDS ORDERED: amLODIPine BESYLATE 5 MG TABLET (FP) PO SCH (08:39)
[2019-03-27] MEDS ORDERED: amLODIPine BESYLATE 10 MG TABLET (FP) PO SCH (09:16)
[2019-03-27] MEDS: ASPIRIN 81 MG CHEWABLE TABLETS PO SCH (09:23)
[2019-03-27] MEDS: LOSARTAN POTASSIUM 50 MG TABLET (FP) PO SCH (09:23)
[2019-03-27] MEDS: NICOTINE 21 MG/24 HOURS TOPICAL PATCH TD SCH (09:24)
[2019-03-27] MEDS ORDERED: REGADENOSON 0.4 MG/5 ML PRE-FILLED SYRINGE IVPUSH ONE ×2 (09:58→10:15)
--- NOTE | 2019-03-27 10:50 | PN ---
Progress Note, Physician History of Present Illness: 48 black man with h/o AO dissection, DM, HTN, hyperlipidemia, etoh/opiates abuse ,obesity, presenting to ED with chest pain. Pt reports diffuse chest pressure that started yesterday and worsened today. He reports feeling like an elephant is sitting on his chest. Denies SOB. Denies leg swelling. Pt is currently admitted to [facility] for ETOH detox. Does not feel like he is actively withdrawing. - Current Medication List Current Medications: Active Medications Amlodipine Besylate (Norvasc -) 10 mg PO DAILY [facility] Last Admin: 03/27/19 09:24 Dose: 10 mg Aspirin (Asa -) 81 mg PO DAILY [facility] Last Admin: 03/27/19 09:23 Dose: 81 mg Atorvastatin Calcium (Lipitor -) 40 mg PO HS [facility] Last Admin: 03/26/19 21:15 Dose: 40 mg Gemfibrozil (Lopid -) 600 mg PO BID [facility] Last Admin: 03/26/19 21:16 Dose: 600 mg Sodium Chloride (Normal Saline -) 1,000 mls @ 100 mls/hr IV ASDIR [facility] Last Admin: 03/26/19 13:39 Dose: 100 mls/hr Insulin Aspart (Novolog Vial Sliding Scale -) 1 vial SQ BIDAC [facility]; Protocol Last Admin: 03/27/19 06:53 Dose: Not Given Labetalol HCl (Normodyne -) 200 mg PO TID [facility] Last Admin: 03/27/19 06:53 Dose: Not Given Labetalol HCl (Normodyne Injection -) 10 mg IVPUSH ONCE PRN PRN Reason: HYPERTENSION Losartan Potassium (Cozaar -) 50 mg PO BID [facility] Last Admin: 03/27/19 09:23 Dose: 50 mg Nicotine (Nicoderm Patch -) 21 mg TD DAILY [facility] Last Admin: 03/27/19 09:24 Dose: Not Given Quetiapine Fumarate (Seroquel -) 100 mg PO BID [facility] Last Admin: 03/26/19 21:16 Dose: 100 mg Trazodone HCl (Desyrel -) 50 mg PO HS PRN PRN Reason: INSOMNIA Last Admin: 03/26/19 21:16 Dose: 50 mg - Objective Vital Signs: Vital Signs Temperature 97.8 F 03/27/19 05:43 Pulse Rate 84 03/27/19 05:43 Respiratory Rate 20 03/27/19 05:43 Blood Pressure 154/98 03/27/19 05:43 O2 Sat by Pulse Oximetry (%) 95 03/26/19 21:00 Eyes: Yes: WNL, Conjunctiva Clear, EOM Intact HENT: Yes: WNL, Atraumatic, Normocephalic Neck: Yes: WNL, Supple, Trachea Midline Cardiovascular: Yes: WNL, Regular Rate and Rhythm Respiratory: Yes: WNL, Regular, CTA Bilaterally Gastrointestinal: Yes: WNL, Normal Bowel Sounds Genitourinary: Yes: WNL Musculoskeletal: Yes: WNL Extremities: Yes: WNL Edema: No Integumentary: Yes: WNL Neurological: Yes: WNL, Alert, Oriented ...Motor Strength: WNL Psychiatric: Yes: WNL Labs: CBC, BMP 03/27/19 06:46 03/27/19 06:46 INR, PTT INR 1.08 (0.83-1.09) 03/21/19 13:50 Assessment/Plan - Problems (1) Atypical chest pain Assessment/Plan: TNI < 0.02 x 2. EKG: NSR; T wave changes. Hx CABG and aortic dissection repair in 2014: CT scan shows stable surgical sites. Pt reproduced with palpation of left anterior/parasternal chest wall. ?stress test done within the past 2 years; if unable to acquire results, will repeat. Pt wants morphine for pain, and says Toradol dose not work; recommend pain management nurse. Code(s): R07.89 - OTHER CHEST PAIN (2) Alcohol dependence Assessment/Plan: For detox when stable medically. Code(s): F10.20 - ALCOHOL DEPENDENCE, UNCOMPLICATED (3) Aortic dissection Assessment/Plan: CT results noted: stable distal thoracic aorta repair. ER note: pt's cardiac surgeon contacted; no need for surgery at this point. Code(s): I71.00 - DISSECTION OF UNSPECIFIED SITE OF AORTA Qualifiers: Aortic location: thoracic aorta Qualified Code(s): I71.01 - Dissection of thoracic aorta (4) CAD (coronary artery disease) Assessment/Plan: May require pharmacoloigc (Lexiscan--pt denies asthma) stress MIBI. Code(s): I25.10 - ATHSCL HEART DISEASE OF [place] CORONARY ARTERY W/O ANG PCTRS (5) DM2 (diabetes mellitus, type 2) Code(s): E11.9 - TYPE 2 DIABETES MELLITUS WITHOUT COMPLICATIONS Qualifiers: Diabetes mellitus mcc insulin use: without sales strategy manager use Diabetes mellitus complication status: with unspecified complications (6) Nicotine dependence Assessment/Plan: Placed on nicotine patch 21 mg/d. Code(s): F17.200 - NICOTINE DEPENDENCE, UNSPECIFIED, UNCOMPLICATED Qualifiers: Nicotine product type: cigarettes Substance use status: uncomplicated Qualified Code(s): F17.210 - Nicotine dependence, cigarettes, uncomplicated (7) Non-compliance Code(s): Z91.19 - PATIENT'S NONCOMPLIANCE W OTH MEDICAL TREATMENT AND REGIMEN (8) Schizoaffective disorder Code(s): F25.9 - SCHIZOAFFECTIVE DISORDER, UNSPECIFIED Qualifiers: Schizoaffective disorder type: unspecified Qualified Code(s): F25.9 - Schizoaffective disorder, unspecified (10) HTN (hypertension) Assessment/Plan: On labetolol (would stop beta blockers if pt has hx of cocaine abuse) and losartan. Increase amlodipine to 10 mg daily; f/u BP and HR. Code(s): I10 - ESSENTIAL (PRIMARY) HYPERTENSION (11) Anxiety Assessment/Plan: Fear about his health condition, yet continues to smoke. The benefits of outpatient carciac and physical rehabilitation, regulart exercise, diet modification and weight loss were discussed in detail. He says he is fearful when his heart races when he walks across the room (no arrhythmias on telemetry); he is quite sedentary. Cardiac monitoring while exercising (at a cardiac rehab program) might help him overcome this fear. Code(s): F41.9 - ANXIETY DISORDER, UNSPECIFIED (12) Hyperlipidemia Assessment/Plan: On statin (consider increase to 80 mg daily atorvatatin) and Lopid; f/u LFTs ( elevated AST). DIet modification and weight loos, as well as [id number], are important. Code(s): E78.5 - HYPERLIPIDEMIA, UNSPECIFIED
[2019-03-27] MEDS: SODIUM CHLORIDE 1,000 ML IV SCH (12:38)
[2019-03-27] MEDS: QUEtiapine FUMARATE 100 MG TABLET (FP) PO SCH (12:38)
[2019-03-27] MEDS: GEMFIBROZIL 600 MG TABLET (FP) PO SCH (12:38)
--- NOTE | 2019-03-27 15:50 | DS ---
Physical Exam: SUBJECTIVE: Patient seen and examined 48 year old male with history of hypertension, type B dissection repair [address] Guevara at [facility], diabetes mellitus, hyperlipidemia, and ETOH abuse who presents from [facility](in detox from ETOH abuse, used cannabis, admitted on 03/19) who presents with severe midsternal chest pain rating 10/10. he denies cocaine use. EKG revealed a normal sinus rhythm with T wave abnormality in lead II, aVF and v4-v6. Patient was admitted to telemetry for further medical and cardiac management. he continues to have chest pain, but now with anxiety. He as noted to be withdrawaing from ETOH a/e/b by elevated ciwa score and started on librium on 03/23/2019. denies any hallucinations. see ciwa score. Patient has a history of CABG and aortic dissection repair 2013. CT scan shows stable surgical sites. Chest pain reproducible with palpation of chest. for a stress test per cardiology for further evaluation of chest pain. OBJECTIVE: Vital Signs Period Temp Pulse Resp BP Sys/Garcia Pulse Ox Last 24 Hr 97.6 F-98.4 F 82-97 20-20 128-154/80-99 95 PHYSICAL EXAM Constitutional: Yes: Well Nourished, No Distress, Anxious (about medcial condition) Eyes: Yes: WNL, Conjunctiva Clear HENT: Yes: WNL, Atraumatic, Normocephalic Neck: Yes: WNL, Supple, Trachea Midline Cardiovascular: Yes: WNL, Regular Rate and Rhythm Respiratory: Yes: WNL, Regular, CTA Bilaterally Gastrointestinal: Yes: Normal Bowel Sounds, Soft, Abdomen, Obese ...Rectal Exam: Yes: Deferred Genitourinary: Yes: WNL Breast(s): Yes: WNL Musculoskeletal: Yes: WNL Extremities: Yes: WNL Edema: No Peripheral Pulses WNL: Yes Peripheral Pulses: Left Radial: 2+, Right Radial: 2+, Left Doralis Pedis: 2+, Right Dorsalis Pedis: 2+, Left Femoral: 2+, Right Femoral: 2+ Integumentary: Yes: WNL Neurological: Yes: WNL, Alert, Oriented ...Motor Strength: WNL Psychiatric: Yes: Alert, Oriented LABS Laboratory Results - last 24 hr 03/26/19 03/27/19 03/27/19 16:31 06:46 06:46 WBC 7.4 RBC 3.80 L Hgb 13.8 Hct 39.0 MCV 102.6 H MCH 36.4 H MCHC 35.5 RDW 14.9 Plt Count 215 MPV 7.5 Absolute Neuts (auto) 4.6 Neutrophils % 61.3 Lymphocytes % 26.2 Monocytes % 9.3 Eosinophils % 2.1 Basophils % 1.1 Nucleated RBC % 0 Sodium 137 Potassium 4.6 Chloride 108 H Carbon Dioxide 24 Anion Gap 5 L BUN 13.2 Creatinine 1.0 Est GFR (CKD-EPI)AfAm 104.15 Est GFR (CKD-EPI)NonAf 89.86 POC Glucometer 177 Random Glucose 125 H Calcium 9.0 Magnesium 1.8 Total Bilirubin 0.5 AST 47 H ALT 49 Alkaline Phosphatase 45 Total Protein 7.3 Albumin 3.5 03/27/19 06:47 WBC RBC Hgb Hct MCV MCH MCHC RDW Plt Count MPV Absolute Neuts (auto) Neutrophils % Lymphocytes % Monocytes % Eosinophils % Basophils % Nucleated RBC % Sodium Potassium Chloride Carbon Dioxide Anion Gap BUN Creatinine Est GFR (CKD-EPI)AfAm Est GFR (CKD-EPI)NonAf POC Glucometer 117 Random Glucose Calcium Magnesium Total Bilirubin AST ALT Alkaline Phosphatase Total Protein Albumin HOSPITAL COURSE: Date of Admission:03/23/19 Date of Discharge: 03/27/19 - ....Imaging Cat Scan: Report Reviewed (CTA Chest: stable aortic dissection A/P no acute pathology) Problem List - Problems (1) Hx of CABG Assessment/Plan: c/w asa, statin Code(s): Z95.1 - PRESENCE OF AORTOCORONARY BYPASS GRAFT (2) Atypical chest pain Assessment/Plan: Chest Pain, intermittent with a history of Type B Aortic Dissection Repair Stable type B dissection as per CT scan of chest/abdomen and pelvis with IV contrast two EKGs abnormal w/ T wave inversion, troponins normal c/w labetalol 200mg bid c/w losartan 50mg bid c/w asa and statin therapy toradol ineffective, will give one time dose of MSO4 Nuclear stress done without evidence of ischemia Code(s): R07.89 - OTHER CHEST PAIN (3) EtOH dependence Assessment/Plan: completed librium protocol ready for discharge back to [facility] to complete rehab Code(s): F10.20 - ALCOHOL DEPENDENCE, UNCOMPLICATED (4) Cannabis dependence Assessment/Plan: Code(s): F12.20 - CANNABIS DEPENDENCE, UNCOMPLICATED (5) DM2 (diabetes mellitus, type 2) Assessment/Plan: BGM AC/HS with novolog sliding scale diabetic diet Code(s): E11.9 - TYPE 2 DIABETES MELLITUS WITHOUT COMPLICATIONS Qualifiers: Diabetes mellitus fci insulin use: without fci use Diabetes mellitus complication status: with unspecified complications (6) Aortic aneurysm and dissection Assessment/Plan: stable on CT Code(s): I71.00 - DISSECTION OF UNSPECIFIED SITE OF AORTA Medically stable for discharge back to [facility]. Accepted by Dr Cardenas Minutes to complete discharge: 45 Discharge Summary Problems reviewed: Yes Reason For Visit: DISSECTION OF AORTA, HYPERTENSION Current Active Problems Anxiety (Acute) Atypical chest pain (Acute) ETOH abuse (Acute) EtOH dependence (Acute) HTN (hypertension) (Acute) Hx of CABG (Acute) Hyperlipidemia (Acute) Rhabdomyolysis (Acute) Hospital Course: HOSPITAL COURSE: Date of Admission:03/23/19 Date of Discharge: 03/27/19 - ....Imaging Cat Scan: Report Reviewed (CTA Chest: stable aortic dissection A/P no acute pathology) Problem List - Problems (1) Hx of CABG Assessment/Plan: c/w asa, statin Code(s): Z95.1 - PRESENCE OF AORTOCORONARY BYPASS GRAFT (2) Atypical chest pain Assessment/Plan: Chest Pain, intermittent with a history of Type B Aortic Dissection Repair Stable type B dissection as per CT scan of chest/abdomen and pelvis with IV contrast two EKGs abnormal w/ T wave inversion, troponins normal c/w labetalol 200mg bid c/w losartan 50mg bid c/w asa and statin therapy toradol ineffective, will give one time dose of MSO4 Nuclear stress done without evidence of ischemia Code(s): R07.89 - OTHER CHEST PAIN (3) EtOH dependence Assessment/Plan: completed librium protocol ready for discharge back to [facility] to complete rehab Code(s): F10.20 - ALCOHOL DEPENDENCE, UNCOMPLICATED (4) Cannabis dependence Assessment/Plan: Code(s): F12.20 - CANNABIS DEPENDENCE, UNCOMPLICATED (5) DM2 (diabetes mellitus, type 2) Assessment/Plan: BGM AC/HS with novolog sliding scale diabetic diet Code(s): E11.9 - TYPE 2 DIABETES MELLITUS WITHOUT COMPLICATIONS Qualifiers: Diabetes mellitus fci insulin use: without fci use Diabetes mellitus complication status: with unspecified complications (6) Aortic aneurysm and dissection Assessment/Plan: stable on CT Code(s): I71.00 - DISSECTION OF UNSPECIFIED SITE OF AORTA Medically stable for discharge back to [facility]. Accepted by Dr Cardenas Condition: Improved - Instructions Diet, Activity, Other Instructions: Resume a cardiac diet and all home medications. The cardiac street test along with the echocardiiogram were normal. Follow with your home brinell tester and primary care provider after you complete rehab. Referrals: Garo Cardenas DO [Staff Physician] - Disposition: TRANSFER ACUTE CARE/OTHER HOSP - Home Medications Comprehensive Discharge Medication List: Ambulatory Orders Aspirin [ASA -] 81 mg PO DAILY 03/19/19 Atorvastatin Ca [Lipitor] 40 mg PO HS 03/19/19 Gemfibrozil [Lopid -] 600 mg PO BID 03/19/19 Losartan Potassium 50 mg PO BID 03/19/19 Metformin HCl [Glucophage] 500 mg PO BID 03/19/19 Quetiapine Fumarate [Seroquel -] 100 mg PO BID 03/19/19 traZODone HCL [Trazodone HCl] 50 mg PO HS PRN 03/19/19 Nicotine Patch [Nicoderm Patch -] 1 patch TD DAILY 03/21/19 Thiamine HCl [Vitamin B-1] 100 mg PO HS 03/21/19 Amlodipine Besylate [Norvasc -] 10 mg PO DAILY tablet 03/27/19 Insulin Sliding Scale [Novolog Vial Sliding Scale -] 1 vial SQ BIDAC units 11/07 Labetalol HCl [Normodyne -] 200 mg PO TID tablet 03/27/19 Nicotine Patch [Nicoderm Patch -] 21 mg TD DAILY patch 03/27/19 Prescription Drug Monitoring Program (I-STOP) results: I-STOP reviewed and no issues identified Problem List - Problems (1) Hx of CABG Code(s): Z95.1 - PRESENCE OF AORTOCORONARY BYPASS GRAFT (2) Atypical chest pain Code(s): R07.89 - OTHER CHEST PAIN (3) EtOH dependence Code(s): F10.20 - ALCOHOL DEPENDENCE, UNCOMPLICATED (4) Cannabis dependence Code(s): F12.20 - CANNABIS DEPENDENCE, UNCOMPLICATED (5) DM2 (diabetes mellitus, type 2) Code(s): E11.9 - TYPE 2 DIABETES MELLITUS WITHOUT COMPLICATIONS Qualifiers: Diabetes mellitus fci insulin use: without meterman use Diabetes mellitus complication status: with unspecified complications This patient is new to me today: No Emergency Visit: Yes ED Registration Date: 03/23/19 Care time: The patient presented to the Emergency Department on the above date and was hospitalized for further evaluation of their emergent condition. Critical Care patient: No - Discharge Referral Referred to [facility] No
[2019-03-27 16:12] VITALS: BP 136/72; PULSE 102; TEMP 97.8
--- NOTE | 2019-03-28 11:47 | EKG ---
Test Reason : Blood Pressure : / mmHG Vent. Rate : 083 BPM Atrial Rate : 083 BPM P-R Int : 138 ms QRS Dur : 072 ms QT Int : 368 ms P-R-T Axes : 075 -12 -28 degrees QTc Int : 432 ms POOR DATA QUALITY, INTERPRETATION MAY BE ADVERSELY AFFECTED NORMAL SINUS RHYTHM POSSIBLE LEFT ATRIAL ENLARGEMENT LEFT VENTRICULAR HYPERTROPHY NONSPECIFIC T WAVE ABNORMALITY ABNORMAL ECG WHEN COMPARED WITH ECG OF 26-MAR-2019 08:32, NO SIGNIFICANT CHANGE WAS FOUND Confirmed by MERLE DHILLON MD ([id number]) on 03/28/2019 11:47:20 AM Referred By: ALAN ANTHONY Confirmed By:MERLE DHILLON MD
== END 2019-03-27 18:12 | disposition short-term general hospital (02) | DRG 198 ==
LOC: JER 12:10 → INTOOBSV 18:59 → JERBED 18:59 → J4W 20:05 → OBSVTOIN 03-23 15:44
PROVIDERS: ADMIT Internal Medicine; ATTEND Nurse Practitioner Acute Care
DX: R07.89 Other chest pain (principal); E11.9 Type 2 diabetes mellitus without complications; E78.5 Hyperlipidemia, unspecified; F10.10 Alcohol abuse, uncomplicated; F25.9 Schizoaffective disorder, unspecified; F41.9 Anxiety disorder, unspecified; F12.20 Cannabis dependence, uncomplicated; M62.82 Rhabdomyolysis; I25.10 Atherosclerotic heart disease of native coronary artery without angina pectoris; D64.9 Anemia, unspecified; I11.0 Hypertensive heart disease with heart failure; I50.30 Unspecified diastolic (congestive) heart failure; F17.210 Nicotine dependence, cigarettes, uncomplicated; Z95.1 Presence of aortocoronary bypass graft; E66.9 Obesity, unspecified; Z68.35 Body mass index [BMI] 35.0-35.9, adult; Z91.19 Patient's noncompliance with other medical treatment and regimen
CPT/HCPCS: 36415; 71275-TC; 74174-TC; 78452-TC; 80048; 80053; 80061; 80307; 82465; 82550; 82553; 82962; 83036; 83721; 83735; 83880; 84443; 84484; 85025; 85027; 85610; 90732; 93005; 93010; 93017; 93306-TC; 99284-25; A9502; G0009; G0378; J0131; J2785; J7030; Q2036

== ENCOUNTER 2019-03-27 09:37 | Inpatient (IN) | payer OTHER ==
[2019-03-27 19:40] VITALS: BMI 40.5
--- NOTE | 2019-03-27 20:51 | HP ---
[facility] Rehab Assess/Revision - Admission History Admitted to Rehab from: [facility] Date of Admission to Rehab: 03/27/2019 - Vital signs Vital Signs: Vital Signs Period Temp Pulse Resp BP Sys/Garcia Pulse Ox Last 24 Hr 98.6 F 96 16 113/73 - Findings Detox History & Physical reviewed: Yes Concur with findings: Yes Comments/Additional Findings: RETURNS FROM [facility] AFTER BEING TRANSFERRED FOR C.P. HE HAS SINCE BEEN CLEARED, DETOXED WHILE THERE AND RETURNS FOR REHAB. HOSPITAL COURSE: Date of Admission:03/23/19. Date of Discharge: 03/27/19. Discharge Summary. Reason For Visit: DISSECTION OF AORTA, HYPERTENSION. Current Active Problems. Anxiety (Acute). Atypical chest pain (Acute). ETOH abuse (Acute). EtOH dependence (Acute). HTN (hypertension) (Acute). Hx of CABG (Acute). Hyperlipidemia (Acute). Rhabdomyolysis (Acute). Condition: Improved. - Instructions. Diet, Activity, Other Instructions: Resume a cardiac diet and all home medications. The cardiac street test along with the echocardiiogram were normal. Follow with your home cardiologisy and primary care provider after you complete rehab. Disposition: SENIOR CARE FACILITY. - Home Medications. Comprehensive Discharge Medication List: Ambulatory Orders. Aspirin [ASA -] 81 mg PO DAILY 03/19/19. Atorvastatin Ca [Lipitor] 40 mg PO HS 03/19/19. Gemfibrozil [Lopid -] 600 mg PO BID 03/19/19. Losartan Potassium 50 mg PO BID 03/19/19. Metformin HCl [Glucophage] 500 mg PO BID 03/19. Quetiapine Fumarate [Seroquel -] 100 mg PO BID 03/19/19. traZODone HCL [ Trazodone HCl] 50 mg PO HS PRN 03/19/19. Nicotine Patch [Nicoderm Patch -] 1 patch TD DAILY 03/21/19. Thiamine HCl [Vitamin B-1] 100 mg PO HS 03/21/19. Amlodipine Besylate [Norvasc -] 10 mg PO DAILY tablet 03/27/19. Insulin Sliding Scale [Novolog Vial Sliding Scale -] 1 vial SQ BIDAC units 03/27/19. Labetalol HCl [Normodyne -] 200 mg PO TID tablet 03/27/19. Nicotine Patch [ Nicoderm Patch -] 21 mg TD DAILY patch 03/27/19. Problem List. - Problems. ( 1) Hx of CABG. Code(s): Z95.1 - PRESENCE OF AORTOCORONARY BYPASS GRAFT. (2) Atypical chest pain. Code(s): R07.89 - OTHER CHEST PAIN. (3) EtOH dependence. Code(s): F10.20 - ALCOHOL DEPENDENCE, UNCOMPLICATED. (4) Cannabis dependence. Code(s): F12.20 - CANNABIS DEPENDENCE, UNCOMPLICATED. (5) DM2 ( diabetes mellitus, type 2). Code(s): E11.9 - TYPE 2 DIABETES MELLITUS WITHOUT COMPLICATIONS. Qualifiers: Diabetes mellitus half-way insulin use: without half-way use Diabetes mellitus complication status: with unspecified complications. (6) Aortic aneurysm and dissection. Code(s): I71.00 - DISSECTION OF UNSPECIFIED SITE OF AORTA. - Discharge Referral. Referred to [facility] No Inpatient Rehab Admission - Rehab Decision to Admit Inpatient rehab admission?: Yes - Initial Determination Are CD services needed?: Yes Free of communicable disease: Yes Not in need of hospitalization: Yes - Rehab Admission Criteria Previous failed treatment: Yes Poor recovery environment: Yes Comorbidities: Yes Lacks judgement: No Patient is meeting Inpatient Rehab admission criteria:: Yes
[2019-03-27] MEDS ORDERED: P-EPHED 60MG/TRIPROLIDI 2.5MG TABLET PO PRN (21:02)
[2019-03-27] MEDS ORDERED: LOPERAMIDE HCL 2 MG CAPSULE PO PRN (21:02)
[2019-03-27] MEDS ORDERED: MAG HYDROX/AL HYDROX/SIMETH 30 ML UNIT-DOSE CUP PO PRN (21:02)
[2019-03-27] MEDS ORDERED: MENTHOL/PHENOL 1 EACH UD MM PRN (21:02)
[2019-03-27] MEDS ORDERED: MAGNESIUM HYDROX 2400MG/30ML ORAL SUSPENSION 30 ML CUP PO PRN (21:02)
[2019-03-27] MEDS ORDERED: guaiFENesin 200 MG/10 ML 10 ML UNIT-DOSE CUPS PO PRN (21:02)
[2019-03-27] MEDS ORDERED: IBUPROFEN 400 MG TABLET (FP) PO PRN (21:02)
[2019-03-27] MEDS ORDERED: MAGNESIUM CITRATE 300 ML BOTTLE PO PRN (21:02)
[2019-03-27] MEDS ORDERED: NICOTINE POLACRILEX 2 MG GUM BUC PRN (21:02)
[2019-03-27] MEDS ORDERED: metFORMIN HCL 500 MG TABLET (FP) PO SCH (22:00)
[2019-03-27] MEDS ORDERED: traZODone HCL 50 MG TABLET (FP) PO SCH (22:00)
[2019-03-27] MEDS: THIAMINE HCL 100 MG TABLET (FP) PO SCH (22:29)
[2019-03-27] MEDS: ATORVASTATIN CA 40 MG TABLET (FP) PO SCH (22:29)
[2019-03-27] MEDS: LOSARTAN POTASSIUM 50 MG TABLET (FP) PO SCH (22:29)
[2019-03-27] MEDS: GEMFIBROZIL 600 MG TABLET (FP) PO SCH (22:29)
[2019-03-27] MEDS: LABETALOL HCL 200 MG TABLET (FP) PO SCH (22:29)
[2019-03-28] MEDS: metFORMIN HCL 500 MG TABLET (FP) PO SCH ×2 (06:43→17:02)
[2019-03-28] MEDS: INSULIN SLIDING SCALE (NOVOLOG) 1 VIAL SQ SCH ×3 (06:44→17:03)
[2019-03-28] MEDS ORDERED: INSULIN SLIDING SCALE (NOVOLOG) 1 VIAL SQ SCH (07:00)
[2019-03-28] MEDS: LOSARTAN POTASSIUM 50 MG TABLET (FP) PO SCH ×2 (09:00→21:20)
[2019-03-28] MEDS: amLODIPine BESYLATE 10 MG TABLET (FP) PO SCH (10:17)
[2019-03-28] MEDS: ACETAMINOPHEN 325 MG TABLET (FP) PO PRN (10:17)
[2019-03-28] MEDS: PRENATAL VITAMINS W/ FOLIC ACID TABLET (FP) PO SCH (10:17)
[2019-03-28] MEDS: ASPIRIN 81 MG CHEWABLE TABLETS PO SCH (10:17)
[2019-03-28] MEDS: LABETALOL HCL 200 MG TABLET (FP) PO SCH ×3 (10:17→21:20)
[2019-03-28] MEDS: NICOTINE 21 MG/24 HOURS TOPICAL PATCH TD SCH (10:19)
[2019-03-28] MEDS: GEMFIBROZIL 600 MG TABLET (FP) PO SCH ×2 (11:00→21:20)
--- NOTE | 2019-03-28 14:01 | PN ---
[facility] Progress Note Note: Patient was initially seen by journalists and other writers on [id number] while in detox and he was placed on Seroquel 100 mg/hs and Trazadone 50 mg/hs. He was transferred to [facility] on for evaluation of chest pain and he was admitted to Medicine on 03/23/19. He was transferred back to this facility for admission to inpatient rehab on 03/27/19. He requests that Seroquel and Trazadone be resumed. He wants Trazadone dosage be increased to 100 mg/hs because he claims Trazadone 50 mg/hs was ineffective
[2019-03-28] MEDS: QUEtiapine FUMARATE 100 MG TABLET (FP) PO SCH ×2 (14:21→21:20)
[2019-03-28] MEDS: ATORVASTATIN CA 40 MG TABLET (FP) PO SCH (21:20)
[2019-03-28] MEDS: traZODone HCL 100 MG TABLET (FP) PO SCH (21:20)
[2019-03-28] MEDS: THIAMINE HCL 100 MG TABLET (FP) PO SCH (21:20)
[2019-03-29] MEDS: LABETALOL HCL 200 MG TABLET (FP) PO SCH ×3 (06:33→21:24)
[2019-03-29] MEDS: metFORMIN HCL 500 MG TABLET (FP) PO SCH ×2 (06:33→17:10)
[2019-03-29] MEDS: INSULIN SLIDING SCALE (NOVOLOG) 1 VIAL SQ SCH ×3 (06:35→17:11)
[2019-03-29] MEDS: ACETAMINOPHEN 325 MG TABLET (FP) PO PRN ×2 (07:59→21:23)
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
[2019-03-29] MEDS: amLODIPine BESYLATE 10 MG TABLET (FP) PO SCH (10:28)
[2019-03-29] MEDS: GEMFIBROZIL 600 MG TABLET (FP) PO SCH ×2 (10:28→21:24)
[2019-03-29] MEDS: PRENATAL VITAMINS W/ FOLIC ACID TABLET (FP) PO SCH (10:28)
[2019-03-29] MEDS: ASPIRIN 81 MG CHEWABLE TABLETS PO SCH (10:28)
[2019-03-29] MEDS: LOSARTAN POTASSIUM 50 MG TABLET (FP) PO SCH ×2 (10:28→21:24)
[2019-03-29] MEDS: QUEtiapine FUMARATE 100 MG TABLET (FP) PO SCH ×2 (10:28→21:23)
[2019-03-29] MEDS: NICOTINE 21 MG/24 HOURS TOPICAL PATCH TD SCH (10:29)
[2019-03-29] MEDS: ONDANSETRON *ODT* 4 MG TABLET SL PRN (20:17)
--- NOTE | 2019-03-29 20:20 | PN ---
[facility] Progress Note (SOAP) Subjective: States has had a headcache since 9 am, unrelieved by medications. Pain is in temporal areas, achy and a 10/10. State mid-epigastric abdominal pain x past 1-2 hours w/ several episodes of vomiting. States vomiting up food. Denies blood/bleeding. States pain feels like pressure on belly. States pain in mid-chest only started since vomiting began, without radiation. States has had 2 episodes of watery, brown diarrhea. Denies SOB. Objective: Alert and oriented. HR: 80. Lungs CTA. Pulse Ox = 99 %. No SOB. No pedal edema. Peripheral pulses ( +). TANIA. Sclera anicteric. No nystagmus. BHG =. Gait steady. Mild tremors of hands w/ arms extended. Abd soft/ increased BS/ non-tender upon palpation/increased adiposity. Vital Signs - 24 hr 03/29/19 03/29/19 03/29/19 00:30 03:30 07:23 Temperature 97.8 F Pulse Rate 83 Respiratory 18 18 18 Rate Blood Pressure 122/74 03/29/19 10:00 Temperature Pulse Rate 94 H Respiratory Rate Blood Pressure 118/78 EKG: No significant change from prior 03/27/19 EKG. Assessment: 1) Alcohol use disorder w/ protracted alcohol withdrawal symptoms. 2) Atypical Chest Pain 3) Abdominal discomfport w/ N/V/D 4) NIDDM 5) Obesity 6) Hx of CABG w/ hx aortic dissection and atypical chest pain Plan: Plan: EGG (obtained and reviewed) Zofran for nausea/vomiting. Start Protonix Increase acetaminophen to 975 mg FOR HEADACHE patient instructed to avoid caffeine Labs for a.m.: BBC/CMP/Amylase/Lipase/CKMB
[2019-03-29] MEDS ORDERED: PANTOPRAZOLE 40 MG TABLET (FP) PO ONE (20:31)
[2019-03-29] MEDS: traZODone HCL 100 MG TABLET (FP) PO SCH (21:23)
[2019-03-29] MEDS: ATORVASTATIN CA 40 MG TABLET (FP) PO SCH (21:23)
[2019-03-29] MEDS: THIAMINE HCL 100 MG TABLET (FP) PO SCH (21:24)
[2019-03-30] MEDS: metFORMIN HCL 500 MG TABLET (FP) PO SCH ×2 (07:11→17:21)
[2019-03-30] MEDS: LABETALOL HCL 200 MG TABLET (FP) PO SCH ×3 (07:11→22:11)
[2019-03-30] MEDS: INSULIN SLIDING SCALE (NOVOLOG) 1 VIAL SQ SCH ×3 (07:13→17:20)
[2019-03-30] MEDS: PANTOPRAZOLE 40 MG TABLET (FP) PO SCH (09:54)
[2019-03-30] MEDS: QUEtiapine FUMARATE 100 MG TABLET (FP) PO SCH ×2 (09:54→22:11)
[2019-03-30] MEDS: ASPIRIN 81 MG CHEWABLE TABLETS PO SCH (09:54)
[2019-03-30] MEDS: PRENATAL VITAMINS W/ FOLIC ACID TABLET (FP) PO SCH (09:54)
[2019-03-30] MEDS: NICOTINE 21 MG/24 HOURS TOPICAL PATCH TD SCH (09:54)
[2019-03-30] MEDS: amLODIPine BESYLATE 10 MG TABLET (FP) PO SCH (09:55)
[2019-03-30] MEDS: GEMFIBROZIL 600 MG TABLET (FP) PO SCH ×2 (09:55→22:11)
[2019-03-30 11:01] LABS: BILIRUBIN,TOTAL 0.6 mg/dL (0.2-1); BLOOD UREA NITROGEN 8.4 mg/dL (7-18); CALCIUM 8.8 mg/dL (8.5-10.1); POTASSIUM 4.2 mmol/L (3.5-5.1); TOT PROT 7.8 g/dl (6.4-8.2)
[2019-03-30 11:09] LABS: EOS % 2.3 % (0-4.5); HEMATOCRIT 44.7 % (35.4-49); HEMOGLOBIN 14.8 GM/dL (11.7-16.9); LYMPH % 33.1 % (8-40); MCH 33.7 pg (25.7-33.7); MCHC 33.2 g/dl (32.0-35.9); MEAN CELL VOLUME 101.6 fl (80-96); MEAN PLT VOLUME 7.7 fl (7.5-11.1); MONO % 13.9 % (3.8-10.2); NEUT % 49.7 % (42.8-82.8); PLATELET COUNT 244 K/MM3 (134-434); RDW 14.5 % (11.9-15.9); WHITE BLOOD COUNT 6.6 K/mm3 (4.0-10.0)
[2019-03-30] MEDS: LOSARTAN POTASSIUM 50 MG TABLET (FP) PO SCH ×2 (11:38→22:10)
[2019-03-30] MEDS ORDERED: LOPERAMIDE HCL 2 MG CAPSULE PO ONE (13:53)
--- NOTE | 2019-03-30 13:57 | PN ---
S Progress Note Note: patient has loose bowel movement,diarrhea Vital Signs Temperature 97.8 F 03/30/19 07:23 Pulse Rate 87 03/30/19 07:23 Respiratory Rate 16 03/30/19 07:23 Blood Pressure 107/57 L 03/30/19 07:23 O2 Sat by Pulse Oximetry (%) will give imodium 0.2 mps po close montoring
[2019-03-30] MEDS ORDERED: ONDANSETRON *ODT* 4 MG TABLET SL PRN (15:34)
--- NOTE | 2019-03-30 16:51 | PN ---
[facility] Progress Note Note: patient has been complaining of abdominal pain with loose bowel movement,nausea, multiple medical problem cad with coronary bypass graft,aortic dissection, atypical chest pain,hypertension,hyperlipidemia, type 2 dm,pancreatitis Vital Signs Temperature 97.8 F 03/30/19 07:23 Pulse Rate 87 03/30/19 07:23 Respiratory Rate 16 03/30/19 07:23 Blood Pressure 107/57 L 03/30/19 07:23 O2 Sat by Pulse Oximetry (%) obesity abdomen soft but distension pain and tenderness of right upper abdomen with pain in deep palpation and tenderness,bowel sound avtive no calf tenderness impression intractable abdominal pain r/o pancreatitis r/o cholecystitis type 2 dm obesity cad s/p coronary by pass surgery history of aortic dissection hyperlipidemia alcohol dependence treatment to er at [facility] for evaluation and treatment spoke with to be transported by [facility]
[2019-03-30] MEDS: ATORVASTATIN CA 40 MG TABLET (FP) PO SCH (22:11)
[2019-03-30] MEDS: THIAMINE HCL 100 MG TABLET (FP) PO SCH (22:11)
[2019-03-30] MEDS: traZODone HCL 100 MG TABLET (FP) PO SCH (22:11)
--- NOTE | 2019-03-30 23:46 | PN ---
[facility] Progress Note Note: Received patient from emergency room alert and oriented to person, place and time. Patient was transferred to emergency room to evaluate complaint of abdominal pain with loose, watery stool. He reports relieve at this time. Patient has medical history of history of hypertension, type B dissection repair [address] Guevara at [facility], diabetes mellitus and hyperlipidemia. CTA chest, abdomen and pelvis to evaluate for dissection indicated no significant change from prior examination EKG at emergency room indicates normal sinus rhythm at 85 bpm, no interval abnormalities, narrow QRS, ST and T wave segments and morphology normal. Nonspecific T wave abnormalities TWI in V5-6, inferior leads. ASSESSMENT: CONSTITUTIONAL: Well developed, age appropriate, obese HEENT: Head is normocephalic, atraumatic, EOMI. PERRLA NECK:Supple, [place] midline. Full ROM. No bruits heard bilaterally HEART: Regular rhythm, no murmurs, rubs or gallops LUNGS: Clear to auscultation bilaterally, No wheezing, crackles or rhonchi noted ABDOMEN: Soft, Protuberant, Normal bowel sounds. No palpable mass or guarding. EXTREMITIES: Peripheral pulses intact. No lower extremities edema noted NEUROLOGICAL : Alert and oriented x 3, No LOC, No focal deficits, Moves all extremities Vital Signs Temperature 98 F 03/31/19 00:21 Pulse Rate 90 03/31/19 00:21 Respiratory Rate 16 03/31/19 00:21 Blood Pressure 126/75 03/31/19 00:21 O2 Sat by Pulse Oximetry (%) Action: Transfer patient to floor Continue Rehabilitation as indicated
[2019-03-31] MEDS: LABETALOL HCL 200 MG TABLET (FP) PO SCH ×3 (07:21→21:27)
[2019-03-31] MEDS: metFORMIN HCL 500 MG TABLET (FP) PO SCH ×2 (07:21→17:00)
[2019-03-31] MEDS: INSULIN SLIDING SCALE (NOVOLOG) 1 VIAL SQ SCH ×3 (07:21→17:03)
[2019-03-31] MEDS: amLODIPine BESYLATE 10 MG TABLET (FP) PO SCH (10:16)
[2019-03-31] MEDS: PANTOPRAZOLE 40 MG TABLET (FP) PO SCH (10:16)
[2019-03-31] MEDS: QUEtiapine FUMARATE 100 MG TABLET (FP) PO SCH ×2 (10:16→21:28)
[2019-03-31] MEDS: ASPIRIN 81 MG CHEWABLE TABLETS PO SCH (10:16)
[2019-03-31] MEDS: NICOTINE 21 MG/24 HOURS TOPICAL PATCH TD SCH (10:17)
[2019-03-31] MEDS: PRENATAL VITAMINS W/ FOLIC ACID TABLET (FP) PO SCH (10:17)
[2019-03-31] MEDS: GEMFIBROZIL 600 MG TABLET (FP) PO SCH ×2 (10:17→21:28)
[2019-03-31] MEDS: LOSARTAN POTASSIUM 50 MG TABLET (FP) PO SCH ×2 (10:17→21:28)
--- NOTE | 2019-03-31 10:54 | EKG ---
Test Reason : Blood Pressure : / mmHG Vent. Rate : 084 BPM Atrial Rate : 084 BPM P-R Int : 150 ms QRS Dur : 072 ms QT Int : 370 ms P-R-T Axes : 067 -16 -37 degrees QTc Int : 437 ms NORMAL SINUS RHYTHM VOLTAGE CRITERIA FOR LEFT VENTRICULAR HYPERTROPHY T WAVE ABNORMALITY, CONSIDER INFERIOR ISCHEMIA ABNORMAL ECG WHEN COMPARED WITH ECG OF 26-MAR-2019 20:57, NO SIGNIFICANT CHANGE WAS FOUND Confirmed by JACQUIE DEJESUS, MERLE ([id number]) on 03/31/2019 10:54:16 AM Referred By: Confirmed By:MERLE DHILLON MD
[2019-03-31] MEDS ORDERED: ATORVASTATIN CA 20 MG TABLET (FP) ONE (19:05)
[2019-03-31] MEDS: THIAMINE HCL 100 MG TABLET (FP) PO SCH (21:28)
[2019-03-31] MEDS: traZODone HCL 100 MG TABLET (FP) PO SCH (21:28)
[2019-03-31] MEDS: ATORVASTATIN CA 40 MG TABLET (FP) PO SCH (21:28)
[2019-03-31] MEDS: MELATONIN 5 MG TABLETS PO PRN (21:29)
[2019-04-01] MEDS: metFORMIN HCL 500 MG TABLET (FP) PO SCH ×2 (06:31→17:06)
[2019-04-01] MEDS: LABETALOL HCL 200 MG TABLET (FP) PO SCH ×3 (06:31→21:22)
[2019-04-01] MEDS: INSULIN SLIDING SCALE (NOVOLOG) 1 VIAL SQ SCH ×3 (06:32→17:06)
[2019-04-01] MEDS: ACETAMINOPHEN 325 MG TABLET (FP) PO PRN ×2 (07:53→12:46)
[2019-04-01] MEDS: amLODIPine BESYLATE 10 MG TABLET (FP) PO SCH (10:09)
[2019-04-01] MEDS: LOSARTAN POTASSIUM 50 MG TABLET (FP) PO SCH ×2 (10:09→21:22)
[2019-04-01] MEDS: GEMFIBROZIL 600 MG TABLET (FP) PO SCH ×2 (10:09→21:22)
[2019-04-01] MEDS: PRENATAL VITAMINS W/ FOLIC ACID TABLET (FP) PO SCH (10:09)
[2019-04-01] MEDS: PANTOPRAZOLE 40 MG TABLET (FP) PO SCH (10:09)
[2019-04-01] MEDS: ASPIRIN 81 MG CHEWABLE TABLETS PO SCH (10:09)
[2019-04-01] MEDS: QUEtiapine FUMARATE 100 MG TABLET (FP) PO SCH ×2 (10:09→21:22)
[2019-04-01] MEDS: NICOTINE 21 MG/24 HOURS TOPICAL PATCH TD SCH (10:10)
--- NOTE | 2019-04-01 12:09 | PN ---
[facility] Progress Note Note: Pt is s/p ER visit over the weekend for abdominal pain and diarrhea. Pt reports feeling better and denies anymore more diarrhea or abdominal pain. Vital Signs - 24 hr 03/31/19 04/01/19 04/01/19 21:34 03:30 06:53 Temperature 97.2 F L Pulse Rate 96 H 80 Respiratory 18 18 18 Rate Blood Pressure 144/87 120/85 Alert o x 3 nad oob ambulating with steady gait A/P Stable PCP: Pt reports has one at [facility]("I forgot his name"). Pt reports a medicaid van comes to his residence to take him to his doctor. Reports Psych appointment scheduled on 04/12/19. Reports Last medical appointment with primary care was 03/20/19. Pt reports he has a scheduled follow up appointment with PCP but left the date appointment paper at home. Instructed pt to report any further discomfort to staff.
[2019-04-01] MEDS: hydrOXYzine PAMOATE 50 MG CAPSULE (FP) PO PRN (12:48)
[2019-04-01] MEDS: traZODone HCL 100 MG TABLET (FP) PO SCH (21:22)
[2019-04-01] MEDS: ATORVASTATIN CA 40 MG TABLET (FP) PO SCH (21:22)
[2019-04-01] MEDS: MELATONIN 5 MG TABLETS PO PRN (21:23)
[2019-04-01] MEDS: THIAMINE HCL 100 MG TABLET (FP) PO SCH (21:23)
[2019-04-02] MEDS: LABETALOL HCL 200 MG TABLET (FP) PO SCH ×3 (06:09→23:51)
[2019-04-02] MEDS: metFORMIN HCL 500 MG TABLET (FP) PO SCH ×2 (06:09→19:01)
[2019-04-02] MEDS: INSULIN SLIDING SCALE (NOVOLOG) 1 VIAL SQ SCH ×3 (06:10→19:02)
[2019-04-02 07:11] VITALS: PULSE 92
[2019-04-02] MEDS: QUEtiapine FUMARATE 100 MG TABLET (FP) PO SCH ×2 (10:55→23:51)
[2019-04-02] MEDS: amLODIPine BESYLATE 10 MG TABLET (FP) PO SCH (10:55)
[2019-04-02] MEDS: PRENATAL VITAMINS W/ FOLIC ACID TABLET (FP) PO SCH (10:55)
[2019-04-02] MEDS: ASPIRIN 81 MG CHEWABLE TABLETS PO SCH (10:55)
[2019-04-02] MEDS: GEMFIBROZIL 600 MG TABLET (FP) PO SCH ×2 (10:55→23:50)
[2019-04-02] MEDS: PANTOPRAZOLE 40 MG TABLET (FP) PO SCH (10:55)
[2019-04-02] MEDS: LOSARTAN POTASSIUM 50 MG TABLET (FP) PO SCH ×2 (10:55→23:50)
[2019-04-02] MEDS: ACETAMINOPHEN 325 MG TABLET (FP) PO PRN (10:56)
[2019-04-02] MEDS: hydrOXYzine PAMOATE 50 MG CAPSULE (FP) PO PRN (10:57)
[2019-04-02] MEDS: NICOTINE 21 MG/24 HOURS TOPICAL PATCH TD SCH (10:58)
[2019-04-02] MEDS: ONDANSETRON *ODT* 4 MG TABLET SL PRN (11:02)
[2019-04-02 12:40] VITALS: BP 108/69; TEMP 97.9
--- NOTE | 2019-04-02 12:47 | PN ---
[facility] Progress Note Note: 5 [place] nurse Natalya Kevin reported Negar Fong NP at [facility] called to inform this patient will need to return to the ER for a follow up antibiotics treatment for positive blood culture results. Pt was sent to the ER over the weekend for c/o abdominal pain. Pt is still c/o headache,nausea,no vomiting, no diarrhea, and anxiety and was medicated with prn meds this morning. Vital Signs - 24 hr 04/01/19 04/01/19 04/02/19 14:21 21:00 00:30 Temperature Pulse Rate 90 95 H Respiratory 18 18 Rate Blood Pressure 111/65 126/76 04/02/19 04/02/19 04/02/19 03:29 07:11 10:00 Temperature 97.7 F 97.9 F Pulse Rate 92 H 92 H Respiratory 18 18 20 Rate Blood Pressure 117/66 108/69 Alert o x 3 nad(currently);Ate lunch but not breakfast due to nausea earlier this morning. oob ambulating with steady gait Spoke to Ms Negar Fong NP at the [facility] re plan of care. Pt will be transported via ambulance to [facility] for I.V. antibiotics treatment as planned.
[2019-04-02] MEDS: traZODone HCL 100 MG TABLET (FP) PO SCH (23:50)
[2019-04-02] MEDS: ATORVASTATIN CA 40 MG TABLET (FP) PO SCH (23:50)
[2019-04-02] MEDS: THIAMINE HCL 100 MG TABLET (FP) PO SCH (23:51)
[2019-04-03] MEDS ORDERED: traZODone HCL 50 MG TABLET (FP) PO ONE (01:27)
[2019-04-03] MEDS ORDERED: QUEtiapine FUMARATE 100 MG TABLET (FP) PO ONE (01:27)
[2019-04-03] MEDS: metFORMIN HCL 500 MG TABLET (FP) PO SCH (07:17)
[2019-04-03] MEDS: LABETALOL HCL 200 MG TABLET (FP) PO SCH (07:17)
[2019-04-03] MEDS: INSULIN SLIDING SCALE (NOVOLOG) 1 VIAL SQ SCH (07:17)
== END 2019-04-03 01:00 | disposition short-term general hospital (02) | DRG 772 ==
LOC: YASAS 09:37 → Y5N 21:15
PROVIDERS: ADMIT Neuromusculoskeletal Medicine & OMM; ATTEND Neuromusculoskeletal Medicine & OMM
PROC: HZ42ZZZ Group Counseling for Substance Abuse Treatment, Cognitive-Behavioral (ICD-10-PCS; principal; 2019-03-27)
DX: F10.20 Alcohol dependence, uncomplicated (principal); F12.20 Cannabis dependence, uncomplicated; F17.210 Nicotine dependence, cigarettes, uncomplicated; F25.9 Schizoaffective disorder, unspecified; I10 Essential (primary) hypertension; I25.10 Atherosclerotic heart disease of native coronary artery without angina pectoris; E78.5 Hyperlipidemia, unspecified; E11.9 Type 2 diabetes mellitus without complications; R10.9 Unspecified abdominal pain; R19.7 Diarrhea, unspecified; R07.89 Other chest pain; E66.9 Obesity, unspecified; Z68.41 Body mass index [BMI] 40.0-44.9, adult; Z95.1 Presence of aortocoronary bypass graft; Z87.19 Personal history of other diseases of the digestive system
CPT/HCPCS: 36415; 80053; 82150; 82553; 82962; 83690; 85025; 93005; 93010; Q0162

== ENCOUNTER 2019-03-30 17:56 | Emergency (ER) | payer OTHER ==
[2019-03-30 18:21] VITALS: TEMP 97.2; BMI 36.0
--- NOTE | 2019-03-30 18:30 | PDOC ---
History of Present Illness <Dara Toscano - Last Filed: 03/30/19 22:02> - General History Source: Patient Exam Limitations: No Limitations - History of Present Illness Initial Comments: 48 year old male with PMH HTN, HLD, Type B aortic dissection, DM sent to ED from [facility] for RLQ pain associated with nausea/vomiting/diarrhea since yesterday. Pt reported 2 episodes of diarrhea (loose, watery, denied blood ) yesterday and 1 episode today. Pt reported 1 episode of vomiting today ( nonbloody). Pt stated last ETOH use was x6 days ago. Pt denied drug use. Pt denied chest pain, shortness of breath, travel outside the country. <Cathie Fuentes - Last Filed: 03/30/19 22:04> - General Chief Complaint: Pain Stated Complaint: LOWER RIGHT ABDOMINAL PAIN Time Seen by Provider: 03/30/19 18:15 Past History <Dara Toscano - Last Filed: 03/30/19 22:02> - Past Medical History Diabetes: Yes HTN: Yes Hypercholesterolemia: Yes (on med) - Surgical History Cardiac Surgery: Yes (CABG 2014 AORTIC DISSECTION IN 2014,Repair of aorta) Orthopedic Surgery: Yes (torn ligaments in rt ankle 1 month ago) - Reproductive History Testicular Surgery: No - Immunization History Immunization Up to Date: Yes - Psycho Social/Smoking Cessation Hx Smoking History: Never smoked Have you smoked in the past 12 months: No Number of Cigarettes Smoked Daily: 10 Cigars Per Day: 0 Information on smoking cessation initiated: No 'Breaking Loose' booklet given: 03/19/19 Hx Alcohol Use: No Drug/Substance Use Hx: No Substance Use Type: Alcohol, Marijuana Hx Substance Use Treatment: No <Cathie Fuentes - Last Filed: 03/30/19 22:04> - Past Medical History Allergies/Adverse Reactions: Allergies Allergy/AdvReac Type Severity Reaction Status Date / Time nitroglycerin Allergy Intermediate Rash Verified 03/30/19 18:22 Pork/Porcine Containing AdvReac Verified 03/30/19 18:22 Products Home Medications: Ambulatory Orders Aspirin [ASA -] 81 mg PO DAILY 03/19/19 Atorvastatin Ca [Lipitor] 40 mg PO HS 03/19/19 Gemfibrozil [Lopid -] 600 mg PO BID 03/19/19 Losartan Potassium 50 mg PO BID 03/19/19 Metformin HCl [Glucophage] 500 mg PO BID 03/19/19 Quetiapine Fumarate [Seroquel -] 100 mg PO BID 03/19/19 traZODone HCL [Trazodone HCl] 50 mg PO HS PRN 03/19/19 Thiamine HCl [Vitamin B-1] 100 mg PO HS 03/21/19 Amlodipine Besylate [Norvasc -] 10 mg PO DAILY tablet 03/27/19 Insulin Sliding Scale [Novolog Vial Sliding Scale -] 1 vial SQ BIDAC units 11/07 Labetalol HCl [Normodyne -] 200 mg PO TID tablet 03/27/19 Nicotine Patch [Nicoderm Patch -] 21 mg TD DAILY patch 03/27/19 Review of Systems - Review of Systems Able to Perform ROS?: Yes Comments:: ROS General: denied fever, chills, generalized weakness. HEENT: denied sore throat, rhinorrhea, ear pain. Cardiovascular: denied chest pain, palpitations, syncope, diaphoresis. Respiratory: denied shortness of breath, cough, sputum production, hemoptysis. Gastrointestinal: admitted to abdominal pain, nausea, vomiting, diarrhea. denied constipation, blood in stool. Genitourinary: denied dysuria, increased urinary frequency, hematuria, urinary incontinence, flank pain. Back: denied back pain. Musculoskeletal: denied joint pain, muscle pain, joint swelling. Neurological: denied headache, dizziness, numbness, tingling, weakness. Integumentary: denied rash, laceration, abrasion. Hematologic/Lymphatic: denied bruising or bleeding. PE Constitutional: Well-nourished, Well-developed, appearing stated age. HEENT: head is normocephalic, atraumatic. EOMI. PERRLA. Neck: supple. Full ROM. Cardiovascular: regular heart rhythm. no murmurs. no pericardial friction rub. Respiratory: clear to auscultation bilaterally. no crackles, rhonchi or wheezing. no stridor. Gastrointestinal: soft, nontender. normal bowel sounds. no rebound, guarding, masses. Genital: bilateral testicle in vertical lie. no tenderness to palpation of scrotum. no erythema. circumsized penis. Extremities: peripheral pulses intact. no lower extremity edema. Neurological: CN 2-12 grossly intact. moves all four extremities. Psych: awake, alert, oriented x3. follows commands. answers questions appropriately. <Cathie Fuentes - Last Filed: 03/30/19 22:04> *Physical Exam - Vital Signs Last Vital Signs Temp Pulse Resp BP Pulse Ox 97.2 F L 84 20 157/95 99 03/30/19 18:00 03/30/19 21:00 03/30/19 21:00 03/30/19 21:00 03/30/19 21:00 <Dara Toscano - Last Filed: 03/30/19 22:02> - Vital Signs Last Vital Signs Temp Pulse Resp BP Pulse Ox 97.2 F L 90 16 119/71 99 03/30/19 18:00 03/30/19 18:00 03/30/19 18:00 03/30/19 18:00 03/30/19 18:00 <Cathie Fuentes - Last Filed: 03/30/19 22:04> ED Treatment Course - LABORATORY CBC & Chemistry Diagram: 03/30/19 18:40 03/30/19 18:40 - ADDITIONAL ORDERS Additional order review: Laboratory Results 03/30/19 03/30/19 03/30/19 19:23 18:40 18:40 PT with INR INR PTT (Actin FS) VBG pH Cancelled POC VBG pCO2 Cancelled POC VBG pO2 Cancelled VBG HCO3 Cancelled VBG O2 Sat (Anitha) Cancelled VBG Base Excess Cancelled Sodium Potassium Chloride Carbon Dioxide Anion Gap BUN Creatinine Est GFR (CKD-EPI)AfAm Est GFR (CKD-EPI)NonAf Random Glucose Lactic Acid Calcium Magnesium Total Bilirubin AST ALT Alkaline Phosphatase Creatine Kinase Creatine Kinase Index CK-MB (CK-2) Troponin I Total Protein Albumin Lipase Urine Color Yellow Urine Appearance Clear Urine pH 5.0 Ur Specific [place] 1.010 Urine Protein Negative Urine Glucose (UA) Negative Urine Ketones Negative Urine Blood Negative Urine Nitrite Negative Urine Bilirubin Negative Urine Urobilinogen 0.2 Ur Leukocyte Esterase Negative Blood Type O POSITIVE Antibody Screen Negative 03/30/19 03/30/19 03/30/19 18:40 18:40 18:40 PT with INR 13.50 H INR 1.14 H PTT (Actin FS) 42.2 H VBG pH POC VBG pCO2 POC VBG pO2 VBG HCO3 VBG O2 Sat (Anitha) VBG Base Excess Sodium Potassium Chloride Carbon Dioxide Anion Gap BUN Creatinine Est GFR (CKD-EPI)AfAm Est GFR (CKD-EPI)NonAf Random Glucose Lactic Acid 1.4 Calcium Magnesium Total Bilirubin AST ALT Alkaline Phosphatase Creatine Kinase 1330 H Creatine Kinase Index 0.4 CK-MB (CK-2) 6.2 H Troponin I < 0.02 Total Protein Albumin Lipase Urine Color Urine Appearance Urine pH Ur Specific [place] Urine Protein Urine Glucose (UA) Urine Ketones Urine Blood Urine Nitrite Urine Bilirubin Urine Urobilinogen Ur Leukocyte Esterase Blood Type Antibody Screen 03/30/19 18:40 PT with INR INR PTT (Actin FS) VBG pH POC VBG pCO2 POC VBG pO2 VBG HCO3 VBG O2 Sat (Anitha) VBG Base Excess Sodium 134 L Potassium 4.2 Chloride 102 Carbon Dioxide 26 Anion Gap 5 L BUN 7.3 Creatinine 1.0 Est GFR (CKD-EPI)AfAm 104.15 Est GFR (CKD-EPI)NonAf 89.86 Random Glucose 126 H Lactic Acid Calcium 9.2 Magnesium 2.0 Total Bilirubin 0.6 AST 60 H ALT 62 H Alkaline Phosphatase 52 Creatine Kinase Creatine Kinase Index CK-MB (CK-2) Troponin I Total Protein 8.0 Albumin 4.0 Lipase 319 Urine Color Urine Appearance Urine pH Ur Specific [place] Urine Protein Urine Glucose (UA) Urine Ketones Urine Blood Urine Nitrite Urine Bilirubin Urine Urobilinogen Ur Leukocyte Esterase Blood Type Antibody Screen 03/30/19 18:40 RBC 4.26 MCV 101.2 H MCHC 33.5 RDW 14.8 MPV 7.4 L Neutrophils % 52.6 Lymphocytes % 34.3 Monocytes % 10.6 H Eosinophils % 1.7 Basophils % 0.8 - Medications Given in the ED: ED Medications Discontinued Medications Generic Name Dose Route Start Last Admin Trade Name Freq PRN Reason Stop Dose Admin Acetaminophen 1,000 mg 03/30/19 18:46 03/30/19 19:11 Ofirmev Injection - IVPB 03/30/19 18:47 1,000 mg ONCE ONE Administration Famotidine/Sodium Chloride 20 mg in 50 mls @ 100 mls/hr 03/30/19 18:45 19:11 Pepcid 20 Mg Premixed Ivpb - IVPB 03/30/19 19:14 100 mls/hr ONCE ONE Administration Sodium Chloride 1,000 mls @ 1,000 mls/hr 03/30/19 18:45 03/30/19 19:11 Normal Saline - IV 03/30/19 19:44 1,000 mls/hr ASDIR STA Administration Ondansetron HCl 4 mg 03/30/19 18:46 03/30/19 19:11 Zofran Injection IVPUSH 03/30/19 18:47 4 mg ONCE ONE Administration <Dara Toscano - Last Filed: 03/30/19 22:02> - LABORATORY CBC & Chemistry Diagram: 03/30/19 18:40 03/30/19 18:40 <GinaCathie - Last Filed: 03/30/19 22:04> Medical Decision Making - Medical Decision Making 48 year old male with above PMH presented to ED for RLQ pain associated with nausea/vomiting/diarrhea since last night. Initial Vital Signs Temp Pulse Resp BP Pulse Ox 97.2 F L 90 16 119/71 99 03/30/19 18:00 03/30/19 18:00 03/30/19 18:00 03/30/19 18:00 03/30/19 18:00 Afebrile. No tachycardia. No tachypnea. No hypotension. No hypoxia on room air. Labs ordered: CBC, CMP, mag, coags, t&S, lactate, UA/UC Imaging ordered: CTA chest/abdomen/pelvis Medications ordered: normal saline bolus 1000 cc once, zofran 4 mg IV once, tylenol IV Will evaluate for worsening aortic dissection/iliac dissection, appendicitis, diverticulitis, obstructive uropathy. EKG performed at 1848: rate 85, regular rhythm, normal axis, normal intervals, flipped lateral and inferior Ts. Similar to prior performed 03/30/19. 03/30/19 19:49 CBC WBC 6.7 K/mm3 (4.0-10.0) 03/30/19 18:40 RBC 4.26 M/mm3 (4.00-5.60) 03/30/19 18:40 Hgb 14.4 GM/dL (11.7-16.9) 03/30/19 18:40 Hct 43.1 % (35.4-49) 03/30/19 18:40 MCV 101.2 fl (80-96) H 03/30/19 18:40 MCH 33.9 pg (25.7-33.7) H 03/30/19 18:40 MCHC 33.5 g/dl (32.0-35.9) 03/30/19 18:40 RDW 14.8 % (11.9-15.9) 03/30/19 18:40 Plt Count 248 K/MM3 (134-434) 03/30/19 18:40 MPV 7.4 fl (7.5-11.1) L 03/30/19 18:40 Absolute Neuts (auto) 3.5 K/mm3 (1.5-8.0) 03/30/19 18:40 Neutrophils % 52.6 % (42.8-82.8) 03/30/19 18:40 Lymphocytes % 34.3 % (8-40) 03/30/19 18:40 Monocytes % 10.6 % (3.8-10.2) H 03/30/19 18:40 Eosinophils % 1.7 % (0-4.5) 03/30/19 18:40 Basophils % 0.8 % (0-2.0) 03/30/19 18:40 Nucleated RBC % 0 % (0-0) 03/30/19 18:40 No leukocytosis. No anemia. Elevated MCV -Hx of ETOH abuse CMP Sodium 134 mmol/L (136-145) L 03/30/19 18:40 Potassium 4.2 mmol/L (3.5-5.1) 03/30/19 18:40 Chloride 102 mmol/L (98-107) 03/30/19 18:40 Carbon Dioxide 26 mmol/L (21-32) 03/30/19 18:40 Anion Gap 5 MMOL/L (8-16) L 03/30/19 18:40 BUN 7.3 mg/dL (7-18) 03/30/19 18:40 Creatinine 1.0 mg/dL (0.55-1.3) 03/30/19 18:40 Est GFR (CKD-EPI)AfAm 104.15 03/30/19 18:40 Est GFR (CKD-EPI)NonAf 89.86 03/30/19 18:40 Random Glucose 126 mg/dL (74-106) H 03/30/19 18:40 Lactic Acid 1.4 mmol/L (0.4-2.0) 03/30/19 18:40 Calcium 9.2 mg/dL (8.5-10.1) 03/30/19 18:40 Magnesium 2.0 mg/dL (1.8-2.4) 03/30/19 18:40 Total Bilirubin 0.6 mg/dL (0.2-1) 03/30/19 18:40 AST 60 U/L (15-37) H 03/30/19 18:40 ALT 62 U/L (13-61) H 03/30/19 18:40 Alkaline Phosphatase 52 U/L (45-117) 03/30/19 18:40 Creatine Kinase 1330 U/L (26-308) H 03/30/19 18:40 Troponin I < 0.02 ng/ml (0.00-0.05) 03/30/19 18:40 Total Protein 8.0 g/dl (6.4-8.2) 03/30/19 18:40 Albumin 4.0 g/dl (3.4-5.0) 03/30/19 18:40 Lipase 319 U/L (73-393) 03/30/19 18:40 Mild hyponatremia -IVF running No TITUS. No lactic acidosis. Mild transaminitis Troponin wnl Lipase wnl 03/30/19 21:22 Dr. Anthony Contreras, Radiologist from [facility] called, reported aortic dissection from area of L subclavian artery to right iliac dissection, no appendicitis, no diverticulitis. He reported they need old studies to compare, I called a&p technician and he reported he will send them. Pending comparison and official report. 03/30/19 22:04 Official report stated no change in aortic dissection. No acute pathology. moderate stool retention. Pt informed of results. Pt to be transported back to [facility]. <Cathie Fuentes - Last Filed: 03/30/19 22:04> Discharge - Discharge Information Problems reviewed: Yes <Dara Toscano - Last Filed: 03/30/19 22:02> <Cathie Fuentes - Last Filed: 03/30/19 22:04> - Discharge Information Clinical Impression/Diagnosis: Abdominal pain Condition: Improved Disposition: HOME
[2019-03-30] MEDS ORDERED: SODIUM CHLORIDE 1,000 ML IV STA (18:45)
[2019-03-30] MEDS ORDERED: FAMOTIDINE 20 MG/50 ML IVPB 20 MG/50 ML MG IVPB ONE ×2 (18:45→18:54)
[2019-03-30] MEDS ORDERED: ONDANSETRON 4 MG/2 ML VIAL IVPUSH ONE (18:46)
[2019-03-30] MEDS ORDERED: ACETAMINOPHEN 1000 MG/100 ML VIAL (NON FORMULARY) IVPB ONE (18:46)
[2019-03-30] MEDS ORDERED: ACETAMINOPHEN INJECTION 100 ML IVPB ONE (18:53)
[2019-03-30] MEDS ORDERED: ONDANSETRON 4 MG/2 ML VIAL ONE (18:54)
--- NOTE | 2019-03-30 18:57 | PDOC ---
Attending Attestation - Resident Resident Name: Cathie Fuentes - ED Attending Attestation I have performed the following: I have examined & evaluated the patient, The case was reviewed & discussed with the resident, I agree w/resident's findings & plan - HPI HPI: 03/30/19 19:02 48 year old male with history of hypertension, type B dissection repair [address] Guevara at [facility], diabetes mellitus, hyperlipidemia, and ETOH abuse who presents from [facility](in detox from ETOH abuse, used cannabis, admitted on 03/19 and again on 03/27) recently worked up for chest pain on 03/21/19, stable Type B aortic dissection 48 year old male with PMH HTN, HLD, Type B aortic dissection s/p repair x5 years ago, DM sent to ED from [facility] for RLQ pain associated with nausea/vomiting/diarrhea since last night, a/w RLQ and flank pain.. Pt reported 2 episodes of diarrhea (loose, watery, denied blood) yesterday and 1 episode today. Pt reported 1 episode of vomiting today (nonbloody). Pt stated last ETOH use was x6 days ago. Pt denied drug use. Pt denied chest pain, shortness of breath, travel outside the country. - Physicial Exam PE: 03/30/19 18:56 Agree with the resident's HPI and PE as documented in the electronic medical record. NAD, well appearing, EOMI, PERRL, nl conjunctiva, anicteric; neck supple. lungs clear, RRR, abdomen soft +RLQ and right flank TTP. no rebound, guarding. Back nontender. no CVAT. exam: normal testicular exam, normal external genitalia, no discharge, normal lie, no tenderness in scrotum/testicles. RASHID x4, no focal neuro deficits. No peripheral edema. normal color for ethnicity , WWP. - Medical Decision Making 03/30/19 19:02 Vital Signs Temp Pulse Resp BP Pulse Ox 97.2 F L 90 16 119/71 99 03/30/19 18:00 03/30/19 18:00 03/30/19 18:00 03/30/19 18:00 03/30/19 18:00 DDx abdominal pain: Renal colic, biliary colic, metabolic/electrolyte derangements. GERD, PUD, esophageal spasm, pancreatitis, hepatitis, constipation , colitis, gastroenteritis, cholecystitis, UTI, pyelonephritis, ileus, SBO, medication side effect, hernia, appendicitis, diverticulitis, mesenteric ischemia. msk strain, mesenteric adenitis, psoas abscess. vitals wnl analgesia CT a/p to eval for appy vs stone vs cholecystitis s/o overnight team pending imaging and ultimate dispo, Dr Toscano overnight. Heart Score/ECG Review #1 ECG reviewed & interpreted by me at: 18:50 General ECG Interpretation: Sinus Rhythm, Normal Rate, Normal Intervals Compared to previous ECG there are: No significant change 03/30/19 19:06 EKG normal sinus rhythm at 85 bpm, no interval abnormalities, narrow QRS, ST and T wave segments and morphology normal. Nonspecific T wave abnormalities TWI in V5-6, inferior leads.
[2019-03-30 19:08] LABS: BASO % 0.8 % (0-2.0); EOS % 1.7 % (0-4.5); HEMATOCRIT 43.1 % (35.4-49); HEMOGLOBIN 14.4 GM/dL (11.7-16.9); LYMPH % 34.3 % (8-40); MCH 33.9 pg (25.7-33.7); MCHC 33.5 g/dl (32.0-35.9); MEAN CELL VOLUME 101.2 fl (80-96); MEAN PLT VOLUME 7.4 fl (7.5-11.1); MONO % 10.6 % (3.8-10.2); NEUT % 52.6 % (42.8-82.8); PLATELET COUNT 248 K/MM3 (134-434); RBC 4.26 M/mm3 (4.00-5.60); RDW 14.8 % (11.9-15.9); WHITE BLOOD COUNT 6.7 K/mm3 (4.0-10.0)
[2019-03-30 19:10] LABS: INR 1.14 (0.83-1.09); PROTHROMBIN TIME (PATIENT) 13.5 SEC (9.7-13.0)
[2019-03-30 19:13] LABS: ACTIVATED PTT 42.2 SECONDS (25.2-36.5)
[2019-03-30 19:32] LABS: URINE APPEARANCE CLEAR; URINE BILIRUBIN NEGATIVE (NEGATIVE); URINE COLOR YELLOW; URINE GLUCOSE (UA) NEGATIVE (NEGATIVE); URINE KETONE NEGATIVE (NEGATIVE); URINE LEUK ESTERASE NEGATIVE (NEGATIVE); URINE NITRITE NEGATIVE (NEGATIVE); URINE PROTEIN NEGATIVE (NEGATIVE); URINE UROBILINOGEN 0.2 mg/dL (0.2-1.0)
[2019-03-30 19:34] LABS: BILIRUBIN,TOTAL 0.6 mg/dL (0.2-1); BLOOD UREA NITROGEN 7.3 mg/dL (7-18); CALCIUM 9.2 mg/dL (8.5-10.1); POTASSIUM 4.2 mmol/L (3.5-5.1)
--- NOTE | 2019-03-30 19:50 | PDOC ---
*Physical Exam - Vital Signs Last Vital Signs Temp Pulse Resp BP Pulse Ox 97.2 F L 90 16 119/71 99 03/30/19 18:00 03/30/19 18:00 03/30/19 18:00 03/30/19 18:00 03/30/19 18:00 ED Treatment Course - LABORATORY CBC & Chemistry Diagram: 03/30/19 18:40 03/30/19 18:40 - ADDITIONAL ORDERS Additional order review: Laboratory Results 03/30/19 03/30/19 03/30/19 19:23 18:40 18:40 PT with INR 13.50 H INR 1.14 H PTT (Actin FS) 42.2 H VBG pH Cancelled POC VBG pCO2 Cancelled POC VBG pO2 Cancelled VBG HCO3 Cancelled VBG O2 Sat (Anitha) Cancelled VBG Base Excess Cancelled Sodium Potassium Chloride Carbon Dioxide Anion Gap BUN Creatinine Est GFR (CKD-EPI)AfAm Est GFR (CKD-EPI)NonAf Random Glucose Calcium Magnesium Total Bilirubin AST ALT Alkaline Phosphatase Total Protein Albumin Lipase Urine Color Yellow Urine Appearance Clear Urine pH 5.0 Ur Specific [place] 1.010 Urine Protein Negative Urine Glucose (UA) Negative Urine Ketones Negative Urine Blood Negative Urine Nitrite Negative Urine Bilirubin Negative Urine Urobilinogen 0.2 Ur Leukocyte Esterase Negative 03/30/19 18:40 PT with INR INR PTT (Actin FS) VBG pH POC VBG pCO2 POC VBG pO2 VBG HCO3 VBG O2 Sat (Anitha) VBG Base Excess Sodium 134 L Potassium 4.2 Chloride 102 Carbon Dioxide 26 Anion Gap 5 L BUN 7.3 Creatinine 1.0 Est GFR (CKD-EPI)AfAm 104.15 Est GFR (CKD-EPI)NonAf 89.86 Random Glucose 126 H Calcium 9.2 Magnesium 2.0 Total Bilirubin 0.6 AST 60 H ALT 62 H Alkaline Phosphatase 52 Total Protein 8.0 Albumin 4.0 Lipase 319 Urine Color Urine Appearance Urine pH Ur Specific [place] Urine Protein Urine Glucose (UA) Urine Ketones Urine Blood Urine Nitrite Urine Bilirubin Urine Urobilinogen Ur Leukocyte Esterase - Medications Given in the ED: ED Medications Discontinued Medications Generic Name Dose Route Start Last Admin Trade Name Freq PRN Reason Stop Dose Admin Acetaminophen 1,000 mg 03/30/19 18:46 03/30/19 19:11 Ofirmev Injection - IVPB 03/30/19 18:47 1,000 mg ONCE ONE Administration Famotidine/Sodium Chloride 20 mg in 50 mls @ 100 mls/hr 03/30/19 18:45 19:11 Pepcid 20 Mg Premixed Ivpb - IVPB 03/30/19 19:14 100 mls/hr ONCE ONE Administration Ondansetron HCl 4 mg 03/30/19 18:46 03/30/19 19:11 Zofran Injection IVPUSH 03/30/19 18:47 4 mg ONCE ONE Administration Medical Decision Making - Medical Decision Making 03/30/19 19:44 Pt signed out to me and his labs so far normal; we will send him for CT scan to eval the abd pain 03/30/19 19:45 UA normal; WBC normal 03/30/19 19:50 Pt has minimal right sided pain. Exam normal afebrile. 03/30/19 22:01 Patient Name: VALDEMAR BUSH THIS IS A PRELIMINARY REPORT FROM [facility] EXAM: CTA chest, abdomen, and pelvis without contrast and with contrast IMAGES:[id number] DATE OF EXAM: 2019-03-30 20:04:41 REASON FOR EXAM: Evaluate for dissection COMPARISON: March 21, 2019 Findings: CTA aorta: There is a type B aortic dissection beginning just distal to the origin of the left subclavian artery and extending to the proximal portion of the right external iliac artery. The dissection causes generalized fusiform dilatation of the thoracic and abdominal aorta. The thoracic aorta measures 3.7 cm in diameter maximally. The abdominal aorta measures 3.3 cm in diameter maximally. There is also small dissection in the celiac trunk which appears stable. The SMA, LYNDSEY, and renal arteries are patent. These findings are stable from prior exam. CTA chest: Scattered atelectasis and fibrotic changes in the lungs. Trace left pleural effusion. No focal consolidation. No pneumothorax. No obvious pulmonary embolism. CTA abdomen and pelvis: The liver, gallbladder, adrenal glands, and spleen are unremarkable. Mild dilatation of pancreatic duct measuring 3 mm. 1.4 cm cyst in 3rd portion of duodenum. Small bilateral renal cysts. No renal or urinary calculi. Moderate stool in the colon. No evidence for diverticulitis, appendicitis, small bowel obstruction, free fluid, or free air Overall, no significant change from prior exam. 03/30/19 22:56 Stable to go back to the rehab section of [facility] Discharge - Discharge Information Problems reviewed: Yes Clinical Impression/Diagnosis: Abdominal pain Condition: Improved Disposition: HOME - Follow up/Referral - Patient Discharge Instructions - Post Discharge Activity
[2019-03-30 21:00] VITALS: BP 157/95; PULSE 84
--- NOTE | 2019-03-31 10:51 | EKG ---
Test Reason : Blood Pressure : / mmHG Vent. Rate : 085 BPM Atrial Rate : 085 BPM P-R Int : 136 ms QRS Dur : 076 ms QT Int : 374 ms P-R-T Axes : 053 -09 -11 degrees QTc Int : 445 ms NORMAL SINUS RHYTHM POSSIBLE LEFT ATRIAL ENLARGEMENT LEFT VENTRICULAR HYPERTROPHY CANNOT RULE OUT SEPTAL INFARCT , AGE UNDETERMINED T WAVE ABNORMALITY, CONSIDER INFERIOR ISCHEMIA ABNORMAL ECG WHEN COMPARED WITH ECG OF 29-MAR-2019 19:56, MINIMAL CRITERIA FOR SEPTAL INFARCT ARE NOW PRESENT Confirmed by MERLE DHILLON MD ([id number]) on 03/31/2019 10:51:22 AM Referred By: Confirmed By:MERLE DHILLON MD
--- NOTE | 2019-03-31 19:31 | PDOC ---
ED Treatment Course - LABORATORY CBC & Chemistry Diagram: 03/30/19 18:40 03/30/19 18:40 - ADDITIONAL ORDERS Additional order review: 03/30/19 19:00 Blood Culture - Preliminary Blood - Peripheral Venous Pending Organism 03/30/19 19:00 Blood Culture - Preliminary Blood - Peripheral Venous NO GROWTH OBTAINED AFTER 24 HOURS, INCUBATION TO CONTINUE FOR 4 DAYS. 03/30/19 18:40 RBC 4.26 MCV 101.2 H MCHC 33.5 RDW 14.8 MPV 7.4 L Neutrophils % 52.6 Lymphocytes % 34.3 Monocytes % 10.6 H Eosinophils % 1.7 Basophils % 0.8 - RADIOLOGY Radiology Studies Ordered: Category Date Time Status ABDOMEN/PELVIS CTA W/WO CONTR [CT] Stat CT Scan 03/30/19 18:49 Taken CHEST CTA [CT] Stat CT Scan 03/30/19 20:02 Taken - Medications Given in the ED: ED Medications Discontinued Medications Generic Name Dose Route Start Last Admin Trade Name Freq PRN Reason Stop Dose Admin Acetaminophen 1,000 mg 03/30/19 18:46 03/30/19 19:11 Ofirmev Injection - IVPB 03/30/19 18:47 1,000 mg ONCE ONE Administration Famotidine/Sodium Chloride 20 mg in 50 mls @ 100 mls/hr 03/30/19 18:45 19:11 Pepcid 20 Mg Premixed Ivpb - IVPB 03/30/19 19:14 100 mls/hr ONCE ONE Administration Sodium Chloride 1,000 mls @ 1,000 mls/hr 03/30/19 18:45 03/30/19 19:11 Normal Saline - IV 03/30/19 19:44 1,000 mls/hr ASDIR STA Administration Ondansetron HCl 4 mg 03/30/19 18:46 03/30/19 19:11 Zofran Injection IVPUSH 03/30/19 18:47 4 mg ONCE ONE Administration Medical Decision Making - Medical Decision Making Lab called with positive blood culture preliminary results. No organism identified yet. Call back placed. Discharge - Discharge Information Problems reviewed: Yes Clinical Impression/Diagnosis: Abdominal pain Condition: Improved Disposition: HOME - Follow up/Referral - Patient Discharge Instructions - Post Discharge Activity
== END 2019-03-30 23:03 | disposition home or self-care (01) ==
LOC: JER 17:56
PROC: 3E033GC Introduction of Other Therapeutic Substance into Peripheral Vein, Percutaneous Approach (ICD-10-PCS; principal; 2019-03-30)
PROC: 3E033GC Introduction of Other Therapeutic Substance into Peripheral Vein, Percutaneous Approach (ICD-10-PCS; 2019-03-30)
PROC: 3E033NZ Introduction of Analgesics, Hypnotics, Sedatives into Peripheral Vein, Percutaneous Approach (ICD-10-PCS; 2019-03-30)
DX: R10.9 Unspecified abdominal pain (principal); E78.00 Pure hypercholesterolemia, unspecified; I25.10 Atherosclerotic heart disease of native coronary artery without angina pectoris; I10 Essential (primary) hypertension; Z95.1 Presence of aortocoronary bypass graft; Z91.018 Allergy to other foods; Z88.8 Allergy status to other drugs, medicaments and biological substances
CPT/HCPCS: 36415; 71275-TC; 74174-TC; 80053; 81003; 82550; 82553; 83605; 83690; 83735; 84484; 85025; 85610; 85730; 86850; 86900; 86901; 87040; 87086; 87186; 93005; 93010; 96365; 96375; 99283-25; J0131; J7030

== ENCOUNTER 2019-04-02 13:58 | Inpatient (IN) | payer OTHER ==
--- NOTE | 2019-04-02 14:31 | PDOC ---
History of Present Illness - General Chief Complaint: Revisit, Lab Variance Stated Complaint: INFECTION - History of Present Illness Initial Comments: 04/02/19 14:31 HPI: 48 y/o M hx of HTN, HLD, Type B aortic dissection, DM sent to ED from [facility] for positive blood cultures from previous visit 2 days ago. Patient was initially here for RLQ abd pain, nausea, emesis, diarrhea. Extensive workup yielded no acute pathology including normal labs and CT. CT abd showed appendicolith with no signs of inflammation. Today patient has no new complaints. Only reports intermittent continued right sided abd pain that has not pattern and no associated with PO intake. He also reports food aversion due to fear of abd pain, despite no pain after eating. Pain is stable. He has taken tylneol and maalox and is unclear if pain improved Reports nausea requiring zofran but no emesis. He denies fever, SOB, dysuria, diarrhea, LH, GIRON. PMHx: as noted above ROS: as noted SHx: 1/2ppd [id number] quit in 05/2018; currently in rehab for alcohol, last drink 2 weeks ago; last MJ use 2 weeks ago Allergies: nitroglycerin -> rash ROS: GENERAL/CONSTITUTIONAL: No fever or chills. No weakness. HEAD, EYES, EARS, NOSE AND THROAT: No change in vision. No ear pain or discharge. No sore throat. CARDIOVASCULAR: No shortness of breath RESPIRATORY: No cough, wheezing, or hemoptysis. GASTROINTESTINAL: +nausea; no vomiting, diarrhea or constipation. GENITOURINARY: No dysuria, frequency, or change in urination. MUSCULOSKELETAL: No joint or muscle swelling or pain. No neck or back pain. SKIN: No rash NEUROLOGIC: No headache, vertigo, loss of consciousness, or change in strength/ sensation. ENDOCRINE: No increased thirst. No abnormal weight change HEMATOLOGIC/LYMPHATIC: No anemia, easy bleeding, or history of blood clots. ALLERGIC/IMMUNOLOGIC: No hives or skin allergy. PE: GENERAL: Awake, alert, and fully oriented, no acute distress HEAD: No signs of trauma, normocephalic, atraumatic EYES: EOMI, sclera anicteric, conjunctiva clear ENT: Auricles normal inspection, hearing grossly normal, nares patent, oropharynx clear without exudates. Moist mucosa NECK: Normal ROM, no lymphadenopathy LUNGS: No increased work of breathing, symmetrical chest rise, clear to auscultation bilaterally, no wheezes, crackles or rhonchi HEART: Regular rate and rhythm, normal S1 and S2, no murmurs, peripheral pulses 2+ and equal bilaterally. ABDOMEN: Soft, nondistended, nontender, normoactive bowel sounds. Negative rosvings and obturator signs. Negative mcburneys point. No guarding, no rebound. No masses. No CVAT EXTREMITIES: Normal inspection, Normal range of motion, no edema. No clubbing or cyanosis. NEUROLOGICAL: Cranial nerves II through XII grossly intact. Normal speech, normal gait, no focal sensorimotor deficits SKIN: Warm, Dry, normal turgor, no rashes or lesions noted Past History - Past Medical History Allergies/Adverse Reactions: Allergies Allergy/AdvReac Type Severity Reaction Status Date / Time nitroglycerin Allergy Intermediate Rash Verified 04/02/19 14:03 Pork/Porcine Containing AdvReac Verified 04/02/19 14:03 Products Home Medications: Ambulatory Orders Aspirin [ASA -] 81 mg PO DAILY 03/19/19 Atorvastatin Ca [Lipitor] 40 mg PO HS 03/19/19 Gemfibrozil [Lopid -] 600 mg PO BID 03/19/19 Losartan Potassium 50 mg PO BID 03/19/19 Metformin HCl [Glucophage] 500 mg PO BID 03/19/19 Quetiapine Fumarate [Seroquel -] 100 mg PO BID 03/19/19 traZODone HCL [Trazodone HCl] 50 mg PO HS PRN 03/19/19 Thiamine HCl [Vitamin B-1] 100 mg PO HS 03/21/19 Amlodipine Besylate [Norvasc -] 10 mg PO DAILY tablet 03/27/19 Insulin Sliding Scale [Novolog Vial Sliding Scale -] 1 vial SQ BIDAC units 11/07 Labetalol HCl [Normodyne -] 200 mg PO TID tablet 03/27/19 Nicotine Patch [Nicoderm Patch -] 21 mg TD DAILY patch 03/27/19 Anemia: No Asthma: No Cancer: No Cardiac Disorders: No CVA: No COPD: No CHF: No Dementia: No Diabetes: Yes GI Disorders: No Disorders: No HTN: Yes Hypercholesterolemia: Yes (on med) Kidney Stones: No Liver Disease: No Seizures: No Thyroid Disease: No - Surgical History Abdominal Surgery: No Appendectomy: No Cardiac Surgery: Yes (CABG 2014 AORTIC DISSECTION IN 2014,Repair of aorta) Cholecystectomy: No Lung Surgery: No Neurologic Surgery: No Orthopedic Surgery: Yes (torn ligaments in rt ankle 1 month ago) - Reproductive History Testicular Surgery: No - Immunization History Immunization Up to Date: Yes - Psycho Social/Smoking Cessation Hx Smoking History: Current every day smoker Have you smoked in the past 12 months: Yes Number of Cigarettes Smoked Daily: 10 Cigars Per Day: 0 Information on smoking cessation initiated: No 'Breaking Loose' booklet given: 03/19/19 Hx Alcohol Use: No Drug/Substance Use Hx: Yes Substance Use Type: Alcohol, Marijuana Hx Substance Use Treatment: No *Physical Exam - Vital Signs Last Vital Signs Temp Pulse Resp BP Pulse Ox 98.6 F 89 18 117/60 97 04/02/19 14:03 04/02/19 14:03 04/02/19 14:03 04/02/19 14:03 04/02/19 14:03 ED Treatment Course - LABORATORY CBC & Chemistry Diagram: 04/02/19 16:40 04/02/19 16:40 Medical Decision Making - Medical Decision Making 04/02/19 16:27 48 y/o M hx of HTN, HLD, Type B aortic dissection, DM sent to ED from [facility] for positive blood cultures from previous visit 2 days ago. Patient was initially here for RLQ abd pain, nausea, emesis, diarrhea. Extensive workup yielded no acute pathology including normal labs and CT. CT abd showed appendicolith with no signs of inflammation. Patient's symptoms improved but still has persistent intermittent abd pain with occasional nausea but no emesis. VSS, AF. PE unremarkable -cbc, cmp, bcx x2 04/02/19 19:11 cbc and cmp unremarkable lactate wnl will addon trop, ekg, lipase will admit for abdominal pain will call surgery for further eval of appendicolith 04/02/19 20:17 trop negative elevated lipase but not 3x upper limit of normal ekg: unchanged from previous pending surgery consult 04/02/19 20:[address] Sanchez; unlikely to be appy given extended amount of time and last CT read; however recommending repeat CT abd/pel with IV and oral contrast Pending CT and then admit Discharge - Discharge Information Problems reviewed: Yes Clinical Impression/Diagnosis: Abdominal pain Qualifiers: Abdominal location: right lower quadrant Qualified Code(s): R10.31 - Right lower quadrant pain - Follow up/Referral - Patient Discharge Instructions - Post Discharge Activity
--- NOTE | 2019-04-02 14:54 | PDOC ---
Attending Attestation - Resident Resident Name: LorneDaryawinifred - ED Attending Attestation I have performed the following: I have examined & evaluated the patient, The case was reviewed & discussed with the resident, I agree w/resident's findings & plan, Exceptions are as noted - HPI HPI: 04/02/19 18:13 Mr. Venegas is a 48 y/o M hx of HTN, HLD, Type B aortic dissection, DM sent to ED from [facility] for positive blood cultures from previous visit 2 days ago where he was assessed for right-sided abdominal pain. Patient states that after arrival to [facility] for detox he noted severe right- sided abdominal pain which he was sent to the ER. Abdominal pain was associated with nausea, vomiting, diarrhea. CTA chest abdomen and pelvis performed and revealed aortic dissection after the left subclavian extending into the celiac trunk, false lumen noted to fill the right renal artery, left renal artery from the true lumen. LYNDSEY fills from the true lumen, dissection extends into the common iliac artery on the right side is so much findings are unchanged from prior imaging Patient was sent to [facility] where he reports persistent abdominal pain and nausea, and anorexia. He has been taking Tylenol and Maalox with little improvement He apparently had blood cultures drawn 3 days ago while in the emergency department Blood cultures grew gram-positive cocci Patient has had no fevers or chills Patient has no known history of murmur PMHx: as noted above ROS: as noted SHx: 1/2ppd [id number] quit in 05/2018; currently in rehab for alcohol, last drink 2 weeks ago; last MJ use 2 weeks ago Allergies: nitroglycerin -> rash 04/02/19 18:14 - Physicial Exam PE: 04/02/19 14:54 PE: GENERAL: Awake, alert, and fully oriented, no acute distress HEAD: No signs of trauma EYES: EOMI, sclera anicteric, conjunctiva clear ENT: Auricles normal inspection, hearing grossly normal, nares patent, oropharynx clear without exudates. Moist mucosa NECK: Normal ROM, no lymphadenopathy LUNGS: No increased work of breathing, symmetrical chest rise, clear to auscultation bilaterally, no wheezes, crackles or rhonchi HEART: Regular rate and rhythm, normal S1 and S2, no murmurs, peripheral pulses 2+ and equal bilaterally. ABDOMEN: Soft, nondistended, right-sided abdominal pain although patient is nontender to palpation, Orr sign negative, obturator sign negative EXTREMITIES: Normal inspection, Normal range of motion, no edema. No clubbing or cyanosis. NEUROLOGICAL: Cranial nerves II through XII grossly intact. Normal speech, normal gait, no focal sensorimotor deficits SKIN: Warm, Dry, normal turgor, no rashes or lesions noted 04/02/19 18:18 - Medical Decision Making 04/02/19 18:18 48-year-old male presenting to the emergency department with a complaint of abdominal pain. Patient has a known type B aortic dissection. Prior CT revealed appendicolith, no appendicitis. However patient continues to complain of anorexia, and abdominal pain Differential diagnoses include but is not limited to: Appendicitis (delayed presentation), mesenteric ischemia , colitis Patient has no back pain to suggest radicular abdominal pain Patient has no rashes suggest zoster We will do: Labs Would avoid repeat CT as patient had extensive CT scanning just 2 days ago We will add on a lactate IV hydration Consider observation 04/02/19 18:20 Laboratory Tests 04/02/19 04/02/19 16:40 16:40 WBC 8.1 Hgb 15.1 Hct 44.5 Plt Count 264 Neutrophils % 57.3 Lymphocytes % 29.1 BUN 12.4 Creatinine 1.[address] Stock
[2019-04-02] MEDS ORDERED: MAG HYDROX/AL HYDROX/SIMETH 30 ML UNIT-DOSE CUP PO ONE (15:02)
[2019-04-02] MEDS ORDERED: ACETAMINOPHEN 500 MG TABLET (FP) PO ONE (15:04)
[2019-04-02] MEDS ORDERED: ACETAMINOPHEN 325 MG TABLET (FP) ONE (16:27)
[2019-04-02] MEDS ORDERED: MAG HYDROX/AL HYDROX/SIMETH 30 ML UNIT-DOSE CUP ONE (16:27)
[2019-04-02 17:02] LABS: BASO % 0.7 % (0-2.0); HEMATOCRIT 44.5 % (35.4-49); HEMOGLOBIN 15.1 GM/dL (11.7-16.9); LYMPH % 29.1 % (8-40); MCH 34.3 pg (25.7-33.7); MCHC 33.9 g/dl (32.0-35.9); MEAN CELL VOLUME 101.2 fl (80-96); MEAN PLT VOLUME 7.2 fl (7.5-11.1); MONO % 11.9 % (3.8-10.2); NEUT % 57.3 % (42.8-82.8); PLATELET COUNT 264 K/MM3 (134-434); RDW 14.2 % (11.9-15.9); WHITE BLOOD COUNT 8.1 K/mm3 (4.0-10.0)
[2019-04-02 17:28] LABS: ALBUMIN 4.2 g/dl (3.4-5.0); ALK PHOS 55 U/L (45-117); ANION GAP 5 MMOL/L (8-16); BILIRUBIN,TOTAL 0.8 mg/dL (0.2-1); BLOOD UREA NITROGEN 12.4 mg/dL (7-18); CALCIUM 9.4 mg/dL (8.5-10.1); CHLORIDE 104 mmol/L (98-107); CO2 26 mmol/L (21-32); CREATININE 1.2 mg/dL (0.55-1.3); GLUCOSE,RANDOM 92 mg/dL (74-106); POTASSIUM 4.6 mmol/L (3.5-5.1); SGOT/AST 54 U/L (15-37); SGPT/ALT 61 U/L (13-61); SODIUM 134 mmol/L (136-145); TOT PROT 8.5 g/dl (6.4-8.2)
[2019-04-02 19:32] LABS: LIPASE 615 U/L (73-393)
--- NOTE | 2019-04-02 22:09 | PN ---
Teaching Attending Note Name of Resident: Tracey Gilbert ATTENDING PHYSICIAN STATEMENT I saw and evaluated the patient. I reviewed the resident's note and discussed the case with the resident. I agree with the resident's findings and plan as documented. SUBJECTIVE: Patient is a 48 year old man with a PMH of Alcohol abuse, Tobacco use, Schizophrenia, Anxiety, Bipolar disorder, Marijuana use, HTN, HLD, Type B aortic dissection (s/p repair) and DM [facility] cultures (Staph coagulase negative) from previous visit to the ER 2 days ago. Patient was initially here for RLQ abdominal pain, nausea, vomiting and diarrhea. Extensive workup yielded no acute pathology including normal labs and CT. CT abdomen/pelvis showed appendicolith with no signs of inflammation. Today patient has no new complaints. Only reports intermittent continued right sided abdominal pain that has no pattern and not associated with PO intake. He also reports food aversion due to fear of abdominal pain, despite no pain after eating. Pain is stable. He has taken tylneol and maalox and is unclear if pain improved. Reports nausea requiring zofran but no emesis. He denies fever, SOB, dysuria, diarrhea, dizziness or headache. No recent travel. OBJECTIVE: Alert Vital Signs Period Temp Pulse Resp BP Sys/Garcia Pulse Ox Last 24 Hr 98.6 F 89 18 117/60 97 HEENT: No Jaundice, eye redness or discharge, PERRLA, EOMI. Normocephalic, atraumatic. External ears are normal and hearing is grossly intact. No nasal discharge. Neck: Supple, nontender. No palpable adenopathy or thyromegaly. No JVD Chest: Good effort. Clear to auscultation and percussion. Heart: Regular. No S3, rub or murmur Abdomen: Not distended, soft, RLQ tenderness and no HSM. No rebound or guarding. Normal bowel sounds. Ext: Peripheral pulses intact. No leg edema. Skin: Warm and dry. No petechiae, rash or ecchymosis. Neuro: Alert. Oriented x3. CN 2-12 grossly intact. Sensation grossly intact in all four extremities and DTR are symmetric. Psych: Appropriate mood and affect. Good insight. Home Medications Medication Instructions Recorded Aspirin [ASA -] 81 mg PO DAILY 03/19/19 Atorvastatin Ca [Lipitor] 40 mg PO HS 03/19/19 Gemfibrozil [Lopid -] 600 mg PO BID 03/19/19 Losartan Potassium 50 mg PO BID 03/19/19 Metformin HCl [Glucophage] 500 mg PO BID 03/19/19 Quetiapine Fumarate [Seroquel -] 100 mg PO BID 03/19/19 traZODone HCL [Trazodone HCl] 50 mg PO HS PRN 03/19/19 Thiamine HCl [Vitamin B-1] 100 mg PO HS 03/21/19 Amlodipine Besylate [Norvasc -] 10 mg PO DAILY tablet 03/27/19 Insulin Sliding Scale [Novolog 1 vial SQ BIDAC units 03/27/19 Vial Sliding Scale -] Labetalol HCl [Normodyne -] 200 mg PO TID tablet 03/27/19 Nicotine Patch [Nicoderm Patch -] 21 mg TD DAILY patch 03/27/19 Abnormal Lab Results 04/02/19 04/02/19 16:40 16:40 MCV 101.2 H MCH 34.3 H MPV 7.2 L Monocytes % 11.9 H Sodium 134 L Anion Gap 5 L AST 54 H Total Protein 8.5 H Lipase 615 H ASSESSMENT AND PLAN: 1. Staph coagulase negative bacteremia/?Pancreatitis - Likely that bacteremia is due to contamination from skin nicci. Blood cultures being repeated. CXR and UA are pending. EKG shows NSR, LAE, LVH, prolonged QTc and T wave inversion/ flattening in III, aVL and V6. Initial troponin is negative. Will repeat EKG and troponin to rule out ACS. Rise in lipase suggest possible pancreatitis. CT abdomen/pelvis with IV/PO contrast and lipid profile being done. Will treat with IV LR at 150 ml/hour; use tylenol for pain control initially and keep him NPO for now. Will continue comprehensive care for all of patients comorbid conditions. 2. DM For now, we will hold the home diabetes drugs and implement sliding scale insulin regimen. Provide comprehensive diabetes care with patient teaching and counseling about the importance of adherence to prescribed diabetes regimen, euglycemia, eye care and foot care. 3. Tobacco Use Counseled on risks associated with tobacco use. We will provide patient all the necessary assistance to facilitate smoking cessation and prescribe Nicotine patch. 4. Overweight Counseled on the risks associated with being overweight. Will provide patient all the necessary assistance, counseling and positive reinforcement to facilitate weight loss. Consult forest pathology associate professor. 5. Alcohol abuse - Implement [facility] alcohol withdrawal protocol and do neurochecks. Implement seizure, fall and aspiration precautions. Treat with thiamine and folic acid and monitor electrolytes (Ca,Mg,K,P). Counseled patient about abstaining from alcohol. Will consult oncology specialist and refer to alcohol detox upon discharge. 6. Hypertension - Restart suitable outpatient antihypertensive drugs when clinically appropriate. 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 Nonpharmacologic measures to control hypertension like weight loss , salt restriction and exercise discussed. Importance of adherence to treatment regimen and attainment of normotension emphasized. 7. DVT prophylaxis - Lovenox 40 mg SQ q 24 hours. 8. Advance directives - Full code
[2019-04-03] MEDS ORDERED: ACETAMINOPHEN 325 MG TABLET (FP) PO PRN
[2019-04-03] MEDS ORDERED: chlordiazePOXIDE HCL 10 MG CAPSULE PO PRN (00:10)
[2019-04-03] MEDS ORDERED: SODIUM CHLORIDE 1,000 ML IV SCH (01:30)
--- NOTE | 2019-04-03 02:07 | HP ---
CHIEF COMPLAINT: positive blood culture call back and persistent RLQ pain PCP: unknown HISTORY OF PRESENT ILLNESS: 48 year old male with past medical history of bipolar disorder, schizophrenia , anxiety, depression, alcohol abuse disorder, aortic dissection, HTN, DM, HLD was sent from [facility] for positive blood cultures. Pt also reports his RLQ pain to be constant, non-radiating, sharp in nature and rates it a 10/10. Pt is afraid to eat due to the pain (last meal on 04/01). Tylenol and Maalox provided minimal relief. Pt endorses heart palpitations, nausea and diaphoresis. Denies headaches, dizziness, chest pain, shortness of breath, changes in bowel movement and urination. Pt was here on 03/30/19 for RLQ abdominal pain, nausea, vomiting and diarrhea. Pt was discharged back to [facility] since his vitals were stable and imaging did not reveal any acute pathology. CTA showed his aortic disease which is unchanged according to ED and a CT of the abdomen with appendicolith w/o inflammation. Echo on 03/22/19 was neg for any vegetations at the time. Pt was brought back to the ED because blood cultures obtained at this time revealed coagulase negative staphylococcus growth. Pt reports drinking one pint of vodka three times a week, smokes marijuana and half pack cigarettes per day since the age of 19 (last drink, marijuana cigarettes 2 weeks ago). Currently denies any withdrawal symptoms. ER course was notable for: (1) VSS, CBC with macrocytosis 101.2, CMP isolated AST 54 and lipase 615 (2) trop negative x1, ekg shows NSR, LAE, LVH, prolonged QTc and T wave inversion/flattening in III, aVL and V6 unchanged from prior admission (3) Surgery Dr Sanchez was consulted and recommended getting a CT A/P with IV and oral contrast. Recent Travel: denies PAST MEDICAL HISTORY: as above PAST SURGICAL HISTORY: right ankle ligament repair, CABG 2014 AORTIC DISSECTION IN 2013,Repair of aorta Social History: Smoking:half pack cigarettes per day since the age of 19 Alcohol: one pint of vodka three times a week Drugs: marijuana daily Allergies nitroglycerin Allergy (Intermediate, Verified 04/02/19 14:03) Rash Pork/Porcine Containing Products Adverse Reaction (Verified 04/02/19 14:03) HOME MEDICATIONS: Home Medications Medication Instructions Recorded Aspirin [ASA -] 81 mg PO DAILY 03/19/19 Atorvastatin Ca [Lipitor] 40 mg PO HS 03/19/19 Gemfibrozil [Lopid -] 600 mg PO BID 03/19/19 Losartan Potassium 50 mg PO BID 03/19/19 Metformin HCl [Glucophage] 500 mg PO BID 03/19/19 Quetiapine Fumarate [Seroquel -] 100 mg PO BID 03/19/19 traZODone HCL [Trazodone HCl] 50 mg PO HS PRN 03/19/19 Thiamine HCl [Vitamin B-1] 100 mg PO HS 03/21/19 Amlodipine Besylate [Norvasc -] 10 mg PO DAILY tablet 03/27/19 Insulin Sliding Scale [Novolog 1 vial SQ BIDAC units 03/27/19 Vial Sliding Scale -] Labetalol HCl [Normodyne -] 200 mg PO TID tablet 03/27/19 Nicotine Patch [Nicoderm Patch -] 21 mg TD DAILY patch 03/27/19 REVIEW OF SYSTEMS CONSTITUTIONAL: Absent: fever, chills, diaphoresis, generalized weakness, malaise, loss of appetite, weight change HEENT: Absent: rhinorrhea, nasal congestion, throat pain, throat swelling, difficulty swallowing, mouth swelling, ear pain, eye pain, visual changes CARDIOVASCULAR: Absent: chest pain, syncope, palpitations, irregular heart rate, lightheadedness , peripheral edema RESPIRATORY: Absent: cough, shortness of breath, dyspnea with exertion, orthopnea, wheezing, stridor, hemoptysis GASTROINTESTINAL:abdominal pain Absent: abdominal distension, nausea, vomiting, diarrhea, constipation, melena , hematochezia GENITOURINARY: Absent: dysuria, frequency, urgency, hesitancy, hematuria, flank pain, genital pain MUSCULOSKELETAL: Absent: myalgia, arthralgia, joint swelling, back pain, neck pain SKIN: Absent: rash, itching, pallor HEMATOLOGIC/IMMUNOLOGIC: Absent: easy bleeding, easy bruising, lymphadenopathy, frequent infections ENDOCRINE: Absent: unexplained weight gain, unexplained weight loss, heat intolerance, cold intolerance NEUROLOGIC: Absent: headache, focal weakness or paresthesias, dizziness, unsteady gait, seizure, mental status changes, bladder or bowel incontinence PSYCHIATRIC: Absent: anxiety, depression, suicidal or homicidal ideation, hallucinations. PHYSICAL EXAMINATION Vital Signs - 24 hr 04/02/19 04/02/19 04/03/19 14:03 18:00 00:14 Temperature 98.6 F 98.0 F Pulse Rate 89 82 Pulse Rate [ 78 Right] Respiratory 18 18 19 Rate Blood Pressure 117/60 146/89 Blood Pressure 128/74 [Right Arm] O2 Sat by Pulse 97 98 Oximetry (%) GENERAL: Awake, alert, and fully oriented, in no acute distress. HEAD: Normal with no signs of trauma. EYES: Pupils equal, round and reactive to light, extraocular movements intact, sclera anicteric, conjunctiva clear. No lid lag. EARS, NOSE, THROAT: oropharynx clear without exudates. Moist mucous membranes. NECK: Normal range of motion, supple without lymphadenopathy, JVD, or masses. LUNGS: Breath sounds equal, clear to auscultation bilaterally. No wheezes, and no crackles. No accessory muscle use. HEART: Regular rate and rhythm, normal S1 and S2 without murmur, rub or gallop. ABDOMEN: Soft, RLQ tenderness, not distended, normoactive bowel sounds, no guarding, no rebound, no masses. No hepatomegaly or splenomegaly. MUSCULOSKELETAL: Normal range of motion at all joints. No bony deformities or tenderness. No CVA tenderness. UPPER EXTREMITIES: 2+ pulses, warm, well-perfused. No cyanosis. No clubbing. No peripheral edema. LOWER EXTREMITIES: 2+ pulses, warm, well-perfused. No calf tenderness. No peripheral edema. NEUROLOGICAL: Cranial nerves II-XII intact. Normal speech. gross motor intact and sensation intact PSYCHIATRIC: Cooperative. Good eye contact. Appropriate mood and affect. SKIN: Warm, dry, normal turgor Laboratory Results - last 24 hr 04/02/19 04/02/19 04/02/19 16:40 16:40 17:56 WBC 8.1 RBC 4.40 Hgb 15.1 Hct 44.5 MCV 101.2 H MCH 34.3 H MCHC 33.9 RDW 14.2 Plt Count 264 MPV 7.2 L Absolute Neuts (auto) 4.6 Neutrophils % 57.3 Lymphocytes % 29.1 Monocytes % 11.9 H Eosinophils % 1.0 Basophils % 0.7 Nucleated RBC % 0 Sodium 134 L Potassium 4.6 Chloride 104 Carbon Dioxide 26 Anion Gap 5 L BUN 12.4 Creatinine 1.2 Est GFR (CKD-EPI)AfAm 83.54 Est GFR (CKD-EPI)NonAf 72.08 Random Glucose 92 Lactic Acid 1.2 Calcium 9.4 Total Bilirubin 0.8 AST 54 H ALT 61 Alkaline Phosphatase 55 Troponin I < 0.02 Total Protein 8.5 H Albumin 4.2 Lipase 615 H ASSESSMENT/PLAN: 48 year old male with past medical history of bipolar disorder, schizophrenia, anxiety, depression, alcohol abuse disorder, aortic dissection, HTN, DM, HLD was sent from [facility] for positive blood cultures. Also c/o persistent right lower quadrant abdominal pain. Positive blood cultures from 03/30/19 admission Pt currently afebrile with no white count. culture positive for Staph coag neg. Possible contaminant ? no antibiotics at this time. pt non toxic, without white count in the setting of possible contaminant F/u repeat blood blood cultures UA and CXR RLQ abdominal pain with CT scan finding Pt had an initial presentation for this [address] Sanchez consulted: thought to be unlikely to have appendicitis given prior imaging and rec getting CT a/p with contrast CT abdomen and pelvis with IV/oral contrast showed normal appendix and pancreas. 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 stable aortic dissection tylenol 650 Q4h for pain control Lipase was elevated 615. poss due to alcoholism or gastritis or early pancreatitis? repeat lipase ordered for morning. LR @150cc/hr NPO for now Alchol abuse currently in detox at [facility] prior to call back Last drink 2 weeks ago was in detox before admission librium protocol initiated thiamine, folate, MTVs Abnormal EKG ekg shows NSR, LAE, LVH, prolonged QTc and T wave inversion/flattening in III, aVL and V6 though unchanged from prior admission will get repeat trop and ekg Macrocytosis most likely related to alcohol abuse B12 and folate level ordered HTN resume once med rec DM ISS BGM HLD resume once med rec Psych disorders resume once med rec gave one dose of trazodone and seroquel overnight FEN NPO for now except for meds NS @100 monitor lytes DVT SCDs porcine allergy Visit type - Emergency Visit Emergency Visit: Yes ED Registration Date: 04/02/19 Care time: The patient presented to the Emergency Department on the above date and was hospitalized for further evaluation of their emergent condition. - New Patient This patient is new to me today: Yes Date on this admission: 04/03/19 - Critical Care Critical Care patient: No ATTENDING PHYSICIAN STATEMENT I saw and evaluated the patient. I reviewed the resident's note and discussed the case with the resident. I agree with the resident's findings and plan as documented. SUBJECTIVE: OBJECTIVE: ASSESSMENT AND PLAN:
[2019-04-03 02:26] VITALS: BMI 35.8
[2019-04-03] MEDS ORDERED: chlordiazePOXIDE HCL 25 MG CAPSULE PO SCH (05:00)
[2019-04-03] MEDS ORDERED: LACTATED RINGERS SOLUTION 1,000 ML/1,000 ML INFUS.BAG IV SCH (05:30)
[2019-04-03] MEDS: INSULIN SLIDING SCALE (NOVOLOG) 1 VIAL SQ SCH ×4 (06:03→21:45)
[2019-04-03 08:20] LABS: BASO % 0.8 % (0-2.0); EOS % 1.6 % (0-4.5); HEMATOCRIT 41.2 % (35.4-49); LYMPH % 28.4 % (8-40); MEAN CELL VOLUME 100.1 fl (80-96); MEAN PLT VOLUME 7.1 fl (7.5-11.1); MONO % 13.4 % (3.8-10.2); NEUT % 55.8 % (42.8-82.8); PLATELET COUNT 239 K/MM3 (134-434); RBC 4.12 M/mm3 (4.00-5.60); RDW 14.5 % (11.9-15.9); WHITE BLOOD COUNT 6.9 K/mm3 (4.0-10.0)
[2019-04-03 09:08] LABS: ALBUMIN 3.7 g/dl (3.4-5.0); BILIRUBIN,TOTAL 0.8 mg/dL (0.2-1); BLOOD UREA NITROGEN 11.9 mg/dL (7-18); CALCIUM 9.2 mg/dL (8.5-10.1); CREATININE 1.1 mg/dL (0.55-1.3); MAGNESIUM 1.8 mg/dL (1.8-2.4); PHOSPHOROUS 3.5 mg/dL (2.5-4.9); TOT PROT 7.4 g/dl (6.4-8.2)
[2019-04-03] MEDS: THIAMINE HCL 100 MG TABLET (FP) PO SCH (10:33)
[2019-04-03] MEDS: FOLIC ACID 1 MG TABLET (FP) PO SCH (10:33)
[2019-04-03] MEDS: MULTIVITAMINS (DAILY MVI) TABLET (FP) PO SCH (10:33)
--- NOTE | 2019-04-03 10:55 | CON.ID ---
Consult Consult Specialty:: infectious diseases Referred by:: aby Reason for Consultation:: positive blood cx, abd pain - History of Present Illness Chief Complaint: abd pain History of Present Illness: 48 year old male with past medical history of bipolar disorder, schizophrenia, anxiety, depression, alcohol abuse disorder, aortic dissection, HTN, DM, HLD was sent from [facility] for positive blood cultures. Pt also reports his RLQ pain to be constant, non-radiating, sharp in nature and rates it a 10/10. Pt is afraid to eat due to the pain (last meal on 04/01). Tylenol and Maalox provided minimal relief. Pt endorses heart palpitations, nausea and diaphoresis. Denies headaches, dizziness, chest pain, shortness of breath, changes in bowel movement and urination. Pt was here on 03/30/19 for RLQ abdominal pain, nausea, vomiting and diarrhea. Pt was discharged back to [facility] since his vitals were stable and imaging did not reveal any acute pathology. CTA showed his aortic disease which is unchanged according to ED and a CT of the abdomen with appendicolith w/o inflammation. Echo on 03/22/19 was neg for any vegetations at the time. Pt was brought back to the ED because blood cultures obtained at this time revealed coagulase negative staphylococcus growth. Pt reports drinking one pint of vodka three times a week, smokes marijuana and half pack cigarettes per day since the age of 19 (last drink, marijuana cigarettes 2 weeks ago). Currently denies any withdrawal symptoms. currently his main issues is abd pain repeat blood work ahs been send - History Source History Provided By: Patient Limitations to Obtaining History: No Limitations - Past Medical History Cardio/Vascular: Yes: Aneurysm (aortic dissection s/p repair), CAD (s/p CABG), CHF (diastolic), HTN Psych: Yes: Addictions, Bipolar - Past Surgical History Past Surgical History: Yes: CABG - Alcohol/Substance Use Hx Alcohol Use: Yes History of Substance Use: reports: Prescription (opiates) - Smoking History Smoking history: Current every day smoker Have you smoked in the past 12 months: Yes Aproximately how many cigarettes per day: 10 Home Medications - Allergies Allergies/Adverse Reactions: Allergies Allergy/AdvReac Type Severity Reaction Status Date / Time nitroglycerin Allergy Intermediate Rash Verified 04/02/19 14:03 Pork/Porcine Containing AdvReac Verified 04/02/19 14:03 Products - Home Medications Home Medications: Ambulatory Orders Aspirin [ASA -] 81 mg PO DAILY 03/19/19 Atorvastatin Ca [Lipitor] 40 mg PO HS 03/19/19 Gemfibrozil [Lopid -] 600 mg PO BID 03/19/19 Losartan Potassium 50 mg PO BID 03/19/19 Metformin HCl [Glucophage] 500 mg PO BID 03/19/19 Quetiapine Fumarate [Seroquel -] 100 mg PO BID 03/19/19 traZODone HCL [Trazodone HCl] 50 mg PO HS PRN 03/19/19 Thiamine HCl [Vitamin B-1] 100 mg PO HS 03/21/19 Amlodipine Besylate [Norvasc -] 10 mg PO DAILY tablet 03/27/19 Insulin Sliding Scale [Novolog Vial Sliding Scale -] 1 vial SQ BIDAC units 11/07 Labetalol HCl [Normodyne -] 200 mg PO TID tablet 03/27/19 Nicotine Patch [Nicoderm Patch -] 21 mg TD DAILY patch 03/27/19 Review of Systems - Review of Systems Constitutional: reports: No Symptoms Eyes: reports: No Symptoms HENT: reports: No Symptoms Neck: reports: No Symptoms Cardiovascular: reports: No Symptoms Respiratory: reports: No Symptoms Gastrointestinal: reports: Abdominal Pain Genitourinary: reports: No Symptoms Musculoskeletal: reports: No Symptoms Integumentary: reports: No Symptoms Neurological: reports: No Symptoms Endocrine: reports: No Symptoms Hematology/Lymphatic: reports: No Symptoms Psychiatric: reports: No Symptoms Physical Exam Vital Signs: Vital Signs Temperature 97.9 F 04/03/19 09:11 Pulse Rate 84 04/03/19 09:11 Respiratory Rate 20 04/03/19 06:26 Blood Pressure 149/84 04/03/19 09:11 O2 Sat by Pulse Oximetry (%) 98 04/03/19 01:10 Constitutional: Yes: Well Nourished, Calm, Mild Distress Eyes: Yes: Conjunctiva Clear HENT: Yes: Atraumatic, Normocephalic Neck: Yes: Supple, Trachea Midline Cardiovascular: Yes: Regular Rate and Rhythm Respiratory: Yes: Regular, CTA Bilaterally Gastrointestinal: Yes: Normal Bowel Sounds, Soft Musculoskeletal: Yes: WNL Extremities: Yes: WNL Neurological: Yes: Alert, Oriented Psychiatric: Yes: Alert, Oriented Labs: CBC, BMP 04/03/19 07:40 04/03/19 07:40 Imaging - Results Cat Scan: Report Reviewed, Image Reviewed Assessment/Plan 48 year old male with past medical history of bipolar disorder, schizophrenia, anxiety, depression, alcohol abuse disorder, aortic dissection, HTN, DM, HLD [facility]. Also c/o persistent right lower quadrant abdominal pain. gm positive bacteremia abd pain etoh abuse htn hld dm plan will await for all cx reports monitor abd pain no abx at this time
--- NOTE | 2019-04-03 11:14 | CONSULT ---
- Consultation REQUESTING PROVIDER: CONSULT REQUEST: We have been asked to surgically evaluate this patient for abdominal pain. PCP:Onesimo Anthony NP HISTORY OF PRESENT ILLNESS: The patient 48 yo male who presents to the hospital with complaints of abdominal pain to the right side. He was sent over from the rehab center and was seen for this problem x2 since 03/30 and again yesterday. The visit on 03/30 he had a CTA of his chest/abd completed which revealed no obstruction and a stable type aortic dissection. The CT scan with oral/iv contrast revealed no evidnece of inflammation/appendicitis/bowel obstruction but there was a structure identified in the 4th portion of his duodenum. He states that he feels hungry, no nausea or emesis. No urinary complaints. He had a BM on Monday and passed flatus yesterday. Some fever and chills and was sent back to the ER for positive blood cultures. PMHx: diabetes, HTN, hyperlipidemia, ETOH abuse PSHx: aortic dissection with repair Social HX: smokes 1/2 PPD Home Medications Medication Instructions Recorded Aspirin [ASA -] 81 mg PO DAILY 03/19/19 Atorvastatin Ca [Lipitor] 40 mg PO HS 03/19/19 Gemfibrozil [Lopid -] 600 mg PO BID 03/19/19 Losartan Potassium 50 mg PO BID 03/19/19 Metformin HCl [Glucophage] 500 mg PO BID 03/19/19 Quetiapine Fumarate [Seroquel -] 100 mg PO BID 03/19/19 traZODone HCL [Trazodone HCl] 50 mg PO HS PRN 03/19/19 Thiamine HCl [Vitamin B-1] 100 mg PO HS 03/21/19 Amlodipine Besylate [Norvasc -] 10 mg PO DAILY tablet 03/27/19 Insulin Sliding Scale [Novolog 1 vial SQ BIDAC units 03/27/19 Vial Sliding Scale -] Labetalol HCl [Normodyne -] 200 mg PO TID tablet 03/27/19 Nicotine Patch [Nicoderm Patch -] 21 mg TD DAILY patch 03/27/19 Allergies Allergy/AdvReac Type Severity Reaction Status Date / Time nitroglycerin Allergy Intermediate Rash Verified 04/02/19 14:03 Pork/Porcine Containing AdvReac Verified 04/02/19 14:03 Products REVIEW OF SYSTEMS: CONSTITUTIONAL: present: fever, chills, diaphoresis CARDIOVASCULAR: Absent: chest pain RESPIRATORY: Absent: cough, shortness of breath GASTROINTESTINAL: Present: right sided abdominal pain. Had a BM on monday. GENITOURINARY: Absent: dysuria, frequency,hematuria MUSCULOSKELETAL: Absent: myalgia, arthralgia, joint swelling, back pain, neck pain PHYSICAL EXAM: GENERAL: Awake, alert, and fully oriented, in no acute distress. LUNGS: Clear to auscultation bilat anteriorly. HEART: Regular rate and rhythm. No murmurs ABDOMEN: Soft, not distended, no guarding, no rebound, pain with palpation to right side of abd-RUQ and RLQ. LOWER EXTREMITIES: 2+ pulses, warm, well-perfused. PSYCH: Cooperative. Good eye contact. Appropriate mood and affect. Vital Signs Temperature 97.9 F 04/03/19 09:11 Pulse Rate 84 04/03/19 09:11 Respiratory Rate 20 04/03/19 06:26 Blood Pressure 149/84 04/03/19 09:11 O2 Sat by Pulse Oximetry (%) 98 04/03/19 01:10 Lab Results WBC 6.9 K/mm3 (4.0-10.0) 04/03/19 07:40 RBC 4.12 M/mm3 (4.00-5.60) 04/03/19 07:40 Hgb 14.0 GM/dL (11.7-16.9) 04/03/19 07:40 Hct 41.2 % (35.4-49) 04/03/19 07:40 MCV 100.1 fl (80-96) H 04/03/19 07:40 MCHC 34.0 g/dl (32.0-35.9) 04/03/19 07:40 RDW 14.5 % (11.9-15.9) 04/03/19 07:40 Plt Count 239 K/MM3 (134-434) 04/03/19 07:40 Sodium 136 mmol/L (136-145) 04/03/19 07:40 Potassium 4.0 mmol/L (3.5-5.1) 04/03/19 07:40 Chloride 103 mmol/L (98-107) 04/03/19 07:40 Carbon Dioxide 28 mmol/L (21-32) 04/03/19 07:40 Anion Gap 5 MMOL/L (8-16) L 04/03/19 07:40 BUN 11.9 mg/dL (7-18) 04/03/19 07:40 Creatinine 1.1 mg/dL (0.55-1.3) 04/03/19 07:40 Random Glucose 115 mg/dL (74-106) H 04/03/19 07:40 Calcium 9.2 mg/dL (8.5-10.1) 04/03/19 07:40 CTA chest thorax 03/30: stable aortic dissection from ascending to external iliacs. CT scan or oral/IV constrast: 04/02: no evidence of obstruction, 4th portion duodenal mass, no evidence of appendicitis although there is contrast versus appendicolith in appendix. Microbiology 03/30/19 19:23 Urine - Urine Clean Catch Urine Culture - Final NO GROWTH OBTAINED 03/30/19 19:00 Blood - Peripheral Venous Blood Culture - Final Staphylococcus Capitis 03/30/19 19:00 Blood - Peripheral Venous Blood Culture - Final Staphylococcus Capitis Blood cultures pending from 04/02 Problem List - Problems (1) Abdominal pain Assessment/Plan: Pt without any clinical evidence of acute appendicits. CT scan without any inflammation/dilated appendix. Pt with mild tenderness to right side of the abd. No fevers or leukocytosis. D/w Dr. Sanchez, recommend GI eval for new finding of 4th portion duodenal mass( non-obstructing) Code(s): R10.9 - UNSPECIFIED ABDOMINAL PAIN Qualifiers: Abdominal location: right lower quadrant Qualified Code(s): R10.31 - Right lower quadrant pain
[2019-04-03] MEDS ORDERED: traZODone HCL 50 MG TABLET (FP) PO PRN (12:31)
[2019-04-03] MEDS ORDERED: traMADol HCL 50 MG TABLET PO PRN (12:54)
[2019-04-03] MEDS: QUEtiapine FUMARATE 100 MG TABLET (FP) PO SCH ×2 (13:30→21:44)
--- NOTE | 2019-04-03 17:18 | CON.GI ---
Consult Consult Specialty:: Gastroenterology Reason for Consultation:: Abdominal pain, abnormal CT imaging - History of Present Illness History of Present Illness: 48yo male h/o bipolar disorder, schizophrenia, etoh abuse, aortic dissection s/ p repair (2013), HTN, DM undergoing detox presents from [facility] for abdominal pain and positive blood cultures with CT revealing a duodenal lesion. Pt reports recent ED evaluation with abdominal pain and diarrhea without acute findings therefore dc'd. Pt however reports persisting right sided abdominal pain over the past 4-5 days and also found to have positive blood cultures obtained in ED. Pt reporting sharp pain in right sided, non-radiating, no worsening with food. Also with bloating and nausea though improved since ED visit. Denies diarrhea. Reports regular formed bm. Denies fever/chills or weight loss. Previously drinking 1 pint vodka daily since age 19, last drink 2 weeks ago per pt. Smokes marijuana and half pack cigarettes daily. Pt also reporting intermittent chest pain and sob, none currently, states he follows with cardiology at [facility]. - History Source History Provided By: Patient, Medical Record - Past Medical History Cardio/Vascular: Yes: Aneurysm (aortic dissection s/p repair), CAD (s/p CABG), CHF (diastolic), HTN Psych: Yes: Addictions, Bipolar - Past Surgical History Past Surgical History: Yes: CABG - Alcohol/Substance Use Hx Alcohol Use: Yes History of Substance Use: reports: Prescription (opiates) - Smoking History Smoking history: Current every day smoker Have you smoked in the past 12 months: Yes Aproximately how many cigarettes per day: 10 Home Medications - Allergies Allergies/Adverse Reactions: Allergies Allergy/AdvReac Type Severity Reaction Status Date / Time nitroglycerin Allergy Intermediate Rash Verified 04/02/19 14:03 Pork/Porcine Containing AdvReac Verified 04/02/19 14:03 Products - Home Medications Home Medications: Ambulatory Orders Aspirin [ASA -] 81 mg PO DAILY 03/19/19 Atorvastatin Ca [Lipitor] 40 mg PO HS 03/19/19 Gemfibrozil [Lopid -] 600 mg PO BID 03/19/19 Losartan Potassium 50 mg PO BID 03/19/19 Metformin HCl [Glucophage] 500 mg PO BID 03/19/19 Quetiapine Fumarate [Seroquel -] 100 mg PO BID 03/19/19 traZODone HCL [Trazodone HCl] 50 mg PO HS PRN 03/19/19 Thiamine HCl [Vitamin B-1] 100 mg PO HS 03/21/19 Amlodipine Besylate [Norvasc -] 10 mg PO DAILY tablet 03/27/19 Insulin Sliding Scale [Novolog Vial Sliding Scale -] 1 vial SQ BIDAC units 11/07 Labetalol HCl [Normodyne -] 200 mg PO TID tablet 03/27/19 Nicotine Patch [Nicoderm Patch -] 21 mg TD DAILY patch 03/27/19 Physical Exam-GI Vital Signs: Vital Signs Temperature 97.9 F 04/03/19 09:11 Pulse Rate 84 04/03/19 09:11 Respiratory Rate 20 04/03/19 06:26 Blood Pressure 149/84 04/03/19 09:11 O2 Sat by Pulse Oximetry (%) 98 04/03/19 09:00 Labs: CBC, BMP 04/03/19 07:40 04/03/19 07:40 Problem List - Problems (1) Abdominal pain Assessment/Plan: 48yo male h/o bipolar disorder, schizophrenia, etoh abuse, aortic dissection s/ p repair (2013), HTN, DM undergoing detox presents from [facility] for abdominal pain and positive blood cultures with CT imaging revealing lesion, possibly lipoma, in the distal duodenum. Clinically without features of obstruction. Discussed with radiologist, unclear significance though appearing as nonobstructing low density lesion in third/fourth portion duodenum. -Pt likely would require endoscopic evaluation with EGD/enteroscopy to further evaluate r/o mass vs lipoma. Discussed risks/benefits in detail with pt including though not limited to bleeding, infection, perforation and side effects of medications/anesthesia. Pt verbalized understanding and would like to think about it further before pursuing. -Diet as tolerated for now -Would also recommend cardiology evaluation for risk stratification/clearance in view of h/o aortic dissection and recent reports of chest pain/sob. -Pending above including infectious workup will determine timing of endoscopy accordingly Code(s): R10.9 - UNSPECIFIED ABDOMINAL PAIN Qualifiers: Abdominal location: right lower quadrant Qualified Code(s): R10.31 - Right lower quadrant pain
--- NOTE | 2019-04-03 18:18 | PN ---
Physical Exam: SUBJECTIVE: Patient seen and examined OBJECTIVE: stop libirum, patient was recently here and libirum was started and continued at [facility] and completed. he is now in rehab. no signs of w/drwl start clears and advance gi consult for duodenal lipoma/mass Patient is a 48 year old male with a significant past medical history of bipolar disorder, schizophrenia, anxiety, depression, alcohol abuse disorder, aortic dissection, HTN, DM, HLD was sent from [facility]hab for positive blood cultures. Pt also reports his RLQ pain to be constant, non-radiating, sharp in nature and rates it a 10/10. Vital Signs Period Temp Pulse Resp BP Sys/Garcia Pulse Ox Last 24 Hr 97.8 F-98.4 F 82-87 19-20 134-149/84-93 98-98 GENERAL: The patient is awake, alert, and fully oriented, in no acute distress. HEAD: Normal with no signs of trauma. EYES: PERRL, extraocular movements intact, sclera anicteric, conjunctiva clear. No ptosis. ENT: Ears normal, nares patent, oropharynx clear without exudates, moist mucous membranes. NECK: Trachea midline, full range of motion, supple. LUNGS: Breath sounds equal, clear to auscultation bilaterally, HEART: Regular rate and rhythm, S1, S2 without murmur, rub or gallop. ABDOMEN: Soft, nontender, nondistended, normoactive bowel sounds, no guarding, no rebound, no hepatosplenomegaly, no masses. EXTREMITIES: 2+ pulses, warm, well-perfused, no edema. NEUROLOGICAL: Normal speech, gait not observed. PSYCH: Normal mood, normal affect. SKIN: Warm, dry, normal turgor, no rashes or lesions noted Laboratory Results - last 24 hr 04/02/19 04/02/19 04/03/19 16:40 17:56 05:42 WBC RBC Hgb Hct MCV MCH MCHC RDW Plt Count MPV Absolute Neuts (auto) Neutrophils % Lymphocytes % Monocytes % Eosinophils % Basophils % Nucleated RBC % Sodium 134 L Potassium 4.6 Chloride 104 Carbon Dioxide 26 Anion Gap 5 L BUN 12.4 Creatinine 1.2 Est GFR (CKD-EPI)AfAm 83.54 Est GFR (CKD-EPI)NonAf 72.08 POC Glucometer 136 Random Glucose 92 Lactic Acid 1.2 Calcium 9.4 Phosphorus Magnesium Total Bilirubin 0.8 AST 54 H ALT 61 Alkaline Phosphatase 55 Troponin I < 0.02 Total Protein 8.5 H Albumin 4.2 Triglycerides Cholesterol Total LDL Cholesterol HDL Cholesterol Lipase 615 H Vitamin B12 Serum Folate 04/03/19 04/03/19 04/03/19 07:40 07:40 07:40 WBC 6.9 RBC 4.12 Hgb 14.0 Hct 41.2 MCV 100.1 H MCH 34.0 H MCHC 34.0 RDW 14.5 Plt Count 239 MPV 7.1 L Absolute Neuts (auto) 3.9 Neutrophils % 55.8 Lymphocytes % 28.4 Monocytes % 13.4 H Eosinophils % 1.6 Basophils % 0.8 Nucleated RBC % 0 Sodium 136 Potassium 4.0 Chloride 103 Carbon Dioxide 28 Anion Gap 5 L BUN 11.9 Creatinine 1.1 Est GFR (CKD-EPI)AfAm 92.81 Est GFR (CKD-EPI)NonAf 80.08 POC Glucometer Random Glucose 115 H Lactic Acid Calcium 9.2 Phosphorus 3.5 Magnesium 1.8 Total Bilirubin 0.8 AST 48 H ALT 54 Alkaline Phosphatase 50 Troponin I Total Protein 7.4 Albumin 3.7 Triglycerides Cholesterol Total LDL Cholesterol HDL Cholesterol Lipase 355 Vitamin B12 606 Serum Folate 18 H 04/03/19 04/03/19 04/03/19 07:40 11:44 17:08 WBC RBC Hgb Hct MCV MCH MCHC RDW Plt Count MPV Absolute Neuts (auto) Neutrophils % Lymphocytes % Monocytes % Eosinophils % Basophils % Nucleated RBC % Sodium Potassium Chloride Carbon Dioxide Anion Gap BUN Creatinine Est GFR (CKD-EPI)AfAm Est GFR (CKD-EPI)NonAf POC Glucometer 92 84 Random Glucose Lactic Acid Calcium Phosphorus Magnesium Total Bilirubin AST ALT Alkaline Phosphatase Troponin I 0.02 Total Protein Albumin Triglycerides 171 H Cholesterol 89 Total LDL Cholesterol 52 HDL Cholesterol 20 L Lipase Vitamin B12 Serum Folate Active Medications Generic Name Dose Route Start Last Admin Trade Name Freq PRN Reason Stop Dose Admin Acetaminophen 650 mg 04/03/19 00:00 04/03/19 01:58 Tylenol - PO 650 mg Q4H PRN Administration PAIN LEVEL 1-5 Folic Acid 1 mg 04/03/19 10:00 04/03/19 10:33 Folic Acid - PO 1 mg DAILY JOSE LUIS Administration Insulin Aspart 1 vial 04/03/19 07:00 04/03/19 17:31 Novolog Vial Sliding Scale - SQ Not Given A[facility]S [facility] Protocol Multivitamins/Minerals/Vitamin C 1 tab 04/03/19 10:00 04/03/19 10:33 Tab-A-Vit - PO 1 tab DAILY JOSE LUIS Administration Quetiapine Fumarate 100 mg 04/03/19 13:00 04/03/19 13:30 Seroquel - PO 100 mg BID JOSE LUIS Administration Thiamine HCl 100 mg 04/03/19 10:00 04/03/19 10:33 Vitamin B1 - PO 100 mg DAILY JOSE LUIS Administration Tramadol HCl 50 mg 04/03/19 12:54 Ultram - PO Q12H PRN PAIN LEVEL 7 - 10 Trazodone HCl 50 mg 04/03/19 12:31 Desyrel - PO HS PRN INSOMNIA ASSESSMENT/PLAN: Problem List - Problems (1) Bacteremia Assessment/Plan: gm positive bacteremia on 03/30/2019 blood cultures repeat blood cultures negative to date ID following, monitor off antibiotics as patient is afebrile, non toxic appears and wbc stable monitor labs, vitals Code(s): R78.81 - BACTEREMIA (2) Abdominal pain Assessment/Plan: resolved, tolerating diet and will advance as tolerated seen by surgery team, no surgical interventions recommended seen by GI and an EGD was offered to patient for duodenal mass vs. lipoma patient refused study and states he will do it as an outpatient Code(s): R10.9 - UNSPECIFIED ABDOMINAL PAIN Qualifiers: Abdominal location: right lower quadrant Qualified Code(s): R10.31 - Right lower quadrant pain Visit type - Emergency Visit Emergency Visit: Yes ED Registration Date: 04/02/19 Care time: The patient presented to the Emergency Department on the above date and was hospitalized for further evaluation of their emergent condition. - New Patient This patient is new to me today: No - Critical Care Critical Care patient: No - Discharge Referral Referred to [facility] Med P.C.: No
--- NOTE | 2019-04-03 20:02 | CON.CARD ---
Consult Consult Specialty:: Cardiology - History of Present Illness History of Present Illness: Patient is a 48 year old male with a significant past medical history of bipolar disorder, schizophrenia, anxiety, depression, alcohol abuse disorder, aortic dissection, HTN, DM, HLD was sent from [facility] for positive blood cultures. Pt also reports his RLQ pain to be constant, non-radiating, sharp in nature and rates it a 10/10. PMH of Alcohol abuse, Tobacco use, Schizophrenia, Anxiety, Bipolar disorder, Marijuana use, HTN, HLD, Type B aortic dissection (s/p repair) and DM sent from [facility] for positive blood cultures (Staph coagulase negative) from previous visit to the ER 2 days ago. Patient was initially here for RLQ abdominal pain, nausea, vomiting and diarrhea. Extensive workup yielded no acute pathology including normal labs and CT. CT abdomen/pelvis showed appendicolith with no signs of inflammation. Today patient has no new complaints. Only reports intermittent continued right sided abdominal pain that has no pattern and not associated with PO intake. He also reports food aversion due to fear of abdominal pain, despite no pain after eating. Pain is stable. He has taken tylneol and maalox and is unclear if pain improved. Reports nausea requiring zofran but no emesis. He denies fever, SOB, dysuria, diarrhea, dizziness or headache. No recent travel. - History Source History Provided By: Medical Record - Past Medical History Cardio/Vascular: Yes: Aneurysm (aortic dissection s/p repair), CAD (s/p CABG), CHF (diastolic), HTN Psych: Yes: Addictions, Bipolar - Past Surgical History Past Surgical History: Yes: CABG - Alcohol/Substance Use Hx Alcohol Use: Yes History of Substance Use: reports: Prescription (opiates) - Smoking History Smoking history: Current every day smoker Have you smoked in the past 12 months: Yes Aproximately how many cigarettes per day: 10 Home Medications - Allergies Allergies/Adverse Reactions: Allergies Allergy/AdvReac Type Severity Reaction Status Date / Time nitroglycerin Allergy Intermediate Rash Verified 04/02/19 14:03 Pork/Porcine Containing AdvReac Verified 04/02/19 14:03 Products - Home Medications Home Medications: Ambulatory Orders Aspirin [ASA -] 81 mg PO DAILY 03/19/19 Atorvastatin Ca [Lipitor] 40 mg PO HS 03/19/19 Gemfibrozil [Lopid -] 600 mg PO BID 03/19/19 Losartan Potassium 50 mg PO BID 03/19/19 Metformin HCl [Glucophage] 500 mg PO BID 03/19/19 Quetiapine Fumarate [Seroquel -] 100 mg PO BID 03/19/19 traZODone HCL [Trazodone HCl] 50 mg PO HS PRN 03/19/19 Thiamine HCl [Vitamin B-1] 100 mg PO HS 03/21/19 Amlodipine Besylate [Norvasc -] 10 mg PO DAILY tablet 03/27/19 Insulin Sliding Scale [Novolog Vial Sliding Scale -] 1 vial SQ BIDAC units 11/07 Labetalol HCl [Normodyne -] 200 mg PO TID tablet 03/27/19 Nicotine Patch [Nicoderm Patch -] 21 mg TD DAILY patch 03/27/19 Review of Systems - Review of Systems Constitutional: reports: No Symptoms Eyes: reports: No Symptoms HENT: reports: No Symptoms Neck: reports: No Symptoms Cardiovascular: reports: No Symptoms Gastrointestinal: reports: No Symptoms Genitourinary: reports: No Symptoms Breasts: reports: No Symptoms Reported Musculoskeletal: reports: No Symptoms Integumentary: reports: No Symptoms Neurological: reports: No Symptoms Endocrine: reports: No Symptoms Hematology/Lymphatic: reports: No Symptoms Psychiatric: reports: No Symptoms Vital Signs: Vital Signs Temperature 97.9 F 04/03/19 09:11 Pulse Rate 84 04/03/19 09:11 Respiratory Rate 20 04/03/19 06:26 Blood Pressure 149/84 04/03/19 09:11 O2 Sat by Pulse Oximetry (%) 98 04/03/19 09:00 Constitutional: Yes: Well Nourished, No Distress, Calm Eyes: Yes: WNL, Conjunctiva Clear, EOM Intact HENT: Yes: WNL, Atraumatic, Normocephalic Neck: Yes: WNL, Supple, Trachea Midline Respiratory: Yes: WNL, Regular, CTA Bilaterally Gastrointestinal: Yes: WNL, Normal Bowel Sounds Renal/: Yes: WNL Cardiovascular: Yes: WNL, Regular Rate and Rhythm Musculoskeletal: Yes: WNL Extremities: Yes: WNL Integumentary: Yes: WNL Neurological: Yes: WNL, Alert, Oriented ...Motor Strength: WNL Psychiatric: Yes: WNL, Alert, Oriented - Other Data Labs, Other Data: CBC, BMP 04/03/19 07:40 04/03/19 07:40 Troponin, BNP 04/03/19 07:40 Troponin I 0.02 Troponin, BNP 04/03/19 07:40 Troponin I 0.02
[2019-04-03] MEDS ORDERED: QUEtiapine FUMARATE 100 MG TABLET (FP) PO SCH (22:00)
[2019-04-04] MEDS ORDERED: chlordiazePOXIDE 5 MG CAPSULE PO SCH (05:00)
[2019-04-04] MEDS: INSULIN SLIDING SCALE (NOVOLOG) 1 VIAL SQ SCH ×2 (06:33→11:35)
--- NOTE | 2019-04-04 09:35 | PN ---
Progress Note, Physician History of Present Illness: stable no new issues - Current Medication List Current Medications: Active Medications Acetaminophen (Tylenol -) 650 mg PO Q4H PRN PRN Reason: PAIN LEVEL 1-5 Last Admin: 04/03/19 01:58 Dose: 650 mg Folic Acid (Folic Acid -) 1 mg PO DAILY [facility] Last Admin: 04/03/19 10:33 Dose: 1 mg Insulin Aspart (Novolog Vial Sliding Scale -) 1 vial SQ ACHS [facility]; Protocol Last Admin: 04/04/19 06:33 Dose: Not Given Multivitamins/Minerals/Vitamin C (Tab-A-Vit -) 1 tab PO DAILY [facility] Last Admin: 04/03/19 10:33 Dose: 1 tab Quetiapine Fumarate (Seroquel -) 100 mg PO BID [facility] Last Admin: 04/03/19 21:44 Dose: 100 mg Thiamine HCl (Vitamin B1 -) 100 mg PO DAILY [facility] Last Admin: 04/03/19 10:33 Dose: 100 mg Tramadol HCl (Ultram -) 50 mg PO Q12H PRN PRN Reason: PAIN LEVEL 7 - 10 Trazodone HCl (Desyrel -) 50 mg PO HS PRN PRN Reason: INSOMNIA - Objective Vital Signs: Vital Signs Temperature 97.6 F 04/04/19 06:00 Pulse Rate 81 04/04/19 06:00 Respiratory Rate 20 04/04/19 06:00 Blood Pressure 130/86 04/04/19 06:00 O2 Sat by Pulse Oximetry (%) 98 04/03/19 09:00 Constitutional: Yes: No Distress, Calm Cardiovascular: Yes: S1, S2 Respiratory: Yes: Regular, CTA Bilaterally Gastrointestinal: Yes: Normal Bowel Sounds, Soft Musculoskeletal: Yes: WNL Extremities: Yes: WNL Neurological: Yes: Alert, Oriented Psychiatric: Yes: Alert, Oriented Labs: CBC, BMP 04/03/19 07:40 04/03/19 07:40 Assessment/Plan 48 year old male with past medical history of bipolar disorder, schizophrenia, anxiety, depression, alcohol abuse disorder, aortic dissection, HTN, DM, HLD [facility]. Also c/o persistent right lower quadrant abdominal pain. gm positive bacteremia abd pain etoh abuse htn hld dm plan continue current mgmt rest as per the team
[2019-04-04] MEDS ORDERED: INSULIN (NOVOLOG) ASPART 100 UNITS/ML 10ML VIAL ONE (10:05)
[2019-04-04] MEDS: FOLIC ACID 1 MG TABLET (FP) PO SCH (10:26)
[2019-04-04] MEDS: QUEtiapine FUMARATE 100 MG TABLET (FP) PO SCH (10:26)
[2019-04-04] MEDS: MULTIVITAMINS (DAILY MVI) TABLET (FP) PO SCH (10:26)
[2019-04-04] MEDS: THIAMINE HCL 100 MG TABLET (FP) PO SCH (10:26)
[2019-04-04 11:30] LABS: BASO % 0.6 % (0-2.0); EOS % 1.3 % (0-4.5); HEMATOCRIT 43.8 % (35.4-49); HEMOGLOBIN 14.8 GM/dL (11.7-16.9); LYMPH % 22.6 % (8-40); MCH 33.6 pg (25.7-33.7); MCHC 33.7 g/dl (32.0-35.9); MEAN CELL VOLUME 99.8 fl (80-96); MEAN PLT VOLUME 7.2 fl (7.5-11.1); MONO % 12.3 % (3.8-10.2); NEUT % 63.2 % (42.8-82.8); PLATELET COUNT 254 K/MM3 (134-434); RBC 4.39 M/mm3 (4.00-5.60); RDW 14.2 % (11.9-15.9); WHITE BLOOD COUNT 7.3 K/mm3 (4.0-10.0)
[2019-04-04 11:55] LABS: ALBUMIN 3.9 g/dl (3.4-5.0); BILIRUBIN,TOTAL 1.2 mg/dL (0.2-1); BLOOD UREA NITROGEN 11.1 mg/dL (7-18); CALCIUM 9.5 mg/dL (8.5-10.1); TOT PROT 7.7 g/dl (6.4-8.2)
[2019-04-04 14:37] VITALS: BP 138/82; PULSE 104; TEMP 98.7
--- NOTE | 2019-04-04 14:46 | EKG ---
Test Reason : Blood Pressure : / mmHG Vent. Rate : 088 BPM Atrial Rate : 088 BPM P-R Int : 138 ms QRS Dur : 074 ms QT Int : 382 ms P-R-T Axes : 064 -11 025 degrees QTc Int : 462 ms NORMAL SINUS RHYTHM POSSIBLE LEFT ATRIAL ENLARGEMENT LEFT VENTRICULAR HYPERTROPHY NONSPECIFIC T WAVE ABNORMALITY PROLONGED QT ABNORMAL ECG WHEN COMPARED WITH ECG OF 30-MAR-2019 18:48, MINIMAL CRITERIA FOR SEPTAL INFARCT ARE NO LONGER PRESENT Confirmed by MERLE DHILLNO MD ([id number]) on 04/04/2019 2:45:45 PM Referred By: Confirmed By:MERLE DHILLON MD
--- NOTE | 2019-04-04 15:26 | PN ---
Progress Note (short form) - Note Progress Note: Per nurse, patient discharged. refused endoscopy and is going back to [place] where he lives.
--- NOTE | 2019-04-04 16:08 | DS ---
Physical Exam: SUBJECTIVE: Patient seen and examined at the bedside. denies further abdominal pain, or nausea, tolerating a regular diet. refusing EGD, wants to get it done as an outpatient. wants to [place] home and not back to [facility]. OBJECTIVE: Patient is a 48 year old male with a significant past medical history of bipolar disorder, schizophrenia, anxiety, depression, alcohol abuse disorder, aortic dissection, HTN, DM, HLD was sent from [facility] for positive blood cultures. Patient also reported abdominal pain in RLQ pain to be constant , non-radiating, sharp in nature and rates it a 10/10, now resolved. On CT imaging a duodenal mass vs lipoma was seen. An EGD was planned to further evaluate but he refused the study. He wants to get EGD done as an outpatient. Vital Signs Period Temp Pulse Resp BP Sys/Garcia Pulse Ox Last 24 Hr 97.3 F-98.7 F 81-107 17-20 126-152/82-92 99 PHYSICAL EXAM GENERAL: The patient is awake, alert, and fully oriented, in no acute distress. HEAD: Normal with no signs of trauma. EYES: PERRL, extraocular movements intact, sclera anicteric, conjunctiva clear. No ptosis. ENT: Ears normal, nares patent, oropharynx clear without exudates, moist mucous membranes. NECK: Trachea midline, full range of motion, supple. LUNGS: Breath sounds equal, clear to auscultation bilaterally, HEART: Regular rate and rhythm, S1, S2 without murmur, rub or gallop. ABDOMEN: Soft, nontender, nondistended, normoactive bowel sounds, no guarding, no rebound, no hepatosplenomegaly, no masses. EXTREMITIES: 2+ pulses, warm, well-perfused, no edema. NEUROLOGICAL: Normal speech, gait not observed. PSYCH: Normal mood, normal affect. SKIN: Warm, dry, normal turgor, no rashes or lesions noted LABS Laboratory Results - last 24 hr 04/03/19 04/03/19 04/04/19 17:08 21:03 06:14 WBC RBC Hgb Hct MCV MCH MCHC RDW Plt Count MPV Absolute Neuts (auto) Neutrophils % Lymphocytes % Monocytes % Eosinophils % Basophils % Nucleated RBC % Sodium Potassium Chloride Carbon Dioxide Anion Gap BUN Creatinine Est GFR (CKD-EPI)AfAm Est GFR (CKD-EPI)NonAf POC Glucometer 84 104 107 Random Glucose Calcium Total Bilirubin AST ALT Alkaline Phosphatase Total Protein Albumin 04/04/19 04/04/19 04/04/19 10:40 10:40 11:28 WBC 7.3 RBC 4.39 Hgb 14.8 Hct 43.8 MCV 99.8 H MCH 33.6 MCHC 33.7 RDW 14.2 Plt Count 254 MPV 7.2 L Absolute Neuts (auto) 4.6 Neutrophils % 63.2 Lymphocytes % 22.6 D Monocytes % 12.3 H Eosinophils % 1.3 Basophils % 0.6 Nucleated RBC % 0 Sodium 131 L Potassium 4.0 Chloride 99 Carbon Dioxide 27 Anion Gap 5 L BUN 11.1 Creatinine 1.0 Est GFR (CKD-EPI)AfAm 104.15 Est GFR (CKD-EPI)NonAf 89.86 POC Glucometer 103 Random Glucose 123 H Calcium 9.5 Total Bilirubin 1.2 H AST 57 H ALT 63 H Alkaline Phosphatase 53 Total Protein 7.7 Albumin 3.9 HOSPITAL COURSE: Date of Admission:04/02/19 Date of Discharge: 04/04/19 Minutes to complete discharge: 45 Discharge Summary Problems reviewed: Yes Reason For Visit: ABDOMINAL PAIN Condition: Stable - Instructions Diet, Activity, Other Instructions: Mr Venegas: You were admitted for positive blood cultures and abdominal pain. Your blood cultures are now negative and you have been cleared for discharge home. Please follow up with the package liner that you saw here for a EGD ( esophagogastroduodenoscopy) imaging that looks at your scoping for a duodenal mass/lipoma that was seen on your CT scan. Please see your primary care doctor and follow up with Dr. Massey ( ordering box operator) or your private ordering box operator on discharge. Thank you for allowing us to care for you. Referrals: Dani Pritchard, [Staff Physician] - ON STAFF,NOT [Non Staff, Medical] - Disposition: HOME - Home Medications Comprehensive Discharge Medication List: Ambulatory Orders Aspirin [ASA -] 81 mg PO DAILY 03/19/19 Atorvastatin Ca [Lipitor] 40 mg PO HS 03/19/19 Gemfibrozil [Lopid -] 600 mg PO BID 03/19/19 Losartan Potassium 50 mg PO BID 03/19/19 Metformin HCl [Glucophage] 500 mg PO BID 03/19/19 Quetiapine Fumarate [Seroquel -] 100 mg PO BID 03/19/19 traZODone HCL [Trazodone HCl] 50 mg PO HS PRN 03/19/19 Thiamine HCl [Vitamin B-1] 100 mg PO HS 03/21/19 Amlodipine Besylate [Norvasc -] 10 mg PO DAILY tablet 03/27/19 Labetalol HCl [Normodyne -] 200 mg PO TID tablet 03/27/19 Nicotine Patch [Nicoderm Patch -] 21 mg TD DAILY patch 03/27/19 Folic Acid - 1 mg PO DAILY #0 tablet 04/04/19 Problem List - Problems (1) Bacteremia Assessment/Plan: gm positive bacteremia on 03/30/2019 blood cultures, repeat blood cultures negative ID following and cleared patient for discharge. Patient remained afebrile, non toxic appears and wbc stable. outpatient f/u with PCP. Code(s): R78.81 - BACTEREMIA (2) Abdominal pain Assessment/Plan: resolved, no nausea or vomiting and tolerating diet and will advance as tolerated seen by surgery team, no surgical interventions recommended seen by GI and an EGD was offered to patient for duodenal mass vs. lipoma patient refused study and states he will do it as an outpatient Code(s): R10.9 - UNSPECIFIED ABDOMINAL PAIN Qualifiers: Abdominal location: right lower quadrant Qualified Code(s): R10.31 - Right lower quadrant pain This patient is new to me today: No Emergency Visit: Yes ED Registration Date: 04/02/19 Care time: The patient presented to the Emergency Department on the above date and was hospitalized for further evaluation of their emergent condition. Critical Care patient: No - Discharge Referral Referred to [facility] Med P.C.: No
[2019-04-05] MEDS ORDERED: chlordiazePOXIDE HCL 10 MG CAPSULE PO PRN
[2019-04-05] MEDS ORDERED: chlordiazePOXIDE HCL 10 MG CAPSULE PO SCH (05:00)
[2019-04-06] MEDS ORDERED: chlordiazePOXIDE HCL 10 MG CAPSULE PO ONE (05:00)
== END 2019-04-04 15:30 | disposition home or self-care (01) | DRG 254 ==
LOC: JER 13:58 → JERBED 22:36 → J6S 04-03 01:19
PROVIDERS: ADMIT Internal Medicine; ATTEND Nurse Practitioner Family
DX: K31.9 Disease of stomach and duodenum, unspecified (principal); E78.5 Hyperlipidemia, unspecified; E11.9 Type 2 diabetes mellitus without complications; I11.0 Hypertensive heart disease with heart failure; I50.30 Unspecified diastolic (congestive) heart failure; F20.9 Schizophrenia, unspecified; I25.10 Atherosclerotic heart disease of native coronary artery without angina pectoris; F31.9 Bipolar disorder, unspecified; F10.10 Alcohol abuse, uncomplicated; R94.31 Abnormal electrocardiogram [ECG] [EKG]; F41.8 Other specified anxiety disorders; E66.3 Overweight; Z68.35 Body mass index [BMI] 35.0-35.9, adult; R78.81 Bacteremia; Z95.1 Presence of aortocoronary bypass graft
CPT/HCPCS: 36415; 74177-TC; 80053; 80061; 82607; 82746; 82962; 83605; 83690; 83721; 83735; 84100; 84484; 85025; 87040; 93005; 93010; 99285-25; J7030; Q9967

== ENCOUNTER 2019-06-07 13:01 | Inpatient (IN) | payer OTHER ==
[2019-06-07 14:46] VITALS: BMI 37.5
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
[2019-06-07] MEDS ORDERED: IBUPROFEN 400 MG TABLET (FP) PO PRN (17:58)
[2019-06-07] MEDS ORDERED: BISMUTH SUBSALICYLATE 524 MG/30 ML UD PO PRN (17:58)
[2019-06-07] MEDS ORDERED: NICOTINE POLACRILEX 2 MG GUM BUC PRN (17:58)
[2019-06-07] MEDS ORDERED: MELATONIN 5 MG TABLETS PO PRN (17:58)
[2019-06-07] MEDS ORDERED: MAG HYDROX/AL HYDROX/SIMETH 30 ML UNIT-DOSE CUP PO PRN (17:58)
[2019-06-07] MEDS ORDERED: MAGNESIUM HYDROX 2400MG/30ML ORAL SUSPENSION 30 ML CUP PO PRN (17:58)
[2019-06-07] MEDS ORDERED: ACETAMINOPHEN 325 MG TABLET (FP) PO PRN ×2 (17:58)
[2019-06-07] MEDS ORDERED: MENTHOL/PHENOL 1 EACH UD MM PRN (17:58)
[2019-06-07] MEDS ORDERED: chlordiazePOXIDE HCL 25 MG CAPSULE PO PRN (17:58)
[2019-06-07] MEDS ORDERED: MAGNESIUM CITRATE 300 ML BOTTLE PO PRN (17:58)
[2019-06-07] MEDS ORDERED: QUEtiapine FUMARATE 50 MG TABLET PO ONE (19:00)
[2019-06-07] MEDS ORDERED: GEMFIBROZIL 600 MG TABLET (FP) PO SCH (22:00)
[2019-06-07] MEDS: chlordiazePOXIDE HCL 25 MG CAPSULE PO SCH (22:17)
[2019-06-07] MEDS: THIAMINE HCL 100 MG TABLET (FP) PO SCH (22:17)
[2019-06-07] MEDS: LABETALOL HCL 200 MG TABLET (FP) PO SCH (22:17)
[2019-06-07] MEDS: ATORVASTATIN CA 40 MG TABLET (FP) PO SCH (22:17)
[2019-06-07] MEDS ORDERED: traZODone HCL 50 MG TABLET (FP) PO ONE (23:00)
[2019-06-08] MEDS: chlordiazePOXIDE HCL 25 MG CAPSULE PO SCH ×3 (05:47→16:51)
[2019-06-08] MEDS: LABETALOL HCL 200 MG TABLET (FP) PO SCH ×2 (05:48→16:12)
[2019-06-08] MEDS ORDERED: glipiZIDE-XL 2.5 MG TAB.ER.24 PO SCH (07:00)
[2019-06-08] MEDS ORDERED: PRENATAL VITAMINS W/ FOLIC ACID TABLET (FP) PO SCH (10:00)
[2019-06-08] MEDS ORDERED: LOSARTAN POTASSIUM 50 MG TABLET (FP) PO SCH (10:00)
[2019-06-08] MEDS ORDERED: ISOSORBIDE MONONITRATE 30 MG TAB.SR.24H (FP) PO SCH (10:00)
[2019-06-08] MEDS ORDERED: amLODIPine BESYLATE 10 MG TABLET (FP) PO SCH (10:00)
[2019-06-08] MEDS ORDERED: NICOTINE 14 MG/24 HOURS TOPICAL PATCH TD SCH (10:00)
[2019-06-08] MEDS ORDERED: ASPIRIN 81 MG CHEWABLE TABLETS PO SCH (10:00)
--- NOTE | 2019-06-08 10:29 | PN ---
[facility] CIWA - CIWA Score Nausea/Vomitin-No Nausea/No Vomiting Muscle Tremors: None Anxiety: 3 Agitation: 0-Normal Activity Paroxysmal Sweats: 3 Orientation: 0-Oriented Tacttile Disturbances: 0-None Auditory Disturbances: 0-None Visual Disturbances: 0-None Headache: 2-Mild CIWA-Ar Total Score: 8 [facility] Progress Note (SOAP) Subjective: c/o anxiety, headache, and shakes. Objective: 06/08/19 10:28 Vital Signs 06/08/19 06/08/19 06/08/19 03:51 06:14 09:09 Temperature 97.3 F L 96.3 F L Pulse Rate 103 H 86 Respiratory 18 18 19 Rate Blood Pressure 146/91 144/81 Assessment: 06/08/19 10:28 AOX3, in no acute respiratory distress. Full ROM, ambulating in the unit. Withdrawal symptoms. Plan: continue detox. Increase fluids.
[2019-06-08] MEDS: TOLNAFTATE 1% CREAM 15 GM TUBE TP SCH (10:50)
[2019-06-08 11:40] LABS: HEMATOCRIT 36.8 % (35.4-49); HEMOGLOBIN 12.5 GM/dL (11.7-16.9); MCHC 33.9 g/dl (32.0-35.9); MEAN CELL VOLUME 103.3 fl (80-96); MEAN PLT VOLUME 7.1 fl (7.5-11.1); PLATELET COUNT 253 K/MM3 (134-434); RBC 3.56 M/mm3 (4.00-5.60); RDW 18.6 % (11.9-15.9); WHITE BLOOD COUNT 5.3 K/mm3 (4.0-10.0)
[2019-06-08 11:57] LABS: ALBUMIN 3.6 g/dl (3.4-5.0); BILIRUBIN,TOTAL 0.8 mg/dL (0.2-1); BLOOD UREA NITROGEN 6.1 mg/dL (7-18); CALCIUM 8.6 mg/dL (8.5-10.1); CREATININE 0.9 mg/dL (0.55-1.3); POTASSIUM 3.6 mmol/L (3.5-5.1); TOT PROT 7.4 g/dl (6.4-8.2)
--- NOTE | 2019-06-08 13:47 | CONSULT ---
[facility] Psychiatric Consult - Data Date of interview: 06/08/19 Admission source: [facility] Identifying data: Patient refused psychiatric evaluation. Nursing staff is made aware.
[2019-06-08 20:57] VITALS: TEMP 97.8
--- NOTE | 2019-06-08 23:06 | PN ---
S Progress Note Note: Patient is complaining of severe abdominal pain rated at 10/10. He reports similar type of pain 2 months ago when he was diagnosed with pancreatitis. he states that the pain radiates upwards to his chest. Patient is restless and very uncomfortable. Patient is to be transferred to ER for further evaluation. Vital Signs Temperature 97.8 F 06/08/19 23:52 Pulse Rate 96 H 06/08/19 23:52 Respiratory Rate 20 06/08/19 23:52 Blood Pressure 147/83 06/08/19 23:52 O2 Sat by Pulse Oximetry (%) Action: Transfer patient to ER for further evaluation Keep patient NPO from now
[2019-06-08 23:53] VITALS: BP 147/83; PULSE 96
[2019-06-09] MEDS: ATORVASTATIN CA 40 MG TABLET (FP) PO SCH (01:18)
[2019-06-09] MEDS: TOLNAFTATE 1% CREAM 15 GM TUBE TP SCH (01:19)
[2019-06-09] MEDS: chlordiazePOXIDE HCL 25 MG CAPSULE PO SCH (01:19)
[2019-06-09] MEDS: LABETALOL HCL 200 MG TABLET (FP) PO SCH (01:19)
[2019-06-09] MEDS: THIAMINE HCL 100 MG TABLET (FP) PO SCH (01:19)
[2019-06-09] MEDS ORDERED: chlordiazePOXIDE HCL 25 MG CAPSULE PO SCH (05:00)
[2019-06-10] MEDS ORDERED: chlordiazePOXIDE HCL 10 MG CAPSULE PO PRN
[2019-06-10] MEDS ORDERED: chlordiazePOXIDE HCL 10 MG CAPSULE PO SCH (05:00)
[2019-06-11] MEDS ORDERED: chlordiazePOXIDE HCL 10 MG CAPSULE PO SCH (05:00)
[2019-06-12] MEDS ORDERED: chlordiazePOXIDE HCL 10 MG CAPSULE PO ONE (05:00)
== END 2019-06-08 23:55 | disposition short-term general hospital (02) | DRG 775 ==
LOC: YASAS 13:01 → Y3N 18:01
PROVIDERS: ADMIT Allergy & Immunology; ATTEND Allergy & Immunology
PROC: HZ2ZZZZ Detoxification Services for Substance Abuse Treatment (ICD-10-PCS; principal; 2019-06-07)
DX: F10.230 Alcohol dependence with withdrawal, uncomplicated (principal); F12.10 Cannabis abuse, uncomplicated; F17.210 Nicotine dependence, cigarettes, uncomplicated; F20.9 Schizophrenia, unspecified; F31.9 Bipolar disorder, unspecified; G47.00 Insomnia, unspecified; H55.00 Unspecified nystagmus; I25.10 Atherosclerotic heart disease of native coronary artery without angina pectoris; I11.0 Hypertensive heart disease with heart failure; Z95.1 Presence of aortocoronary bypass graft; I50.32 Chronic diastolic (congestive) heart failure; Z86.79 Personal history of other diseases of the circulatory system; E11.9 Type 2 diabetes mellitus without complications; Z79.4 Long term (current) use of insulin; R10.9 Unspecified abdominal pain; E66.9 Obesity, unspecified; Z68.37 Body mass index [BMI] 37.0-37.9, adult; E78.5 Hyperlipidemia, unspecified; Z91.018 Allergy to other foods; Z88.8 Allergy status to other drugs, medicaments and biological substances; Z91.5 Personal history of self-harm
CPT/HCPCS: 36415; 80053; 82962; 85027

== ENCOUNTER 2019-06-08 22:49 | Inpatient (IN) | payer OTHER ==
--- NOTE | 2019-06-08 23:11 | PDOC ---
History of Present Illness - General Chief Complaint: Pain Stated Complaint: ABDOMINAL PAIN Time Seen by Provider: 06/08/19 23:10 History Source: Patient Exam Limitations: No Limitations - History of Present Illness Initial Comments: 06/08/19 23:10 Thompson Venegas is a 49M with PMH CAD s/p CABG, aortic dissection s/p repair, NIDDM on metformin, HTN, HLD, pancreatitis, BPD, SCZ, at [facility] for alcohol use detox, sent from [facility] for abdominal pain. Patient reports 2 hours ago started having 10/10 abdominal pain in his right abdomen, acute onset, burning, says the pain is the same as his other episodes of pancreatitis, last episode 2 months ago. Denies any other GB or hepatic disease, history alcoholism and marijuana use, drinks beers and denies other alcohols, denies IVDA, denies cocaine/opioid use. Chart review suggests patient drinks vodka. Says his eyes look a little yellow. Last alcohol intake 4 days ago , checked into [facility] 2 days ago. Denies history of withdrawal symptoms. Also having pain from abdomen radiating up to lower chest, described as similar burning pain. No SOB, syncope, palpitations. Says he takes his HTN, HLD, and DM medications regularly. Here in March for similar issue with abdominal pain and nausea/vomiting. Allergy to nitroglycerin, reaction is hives. 06/09/19 00:31 Past History - Past Medical History Allergies/Adverse Reactions: Allergies Allergy/AdvReac Type Severity Reaction Status Date / Time nitroglycerin Allergy Intermediate Rash Verified 06/07/19 14:43 Pork/Porcine Containing AdvReac Verified 06/07/19 14:43 Products Home Medications: Ambulatory Orders Aspirin [ASA -] 81 mg PO DAILY 03/19/19 Atorvastatin Ca [Lipitor] 40 mg PO HS 03/19/19 Gemfibrozil [Lopid -] 600 mg PO BID 03/19/19 Losartan Potassium 100 mg PO DAILY 03/19/19 Metformin HCl [Glucophage] 500 mg PO BID 03/19/19 Quetiapine Fumarate [Seroquel -] 200 mg PO BID 03/19/19 traZODone HCL [Trazodone HCl] 100 mg PO HS 03/19/19 Amlodipine Besylate [Norvasc -] 10 mg PO DAILY tablet 03/27/19 Labetalol HCl [Normodyne -] 200 mg PO TID tablet 03/27/19 Glipizide [Glipizide Xl] 2.5 mg PO DAILY 06/07/19 Isosorbide Mononitrate [Isosorbide Mononitrate ER] 30 mg PO DAILY 06/07/19 Anemia: No Asthma: No Cancer: No Cardiac Disorders: No CVA: No COPD: No CHF: No Dementia: No Diabetes: Yes GI Disorders: No Disorders: No HTN: Yes Hypercholesterolemia: Yes (on med) Kidney Stones: No Liver Disease: No Seizures: No Thyroid Disease: No - Surgical History Abdominal Surgery: No Appendectomy: No Cardiac Surgery: Yes (CABG 2014 AORTIC DISSECTION IN 2014,Repair of aorta) Cholecystectomy: No Lung Surgery: No Neurologic Surgery: No Orthopedic Surgery: Yes (torn ligaments in rt ankle 1 month ago) - Reproductive History Testicular Surgery: No - Immunization History Immunization Up to Date: Yes - Psycho Social/Smoking Cessation Hx Smoking History: Current every day smoker Have you smoked in the past 12 months: Yes Number of Cigarettes Smoked Daily: 10 Cigars Per Day: 0 'Breaking Loose' booklet given: 06/07/19 Hx Alcohol Use: Yes Drug/Substance Use Hx: Yes Substance Use Type: Alcohol, Marijuana Hx Substance Use Treatment: Yes (detox, rehab) Review of Systems - Review of Systems Able to Perform ROS?: Yes Constitutional: No: Chills, Fever, Weakness HEENTM: No: Symptoms Reported Respiratory: No: Shortness of Breath, Stridor, Wheezing Cardiac (ROS): Yes: Chest Pain. No: Lightheadedness, Palpitations, Syncope ABD/GI: Yes: Nausea, Poor Appetite, Poor Fluid Intake, Other (abdominal pain). No: Constipated, Diarrhea, Vomiting : No: Symptoms Reported Musculoskeletal: No: Symptoms Reported Integumentary: No: Symptoms Reported Neurological: No: Symptoms reported Endocrine: No: Symptoms Reported Hematologic/Lymphatic: No: Symptoms Reported All Other Systems: Reviewed and Negative *Physical Exam - Physical Exam General Appearance: Yes: Nourished, Appropriately Dressed, Mild Distress HEENT: positive: EOMI, TANIA, Normal Voice, Symmetrical, Pharynx Normal, Scleral Icterus (R), Scleral Icterus (L), Hearing Grossly Normal. negative: Pharyngeal Erythema, Tonsillar Exudate, Tonsillar Erythema Neck: positive: Trachea midline, Normal Thyroid, Supple. negative: Tender, Rigid, Lymphadenopathy (R), Lymphadenopathy (L) Respiratory/Chest: positive: Lungs Clear, Normal Breath Sounds. negative: Chest Tender, Respiratory Distress, Accessory Muscle Use, Crackles, Rales, Rhonchi, Stridor, Wheezing, Hyperresonant Cardiovascular: positive: Regular Rhythm, Regular Rate. negative: Murmur Gastrointestinal/Abdominal: positive: Normal Bowel Sounds, Flat, Soft. negative : Tender (no worse pain to RLQ on palpation despite complaint of pain there), Organomegaly, Pulsatile Mass, Guarding, Rebound Musculoskeletal: positive: Normal Inspection. negative: CVA Tenderness Extremity: positive: Normal Capillary Refill, Normal Inspection, Normal Range of Motion, Pelvis Stable. negative: Tender Integumentary: positive: Normal Color, Warm, Diaphoresis Neurologic: positive: Fully Oriented, Alert, Normal Mood/Affect, Normal Response. negative: Numbness, Sensory Deficit ED Treatment Course - LABORATORY CBC & Chemistry Diagram: 06/09/19 00:00 06/09/19 00:00 Medical Decision Making - Medical Decision Making 06/09/19 00:09 Patient presents with RLQ abdominal pain and chest pain in a similar manner to prior admission 2 months ago, pain is reported to be exactly the same as last pancreatitis pain, also has extensive cardiac history including CAD and AD and is complaining of chest pain. Ddx includes IN, pancreatitis, AD, DKA, alcohol withdrawal, alcohol KA, appendicitis. - CBC/CMP for lytes vs infection vs. elevated WBC from pancreatitis - lipase for pancreatitis eval - VBG for acidosis eval - ECG for STEMI/arrhythmia eval - CP for chest pain eval - CTA CAP for AD eval - Giving 4mg morphine and 1L LR for fluid resuscitation for possible pancreatitis pain ECG shows NSR with HR 96, QRS 92, QTC 457 without TWI or ischemic changes. 06/09/19 00:[address] Pradhan, plan to f/u labs and CTA for diagnosis of abdominal pain, dispo home. Discharge - Discharge Information Problems reviewed: Yes Clinical Impression/Diagnosis: Abdominal pain Qualifiers: Abdominal location: right lower quadrant Qualified Code(s): R10.31 - Right lower quadrant pain - Follow up/Referral - Patient Discharge Instructions - Post Discharge Activity
[2019-06-08] MEDS ORDERED: LACTATED RINGERS SOLUTION 1000 ML INFUS.BAG IV ONE (23:27)
[2019-06-08] MEDS ORDERED: morphine CARPU-JECT 4 MG/1 ML DISP.SYRIN IVPUSH ONE (23:33)
[2019-06-08] MEDS ORDERED: morphine SULFATE 4 MG/ML VIAL ONE (23:47)
[2019-06-09 00:40] LABS: VENOUS PC02 55.6 mmHg (38-52); VENOUS PH 7.34 (7.31-7.41); VENOUS PO2 < 49 mmHg (28-48)
[2019-06-09 00:48] LABS: BASO % 0.9 % (0-2.0); EOS % 2.3 % (0-4.5); HEMOGLOBIN 12.4 GM/dL (11.7-16.9); LYMPH % 26.2 % (8-40); MCH 34.9 pg (25.7-33.7); MCHC 33.6 g/dl (32.0-35.9); MEAN CELL VOLUME 103.8 fl (80-96); MONO % 8.1 % (3.8-10.2); NEUT % 62.5 % (42.8-82.8); PLATELET COUNT 254 K/MM3 (134-434); RBC 3.56 M/mm3 (4.00-5.60); RDW 18.4 % (11.9-15.9); WHITE BLOOD COUNT 6.9 K/mm3 (4.0-10.0)
[2019-06-09 01:04] LABS: INR 1.1 (0.83-1.09)
[2019-06-09 01:07] LABS: ACTIVATED PTT 33.4 SECONDS (25.2-36.5)
[2019-06-09] MEDS ORDERED: morphine CARPU-JECT 4 MG/1 ML DISP.SYRIN IVPUSH ONE ×2 (01:22→07:15)
[2019-06-09] MEDS ORDERED: morphine SULFATE 4 MG/ML VIAL ONE ×2 (01:32→08:04)
--- NOTE | 2019-06-09 01:46 | PDOC ---
Documentation entered by Amy Mar SCRIBE, acting as scribe for Isha Cope MD. Isha Cope MD: This documentation has been prepared by the Isabela oshea Xhesika, SCRIBE, under my direction and personally reviewed by me in its entirety. I confirm that the documentation accurately reflects all work, treatment, procedures, and medical decision making performed by me. Attending Attestation - Resident Resident Name: EkaterinaclareJonh - ED Attending Attestation I have performed the following: I have examined & evaluated the patient, The case was reviewed & discussed with the resident, I agree w/resident's findings & plan, Exceptions are as noted - HPI HPI: 06/08/19 23:35 The patient is a 43 year old male with a significant PMH of duodenal mass, aortic dissection (s/p repair), CAD (s/p CABG), CHF (diastolic), HTN, Type 2 DM , Bipolar disorder/Schizophrenia; Insomnia, Depression who presents to the emergency department [facility] from [facility] for abdominal pain and chest pain. Pt reports his abdominal pain is radiating upwards towards his chest, associated with mild nausea and loose stools. Pt states he was diagnosed with pancreatitis 2 months ago and his symptoms feel similar. Pt states he has been in detox the past 4 days, and his last alcohol was 4 days ago. The patient denies shortness of breath, headache and dizziness. Denies fever, chills, cough, vomiting and constipation. Denies dysuria, frequency, urgency and hematuria. Allergies: nitroglycerin, pork/porcine containing products Social history: Alcohol, marijuana, nicotine abuse - Physicial Exam PE: 06/08/19 23:39 GENERAL: The patient appears uncomfortable HEAD: Normal EYES: PERRLA, EOMI, sclera anicteric, conjunctiva clear. ENT: Ears normal, nares patent, oropharynx clear without exudates. Moist mucous membranes. NECK: Normal range of motion, supple LUNGS: Breath sounds equal, clear to auscultation bilaterally. No wheezes, and no crackles. HEART:Regular rate and rhythm, normal S1 and S2 without murmur, rub or gallop. ABDOMEN: Soft, nontender, normoactive bowel sounds. No guarding, no rebound. EXTREMITIES: Normal range of motion, no edema. NEUROLOGICAL: Cranial nerves II through XII grossly intact. Normal speech. No focal neurological deficits. MUSCULOSKELETAL: Back non-tender to palpation SKIN: Warm, Dry, normal turgor, no rashes or lesions noted. 06/09/19 01:35 06/09/19 01:37 - Medical Decision Making 06/09/19 01:18 49 yo M presenting with gradual onset of abdominal pain followed by chest pain Pt was seen in this ER for similar symptoms 2 months ago (had duodenal mass, refused EGD, has not followed up o have one done as an outpatient) Pt does not believe her symptoms were related to any food he had Laboratory Tests 06/09/19 06/09/19 06/09/19 00:00 00:00 00:00 WBC 6.9 Hgb 12.4 Hct 37.0 Plt Count 254 INR 1.10 H VBG pH 7.34 POC VBG pCO2 55.6 H POC VBG pO2 < 49 H 06/09/19 01:38 Pt given morphine 4mg IV with mild improvement in his pain CMP pending EKG: Sinus rhythm, rate of 96 bpm, axis is normal, intervals are normal, T wave inversions inferiorly in leads II, III, aVF (t wave inversions in leads II, III , aVF and v5, v6 in prior ekg) 06/09/19 01:39 06/09/19 01:52 Laboratory Tests 06/09/19 06/09/19 00:00 00:00 BUN 6.2 L Creatinine 0.9 Creatine Kinase 983 H Troponin I 0.02 Lipase 515 H Pt signed out to Dr. Toscano pending CT report Clinical impression: abdominal pain, initial presentation Pancreatitis, initial presentation
[2019-06-09 01:47] LABS: ALBUMIN 3.9 g/dl (3.4-5.0); BILIRUBIN,TOTAL 0.9 mg/dL (0.2-1); BLOOD UREA NITROGEN 6.2 mg/dL (7-18); CALCIUM 8.8 mg/dL (8.5-10.1); CREATININE 0.9 mg/dL (0.55-1.3); TOT PROT 7.8 g/dl (6.4-8.2)
[2019-06-09 01:48] LABS: PHOSPHOROUS 2.6 mg/dL (2.5-4.9)
[2019-06-09 02:07] LABS: PH,URINE 6.5 (5.0-8.0); URINE APPEARANCE CLEAR; URINE BILIRUBIN NEGATIVE (NEGATIVE); URINE COLOR YELLOW; URINE GLUCOSE (UA) NEGATIVE (NEGATIVE); URINE KETONE NEGATIVE (NEGATIVE); URINE LEUK ESTERASE NEGATIVE (NEGATIVE); URINE NITRITE NEGATIVE (NEGATIVE); URINE PROTEIN NEGATIVE (NEGATIVE); URINE UROBILINOGEN 0.2 mg/dL (0.2-1.0)
[2019-06-09] MEDS ORDERED: ONDANSETRON 4 MG/2 ML VIAL IVPUSH ONE (02:34)
--- NOTE | 2019-06-09 02:36 | PDOC ---
*Physical Exam - Vital Signs Last Vital Signs Temp Pulse Resp BP Pulse Ox 98.1 F 93 H 18 133/77 100 06/08/19 22:55 06/08/19 22:55 06/08/19 22:55 06/08/19 22:55 06/08/19 22:55 ED Treatment Course - LABORATORY CBC & Chemistry Diagram: 06/09/19 00:00 06/09/19 00:00 - ADDITIONAL ORDERS Additional order review: Laboratory Results 06/09/19 06/09/19 06/09/19 01:02 00:00 00:00 PT with INR 13.00 INR 1.10 H PTT (Actin FS) 33.4 VBG pH 7.34 POC VBG pCO2 55.6 H POC VBG pO2 < 49 H VBG HCO3 28.8 VBG O2 Sat (Anitha) 36.4 L VBG Base Excess 2.3 H Sodium Potassium Chloride Carbon Dioxide Anion Gap BUN Creatinine Est GFR (CKD-EPI)AfAm Est GFR (CKD-EPI)NonAf Random Glucose Calcium Phosphorus Magnesium Total Bilirubin AST ALT Alkaline Phosphatase Creatine Kinase Creatine Kinase Index CK-MB (CK-2) Troponin I Total Protein Albumin Lipase Urine Color Yellow Urine Appearance Clear Urine pH 6.5 D Ur Specific [place] 1.006 L Urine Protein Negative Urine Glucose (UA) Negative Urine Ketones Negative Urine Blood Negative Urine Nitrite Negative Urine Bilirubin Negative Urine Urobilinogen 0.2 Ur Leukocyte Esterase Negative 06/09/19 06/09/19 00:00 00:00 PT with INR INR PTT (Actin FS) VBG pH POC VBG pCO2 POC VBG pO2 VBG HCO3 VBG O2 Sat (Anitha) VBG Base Excess Sodium 139 Potassium 4.0 Chloride 104 Carbon Dioxide 29 Anion Gap 7 L BUN 6.2 L Creatinine 0.9 Est GFR (CKD-EPI)AfAm 117.47 Est GFR (CKD-EPI)NonAf 101.35 Random Glucose 101 Calcium 8.8 Phosphorus 2.6 Magnesium 2.0 Total Bilirubin 0.9 AST 52 H ALT 44 Alkaline Phosphatase 48 Creatine Kinase 983 H Creatine Kinase Index 0.3 CK-MB (CK-2) 3.4 Troponin I 0.02 Total Protein 7.8 Albumin 3.9 Lipase 515 H Urine Color Urine Appearance Urine pH Ur Specific [place] Urine Protein Urine Glucose (UA) Urine Ketones Urine Blood Urine Nitrite Urine Bilirubin Urine Urobilinogen Ur Leukocyte Esterase 06/09/19 00:00 RBC 3.56 L MCV 103.8 H MCHC 33.6 RDW 18.4 H MPV 7.0 L Neutrophils % 62.5 Lymphocytes % 26.2 Monocytes % 8.1 Eosinophils % 2.3 Basophils % 0.9 - Medications Given in the ED: ED Medications Discontinued Medications Generic Name Dose Route Start Last Admin Trade Name Mirtha PRN Reason Stop Dose Admin Lactated Ringer's 1,000 ml 06/08/19 23:27 06/08/19 23:45 Lactated Ringers Solution IV 06/08/19 23:28 1,000 ml ONCE ONE Administration Morphine Sulfate 4 mg 06/08/19 23:33 06/08/19 23:49 Morphine Injection - IVPUSH 06/08/19 23:34 4 mg ONCE ONE Administration Morphine Sulfate 4 mg 06/09/19 01:22 06/09/19 01:36 Morphine Injection - IVPUSH 06/09/19 01:23 4 mg ONCE ONE Administration Medical Decision Making - Medical Decision Making 06/09/19 03:07 Signed out from am team [id number] with PMH CAD s/p CABG, aortic dissection s/p repair, NIDDM on metformin, HTN , HLD, pancreatitis, BPD, SCZ, at [facility] for alcohol use detox, sent from [facility] for abdominal pain. will followup labs and imaging 06/09/19 03:[address] with duodenal inflammation will admit for recurrent duodenal inflammation, intractable abd pain, nausea discussed with patient while he refused EGD and colonoscopy in the past and stated he was afraid., explained to him that procedure is performed whille under sedation and patient was unaware; he states he is interested as long as he is asleep during procedure admitted to ifudu Discharge - Discharge Information Problems reviewed: Yes Clinical Impression/Diagnosis: Duodenitis Abdominal pain Qualifiers: Abdominal location: right lower quadrant Qualified Code(s): R10.31 - Right lower quadrant pain Condition: Stable - Follow up/Referral - Patient Discharge Instructions - Post Discharge Activity
[2019-06-09] MEDS ORDERED: ONDANSETRON 4 MG/2 ML VIAL ONE (02:37)
[2019-06-09] MEDS ORDERED: QUEtiapine FUMARATE 200 MG TABLET PO ONE (02:50)
[2019-06-09] MEDS ORDERED: QUEtiapine FUMARATE 100 MG TABLET (FP) ONE (02:53)
--- NOTE | 2019-06-09 02:56 | PN ---
Teaching Attending Note Name of Resident: Delmar Espitia ATTENDING PHYSICIAN STATEMENT I saw and evaluated the patient. I reviewed the resident's note and discussed the case with the resident. I agree with the resident's findings and plan as documented. SUBJECTIVE: Patient is a 43 year old man with a PMH of Tobacco use, Alcohol abuse, Marijuana use, Duodenal mass, Aortic dissection (s/p repair), CAD (s/p CABG), Diastolic CHF, HTN, NIDDM, Bipolar disorder/Schizophrenia, Insomnia and Depression who presents to the ER from [facility] for abdominal pain and chest pain for 2 hours. Abdominal pain is radiating upwards towards his chest, associated with mild nausea and loose stools. He has been in detox the past 4 days, and his last alcohol drink was 4 days ago. He was diagnosed with Pancreatitis 2 months ago and his symptoms feel similar. The patient denies shortness of breath, headache , dizziness, fever, chills, cough, vomiting, constipation, dysuria, frequency, urgency and hematuria. Denies any other illicit drug use. No sick contacts or recent travels. OBJECTIVE: Alert Vital Signs Period Temp Pulse Resp BP Sys/Garcia Pulse Ox Last 24 Hr 98.1 F 93 18 133/77 100 HEENT: No Jaundice, eye redness or discharge, PERRLA, EOMI. Normocephalic, atraumatic. External ears are normal and hearing is grossly intact. No nasal discharge. Neck: Supple, nontender. No palpable adenopathy or thyromegaly. No JVD Chest: Good effort. Clear to auscultation and percussion. Heart: Regular. No S3, rub or murmur Abdomen: Distended, soft, tender on deep palpation and no HSM. No rebound or guarding. Normal bowel sounds. Ext: Peripheral pulses intact. No leg edema. Skin: Warm and dry. No petechiae, rash or ecchymosis. Neuro: Alert. Oriented x3. Not tremulous. CN 2-12 grossly intact. Sensation grossly intact in all four extremities and DTR are symmetric. Psych: Appropriate mood and affect. Good insight. Home Medications Medication Instructions Recorded Aspirin [ASA -] 81 mg PO DAILY 03/19/19 Atorvastatin Ca [Lipitor] 40 mg PO HS 03/19/19 Gemfibrozil [Lopid -] 600 mg PO BID 03/19/19 Losartan Potassium 100 mg PO DAILY 03/19/19 Metformin HCl [Glucophage] 500 mg PO BID 03/19/19 Quetiapine Fumarate [Seroquel -] 200 mg PO BID 03/19/19 traZODone HCL [Trazodone HCl] 100 mg PO HS 03/19/19 Amlodipine Besylate [Norvasc -] 10 mg PO DAILY tablet 03/27/19 Labetalol HCl [Normodyne -] 200 mg PO TID tablet 03/27/19 Glipizide [Glipizide Xl] 2.5 mg PO DAILY 06/07/19 Isosorbide Mononitrate [Isosorbide 30 mg PO DAILY 06/07/19 Mononitrate ER] Abnormal Lab Results 06/09/19 06/09/19 06/09/19 00:00 00:00 00:00 RBC 3.56 L MCV 103.8 H MCH 34.9 H RDW 18.4 H MPV 7.0 L INR POC VBG pCO2 POC VBG pO2 VBG O2 Sat (Anitha) VBG Base Excess Anion Gap 7 L BUN 6.2 L AST 52 H Creatine Kinase 983 H Lipase 515 H Ur Specific [place] 06/09/19 06/09/19 06/09/19 00:00 00:00 01:02 RBC MCV MCH RDW MPV INR 1.10 H POC VBG pCO2 55.6 H POC VBG pO2 < 49 H VBG O2 Sat (Anitha) 36.4 L VBG Base Excess 2.3 H Anion Gap BUN AST Creatine Kinase Lipase Ur Specific [place] 1.006 L ASSESSMENT AND PLAN: 1. Abdominal pain syndrome - CT abdomen/pelvis with IV contrast showed duodenal inflammation but no evidence of acute pancreatitis. No pulmonary embolism on chest/thorax CTA. Duodenitis, diabetic gastropathy and/or drug withdrawal may explain his abdominal pain. Got IV Ringers lactate, IV Morphine, Seroquel PO and IV Zofran in the ER. Will give IV Protonix 40 mg bid, continue IV LR, IV morphine, get urine toxicology, trend CPK and consult GI for EGD. EKG shows NSR at 96/minute, T wave inversion in leads II, III, aVF (t wave inversions in leads II, III, aVF and v5, v6 in prior EKG) and initial troponin is negative. Will rule out ACS. Will continue comprehensive care for all of patients comorbid conditions. 2. Tobacco Use Counseled on risks associated with tobacco use. We will provide patient all the necessary assistance to facilitate smoking cessation and prescribe Nicotine patch. 3. Morbid Obesity Counseled on the risks associated with obesity. Will provide patient all the necessary assistance, counseling and positive reinforcement to facilitate weight loss. Consult mill worker. 4. Alcohol abuse - Implement [facility] alcohol withdrawal protocol and do neurochecks. Implement seizure, fall and aspiration precautions. Treat with thiamine and folic acid and monitor electrolytes (Ca,Mg,K,P). Counseled patient about abstaining from alcohol. Will consult medical insurance coding specialist and refer to alcohol detox upon discharge. 5. Hypertension - Restart suitable outpatient antihypertensive drugs when clinically appropriate. Revise regimen to ensure [id number] excellent BP control and relocation counselor patient on the injurious effects of uncontrolled hypertension. Nonpharmacologic measures to control hypertension like weight loss , salt restriction and exercise discussed. Importance of adherence to treatment regimen and attainment of normotension emphasized. 6. DM For now, we will hold the home diabetes drugs and implement sliding scale insulin regimen. Provide comprehensive diabetes care with patient teaching and counseling about the importance of adherence to prescribed diabetes regimen, euglycemia, eye care and foot care. 7. DVT prophylaxis - Lovenox 40 mg SQ q 12 hours. 8. Advance directives - Full code
[2019-06-09] MEDS ORDERED: ACETAMINOPHEN 1000 MG/100 ML VIAL (NON FORMULARY) IVPB PRN (04:14)
[2019-06-09] MEDS ORDERED: LACTATED RINGERS SOLUTION 1,000 ML IV SCH ×2 (04:15→10:13)
[2019-06-09] MEDS ORDERED: FOLIC ACID 1 MG TABLET (FP) PO ONE (04:19)
[2019-06-09] MEDS ORDERED: THIAMINE HCL 200 MG/2 ML VIAL IVPB ONE (04:19)
[2019-06-09] MEDS ORDERED: chlordiazePOXIDE HCL 10 MG CAPSULE PO PRN (04:37)
[2019-06-09] MEDS ORDERED: THIAMINE HCL 200 MG/2 ML VIAL ONE (04:40)
[2019-06-09] MEDS ORDERED: FOLIC ACID 1 MG TABLET (FP) ONE (04:40)
--- NOTE | 2019-06-09 04:59 | HP ---
CHIEF COMPLAINT: abdominal pain PCP: HISTORY OF PRESENT ILLNESS: Pt states that he had just started his detox at yesterday, after one detox treatment, he began to experience these symptoms. Pt reports that he has had similar symptoms in the past 2 months ago during which he was treated for pancreatitis. At the time, CT had showed a doudenal lesion for which he was offered a EGD but he refused and it was not done. This time pt agrees to procedure as long as he is sedated/anesthetized. His last drink was 4 days ago. Admits to night sweat and chills. Denies f/vomiting,shortness of breath, neck pain, back pain, chest pain, palpitations, numbness or tingling, headaches, dizziness, changes in vision. ER course was notable for: (1)Morphine for pain (2)CT a/p w/wo contrast: duodenal inflammation but no evidence of acute pancreatitis. No pulmonary embolism on chest/thorax CTA. Dissection in the descending thoracic aorta extending from the distal aortic arch after the origin of the left brachio-cephalic artery. Descending thoracic aorta is aneurysmally dilated 3.6cm. (3)LR Recent Travel: denies PAST MEDICAL HISTORY: doudenal lesion/mass, CAD, d-CHF, HTN, T2DM, Bipolar disorder, Schizophrenia, depression, insomnia, PAST SURGICAL HISTORY: aortic dissection s/p repair, CAD s/s CABG, Social History: Smoking: THC, Nicotine Alcohol: Heavy drinker, last drink 4 days ago Drugs: Allergies nitroglycerin Allergy (Intermediate, Verified 06/07/19 14:43) Rash Pork/Porcine Containing Products Adverse Reaction (Verified 06/07/19 14:43) HOME MEDICATIONS: Home Medications Medication Instructions Recorded Aspirin [ASA -] 81 mg PO DAILY 03/19/19 Atorvastatin Ca [Lipitor] 40 mg PO HS 03/19/19 Gemfibrozil [Lopid -] 600 mg PO BID 03/19/19 Losartan Potassium 100 mg PO DAILY 03/19/19 Metformin HCl [Glucophage] 500 mg PO BID 03/19/19 Quetiapine Fumarate [Seroquel -] 200 mg PO BID 03/19/19 traZODone HCL [Trazodone HCl] 100 mg PO HS 03/19/19 Amlodipine Besylate [Norvasc -] 10 mg PO DAILY tablet 03/27/19 Labetalol HCl [Normodyne -] 200 mg PO TID tablet 03/27/19 Glipizide [Glipizide Xl] 2.5 mg PO DAILY 06/07/19 Isosorbide Mononitrate [Isosorbide 30 mg PO DAILY 06/07/19 Mononitrate ER] REVIEW OF SYSTEMS CONSTITUTIONAL: Absent: fever, chills, diaphoresis, generalized weakness, HEENT: Absent: throat swelling, difficulty swallowing, mouth swelling, CARDIOVASCULAR: Absent: chest pain, syncope, palpitations, irregular heart rate, lightheadedness , peripheral edema RESPIRATORY: Absent: cough, shortness of breath, dyspnea with exertion, orthopnea, wheezing, stridor GASTROINTESTINAL: Admits: abdominal pain, abdominal distension, nausea, diarrhea, Absent: vomiting, constipation, melena, hematochezia GENITOURINARY: Absent: dysuria, frequency, HEMATOLOGIC/IMMUNOLOGIC: Absent: easy bleeding, easy bruising, ENDOCRINE: Absent: unexplained weight gain, unexplained weight loss, PHYSICAL EXAMINATION Vital Signs - 24 hr 06/08/19 06/09/19 22:55 04:33 Temperature 98.1 F Pulse Rate 93 H Pulse Rate [ 88 Apical] Respiratory 18 18 Rate Blood Pressure 133/77 Blood Pressure 137/79 [Left Arm] O2 Sat by Pulse 100 99 Oximetry (%) GENERAL: Awake, alert, and fully oriented, in mild distress. EYES: Pupils equal, round and reactive to light, extraocular movements intact, sclera anicteric, conjunctiva clear. EARS, NOSE, THROAT: Moist mucous membranes. NECK: Normal range of motion, supple without lymphadenopathy, JVD, or masses. LUNGS: Breath sounds equal, clear to auscultation bilaterally. No wheezes, and no crackles. HEART: Regular rate and rhythm, normal S1 and S2 without murmur, rub or gallop. ABDOMEN: Soft, nontender, +Distended, normoactive bowel sounds, no guarding, no rebound, no masses. N MUSCULOSKELETAL: No bony deformities or tenderness. No CVA tenderness. UPPER EXTREMITIES: 2+ pulses, warm, well-perfused. No cyanosis. No peripheral edema. LOWER EXTREMITIES: 2+ pulses, warm, well-perfused. No calf tenderness. No peripheral edema. NEUROLOGICAL: Normal speech. Normal gait. PSYCHIATRIC: Cooperative. Good eye contact. . SKIN: Warm, dry, normal turgor, no rashes or lesions noted, Laboratory Results - last 24 hr CBC,CMP WBC 6.9 K/mm3 (4.0-10.0) 06/09/19 00:00 RBC 3.56 M/mm3 (4.00-5.60) L 06/09/19 00:00 Hgb 12.4 GM/dL (11.7-16.9) 06/09/19 00:00 Hct 37.0 % (35.4-49) 06/09/19 00:00 MCV 103.8 fl (80-96) H 06/09/19 00:00 MCH 34.9 pg (25.7-33.7) H 06/09/19 00:00 MCHC 33.6 g/dl (32.0-35.9) 06/09/19 00:00 RDW 18.4 % (11.9-15.9) H 06/09/19 00:00 Plt Count 254 K/MM3 (134-434) 06/09/19 00:00 MPV 7.0 fl (7.5-11.1) L 06/09/19 00:00 Absolute Neuts (auto) 4.3 K/mm3 (1.5-8.0) 06/09/19 00:00 Neutrophils % 62.5 % (42.8-82.8) 06/09/19 00:00 Lymphocytes % 26.2 % (8-40) 06/09/19 00:00 Monocytes % 8.1 % (3.8-10.2) 06/09/19 00:00 Eosinophils % 2.3 % (0-4.5) 06/09/19 00:00 Basophils % 0.9 % (0-2.0) 06/09/19 00:00 Nucleated RBC % 0 % (0-0) 06/09/19 00:00 Sodium 139 mmol/L (136-145) 06/09/19 00:00 Potassium 4.0 mmol/L (3.5-5.1) 06/09/19 00:00 Chloride 104 mmol/L (98-107) 06/09/19 00:00 Carbon Dioxide 29 mmol/L (21-32) 06/09/19 00:00 Anion Gap 7 MMOL/L (8-16) L 06/09/19 00:00 BUN 6.2 mg/dL (7-18) L 06/09/19 00:00 Creatinine 0.9 mg/dL (0.55-1.3) 06/09/19 00:00 Est GFR (CKD-EPI)AfAm 117.47 06/09/19 00:00 Est GFR (CKD-EPI)NonAf 101.35 06/09/19 00:00 Random Glucose 101 mg/dL (74-106) 06/09/19 00:00 Calcium 8.8 mg/dL (8.5-10.1) 06/09/19 00:00 Phosphorus 2.6 mg/dL (2.5-4.9) 06/09/19 00:00 Magnesium 2.0 mg/dL (1.8-2.4) 06/09/19 00:00 Total Bilirubin 0.9 mg/dL (0.2-1) 06/09/19 00:00 AST 52 U/L (15-37) H 06/09/19 00:00 ALT 44 U/L (13-61) 06/09/19 00:00 Alkaline Phosphatase 48 U/L (45-117) 06/09/19 00:00 Creatine Kinase 983 U/L (26-308) H 06/09/19 00:00 Creatine Kinase Index 0.3 % (0.0-5.0) 06/09/19 00:00 CK-MB (CK-2) 3.4 ng/mL (0.5-3.6) 06/09/19 00:00 Troponin I 0.02 ng/ml (0.00-0.05) 06/09/19 00:00 Total Protein 7.8 g/dl (6.4-8.2) 06/09/19 00:00 Albumin 3.9 g/dl (3.4-5.0) 06/09/19 00:00 Lipase 515 U/L (73-393) H 06/09/19 00:00 ASSESSMENT/PLAN: 49 y/o M, pmh of doudenal lesion/mass, aortic dissection s/p repair, CAD s/s CABG, d-CHF, HTN, T2DM, Bipolar disorder, Schizophrenia, depression, insomnia, presents from to ED c/o constant, sharp, abdominal pain of 1 day duration that began last night and has since worsened w/ no relief associated with nausea and one episode of semi-solid diarrhea admitted for intractable abdominal pain #Abdominal pain likely 2/2 to doudenitis 2/2 to inflammation from doudenal lesion vs Pancreatitis, vs diabetic gastropathy vs withdrawal symptoms CT a/p: duodenal inflammation but no evidence of acute pancreatitis. No pulmonary embolism on chest/thorax CTA. Low suspicion for pancreatitis, lipase has been baseline elevated from past visits, dx does not meet criteria, imaging does not show Will need to rule out ACS given pt's risk factors EKG shows NSR at 96/minute, T wave inversion in leads II, III, aVF (t wave inversions in leads II, III, aVF and v5, v6 in prior EKG) 1st troponin is negative. R/p trop ordered Consider EGD/colonoscopy GI consulted IVF- LR NPO IV Tylenol for pain Pepcid Protonix 40mg r/p EKG #Elevated CPK CPK has been baseline elevated from the past Will keep trending #Substance Abuse No acute withdrawal CIWA= 6 Librium protocol started with 2nd day dose, since 1st was already given. Thiamine + Folic acid Fall precaution Monitor Mag, K, Ca, Phos #Aortic dissection stable Tight BP control monitor BP regularily BP right arm 166/99 left arm 133/90 DVTppx Heparin TID sq FEN NPO for possible EGD Monitor lytes LR at 75 Dispo: f/u with GI, cont detox, f/u trops, cont pepcid and IV tylenol Visit type - Emergency Visit Emergency Visit: Yes ED Registration Date: 06/09/19 Care time: The patient presented to the Emergency Department on the above date and was hospitalized for further evaluation of their emergent condition. - New Patient This patient is new to me today: Yes Date on this admission: 06/12/19 - Critical Care Critical Care patient: No ATTENDING PHYSICIAN STATEMENT I saw and evaluated the patient. I reviewed the resident's note and discussed the case with the resident. I agree with the resident's findings and plan as documented. SUBJECTIVE: OBJECTIVE: ASSESSMENT AND PLAN:
[2019-06-09] MEDS ORDERED: chlordiazePOXIDE 5 MG CAPSULE ONE (05:22)
[2019-06-09] MEDS ORDERED: chlordiazePOXIDE HCL 10 MG CAPSULE ONE (05:22)
[2019-06-09] MEDS: chlordiazePOXIDE 5 MG CAPSULE PO SCH ×3 (05:26→19:59)
[2019-06-09 06:30] LABS: BASO % 0.8 % (0-2.0); EOS % 2.3 % (0-4.5); HEMATOCRIT 35.1 % (35.4-49); HEMOGLOBIN 11.9 GM/dL (11.7-16.9); LYMPH % 28.3 % (8-40); MCH 34.8 pg (25.7-33.7); MCHC 33.8 g/dl (32.0-35.9); MEAN PLT VOLUME 6.8 fl (7.5-11.1); MONO % 6.9 % (3.8-10.2); NEUT % 61.7 % (42.8-82.8); PLATELET COUNT 242 K/MM3 (134-434); RBC 3.41 M/mm3 (4.00-5.60); RDW 18.6 % (11.9-15.9); WHITE BLOOD COUNT 5.7 K/mm3 (4.0-10.0)
[2019-06-09 06:55] LABS: ALBUMIN 3.6 g/dl (3.4-5.0); BLOOD UREA NITROGEN 5.8 mg/dL (7-18); CALCIUM 8.6 mg/dL (8.5-10.1); CREATININE 0.8 mg/dL (0.55-1.3); MAGNESIUM 1.8 mg/dL (1.8-2.4); PHOSPHOROUS 3.1 mg/dL (2.5-4.9); POTASSIUM 3.9 mmol/L (3.5-5.1); TOT PROT 7.1 g/dl (6.4-8.2)
[2019-06-09] MEDS: INSULIN SLIDING SCALE (NOVOLOG) 1 VIAL SQ SCH ×4 (08:13→22:53)
--- NOTE | 2019-06-09 08:20 | PN ---
Progress Note (short form) - Note Progress Note: 49 y/o M, pmh of doudenal lesion/mass, aortic dissection s/p repair, CAD s/s CABG, d-CHF, HTN, T2DM, Bipolar disorder, Schizophrenia, depression, insomnia, presents from PC to ED c/o constant, sharp, abdominal pain of 1 day duration that began last night and has since worsened w/ no relief associated with nausea and one episode of semi-solid diarrhea admitted for intractable abdominal pain Problem List - Problems (1) S/P CABG (coronary artery bypass graft) Assessment/Plan: S/P CABG stable c/w asa, isorsibide, statin Code(s): Z95.1 - PRESENCE OF AORTOCORONARY BYPASS GRAFT (2) Diastolic heart failure Assessment/Plan: appears euvolemic strict I/Os daily weights Code(s): I50.30 - UNSPECIFIED DIASTOLIC (CONGESTIVE) HEART FAILURE (3) Prophylactic measure Assessment/Plan: FEN Fluids: IVF @ 75, with bananna bag daily Electrolytes: monitor & replete as needed Nutrition: NPO now then diabetic diet DVT early ambulation Dispo Maintain as inpatient full code discharge planning Code(s): Z29.9 - ENCOUNTER FOR PROPHYLACTIC MEASURES, UNSPECIFIED (4) Abdominal pain Assessment/Plan: NPO pending GI consultation IV tylenol pain 1-5 MSO4 Code(s): R10.9 - UNSPECIFIED ABDOMINAL PAIN Qualifiers: Abdominal location: right lower quadrant Qualified Code(s): R10.31 - Right lower quadrant pain (5) Aortic dissection Assessment/Plan: stable Code(s): I71.00 - DISSECTION OF UNSPECIFIED SITE OF AORTA Qualifiers: Aortic location: thoracic aorta Qualified Code(s): I71.01 - Dissection of thoracic aorta (6) HTN (hypertension) Assessment/Plan: PO meds on hold will give IV if BP become elevate Code(s): I10 - ESSENTIAL (PRIMARY) HYPERTENSION (7) DM2 (diabetes mellitus, type 2) Assessment/Plan: BGM AC?HS with novolog sliding scale resume metformin on dc diabetic diet when taking PO Code(s): E11.9 - TYPE 2 DIABETES MELLITUS WITHOUT COMPLICATIONS Qualifiers: Diabetes mellitus remote computer terminal operator insulin use: without remote computer terminal operator use Diabetes mellitus complication status: with unspecified complications (8) Schizoaffective disorder Assessment/Plan: c/w trazadone,seroquel with small sip of water Code(s): F25.9 - SCHIZOAFFECTIVE DISORDER, UNSPECIFIED Qualifiers: Schizoaffective disorder type: unspecified Qualified Code(s): F25.9 - Schizoaffective disorder, unspecified (10) Duodenal ulcer Assessment/Plan: CT imaging revealing lesion, possibly lipoma, in the distal duodenum seen in An EGD was planned to further evaluate but he refused the study CT now consistent duodenal inflammation but no evidence of acute pancreatitis IVF and NPO protonix IV BID GI consultation requested Code(s): K26.9 - DUODENAL ULCER, UNSP ACUTE OR CHRONIC, W/O HEMOR OR PERF (11) Substance abuse Assessment/Plan: started on detox by PCP c/w librium taper thiamine/MVI/folate when taking PO, will given banana bag now Code(s): F19.10 - OTHER PSYCHOACTIVE SUBSTANCE ABUSE, UNCOMPLICATED Visit type - Emergency Visit Emergency Visit: Yes ED Registration Date: 06/09/19 Care time: The patient presented to the Emergency Department on the above date and was hospitalized for further evaluation of their emergent condition. - New Patient This patient is new to me today: Yes Date on this admission: 06/09/19 - Critical Care Critical Care patient: No - Discharge Referral Referred to [facility] No
[2019-06-09] MEDS ORDERED: FAMOTIDINE 20 MG/50 ML IVPB 20 MG/50 ML MG IVPB ONE (08:30)
[2019-06-09] MEDS: PANTOPRAZOLE SODIUM 40 MG VIAL IVPUSH SCH ×2 (09:08→22:36)
--- NOTE | 2019-06-09 11:02 | EKG ---
Test Reason : Blood Pressure : / mmHG Vent. Rate : 096 BPM Atrial Rate : 096 BPM P-R Int : 134 ms QRS Dur : 092 ms QT Int : 362 ms P-R-T Axes : 077 009 -43 degrees QTc Int : 457 ms NORMAL SINUS RHYTHM POSSIBLE LEFT ATRIAL ENLARGEMENT SEPTAL INFARCT , AGE UNDETERMINED T WAVE ABNORMALITY, CONSIDER INFERIOR ISCHEMIA ABNORMAL ECG WHEN COMPARED WITH ECG OF 02-APR-2019 19:50, SEPTAL INFARCT IS NOW PRESENT INVERTED T WAVES HAVE REPLACED NONSPECIFIC T WAVE ABNORMALITY IN INFERIOR LEADS Confirmed by MERLE DHILLON MD ([id number]) on 06/09/2019 11:01:49 AM Referred By: Confirmed By:MERLE DHILLON MD
[2019-06-09] MEDS ORDERED: INSULIN (NOVOLOG) ASPART 100 UNITS/ML 10ML VIAL ONE ×2 (12:27→22:50)
[2019-06-09] MEDS: MORPHINE SULFATE 2 MG/ML VIAL IVPUSH PRN ×3 (12:29→22:36)
[2019-06-09] MEDS: LACTATED RINGERS SOLUTION 1,000 ML IV SCH (12:34)
[2019-06-09 12:50] VITALS: BMI 37.3
[2019-06-09] MEDS ORDERED: FOLIC ACID INJECTION - 1 MG, THIAMINE HCL 100 MG, MULTIVIT INJECTION ADULT 10 ML in SOD... IVPB ONE (13:00)
[2019-06-09] MEDS ORDERED: QUEtiapine FUMARATE 50 MG TABLET ONE (22:32)
[2019-06-09] MEDS: LABETALOL HCL 200 MG TABLET (FP) PO SCH (22:36)
[2019-06-09] MEDS: QUEtiapine FUMARATE 100 MG TABLET (FP) PO SCH (22:36)
[2019-06-09] MEDS: traZODone HCL 50 MG TABLET (FP) PO SCH (22:36)
[2019-06-10] MEDS: chlordiazePOXIDE HCL 10 MG CAPSULE PO SCH ×3 (04:07→21:29)
[2019-06-10] MEDS: MORPHINE SULFATE 2 MG/ML VIAL IVPUSH PRN (04:08)
[2019-06-10] MEDS: LABETALOL HCL 200 MG TABLET (FP) PO SCH ×3 (06:25→21:30)
[2019-06-10] MEDS: INSULIN SLIDING SCALE (NOVOLOG) 1 VIAL SQ SCH ×4 (06:43→21:37)
--- NOTE | 2019-06-10 08:42 | CON.GI ---
Consult Consult Specialty:: GI coverage for Dr Todd - History of Present Illness History of Present Illness: Patient is a 43 year old man with a PMH of Tobacco use, Alcohol abuse, Marijuana use, Duodenal mass, Aortic dissection (s/p repair), CAD (s/p CABG), Diastolic CHF, HTN, NIDDM, Bipolar disorder/Schizophrenia, Insomnia and Depression who presents to the ER from [facility] for abdominal pain and chest pain for 2 hours. This was associated with loose stools. CT revealed thoracic aorta aneurysm and distal duodenal inflammation. The patient denies nausea, vomiting and abdominal pain this morning. He is hungry. - Past Medical History Cardio/Vascular: Yes: Aneurysm (aortic dissection s/p repair), CAD (s/p CABG), CHF (diastolic), HTN Psych: Yes: Addictions, Bipolar - Past Surgical History Past Surgical History: Yes: CABG - Alcohol/Substance Use Hx Alcohol Use: Yes History of Substance Use: reports: Prescription (opiates) - Smoking History Smoking history: Current every day smoker Have you smoked in the past 12 months: Yes Aproximately how many cigarettes per day: 10 Home Medications - Allergies Allergies/Adverse Reactions: Allergies Allergy/AdvReac Type Severity Reaction Status Date / Time nitroglycerin Allergy Intermediate Rash Verified 06/07/19 14:43 Pork/Porcine Containing AdvReac Verified 06/07/19 14:43 Products - Home Medications Home Medications: Ambulatory Orders Aspirin [ASA -] 81 mg PO DAILY 03/19/19 Atorvastatin Ca [Lipitor] 40 mg PO HS 03/19/19 Gemfibrozil [Lopid -] 600 mg PO BID 03/19/19 Losartan Potassium 100 mg PO DAILY 03/19/19 Metformin HCl [Glucophage] 500 mg PO BID 03/19/19 Quetiapine Fumarate [Seroquel -] 200 mg PO BID 03/19/19 traZODone HCL [Trazodone HCl] 100 mg PO HS 03/19/19 Amlodipine Besylate [Norvasc -] 10 mg PO DAILY tablet 03/27/19 Labetalol HCl [Normodyne -] 200 mg PO TID tablet 03/27/19 Glipizide [Glipizide Xl] 2.5 mg PO DAILY 06/07/19 Isosorbide Mononitrate [Isosorbide Mononitrate ER] 30 mg PO DAILY 06/07/19 Physical Exam-GI Vital Signs: Vital Signs Temperature 97.9 F 06/10/19 06:00 Pulse Rate 80 06/10/19 06:00 Respiratory Rate 18 06/10/19 06:00 Blood Pressure 138/88 06/10/19 06:00 O2 Sat by Pulse Oximetry (%) 98 06/09/19 21:00 Constitutional: Yes: Well Nourished Eyes: Yes: Conjunctiva Clear HENT: Yes: Atraumatic Neck: Yes: Trachea Midline Cardiovascular: Yes: Regular Rate and Rhythm Respiratory: Yes: CTA Bilaterally ...Palpate: Yes: Firm/Rigid, Guarding, Hepatomegaly, Soft, Splenomegaly. No: Pulsatile Mass, Tenderness, Epigastium Labs: CBC, BMP 06/09/19 05:48 06/09/19 05:48 INR, PTT INR 1.10 (0.83-1.09) H 06/09/19 00:00 Home Medications Medication Instructions Recorded Aspirin [ASA -] 81 mg PO DAILY 03/19/19 Atorvastatin Ca [Lipitor] 40 mg PO HS 03/19/19 Gemfibrozil [Lopid -] 600 mg PO BID 03/19/19 Losartan Potassium 100 mg PO DAILY 03/19/19 Metformin HCl [Glucophage] 500 mg PO BID 03/19/19 Quetiapine Fumarate [Seroquel -] 200 mg PO BID 03/19/19 traZODone HCL [Trazodone HCl] 100 mg PO HS 03/19/19 Amlodipine Besylate [Norvasc -] 10 mg PO DAILY tablet 03/27/19 Labetalol HCl [Normodyne -] 200 mg PO TID tablet 03/27/19 Glipizide [Glipizide Xl] 2.5 mg PO DAILY 06/07/19 Isosorbide Mononitrate [Isosorbide 30 mg PO DAILY 06/07/19 Mononitrate ER] Home Medication List Medication Instructions Recorded Confirmed Type Aspirin [ASA -] 81 mg PO DAILY 03/19/19 06/09/19 History Atorvastatin Ca [Lipitor] 40 mg PO HS 03/19/19 06/09/19 History Gemfibrozil [Lopid -] 600 mg PO BID 03/19/19 06/09/19 History Losartan Potassium 100 mg PO DAILY 03/19/19 06/09/19 History Metformin HCl [Glucophage] 500 mg PO BID 03/19/19 06/09/19 History Quetiapine Fumarate [Seroquel -] 200 mg PO BID 03/19/19 06/09/19 History traZODone HCL [Trazodone HCl] 100 mg PO HS 03/19/19 06/09/19 History Glipizide [Glipizide Xl] 2.5 mg PO DAILY 06/07/19 06/09/19 History Isosorbide Mononitrate [Isosorbide 30 mg PO DAILY 06/07/19 06/09/19 History Mononitrate ER] Active Medications Generic Name Dose Route Start Last Admin Trade Name Freq PRN Reason Stop Dose Admin Acetaminophen 1,000 mg 06/09/19 04:14 Ofirmev Injection - IVPB Q6H PRN PAIN LEVEL 6-10 Amlodipine Besylate 10 mg 06/10/19 10:00 Norvasc - PO DAILY JOSE LUIS Aspirin 81 mg 06/10/19 10:00 Asa - PO DAILY JOSE LUIS Chlordiazepoxide HCl 10 mg 06/11/19 00:00 Librium - PO 06/11/19 23:59 Q12H PRN Signs/symptoms of Withdrawal Chlordiazepoxide HCl 10 mg 06/09/19 04:37 Librium - PO 06/10/19 23:59 Q8H PRN Signs/symptoms of Withdrawal Chlordiazepoxide HCl 10 mg 06/10/19 05:00 06/10/19 04:07 Librium - PO 06/10/19 21:01 10 mg Q8H JOSE LUIS Administration Chlordiazepoxide HCl 10 mg 06/11/19 05:00 Librium - PO 06/11/19 05:01 ONCE ONE Lactated Ringer's 1,000 mls @ 75 mls/hr 06/09/19 11:19 06/09/19 12:34 Lactated Ringers Solution IV 75 mls/hr ASDIR JOSE LUIS Administration Insulin Aspart 1 vial 06/09/19 07:00 06/10/19 06:43 Novolog Vial Sliding Scale - SQ Not Given ACHS JOSE LUIS Protocol Labetalol HCl 200 mg 06/09/19 22:00 06/10/19 06:25 Normodyne - PO 200 mg TID JOSE LUIS Administration Losartan Potassium 100 mg 06/10/19 10:00 Cozaar - PO DAILY JOSE LUIS Pantoprazole Sodium 40 mg 06/09/19 10:00 06/09/19 22:36 Protonix Iv IVPUSH 40 mg BID JOSE LUIS Administration Quetiapine Fumarate 200 mg 06/09/19 22:00 06/09/19 22:36 Seroquel - PO 200 mg BID JOSE LUIS Administration Trazodone HCl 100 mg 06/09/19 22:00 06/09/19 22:36 Desyrel - PO 100 mg HS JOSE LUIS Administration Problem List - Problems (1) Abdominal pain Assessment/Plan: history of Aspirin use associated with abnormal catscan r/o peptic ulcer disease R>continue Pantoprazole 40mg daily will need EGD advance diet Dr Todd will follow the patient in am Code(s): R10.9 - UNSPECIFIED ABDOMINAL PAIN Qualifiers: Abdominal location: right lower quadrant Qualified Code(s): R10.31 - Right lower quadrant pain
--- NOTE | 2019-06-10 09:54 | PN ---
Physical Exam: SUBJECTIVE: Patient seen and examined at the bedside. awake, alert, denies abdominal pain, denies nausea or vomiting. feels well. hungry and wants to eat. OBJECTIVE: Patient is a 49 yearl old male with a signficant past medical history of doudenal lesion/mass, aortic dissection s/p repair, CAD s/s CABG, d-CHF, HTN, T2DM, Bipolar disorder, schizophrenia, depression, insomnia, presents from to ED c/o constant, sharp, abdominal pain of 1 day duration. abdominal pain has since worsened w/ no relief and associated with nausea and one episode of semi-solid diarrhea. He is being admitted for intractable abdominal pain. CT scan shows duodenal inflammation with no evidence of pancreatitis. cardiology clearance prior to egd. imaging: CT a/p w/wo contrast: duodenal inflammation but no evidence of acute pancreatitis. No pulmonary embolism on chest/thorax CTA. Dissection in the descending thoracic aorta extending from the distal aortic arch after the origin of the left brachio-cephalic artery. Descending thoracic aorta is aneurysmally dilated 3.6cm. Vital Signs Period Temp Pulse Resp BP Sys/Garcia Pulse Ox Last 24 Hr 97.7 F-98.3 F 80-83 18-18 138-150/88-101 98-99 GENERAL: The patient is awake, alert, and fully oriented, in no acute distress. HEAD: Normal with no signs of trauma. EYES: PERRL, extraocular movements intact, sclera anicteric, conjunctiva clear. No ptosis. ENT: Ears normal, nares patent, oropharynx clear without exudates, moist mucous membranes. NECK: Trachea midline, full range of motion, supple. LUNGS: Breath sounds equal, clear to auscultation bilaterally HEART: Regular rate and rhythm ABDOMEN: Soft, nontender, mildly distended, but no pain on palpation. EXTREMITIES: no edema. NEUROLOGICAL: Normal speech, gait not observed. PSYCH: Normal mood, normal affect. SKIN: Warm, dry, normal turgor, no rashes or lesions noted Laboratory Results - last 24 hr 06/09/19 06/09/19 06/09/19 12:34 16:33 22:53 POC Glucometer 95 112 87 06/10/19 06:28 POC Glucometer 86 Active Medications Generic Name Dose Route Start Last Admin Trade Name Freq PRN Reason Stop Dose Admin Acetaminophen 1,000 mg 06/09/19 04:14 Ofirmev Injection - IVPB Q6H PRN PAIN LEVEL 6-10 Amlodipine Besylate 10 mg 06/10/19 10:00 Norvasc - PO DAILY JOSE LUIS Aspirin 81 mg 06/10/19 10:00 Asa - PO DAILY JOSE LUIS Chlordiazepoxide HCl 10 mg 06/11/19 00:00 Librium - PO 06/11/19 23:59 Q12H PRN Signs/symptoms of Withdrawal Chlordiazepoxide HCl 10 mg 06/09/19 04:37 Librium - PO 06/10/19 23:59 Q8H PRN Signs/symptoms of Withdrawal Chlordiazepoxide HCl 10 mg 06/10/19 05:00 06/10/19 04:07 Librium - PO 06/10/19 21:01 10 mg Q8H JOSE LUIS Administration Chlordiazepoxide HCl 10 mg 06/11/19 05:00 Librium - PO 06/11/19 05:01 ONCE ONE Lactated Ringer's 1,000 mls @ 75 mls/hr 06/09/19 11:19 06/09/19 12:34 Lactated Ringers Solution IV 75 mls/hr ASDIR JOSE LUIS Administration Insulin Aspart 1 vial 06/09/19 07:00 06/10/19 06:43 Novolog Vial Sliding Scale - SQ Not Given ACHS [facility] Protocol Labetalol HCl 200 mg 06/09/19 22:00 06/10/19 06:25 Normodyne - PO 200 mg TID JOSE LUIS Administration Losartan Potassium 100 mg 06/10/19 10:00 Cozaar - PO DAILY JOSE LUIS Pantoprazole Sodium 40 mg 06/09/19 10:00 06/09/19 22:36 Protonix Iv IVPUSH 40 mg BID JOSE LUIS Administration Quetiapine Fumarate 200 mg 06/09/19 22:00 06/09/19 22:36 Seroquel - PO 200 mg BID JOSE LUIS Administration Simethicone 80 mg 06/10/19 10:00 Mylicon - PO QID JOSE LUIS Trazodone HCl 100 mg 06/09/19 22:00 06/09/19 22:36 Desyrel - PO 100 mg HS JOSE LUIS Administration ASSESSMENT/PLAN: Problem List - Problems (1) Abdominal pain Assessment/Plan: CT imaging revealing lesion, possibly lipoma, in the distal duodenum seen in An EGD was planned to further evaluate but he refused the study on last admission CT now consistent duodenal inflammation but no evidence of acute pancreatitis diet per GI protonix IV BID patient npo for upper gi series Code(s): R10.9 - UNSPECIFIED ABDOMINAL PAIN Qualifiers: Abdominal location: right lower quadrant Qualified Code(s): R10.31 - Right lower quadrant pain (2) Diastolic heart failure Assessment/Plan: appears euvolemic strict I/Os daily weights Code(s): I50.30 - UNSPECIFIED DIASTOLIC (CONGESTIVE) HEART FAILURE (3) S/P CABG (coronary artery bypass graft) Code(s): Z95.1 - PRESENCE OF AORTOCORONARY BYPASS GRAFT (4) Substance abuse Code(s): F19.10 - OTHER PSYCHOACTIVE SUBSTANCE ABUSE, UNCOMPLICATED (5) Alcohol dependence with uncomplicated withdrawal Assessment/Plan: on librium taper Code(s): F10.230 - ALCOHOL DEPENDENCE WITH WITHDRAWAL, UNCOMPLICATED (6) Aortic dissection Assessment/Plan: stable Code(s): I71.00 - DISSECTION OF UNSPECIFIED SITE OF AORTA Qualifiers: Aortic location: thoracic aorta Qualified Code(s): I71.01 - Dissection of thoracic aorta (7) ETOH abuse Assessment/Plan: on librium taper Code(s): F10.10 - ALCOHOL ABUSE, UNCOMPLICATED (8) DM2 (diabetes mellitus, type 2) Assessment/Plan: on novolog based on sliding scale Code(s): E11.9 - TYPE 2 DIABETES MELLITUS WITHOUT COMPLICATIONS Qualifiers: Diabetes mellitus tank terminal gauger insulin use: without tank terminal gauger use Diabetes mellitus complication status: with unspecified complications (9) Abnormal CPK Assessment/Plan: repeat cpk in a.m. Code(s): R74.8 - ABNORMAL LEVELS OF OTHER SERUM ENZYMES (10) Prophylactic measure Assessment/Plan: FEN Fluids: tolerating po Electrolytes: monitor & replete as needed Nutrition: full liquids, advance per di DVT early ambulation Dispo Maintain as inpatient full code discharge planning Code(s): Z29.9 - ENCOUNTER FOR PROPHYLACTIC MEASURES, UNSPECIFIED (11) DVT prophylaxis Code(s): ESL3772 - Visit type - Emergency Visit Emergency Visit: Yes ED Registration Date: 06/09/19 Care time: The patient presented to the Emergency Department on the above date and was hospitalized for further evaluation of their emergent condition. - New Patient This patient is new to me today: Yes Date on this admission: 06/10/19 - Critical Care Critical Care patient: No - Discharge Referral Referred to [facility] Med P.C.: No
[2019-06-10] MEDS ORDERED: ISOSORBIDE MONONITRATE 30 MG TAB.SR.24H (FP) PO SCH (10:00)
--- NOTE | 2019-06-10 10:05 | EKG ---
Test Reason : Blood Pressure : / mmHG Vent. Rate : 084 BPM Atrial Rate : 084 BPM P-R Int : 152 ms QRS Dur : 084 ms QT Int : 384 ms P-R-T Axes : 079 -01 -21 degrees QTc Int : 453 ms NORMAL SINUS RHYTHM NONSPECIFIC T WAVE ABNORMALITY ABNORMAL ECG WHEN COMPARED WITH ECG OF 08-JUN-2019 23:17, NO SIGNIFICANT CHANGE WAS FOUND Confirmed by EFRA SAMS MD ([id number]) on 06/10/2019 10:04:58 AM Referred By: Deena TRENT Confirmed By:EFRA SAMS MD
[2019-06-10] MEDS ORDERED: QUEtiapine FUMARATE 50 MG TABLET ONE ×2 (10:14→20:19)
[2019-06-10] MEDS: LACTATED RINGERS SOLUTION 1,000 ML IV SCH (10:25)
[2019-06-10] MEDS: PANTOPRAZOLE SODIUM 40 MG VIAL IVPUSH SCH ×2 (10:26→21:30)
[2019-06-10] MEDS: QUEtiapine FUMARATE 100 MG TABLET (FP) PO SCH ×2 (10:27→21:28)
[2019-06-10] MEDS: LOSARTAN POTASSIUM 50 MG TABLET (FP) PO SCH (10:28)
[2019-06-10] MEDS: ASPIRIN 81 MG CHEWABLE TABLETS PO SCH (10:28)
[2019-06-10] MEDS: SIMETHICONE 80 MG TAB.CHEW (FP) PO SCH ×4 (10:28→21:38)
[2019-06-10] MEDS: amLODIPine BESYLATE 10 MG TABLET (FP) PO SCH (10:28)
--- NOTE | 2019-06-10 10:47 | CON.CARD ---
Consult Consult Specialty:: Cardiology - History of Present Illness History of Present Illness: The patient is a 43 year old male with a significant PMH of duodenal mass, aortic dissection (s/p repair), CAD (s/p CABG), CHF (diastolic), HTN, Type 2 DM , Bipolar disorder/Schizophrenia; Insomnia, Depression who presents to the emergency department [facility] from [facility] for abdominal pain and chest pain. Pt reports his abdominal pain is radiating upwards towards his chest, associated with mild nausea and loose stools. Pt states he was diagnosed with pancreatitis 2 months ago and his symptoms feel similar. Pt states he has been in detox the past 4 days, and his last alcohol was 4 days ago. - History Source History Provided By: Patient, Medical Record - Past Medical History Cardio/Vascular: Yes: Aneurysm (aortic dissection s/p repair), CAD (s/p CABG), CHF (diastolic), HTN Psych: Yes: Addictions, Bipolar - Past Surgical History Past Surgical History: Yes: CABG - Alcohol/Substance Use Hx Alcohol Use: Yes History of Substance Use: reports: Prescription (opiates) - Smoking History Smoking history: Current every day smoker Have you smoked in the past 12 months: Yes Aproximately how many cigarettes per day: 10 Home Medications - Allergies Allergies/Adverse Reactions: Allergies Allergy/AdvReac Type Severity Reaction Status Date / Time nitroglycerin Allergy Intermediate Rash Verified 06/07/19 14:43 Pork/Porcine Containing AdvReac Verified 06/07/19 14:43 Products - Home Medications Home Medications: Ambulatory Orders Aspirin [ASA -] 81 mg PO DAILY 03/19/19 Atorvastatin Ca [Lipitor] 40 mg PO HS 03/19/19 Gemfibrozil [Lopid -] 600 mg PO BID 03/19/19 Losartan Potassium 100 mg PO DAILY 03/19/19 Metformin HCl [Glucophage] 500 mg PO BID 03/19/19 Quetiapine Fumarate [Seroquel -] 200 mg PO BID 03/19/19 traZODone HCL [Trazodone HCl] 100 mg PO HS 03/19/19 Amlodipine Besylate [Norvasc -] 10 mg PO DAILY tablet 03/27/19 Labetalol HCl [Normodyne -] 200 mg PO TID tablet 03/27/19 Glipizide [Glipizide Xl] 2.5 mg PO DAILY 06/07/19 Isosorbide Mononitrate [Isosorbide Mononitrate ER] 30 mg PO DAILY 06/07/19 Review of Systems - Review of Systems Constitutional: reports: No Symptoms Eyes: reports: No Symptoms HENT: reports: No Symptoms Neck: reports: No Symptoms Cardiovascular: reports: No Symptoms Respiratory: reports: No Symptoms Gastrointestinal: reports: Abdominal Pain Genitourinary: reports: No Symptoms Breasts: reports: No Symptoms Reported Musculoskeletal: reports: No Symptoms Integumentary: reports: No Symptoms Neurological: reports: No Symptoms Endocrine: reports: No Symptoms Hematology/Lymphatic: reports: No Symptoms Psychiatric: reports: No Symptoms Vital Signs: Vital Signs Temperature 98.1 F 06/10/19 10:00 Pulse Rate 83 06/10/19 10:00 Respiratory Rate 18 06/10/19 10:00 Blood Pressure 160/98 06/10/19 10:00 O2 Sat by Pulse Oximetry (%) 98 06/09/19 21:00 Constitutional: Yes: Well Nourished, No Distress, Calm Eyes: Yes: WNL, Conjunctiva Clear, EOM Intact HENT: Yes: WNL, Atraumatic, Normocephalic Neck: Yes: WNL, Supple, Trachea Midline Respiratory: Yes: WNL, Regular, CTA Bilaterally Gastrointestinal: Yes: WNL, Normal Bowel Sounds Renal/: Yes: WNL Cardiovascular: Yes: WNL, Regular Rate and Rhythm Musculoskeletal: Yes: WNL Extremities: Yes: WNL Integumentary: Yes: WNL Neurological: Yes: WNL, Alert, Oriented ...Motor Strength: WNL Psychiatric: Yes: WNL, Alert, Oriented - Other Data Labs, Other Data: CBC, BMP 06/09/19 05:48 06/09/19 05:48 INR, PTT INR 1.10 (0.83-1.09) H 06/09/19 00:00 Imaging - Results Chest X-ray: Image Reviewed (no i/e sp OHS) EKG: Image Reviewed (srold septal mi rep abn) Problem List - Problems (1) Abdominal pain Code(s): R10.9 - UNSPECIFIED ABDOMINAL PAIN Qualifiers: Abdominal location: right lower quadrant Qualified Code(s): R10.31 - Right lower quadrant pain (2) Depression Code(s): F32.9 - MAJOR DEPRESSIVE DISORDER, SINGLE EPISODE, UNSPECIFIED (3) Diastolic heart failure Code(s): I50.30 - UNSPECIFIED DIASTOLIC (CONGESTIVE) HEART FAILURE (4) Duodenal ulcer Code(s): K26.9 - DUODENAL ULCER, UNSP ACUTE OR CHRONIC, W/O HEMOR OR PERF (5) Duodenitis Code(s): K29.80 - DUODENITIS WITHOUT BLEEDING (6) Prophylactic measure Code(s): Z29.9 - ENCOUNTER FOR PROPHYLACTIC MEASURES, UNSPECIFIED (7) S/P CABG (coronary artery bypass graft) Code(s): Z95.1 - PRESENCE OF AORTOCORONARY BYPASS GRAFT (8) Substance abuse Code(s): F19.10 - OTHER PSYCHOACTIVE SUBSTANCE ABUSE, UNCOMPLICATED (9) Abnormal LFTs (liver function tests) Code(s): R79.89 - OTHER SPECIFIED ABNORMAL FINDINGS OF BLOOD CHEMISTRY (10) Alcohol dependence Code(s): F10.20 - ALCOHOL DEPENDENCE, UNCOMPLICATED (11) Alcohol dependence with uncomplicated withdrawal Code(s): F10.230 - ALCOHOL DEPENDENCE WITH WITHDRAWAL, UNCOMPLICATED (12) Anxiety Code(s): F41.9 - ANXIETY DISORDER, UNSPECIFIED (13) Aortic dissection Code(s): I71.00 - DISSECTION OF UNSPECIFIED SITE OF AORTA Qualifiers: Aortic location: thoracic aorta Qualified Code(s): I71.01 - Dissection of thoracic aorta (14) Atypical chest pain Code(s): R07.89 - OTHER CHEST PAIN (15) Bacteremia Code(s): R78.81 - BACTEREMIA (16) Cannabis dependence Code(s): F12.20 - CANNABIS DEPENDENCE, UNCOMPLICATED (17) Chest pain Code(s): R07.9 - CHEST PAIN, UNSPECIFIED Qualifiers: Chest pain type: chest pain on breathing Qualified Code(s): R07.1 - Chest pain on breathing; R07.81 - Pleurodynia (18) Crutches as ambulation aid Code(s): [id number] - (19) ETOH abuse Code(s): F10.10 - ALCOHOL ABUSE, UNCOMPLICATED (20) EtOH dependence Code(s): F10.20 - ALCOHOL DEPENDENCE, UNCOMPLICATED (21) HTN (hypertension) Code(s): I10 - ESSENTIAL (PRIMARY) HYPERTENSION (22) Hx of CABG Code(s): Z95.1 - PRESENCE OF AORTOCORONARY BYPASS GRAFT (23) Hyperlipidemia Code(s): E78.5 - HYPERLIPIDEMIA, UNSPECIFIED (24) Obesity (BMI 30-39.9) Code(s): E66.9 - OBESITY, UNSPECIFIED (25) Rhabdomyolysis Code(s): M62.82 - RHABDOMYOLYSIS (26) Substance-induced sleep disorder Code(s): F19.982 - OTH PSYCHOACTIVE SUBSTANCE USE, UNSP W SLEEP DISORDER (27) Tachycardia Code(s): R00.0 - TACHYCARDIA, UNSPECIFIED (28) Unspecified nystagmus Code(s): H55.00 - UNSPECIFIED NYSTAGMUS (29) CAD (coronary artery disease) Code(s): I25.10 - ATHSCL HEART DISEASE OF [place] CORONARY ARTERY W/O ANG PCTRS (30) DM2 (diabetes mellitus, type 2) Code(s): E11.9 - TYPE 2 DIABETES MELLITUS WITHOUT COMPLICATIONS Qualifiers: Diabetes mellitus long chain beamer insulin use: without chcf use Diabetes mellitus complication status: with unspecified complications (31) DVT prophylaxis Code(s): [id number] - (32) Essential hypertension Code(s): I10 - ESSENTIAL (PRIMARY) HYPERTENSION (33) History of DVT (deep vein thrombosis) Code(s): Z86.718 - PERSONAL HISTORY OF OTHER VENOUS THROMBOSIS AND EMBOLISM (34) History of aortic dissection Code(s): Z86.79 - PERSONAL HISTORY OF OTHER DISEASES OF THE CIRCULATORY SYSTEM (35) Hypercholesterolemia Code(s): E78.00 - PURE HYPERCHOLESTEROLEMIA, UNSPECIFIED (36) Injury of right ankle Code(s): S99.911A - UNSPECIFIED INJURY OF RIGHT ANKLE, INITIAL ENCOUNTER (37) Insomnia Code(s): G47.00 - INSOMNIA, UNSPECIFIED Qualifiers: Insomnia type: unspecified Qualified Code(s): G47.00 - Insomnia, unspecified (38) Nicotine dependence Code(s): F17.200 - NICOTINE DEPENDENCE, UNSPECIFIED, UNCOMPLICATED Qualifiers: Nicotine product type: cigarettes Substance use status: uncomplicated Qualified Code(s): F17.210 - Nicotine dependence, cigarettes, uncomplicated (39) Non-compliance Code(s): Z91.19 - PATIENT'S NONCOMPLIANCE W OTH MEDICAL TREATMENT AND REGIMEN (40) Schizoaffective disorder Code(s): F25.9 - SCHIZOAFFECTIVE DISORDER, UNSPECIFIED Qualifiers: Schizoaffective disorder type: unspecified Qualified Code(s): F25.9 - Schizoaffective disorder, unspecified (41) Substance induced mood disorder Code(s): F19.94 - OTH PSYCHOACTIVE SUBSTANCE USE, UNSP W MOOD DISORDER (43) Aortic aneurysm and dissection Code(s): I71.00 - DISSECTION OF UNSPECIFIED SITE OF AORTA (44) Bipolar disorder current episode depressed Code(s): F31.30 - BIPOLAR DISORD, CRNT EPSD DEPRESS, MILD OR MOD SEVERT, UNSP Qualifiers: Current episode severity: mild Qualified Code(s): F31.31 - Bipolar disorder , current episode depressed, mild Assessment/Plan 43 year old male with a significant PMH of duodenal mass, aortic dissection (s/ p repair), CAD (s/p CABG), CHF (diastolic), HTN, Type 2 DM, Bipolar disorder/ Schizophrenia; Insomnia, Depression who presents to the emergency department [facility] from [facility] for abdominal pain and chest pain. Denies atomic spectroscopist now Plan; Cardiac macdonald stable RX for Gastroenteritis as per GI
[2019-06-10 11:14] LABS: BASO % 0.9 % (0-2.0); HEMATOCRIT 36.2 % (35.4-49); HEMOGLOBIN 12.2 GM/dL (11.7-16.9); LYMPH % 25.5 % (8-40); MCH 34.8 pg (25.7-33.7); MCHC 33.6 g/dl (32.0-35.9); MEAN CELL VOLUME 103.6 fl (80-96); MEAN PLT VOLUME 6.7 fl (7.5-11.1); NEUT % 62.6 % (42.8-82.8); PLATELET COUNT 255 K/MM3 (134-434); RDW 18.7 % (11.9-15.9); WHITE BLOOD COUNT 5.8 K/mm3 (4.0-10.0)
[2019-06-10 11:36] LABS: ALBUMIN 3.6 g/dl (3.4-5.0); BLOOD UREA NITROGEN 4.8 mg/dL (7-18); CALCIUM 8.7 mg/dL (8.5-10.1); MAGNESIUM 1.8 mg/dL (1.8-2.4); POTASSIUM 3.7 mmol/L (3.5-5.1)
--- NOTE | 2019-06-10 14:05 | PN ---
Progress Note (short form) - Note Progress Note: Initial consult by Dr. Bartlett. Discussed EGD with Mr. Venegas to follow-up upper abdominal pain complaints and equivocal duodenal inflammation seen on admission CT scan once cleared by cardiology (plan tentatively for 06/12). Discussed potential risks of the procedure like but not limited to bleeding, perforation requiring surgery to repair, infection, sedation medication effects all of which could be potentially life threatening. He has agreed to the procedure. For now: Advance diet. He wants to try solids Ordered UGIS for the AM Cardio clearance
[2019-06-10] MEDS: traZODone HCL 50 MG TABLET (FP) PO SCH (21:29)
[2019-06-11] MEDS ORDERED: chlordiazePOXIDE HCL 10 MG CAPSULE PO PRN
[2019-06-11] MEDS ORDERED: chlordiazePOXIDE HCL 10 MG CAPSULE PO ONE (05:00)
[2019-06-11] MEDS: LABETALOL HCL 200 MG TABLET (FP) PO SCH ×3 (06:30→21:07)
[2019-06-11] MEDS: INSULIN SLIDING SCALE (NOVOLOG) 1 VIAL SQ SCH ×4 (06:30→21:15)
[2019-06-11 08:29] LABS: BASO % 0.8 % (0-2.0); EOS % 1.9 % (0-4.5); HEMATOCRIT 38.4 % (35.4-49); LYMPH % 22.4 % (8-40); MCH 35.1 pg (25.7-33.7); MCHC 33.9 g/dl (32.0-35.9); MEAN CELL VOLUME 103.3 fl (80-96); MEAN PLT VOLUME 6.6 fl (7.5-11.1); NEUT % 65.9 % (42.8-82.8); PLATELET COUNT 277 K/MM3 (134-434); RBC 3.71 M/mm3 (4.00-5.60); RDW 18.4 % (11.9-15.9); WHITE BLOOD COUNT 6.4 K/mm3 (4.0-10.0)
[2019-06-11 08:43] LABS: INR 1.13 (0.83-1.09); PROTHROMBIN TIME (PATIENT) 13.4 SEC (9.7-13.0)
[2019-06-11] MEDS: amLODIPine BESYLATE 10 MG TABLET (FP) PO SCH ×2 (08:43→09:31)
[2019-06-11] MEDS: LOSARTAN POTASSIUM 50 MG TABLET (FP) PO SCH ×2 (08:44→09:31)
[2019-06-11 09:02] LABS: ALBUMIN 3.5 g/dl (3.4-5.0); BILIRUBIN,TOTAL 0.8 mg/dL (0.2-1); CALCIUM 9.2 mg/dL (8.5-10.1); CREATININE 0.9 mg/dL (0.55-1.3); TOT PROT 7.4 g/dl (6.4-8.2)
[2019-06-11] MEDS ORDERED: PT OWN MED DRAWER 7, Y5N ONE ×2 (09:23→20:28)
[2019-06-11] MEDS: PANTOPRAZOLE SODIUM 40 MG VIAL IVPUSH SCH ×2 (09:30→21:08)
[2019-06-11] MEDS: QUEtiapine FUMARATE 200 MG TABLET PO SCH ×2 (09:30→21:07)
[2019-06-11] MEDS: ASPIRIN 81 MG CHEWABLE TABLETS PO SCH (09:30)
[2019-06-11] MEDS: SIMETHICONE 80 MG TAB.CHEW (FP) PO SCH ×4 (09:30→21:07)
[2019-06-11] MEDS: LACTATED RINGERS SOLUTION 1,000 ML IV SCH ×2 (12:14→17:19)
--- NOTE | 2019-06-11 17:34 | PN ---
Physical Exam: SUBJECTIVE: Patient seen and examined. no abdominal pain, no nausea, no chest pain, no vomiting. OBJECTIVE: Patient is a 49 yearl old male with a significant past medical history of doudenal lesion/mass, aortic dissection s/p repair, CAD s/s CABG, d-CHF, HTN, T2DM, Bipolar disorder, schizophrenia, depression, insomnia, presents from to ED c/o constant, sharp, abdominal pain of 1 day duration. abdominal pain has since worsened w/ no relief and associated with nausea and one episode of semi-solid diarrhea. He is being admitted for intractable abdominal pain. CT scan shows duodenal inflammation with no evidence of pancreatitis. cardiology clearance prior to egd. s/p gi series today, results pending. imaging: CT a/p w/wo contrast: duodenal inflammation but no evidence of acute pancreatitis. No pulmonary embolism on chest/thorax CTA. Dissection in the descending thoracic aorta extending from the distal aortic arch after the origin of the left brachio-cephalic artery. Descending thoracic aorta is aneurysmally dilated 3.6cm. Vital Signs Period Temp Pulse Resp BP Sys/Garcia Pulse Ox Last 24 Hr 97.8 F-98.7 F 85-96 20-20 131-156/70-108 98-99 GENERAL: The patient is awake, alert, and fully oriented, in no acute distress. HEAD: Normal with no signs of trauma. EYES: PERRL, extraocular movements intact, sclera anicteric, conjunctiva clear. No ptosis. ENT: Ears normal, nares patent, oropharynx clear without exudates, moist mucous membranes. NECK: Trachea midline, full range of motion, supple. LUNGS: Breath sounds equal, clear to auscultation bilaterally HEART: Regular rate and rhythm ABDOMEN: Soft, nontender, mildly distended, but no pain on palpation. EXTREMITIES: no edema. NEUROLOGICAL: Normal speech, gait not observed. PSYCH: Normal mood, normal affect. SKIN: Warm, dry, normal turgor, no rashes or lesions noted Laboratory Results - last 24 hr 06/10/19 06/11/19 06/11/19 21:34 06:29 07:52 WBC 6.4 RBC 3.71 L Hgb 13.0 Hct 38.4 MCV 103.3 H MCH 35.1 H MCHC 33.9 RDW 18.4 H Plt Count 277 MPV 6.6 L Absolute Neuts (auto) 4.2 Neutrophils % 65.9 Lymphocytes % 22.4 Monocytes % 9.0 Eosinophils % 1.9 Basophils % 0.8 Nucleated RBC % 0 PT with INR INR Sodium Potassium Chloride Carbon Dioxide Anion Gap BUN Creatinine Est GFR (CKD-EPI)AfAm Est GFR (CKD-EPI)NonAf POC Glucometer 119 102 Random Glucose Calcium Magnesium Total Bilirubin AST ALT Alkaline Phosphatase Creatine Kinase Creatine Kinase Index CK-MB (CK-2) Total Protein Albumin 06/11/19 06/11/19 06/11/19 07:52 07:52 07:52 WBC RBC Hgb Hct MCV MCH MCHC RDW Plt Count MPV Absolute Neuts (auto) Neutrophils % Lymphocytes % Monocytes % Eosinophils % Basophils % Nucleated RBC % PT with INR 13.40 H INR 1.13 H Sodium 140 Potassium 4.0 Chloride 106 Carbon Dioxide 29 Anion Gap 5 L BUN 7.0 Creatinine 0.9 Est GFR (CKD-EPI)AfAm 117.47 Est GFR (CKD-EPI)NonAf 101.35 POC Glucometer Random Glucose 97 Calcium 9.2 Magnesium 2.0 Total Bilirubin 0.8 AST 71 H ALT 59 Alkaline Phosphatase 46 Creatine Kinase 590 H Creatine Kinase Index 0.2 CK-MB (CK-2) 1.6 Total Protein 7.4 Albumin 3.5 06/11/19 06/11/19 12:11 17:25 WBC RBC Hgb Hct MCV MCH MCHC RDW Plt Count MPV Absolute Neuts (auto) Neutrophils % Lymphocytes % Monocytes % Eosinophils % Basophils % Nucleated RBC % PT with INR INR Sodium Potassium Chloride Carbon Dioxide Anion Gap BUN Creatinine Est GFR (CKD-EPI)AfAm Est GFR (CKD-EPI)NonAf POC Glucometer 109 110 Random Glucose Calcium Magnesium Total Bilirubin AST ALT Alkaline Phosphatase Creatine Kinase Creatine Kinase Index CK-MB (CK-2) Total Protein Albumin Active Medications Generic Name Dose Route Start Last Admin Trade Name Freq PRN Reason Stop Dose Admin Acetaminophen 1,000 mg 06/09/19 04:14 06/10/19 10:39 Ofirmev Injection - IVPB 1,000 mg Q6H PRN Administration PAIN LEVEL 6-10 Amlodipine Besylate 10 mg 06/10/19 10:00 06/11/19 09:31 Norvasc - PO Not Given DAILY JOSE LUIS Aspirin 81 mg 06/10/19 10:00 06/11/19 09:30 Asa - PO 81 mg DAILY JOSE LUIS Administration Chlordiazepoxide HCl 10 mg 06/11/19 00:00 Librium - PO 06/11/19 23:59 Q12H PRN Signs/symptoms of Withdrawal Lactated Ringer's 1,000 mls @ 75 mls/hr 06/09/19 11:19 06/11/19 17:19 Lactated Ringers Solution IV 75 mls/hr ASDIR JOSE LUIS Administration Insulin Aspart 1 vial 06/09/19 07:00 06/11/19 12:13 Novolog Vial Sliding Scale - SQ Not Given ACHS JOSE LUIS Protocol Labetalol HCl 200 mg 06/09/19 22:00 06/11/19 14:29 Normodyne - PO 200 mg TID JOSE LUIS Administration Losartan Potassium 100 mg 06/10/19 10:00 06/11/19 09:31 Cozaar - PO Not Given DAILY JOSE LUIS Pantoprazole Sodium 40 mg 06/09/19 10:00 06/11/19 09:30 Protonix Iv IVPUSH 40 mg BID JOSE LUIS Administration Quetiapine Fumarate 200 mg 06/11/19 10:00 06/11/19 09:30 Seroquel - PO 200 mg BID JOSE LUIS Administration Simethicone 80 mg 06/10/19 10:00 06/11/19 17:19 Mylicon - PO 80 mg QID JOSE LUIS Administration Trazodone HCl 100 mg 06/09/19 22:00 06/10/19 21:29 Desyrel - PO 100 mg HS JOSE LUIS Administration ASSESSMENT/PLAN: Problem List - Problems (1) Abdominal pain Assessment/Plan: CT imaging revealing lesion, possibly lipoma, in the distal duodenum seen in An EGD was planned to further evaluate but he refused the study on last admission CT now consistent duodenal inflammation but no evidence of acute pancreatitis diet per GI protonix IV BID patient completed gi series today, for egd tomorrow pending cardiology clearance. Code(s): R10.9 - UNSPECIFIED ABDOMINAL PAIN Qualifiers: Abdominal location: right lower quadrant Qualified Code(s): R10.31 - Right lower quadrant pain (2) Diastolic heart failure Assessment/Plan: appears euvolemic strict I/Os Code(s): I50.30 - UNSPECIFIED DIASTOLIC (CONGESTIVE) HEART FAILURE (3) S/P CABG (coronary artery bypass graft) Code(s): Z95.1 - PRESENCE OF AORTOCORONARY BYPASS GRAFT (4) Substance abuse Code(s): F19.10 - OTHER PSYCHOACTIVE SUBSTANCE ABUSE, UNCOMPLICATED (5) Alcohol dependence with uncomplicated withdrawal Assessment/Plan: on librium taper Code(s): F10.230 - ALCOHOL DEPENDENCE WITH WITHDRAWAL, UNCOMPLICATED (6) Aortic dissection Assessment/Plan: stable Code(s): I71.00 - DISSECTION OF UNSPECIFIED SITE OF AORTA Qualifiers: Aortic location: thoracic aorta Qualified Code(s): I71.01 - Dissection of thoracic aorta (7) ETOH abuse Assessment/Plan: on librium taper Code(s): F10.10 - ALCOHOL ABUSE, UNCOMPLICATED (8) DM2 (diabetes mellitus, type 2) Assessment/Plan: on novolog based on sliding scale Code(s): E11.9 - TYPE 2 DIABETES MELLITUS WITHOUT COMPLICATIONS Qualifiers: 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 Code(s): R74.8 - ABNORMAL LEVELS OF OTHER SERUM ENZYMES (10) Prophylactic measure Assessment/Plan: FEN Fluids: tolerating po Electrolytes: monitor & replete as needed Nutrition: full liquids, advance per di DVT early ambulation Dispo Maintain as inpatient full code discharge planning Code(s): Z29.9 - ENCOUNTER FOR PROPHYLACTIC MEASURES, UNSPECIFIED (11) DVT prophylaxis Code(s): [id number] - Visit type - Emergency Visit Emergency Visit: Yes ED Registration Date: 06/09/19 Care time: The patient presented to the Emergency Department on the above date and was hospitalized for further evaluation of their emergent condition. - New Patient This patient is new to me today: No - Critical Care Critical Care patient: No - Discharge Referral Referred to [facility] Med [facility].C.: No
[2019-06-11] MEDS: traZODone HCL 50 MG TABLET (FP) PO SCH (21:07)
--- NOTE | 2019-06-12 04:09 | PN ---
Progress Note, Physician Chief Complaint: Pt A&Ox3; no chest pain or dyspnea; + abdominal discomfort intermittently. History of Present Illness: The patient is a 43 year old black male with a significant PMH of duodenal mass , aortic dissection (s/p repair), CAD (s/p CABG), CHF (diastolic), HTN, Type 2 DM, Bipolar disorder/Schizophrenia; Insomnia, Depression who presents to the emergency department [facility] from [facility] for abdominal pain and chest pain. Pt reports his abdominal pain is radiating upwards towards his chest, associated with mild nausea and loose stools. Pt states he was diagnosed with pancreatitis 2 months ago and his symptoms feel similar. Pt states he has been in detox the past 4 days, and his last alcohol was 4 days ago. The patient denies shortness of breath, headache and dizziness. Denies fever, chills, cough, vomiting and constipation. Denies dysuria, frequency, urgency and hematuria. Allergies: nitroglycerin, pork/porcine containing products Social history: Alcohol, marijuana, nicotine abuse - Current Medication List Current Medications: Active Medications Acetaminophen (Ofirmev Injection -) 1,000 mg IVPB Q6H PRN PRN Reason: PAIN LEVEL 6-10 Last Admin: 06/10/19 10:39 Dose: 1,000 mg Amlodipine Besylate (Norvasc -) 10 mg PO DAILY [facility] Last Admin: 06/11/19 09:31 Dose: Not Given Aspirin (Asa -) 81 mg PO DAILY [facility] Last Admin: 06/11/19 09:30 Dose: 81 mg Lactated Ringer's (Lactated Ringers Solution) 1,000 mls @ 75 mls/hr IV ASDIR [facility] Last Admin: 06/11/19 17:19 Dose: 75 mls/hr Insulin Aspart (Novolog Vial Sliding Scale -) 1 vial SQ ACHS [facility]; Protocol Last Admin: 06/11/19 21:15 Dose: Not Given Labetalol HCl (Normodyne -) 200 mg PO TID [facility] Last Admin: 06/11/19 21:07 Dose: 200 mg Losartan Potassium (Cozaar -) 100 mg PO DAILY [facility] Last Admin: 06/11/19 09:31 Dose: Not Given Pantoprazole Sodium (Protonix Iv) 40 mg IVPUSH BID [facility] Last Admin: 06/11/19 21:08 Dose: 40 mg Quetiapine Fumarate (Seroquel -) 200 mg PO BID [facility] Last Admin: 06/11/19 21:07 Dose: 200 mg Simethicone (Mylicon -) 80 mg PO QID [facility] Last Admin: 06/11/19 21:07 Dose: 80 mg Trazodone HCl (Desyrel -) 100 mg PO HS [facility] Last Admin: 06/11/19 21:07 Dose: 100 mg - Objective Vital Signs: Vital Signs Temperature 98.3 F 06/12/19 02:28 Pulse Rate 96 H 06/12/19 02:28 Respiratory Rate 06/12/19 02:28 Blood Pressure 139/81 06/12/19 02:28 O2 Sat by Pulse Oximetry (%) 99 06/11/19 21:00 Constitutional: Yes: Calm, Obese HENT: Yes: WNL Neck: Yes: WNL Cardiovascular: Yes: S1, S2, S4 Respiratory: Yes: WNL Gastrointestinal: Yes: Soft. No: Tenderness ...Rectal Exam: Yes: Deferred Genitourinary: Yes: WNL Breast(s): Yes: WNL Extremities: Yes: WNL Edema: No Peripheral Pulses WNL: Yes Integumentary: Yes: WNL ...Motor Strength: WNL Psychiatric: Yes: WNL Labs: CBC, BMP 06/11/19 07:52 06/11/19 07:52 INR, PTT INR 1.13 (0.83-1.09) H 06/11/19 07:52 - ....Imaging Chest X-ray: Image Reviewed EKG: Image Reviewed Problem List - Problems (1) Abdominal pain Code(s): R10.9 - UNSPECIFIED ABDOMINAL PAIN Qualifiers: Abdominal location: right lower quadrant Qualified Code(s): R10.31 - Right lower quadrant pain (2) Depression Code(s): F32.9 - MAJOR DEPRESSIVE DISORDER, SINGLE EPISODE, UNSPECIFIED (3) Diastolic heart failure Code(s): I50.30 - UNSPECIFIED DIASTOLIC (CONGESTIVE) HEART FAILURE (4) Substance abuse Code(s): F19.10 - OTHER PSYCHOACTIVE SUBSTANCE ABUSE, UNCOMPLICATED (5) Alcohol dependence Code(s): F10.20 - ALCOHOL DEPENDENCE, UNCOMPLICATED (6) Anxiety Code(s): F41.9 - ANXIETY DISORDER, UNSPECIFIED (7) Aortic dissection Assessment/Plan: Pt says he was at [facility] several weeks ago; it was suspected his aorta was widening, and he was sent to [facility], where "everything was OK". CT chest now shows no interval change from 04/09 (ascending-->abdominal aorta dissection/aneurysmal dilatation with repari). Code(s): I71.00 - DISSECTION OF UNSPECIFIED SITE OF AORTA Qualifiers: Aortic location: thoracic aorta Qualified Code(s): I71.01 - Dissection of thoracic aorta (8) HTN (hypertension) Code(s): I10 - ESSENTIAL (PRIMARY) HYPERTENSION (9) Hyperlipidemia Code(s): E78.5 - HYPERLIPIDEMIA, UNSPECIFIED (10) Obesity (BMI 30-39.9) Code(s): E66.9 - OBESITY, UNSPECIFIED (11) DM2 (diabetes mellitus, type 2) Code(s): E11.9 - TYPE 2 DIABETES MELLITUS WITHOUT COMPLICATIONS Qualifiers: Diabetes mellitus nursing home insulin use: without nursing home use Diabetes mellitus complication status: with unspecified complications (12) History of DVT (deep vein thrombosis) Code(s): Z86.718 - PERSONAL HISTORY OF OTHER VENOUS THROMBOSIS AND EMBOLISM (13) Hypercholesterolemia Code(s): E78.00 - PURE HYPERCHOLESTEROLEMIA, UNSPECIFIED (14) Nicotine dependence Code(s): F17.200 - NICOTINE DEPENDENCE, UNSPECIFIED, UNCOMPLICATED Qualifiers: Nicotine product type: cigarettes Substance use status: uncomplicated Qualified Code(s): F17.210 - Nicotine dependence, cigarettes, uncomplicated (15) Schizo affective schizophrenia Code(s): F25.9 - SCHIZOAFFECTIVE DISORDER, UNSPECIFIED (16) CAD (coronary artery disease) Assessment/Plan: Hx CABG, aortic aneurysm/dissection repair. TNI < 0.02 EKG: NSR; nonspecific T wave changes. ECHO: normal LVEF. Stress MIBI 03/2019: no myocardial ischemia. From a cardiac perspective, there are no absolute contraindications for Mr. Venegas to undergo gastric procedures (endoscopy). Code(s): I25.10 - ATHSCL HEART DISEASE OF [place] CORONARY ARTERY W/O ANG PCTRS
[2019-06-12] MEDS: LABETALOL HCL 200 MG TABLET (FP) PO SCH ×3 (05:45→21:57)
[2019-06-12] MEDS: INSULIN SLIDING SCALE (NOVOLOG) 1 VIAL SQ SCH ×4 (06:02→21:58)
[2019-06-12] MEDS: LOSARTAN POTASSIUM 50 MG TABLET (FP) PO SCH (09:34)
[2019-06-12] MEDS: ASPIRIN 81 MG CHEWABLE TABLETS PO SCH (09:34)
[2019-06-12] MEDS: QUEtiapine FUMARATE 200 MG TABLET PO SCH ×2 (09:35→21:57)
[2019-06-12] MEDS: PANTOPRAZOLE SODIUM 40 MG VIAL IVPUSH SCH ×2 (09:36→21:57)
[2019-06-12] MEDS: SIMETHICONE 80 MG TAB.CHEW (FP) PO SCH ×4 (09:36→21:57)
[2019-06-12] MEDS: amLODIPine BESYLATE 10 MG TABLET (FP) PO SCH (09:37)
[2019-06-12 10:27] LABS: BASO % 0.7 % (0-2.0); EOS % 1.6 % (0-4.5); HEMATOCRIT 40.2 % (35.4-49); HEMOGLOBIN 13.4 GM/dL (11.7-16.9); MCH 34.8 pg (25.7-33.7); MCHC 33.3 g/dl (32.0-35.9); MEAN CELL VOLUME 104.5 fl (80-96); MEAN PLT VOLUME 6.7 fl (7.5-11.1); MONO % 8.1 % (3.8-10.2); NEUT % 71.6 % (42.8-82.8); PLATELET COUNT 277 K/MM3 (134-434); RBC 3.85 M/mm3 (4.00-5.60); RDW 18.1 % (11.9-15.9); WHITE BLOOD COUNT 7.5 K/mm3 (4.0-10.0)
[2019-06-12 11:01] LABS: ALBUMIN 3.8 g/dl (3.4-5.0); BILIRUBIN,TOTAL 0.8 mg/dL (0.2-1); BLOOD UREA NITROGEN 5.9 mg/dL (7-18); CALCIUM 9.2 mg/dL (8.5-10.1); MAGNESIUM 1.8 mg/dL (1.8-2.4); TOT PROT 7.9 g/dl (6.4-8.2)
--- NOTE | 2019-06-12 11:14 | PN ---
Progress Note, Physician History of Present Illness: The patient is a 43 year old male with a significant PMH of duodenal mass, aortic dissection (s/p repair), CAD (s/p CABG), CHF (diastolic), HTN, Type 2 DM , Bipolar disorder/Schizophrenia; Insomnia, Depression who presents to the emergency department [facility] from [facility] for abdominal pain and chest pain. Pt reports his abdominal pain is radiating upwards towards his chest, associated with mild nausea and loose stools. Pt states he was diagnosed with pancreatitis 2 months ago and his symptoms feel similar. Pt states he has been in detox the past 4 days, and his last alcohol was 4 days ago. - Current Medication List Current Medications: Active Medications Acetaminophen (Ofirmev Injection -) 1,000 mg IVPB Q6H PRN PRN Reason: PAIN LEVEL 6-10 Last Admin: 06/10/19 10:39 Dose: 1,000 mg Amlodipine Besylate (Norvasc -) 10 mg PO DAILY [facility] Last Admin: 06/12/19 09:37 Dose: 10 mg Aspirin (Asa -) 81 mg PO DAILY [facility] Last Admin: 06/12/19 09:34 Dose: Not Given Lactated Ringer's (Lactated Ringers Solution) 1,000 mls @ 75 mls/hr IV ASDIR [facility] Last Admin: 06/11/19 17:19 Dose: 75 mls/hr Insulin Aspart (Novolog Vial Sliding Scale -) 1 vial SQ ACHS [facility]; Protocol Last Admin: 06/12/19 06:02 Dose: Not Given Labetalol HCl (Normodyne -) 200 mg PO TID [facility] Last Admin: 06/12/19 05:45 Dose: Not Given Losartan Potassium (Cozaar -) 100 mg PO DAILY [facility] Last Admin: 06/12/19 09:34 Dose: 100 mg Pantoprazole Sodium (Protonix Iv) 40 mg IVPUSH BID [facility] Last Admin: 06/12/19 09:36 Dose: 40 mg Quetiapine Fumarate (Seroquel -) 200 mg PO BID [facility] Last Admin: 06/12/19 09:35 Dose: 200 mg Simethicone (Mylicon -) 80 mg PO QID [facility] Last Admin: 06/12/19 09:36 Dose: 80 mg Trazodone HCl (Desyrel -) 100 mg PO HS [facility] Last Admin: 06/11/19 21:07 Dose: 100 mg - Objective Vital Signs: Vital Signs Temperature 98.3 F 06/12/19 10:00 Pulse Rate 95 H 06/12/19 10:00 Respiratory Rate 18 06/12/19 10:00 Blood Pressure 137/82 06/12/19 10:00 O2 Sat by Pulse Oximetry (%) 97 06/12/19 09:00 Eyes: Yes: WNL, Conjunctiva Clear, EOM Intact HENT: Yes: WNL, Atraumatic, Normocephalic Neck: Yes: WNL, Supple, Trachea Midline Cardiovascular: Yes: WNL, Regular Rate and Rhythm Respiratory: Yes: WNL, Regular, CTA Bilaterally Gastrointestinal: Yes: WNL, Normal Bowel Sounds Genitourinary: Yes: WNL Musculoskeletal: Yes: WNL Extremities: Yes: WNL Edema: No Integumentary: Yes: WNL Neurological: Yes: WNL, Alert, Oriented ...Motor Strength: WNL Psychiatric: Yes: WNL Labs: CBC, BMP 06/12/19 09:51 06/12/19 09:51 INR, PTT INR 1.13 (0.83-1.09) H 06/11/19 07:52 Problem List - Problems (1) Abdominal pain Code(s): R10.9 - UNSPECIFIED ABDOMINAL PAIN Qualifiers: Abdominal location: right lower quadrant Qualified Code(s): R10.31 - Right lower quadrant pain (2) Depression Code(s): F32.9 - MAJOR DEPRESSIVE DISORDER, SINGLE EPISODE, UNSPECIFIED (3) Diastolic heart failure Code(s): I50.30 - UNSPECIFIED DIASTOLIC (CONGESTIVE) HEART FAILURE (4) Duodenal ulcer Code(s): K26.9 - DUODENAL ULCER, UNSP ACUTE OR CHRONIC, W/O HEMOR OR PERF (5) Duodenitis Code(s): K29.80 - DUODENITIS WITHOUT BLEEDING (6) Prophylactic measure Code(s): Z29.9 - ENCOUNTER FOR PROPHYLACTIC MEASURES, UNSPECIFIED (7) S/P CABG (coronary artery bypass graft) Code(s): Z95.1 - PRESENCE OF AORTOCORONARY BYPASS GRAFT (8) Substance abuse Code(s): F19.10 - OTHER PSYCHOACTIVE SUBSTANCE ABUSE, UNCOMPLICATED (9) Abnormal LFTs (liver function tests) Code(s): R79.89 - OTHER SPECIFIED ABNORMAL FINDINGS OF BLOOD CHEMISTRY (10) Alcohol dependence Code(s): F10.20 - ALCOHOL DEPENDENCE, UNCOMPLICATED (11) Alcohol dependence with uncomplicated withdrawal Code(s): F10.230 - ALCOHOL DEPENDENCE WITH WITHDRAWAL, UNCOMPLICATED (12) Anxiety Code(s): F41.9 - ANXIETY DISORDER, UNSPECIFIED (13) Aortic dissection Code(s): I71.00 - DISSECTION OF UNSPECIFIED SITE OF AORTA Qualifiers: Aortic location: thoracic aorta Qualified Code(s): I71.01 - Dissection of thoracic aorta (14) Atypical chest pain Code(s): R07.89 - OTHER CHEST PAIN (15) Bacteremia Code(s): R78.81 - BACTEREMIA (16) Cannabis dependence Code(s): F12.20 - CANNABIS DEPENDENCE, UNCOMPLICATED (17) Chest pain Code(s): R07.9 - CHEST PAIN, UNSPECIFIED Qualifiers: Chest pain type: chest pain on breathing Qualified Code(s): R07.1 - Chest pain on breathing; R07.81 - Pleurodynia (18) Crutches as ambulation aid Code(s): [id number] - (19) ETOH abuse Code(s): F10.10 - ALCOHOL ABUSE, UNCOMPLICATED (20) EtOH dependence Code(s): F10.20 - ALCOHOL DEPENDENCE, UNCOMPLICATED (21) HTN (hypertension) Code(s): I10 - ESSENTIAL (PRIMARY) HYPERTENSION (22) Hx of CABG Code(s): Z95.1 - PRESENCE OF AORTOCORONARY BYPASS GRAFT (23) Hyperlipidemia Code(s): E78.5 - HYPERLIPIDEMIA, UNSPECIFIED (24) Obesity (BMI 30-39.9) Code(s): E66.9 - OBESITY, UNSPECIFIED (25) Rhabdomyolysis Code(s): M62.82 - RHABDOMYOLYSIS (26) Substance-induced sleep disorder Code(s): F19.982 - OTH PSYCHOACTIVE SUBSTANCE USE, UNSP W SLEEP DISORDER (27) Tachycardia Code(s): R00.0 - TACHYCARDIA, UNSPECIFIED (28) Unspecified nystagmus Code(s): H55.00 - UNSPECIFIED NYSTAGMUS (29) CAD (coronary artery disease) Code(s): I25.10 - ATHSCL HEART DISEASE OF [place] CORONARY ARTERY W/O ANG PCTRS (30) DM2 (diabetes mellitus, type 2) Code(s): E11.9 - TYPE 2 DIABETES MELLITUS WITHOUT COMPLICATIONS Qualifiers: Diabetes mellitus fci insulin use: without fci use Diabetes mellitus complication status: with unspecified complications (31) DVT prophylaxis Code(s): [id number] - (32) Essential hypertension Code(s): I10 - ESSENTIAL (PRIMARY) HYPERTENSION (33) History of DVT (deep vein thrombosis) Code(s): Z86.718 - PERSONAL HISTORY OF OTHER VENOUS THROMBOSIS AND EMBOLISM (34) History of aortic dissection Code(s): Z86.79 - PERSONAL HISTORY OF OTHER DISEASES OF THE CIRCULATORY SYSTEM (35) Hypercholesterolemia Code(s): E78.00 - PURE HYPERCHOLESTEROLEMIA, UNSPECIFIED (36) Injury of right ankle Code(s): S99.911A - UNSPECIFIED INJURY OF RIGHT ANKLE, INITIAL ENCOUNTER (37) Insomnia Code(s): G47.00 - INSOMNIA, UNSPECIFIED Qualifiers: Insomnia type: unspecified Qualified Code(s): G47.00 - Insomnia, unspecified (38) Nicotine dependence Code(s): F17.200 - NICOTINE DEPENDENCE, UNSPECIFIED, UNCOMPLICATED Qualifiers: Nicotine product type: cigarettes Substance use status: uncomplicated Qualified Code(s): F17.210 - Nicotine dependence, cigarettes, uncomplicated (39) Non-compliance Code(s): Z91.19 - PATIENT'S NONCOMPLIANCE W OTH MEDICAL TREATMENT AND REGIMEN (40) Schizoaffective disorder Code(s): F25.9 - SCHIZOAFFECTIVE DISORDER, UNSPECIFIED Qualifiers: Schizoaffective disorder type: unspecified Qualified Code(s): F25.9 - Schizoaffective disorder, unspecified (41) Substance induced mood disorder Code(s): F19.94 - OTH PSYCHOACTIVE SUBSTANCE USE, UNSP W MOOD DISORDER (43) Aortic aneurysm and dissection Code(s): I71.00 - DISSECTION OF UNSPECIFIED SITE OF AORTA (44) Bipolar disorder current episode depressed Code(s): F31.30 - BIPOLAR DISORD, CRNT EPSD DEPRESS, MILD OR MOD SEVERT, UNSP Qualifiers: Current episode severity: mild Qualified Code(s): F31.31 - Bipolar disorder , current episode depressed, mild Assessment/Plan - Problems (1) Abdominal pain Code(s): R10.9 - UNSPECIFIED ABDOMINAL PAIN Qualifiers: Abdominal location: right lower quadrant Qualified Code(s): R10.31 - Right lower quadrant pain (2) Depression Code(s): F32.9 - MAJOR DEPRESSIVE DISORDER, SINGLE EPISODE, UNSPECIFIED (3) Diastolic heart failure Code(s): I50.30 - UNSPECIFIED DIASTOLIC (CONGESTIVE) HEART FAILURE (4) Substance abuse Code(s): F19.10 - OTHER PSYCHOACTIVE SUBSTANCE ABUSE, UNCOMPLICATED (5) Alcohol dependence Code(s): F10.20 - ALCOHOL DEPENDENCE, UNCOMPLICATED (6) Anxiety Code(s): F41.9 - ANXIETY DISORDER, UNSPECIFIED (7) Aortic dissection Assessment/Plan: Pt says he was at [facility] several weeks ago; it was suspected his aorta was widening, and he was sent to [facility], where "everything was OK". CT chest now shows no interval change from 04/09 (ascending-->abdominal aorta dissection/aneurysmal dilatation with repari). 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 helper insulin use: without termite helper use Diabetes mellitus complication status: with unspecified complications (12) History of DVT (deep vein thrombosis) Code(s): Z86.718 - PERSONAL HISTORY OF OTHER VENOUS THROMBOSIS AND EMBOLISM (13) Hypercholesterolemia Code(s): E78.00 - PURE HYPERCHOLESTEROLEMIA, UNSPECIFIED (14) Nicotine dependence Code(s): F17.200 - NICOTINE DEPENDENCE, UNSPECIFIED, UNCOMPLICATED Qualifiers: Nicotine product type: cigarettes Substance use status: uncomplicated Qualified Code(s): F17.210 - Nicotine dependence, cigarettes, uncomplicated (15) Schizo affective schizophrenia Code(s): F25.9 - SCHIZOAFFECTIVE DISORDER, UNSPECIFIED (16) CAD (coronary artery disease) Assessment/Plan: Hx CABG, aortic aneurysm/dissection repair. TNI < 0.02 EKG: NSR; nonspecific T wave changes. ECHO: normal LVEF. Stress MIBI 03/2019: no myocardial ischemia. From a cardiac perspective, there are no absolute contraindications for Mr. Venegas to undergo gastric procedures (endoscopy). Code(s): I25.10 - ATHSCL HEART DISEASE OF [place] CORONARY ARTERY W/O ANG PCTRS
--- NOTE | 2019-06-12 11:39 | PN ---
Physical Exam: SUBJECTIVE: Patient seen and examined at the bedside. cleared by cardiology for egd. patient reports feeling well, no abdominal pain, had a bm today which he states was solid and normal. no diarrhea. denies chest pain, denies malaise. wants to go back to rehab at [facility] on discharge. OBJECTIVE: Patient is a 49 year old male with a significant past medical history of doudenal lesion/mass, aortic dissection s/p repair, CAD s/s CABG, d-CHF, HTN, T2DM, Bipolar disorder, schizophrenia, depression, insomnia, presents from to ED from [facility] with c/o constant, sharp, abdominal pain of 1 day duration. abdominal pain has since worsened w/ no relief and associated with nausea and one episode of semi-solid diarrhea. He is being admitted for intractable abdominal pain. CT scan shows duodenal inflammation with no evidence of pancreatitis. Currently patient without abdominal pain/nausea/ vomiting and has been tolerating his diet. He is pending EGD today and has been cleared by cardiology for this procedure. imaging: CT a/p w/wo contrast: duodenal inflammation but no evidence of acute pancreatitis. No pulmonary embolism on chest/thorax CTA. Dissection in the descending thoracic aorta extending from the distal aortic arch after the origin of the left brachio-cephalic artery. Descending thoracic aorta is aneurysmally dilated 3.6cm. Vital Signs Period Temp Pulse Resp BP Sys/Garcia Pulse Ox Last 24 Hr 98 F-98.7 F 89-98 18-20 131-143/70-88 97-99 GENERAL: The patient is awake, alert, and fully oriented, in no acute distress. HEAD: Normal with no signs of trauma. EYES: PERRL, extraocular movements intact, sclera anicteric, conjunctiva clear. No ptosis. ENT: Ears normal, nares patent, oropharynx clear without exudates, moist mucous membranes. NECK: Trachea midline, full range of motion, supple. LUNGS: Breath sounds equal, clear to auscultation bilaterally HEART: Regular rate and rhythm ABDOMEN: Soft, nontender, mildly distended, but no pain on palpation. EXTREMITIES: no edema. NEUROLOGICAL: Normal speech, gait not observed. PSYCH: Normal mood, normal affect. SKIN: Warm, dry, normal turgor, no rashes or lesions noted Laboratory Results - last 24 hr 06/11/19 06/11/19 06/12/19 12:11 17:25 09:51 WBC 7.5 RBC 3.85 L Hgb 13.4 Hct 40.2 MCV 104.5 H MCH 34.8 H MCHC 33.3 RDW 18.1 H Plt Count 277 MPV 6.7 L Absolute Neuts (auto) 5.4 Neutrophils % 71.6 Lymphocytes % 18.0 Monocytes % 8.1 Eosinophils % 1.6 Basophils % 0.7 Nucleated RBC % 0 Sodium Potassium Chloride Carbon Dioxide Anion Gap BUN Creatinine Est GFR (CKD-EPI)AfAm Est GFR (CKD-EPI)NonAf POC Glucometer 109 110 Random Glucose Calcium Magnesium Total Bilirubin AST ALT Alkaline Phosphatase Creatine Kinase Creatine Kinase Index CK-MB (CK-2) Total Protein Albumin 06/12/19 09:51 WBC RBC Hgb Hct MCV MCH MCHC RDW Plt Count MPV Absolute Neuts (auto) Neutrophils % Lymphocytes % Monocytes % Eosinophils % Basophils % Nucleated RBC % Sodium 137 Potassium 4.0 Chloride 104 Carbon Dioxide 26 Anion Gap 7 L BUN 5.9 L Creatinine 1.0 Est GFR (CKD-EPI)AfAm 103.42 Est GFR (CKD-EPI)NonAf 89.23 POC Glucometer Random Glucose 118 H Calcium 9.2 Magnesium 1.8 Total Bilirubin 0.8 AST 57 H ALT 53 Alkaline Phosphatase 45 Creatine Kinase 592 H Creatine Kinase Index 0.3 CK-MB (CK-2) 1.8 Total Protein 7.9 Albumin 3.8 Active Medications Generic Name Dose Route Start Last Admin Trade Name Freq PRN Reason Stop Dose Admin Acetaminophen 1,000 mg 06/09/19 04:14 06/10/19 10:39 Ofirmev Injection - IVPB 1,000 mg Q6H PRN Administration PAIN LEVEL 6-10 Amlodipine Besylate 10 mg 06/10/19 10:00 06/12/19 09:37 Norvasc - PO 10 mg DAILY JOSE LUIS Administration Aspirin 81 mg 06/10/19 10:00 06/12/19 09:34 Asa - PO Not Given DAILY JOSE LUIS Lactated Ringer's 1,000 mls @ 75 mls/hr 06/09/19 11:19 06/11/19 17:19 Lactated Ringers Solution IV 75 mls/hr ASDIR JOSE LUIS Administration Insulin Aspart 1 vial 06/09/19 07:00 06/12/19 06:02 Novolog Vial Sliding Scale - SQ Not Given ACHS [facility] Protocol Labetalol HCl 200 mg 06/09/19 22:00 06/12/19 05:45 Normodyne - PO Not Given TID JOSE LUIS Losartan Potassium 100 mg 06/10/19 10:00 06/12/19 09:34 Cozaar - PO 100 mg DAILY JOSE LUIS Administration Pantoprazole Sodium 40 mg 06/09/19 10:00 06/12/19 09:36 Protonix Iv IVPUSH 40 mg BID JOSE LUIS Administration Quetiapine Fumarate 200 mg 06/11/19 10:00 06/12/19 09:35 Seroquel - PO 200 mg BID JOSE LUIS Administration Simethicone 80 mg 06/10/19 10:00 06/12/19 09:36 Mylicon - PO 80 mg QID JOSE LUSI Administration Trazodone HCl 100 mg 06/09/19 22:00 06/11/19 21:07 Desyrel - PO 100 mg HS JOSE LUIS Administration ASSESSMENT/PLAN: Problem List - Problems (1) Abdominal pain Assessment/Plan: CT imaging revealing lesion, possibly lipoma, in the distal duodenum seen in An EGD was planned to further evaluate but he refused the study on last admission CT now consistent duodenal inflammation but no evidence of acute pancreatitis tolerating diet, no n/v/d. On protonix patient completed gi series on 06/11/19, for egd today Code(s): R10.9 - UNSPECIFIED ABDOMINAL PAIN Qualifiers: Abdominal location: right lower quadrant Qualified Code(s): R10.31 - Right lower quadrant pain (2) Diastolic heart failure Assessment/Plan: appears euvolemic. monitor for volume overload. Code(s): I50.30 - UNSPECIFIED DIASTOLIC (CONGESTIVE) HEART FAILURE (3) S/P CABG (coronary artery bypass graft) Code(s): Z95.1 - PRESENCE OF AORTOCORONARY BYPASS GRAFT (4) Substance abuse Assessment/Plan: for rehab after d/c. on libirum taper. Code(s): F19.10 - OTHER PSYCHOACTIVE SUBSTANCE ABUSE, UNCOMPLICATED (5) Alcohol dependence with uncomplicated withdrawal Assessment/Plan: on librium taper Code(s): F10.230 - ALCOHOL DEPENDENCE WITH WITHDRAWAL, UNCOMPLICATED (6) Aortic dissection Assessment/Plan: CT chest now shows no interval change from 04/09 cardiology following, cleared for egd. Code(s): I71.00 - DISSECTION OF UNSPECIFIED SITE OF AORTA Qualifiers: Aortic location: thoracic aorta Qualified Code(s): I71.01 - Dissection of thoracic aorta (7) ETOH abuse Assessment/Plan: on librium taper Code(s): F10.10 - ALCOHOL ABUSE, UNCOMPLICATED (8) DM2 (diabetes mellitus, type 2) Assessment/Plan: on novolog based on sliding scale Code(s): E11.9 - TYPE 2 DIABETES MELLITUS WITHOUT COMPLICATIONS Qualifiers: Diabetes mellitus ferry terminal supervisor insulin use: without custodial use Diabetes mellitus complication status: with unspecified complications (9) Abnormal CPK Assessment/Plan: trending down Code(s): R74.8 - ABNORMAL LEVELS OF OTHER SERUM ENZYMES (10) Prophylactic measure Assessment/Plan: FEN Fluids: tolerating po Electrolytes: monitor & replete as needed Nutrition: low salt/low chl diet. DVT: scds. ambulation. discharge planning back to [facility] after egd results Code(s): Z29.9 - ENCOUNTER FOR PROPHYLACTIC MEASURES, UNSPECIFIED (11) DVT prophylaxis Code(s): UAE8707 - Visit type - Emergency Visit Emergency Visit: Yes ED Registration Date: 06/09/19 Care time: The patient presented to the Emergency Department on the above date and was hospitalized for further evaluation of their emergent condition. - New Patient This patient is new to me today: No - Critical Care Critical Care patient: No - Discharge Referral Referred to [facility] Med P.C.: No
[2019-06-12] MEDS: LACTATED RINGERS SOLUTION 1,000 ML IV SCH (13:49)
--- NOTE | 2019-06-12 16:27 | PN ---
Progress Note (short form) - Note Progress Note: EGD had been tentatively planned for today to evaluate abdominal pain and CT findings however on further discussion with anesthesiologist and seo marketing specialist decision was made to defer endoscopy at this time with risks likely outweighing potential benefits currently considering pts cardiovascular comorbidities including aortic dissection. Furthermore pt denies further abdominal pain and UGI series was unremarkable. Recommend monitoring for recurrent abdominal pain and close follow up for repeat CT imaging (CT enterography preferably) in 2-4 weeks to reassess as unclear if this represented secondary inflammatory changes in setting of recent episode of pancreatitis. If EGD to be pursued recommend be performed in tertiary care center. Spoke with pt discussed above who verbalized understanding and is agreeable, states he will resume follow up at [facility] in [place] where he resides.
[2019-06-12] MEDS: traZODone HCL 50 MG TABLET (FP) PO SCH (21:57)
[2019-06-13] MEDS: LABETALOL HCL 200 MG TABLET (FP) PO SCH ×2 (06:34→13:27)
[2019-06-13] MEDS: INSULIN SLIDING SCALE (NOVOLOG) 1 VIAL SQ SCH ×2 (06:34→11:59)
[2019-06-13 06:44] VITALS: PULSE 87
[2019-06-13] MEDS ORDERED: PT OWN MED DRAWER 7, Y5N ONE (08:48)
[2019-06-13 09:06] VITALS: BP 137/90; TEMP 98.3
[2019-06-13] MEDS: amLODIPine BESYLATE 10 MG TABLET (FP) PO SCH (09:11)
[2019-06-13] MEDS: ASPIRIN 81 MG CHEWABLE TABLETS PO SCH (09:11)
[2019-06-13] MEDS: SIMETHICONE 80 MG TAB.CHEW (FP) PO SCH ×2 (09:11→13:26)
[2019-06-13] MEDS: PANTOPRAZOLE SODIUM 40 MG VIAL IVPUSH SCH (09:12)
[2019-06-13] MEDS: LOSARTAN POTASSIUM 50 MG TABLET (FP) PO SCH (09:12)
[2019-06-13] MEDS: QUEtiapine FUMARATE 200 MG TABLET PO SCH (09:13)
--- NOTE | 2019-06-13 09:31 | DS ---
Physical Exam: SUBJECTIVE: Patient seen and examined for discharge back to [facility]. EGD cancelled and patient to have procedure done as an outpatient at a [facility] center since he is asymptomatic. He is in agreement. OBJECTIVE: Patient is a 49 year old male with a significant past medical history of doudenal lesion/mass, aortic dissection s/p repair, CAD s/s CABG, d-CHF, HTN, T2DM, Bipolar disorder, schizophrenia, depression, insomnia, presents from to ED from [facility] with c/o constant, sharp, abdominal pain of 1 day duration. abdominal pain has since worsened w/ no relief and associated with nausea and one episode of semi-solid diarrhea. He is being admitted for intractable abdominal pain. CT scan shows duodenal inflammation with no evidence of pancreatitis. Currently patient without abdominal pain/nausea/vomiting and has been tolerating his diet. He was scheduled for an EGD today, but procedure cancelled by anethesia as patient is deemed high risk to have procedure done at [facility]. He is no longer having symptoms as his abdominal pain is now resolved. He is in agreement to have CT scan repeated within 2-4 weeks with his PCP and have EGD done at a tertiary center. Discussed with GI. imaging: CT a/p w/wo contrast: duodenal inflammation but no evidence of acute pancreatitis. No pulmonary embolism on chest/thorax CTA. Dissection in the descending thoracic aorta extending from the distal aortic arch after the origin of the left brachio-cephalic artery. Descending thoracic aorta is aneurysmally dilated 3.6cm. Vital Signs Period Temp Pulse Resp BP Sys/Garcia Pulse Ox Last 24 Hr 97.4 F-98.5 F 87-103 18-18 107-137/63-90 97 PHYSICAL EXAM GENERAL: The patient is awake, alert, and fully oriented, in no acute distress. HEAD: Normal with no signs of trauma. EYES: PERRL, extraocular movements intact, sclera anicteric, conjunctiva clear. No ptosis. ENT: Ears normal, nares patent, oropharynx clear without exudates, moist mucous membranes. NECK: Trachea midline, full range of motion, supple. LUNGS: Breath sounds equal, clear to auscultation bilaterally HEART: Regular rate and rhythm ABDOMEN: Soft, nontender, mildly distended, but no pain on palpation. EXTREMITIES: no edema. NEUROLOGICAL: Normal speech, gait not observed. PSYCH: Normal mood, normal affect. SKIN: Warm, dry, normal turgor, no rashes or lesions noted LABS Laboratory Results - last 24 hr 06/12/19 06/12/19 06/12/19 09:51 09:51 11:51 WBC 7.5 RBC 3.85 L Hgb 13.4 Hct 40.2 MCV 104.5 H MCH 34.8 H MCHC 33.3 RDW 18.1 H Plt Count 277 MPV 6.7 L Absolute Neuts (auto) 5.4 Neutrophils % 71.6 Lymphocytes % 18.0 Monocytes % 8.1 Eosinophils % 1.6 Basophils % 0.7 Nucleated RBC % 0 Sodium 137 Potassium 4.0 Chloride 104 Carbon Dioxide 26 Anion Gap 7 L BUN 5.9 L Creatinine 1.0 Est GFR (CKD-EPI)AfAm 103.42 Est GFR (CKD-EPI)NonAf 89.23 POC Glucometer 116 Random Glucose 118 H Calcium 9.2 Magnesium 1.8 Total Bilirubin 0.8 AST 57 H ALT 53 Alkaline Phosphatase 45 Creatine Kinase 592 H Creatine Kinase Index 0.3 CK-MB (CK-2) 1.8 Total Protein 7.9 Albumin 3.8 06/12/19 06/12/19 06/13/19 16:52 21:55 06:32 WBC RBC Hgb Hct MCV MCH MCHC RDW Plt Count MPV Absolute Neuts (auto) Neutrophils % Lymphocytes % Monocytes % Eosinophils % Basophils % Nucleated RBC % Sodium Potassium Chloride Carbon Dioxide Anion Gap BUN Creatinine Est GFR (CKD-EPI)AfAm Est GFR (CKD-EPI)NonAf POC Glucometer 145 110 131 Random Glucose Calcium Magnesium Total Bilirubin AST ALT Alkaline Phosphatase Creatine Kinase Creatine Kinase Index CK-MB (CK-2) Total Protein Albumin HOSPITAL COURSE: Date of Admission:06/09/19 Date of Discharge: 06/13/19 Minutes to complete discharge: 50 Discharge Summary Problems reviewed: Yes Reason For Visit: ENTERITIS, ABDOMINAL PAIN, NAUSEA Current Active Problems Abdominal pain (Acute) Abnormal CPK (Acute) Depression (Acute) Diastolic heart failure (Acute) Duodenal ulcer (Acute) Duodenitis (Acute) Prophylactic measure (Acute) S/P CABG (coronary artery bypass graft) (Acute) Schizo affective schizophrenia (Acute) Substance abuse (Acute) Condition: Improved - Instructions Diet, Activity, Other Instructions: Mr. Venegas: You were admitted for abdominal pain and you had an upper GI series. What is an upper GI series? An upper GI series is an exam (xray) that examines the upper gastrointestinal tract (the esophagus, stomach and duodenum). Your GI series was normal. You were scheduled for an EGD today. What is an EGD? An EGD or esophagogastroduodenoscopy is a procedure where a scope (flexible tube ) is inserted in your esophagus with a light and camera to look at the structure of your stomach and to evaluate what may be causing your abdominal pain. However, since your upper GI series was normal and your abdominal pain is now resolved, we recommend that you have a CT scan (CT enterography) in 2-4 weeks. If your need an EGD, we recommend that you have it done at either [facility] or [facility] due to your history of aortic dissection. Referrals: Garo Cardenas DO [Staff Physician] - Disposition: TRANSFER ACUTE CARE/OTHER HOSP - Home Medications Comprehensive Discharge Medication List: Ambulatory Orders Aspirin [ASA -] 81 mg PO DAILY 03/19/19 Atorvastatin Ca [Lipitor] 40 mg PO HS 03/19/19 Gemfibrozil [Lopid -] 600 mg PO BID 03/19/19 Losartan Potassium 100 mg PO DAILY 03/19/19 Metformin HCl [Glucophage] 500 mg PO BID 03/19/19 Quetiapine Fumarate [Seroquel -] 200 mg PO BID 03/19/19 traZODone HCL [Trazodone HCl] 100 mg PO HS 03/19/19 Amlodipine Besylate [Norvasc -] 10 mg PO DAILY tablet 03/27/19 Labetalol HCl [Normodyne -] 200 mg PO TID tablet 03/27/19 Glipizide [Glipizide Xl] 2.5 mg PO DAILY 06/07/19 Isosorbide Mononitrate [Isosorbide Mononitrate ER] 30 mg PO DAILY 06/07/19 Insulin Sliding Scale [Novolog Vial Sliding Scale -] 1 vial SQ ACHS units 06/12 Problem List - Problems (1) Abdominal pain Assessment/Plan: resolved, no nausea, vomiting or abdominal pain. tolerating meals and having daily bowel movements. EGD cancelled Code(s): R10.9 - UNSPECIFIED ABDOMINAL PAIN Qualifiers: Abdominal location: right lower quadrant Qualified Code(s): R10.31 - Right lower quadrant pain (2) Diastolic heart failure Assessment/Plan: appears euvolemic. monitor for volume overload. Code(s): I50.30 - UNSPECIFIED DIASTOLIC (CONGESTIVE) HEART FAILURE (3) S/P CABG (coronary artery bypass graft) Code(s): Z95.1 - PRESENCE OF AORTOCORONARY BYPASS GRAFT (4) Substance abuse Assessment/Plan: discharge back to [facility] for rehab Code(s): F19.10 - OTHER PSYCHOACTIVE SUBSTANCE ABUSE, UNCOMPLICATED (5) Alcohol dependence with uncomplicated withdrawal Assessment/Plan: completed librium taper Code(s): F10.230 - ALCOHOL DEPENDENCE WITH WITHDRAWAL, UNCOMPLICATED (6) Aortic dissection Code(s): I71.00 - DISSECTION OF UNSPECIFIED SITE OF AORTA Qualifiers: Aortic location: thoracic aorta Qualified Code(s): I71.01 - Dissection of thoracic aorta (7) ETOH abuse Code(s): F10.10 - ALCOHOL ABUSE, UNCOMPLICATED (8) DM2 (diabetes mellitus, type 2) Code(s): E11.9 - TYPE 2 DIABETES MELLITUS WITHOUT COMPLICATIONS Qualifiers: Diabetes mellitus jail insulin use: without jail use Diabetes mellitus complication status: with unspecified complications (9) Abnormal CPK Code(s): R74.8 - ABNORMAL LEVELS OF OTHER SERUM ENZYMES (10) Prophylactic measure Code(s): Z29.9 - ENCOUNTER FOR PROPHYLACTIC MEASURES, UNSPECIFIED (11) DVT prophylaxis Code(s): [id number] - This patient is new to me today: No Emergency Visit: Yes ED Registration Date: 06/09/19 Care time: The patient presented to the Emergency Department on the above date and was hospitalized for further evaluation of their emergent condition. Critical Care patient: No - Discharge Referral Referred to [facility] Med P.C.: No
[2019-06-13] MEDS: LACTATED RINGERS SOLUTION 1,000 ML IV SCH (11:47)
[2019-06-13] MEDS ORDERED: INSULIN (NOVOLOG) ASPART 100 UNITS/ML 10ML VIAL ONE (11:56)
--- NOTE | 2019-06-13 13:04 | PN ---
Progress Note, Physician Chief Complaint: Pt A&Ox3; no chest pain or dyspnea; + abdominal discomfort intermittently. History of Present Illness: The patient is a 43 year old black male with a significant PMH of duodenal mass , aortic dissection (s/p repair), CAD (s/p CABG), CHF (diastolic), HTN, Type 2 DM, Bipolar disorder/Schizophrenia; Insomnia, Depression who presents to the emergency department [facility] from [facility] for abdominal pain and chest pain. Pt reports his abdominal pain is radiating upwards towards his chest, associated with mild nausea and loose stools. Pt states he was diagnosed with pancreatitis 2 months ago and his symptoms feel similar. Pt states he has been in detox the past 4 days, and his last alcohol was 4 days ago. The patient denies shortness of breath, headache and dizziness. Denies fever, chills, cough, vomiting and constipation. Denies dysuria, frequency, urgency and hematuria. Allergies: nitroglycerin, pork/porcine containing products Social history: Alcohol, marijuana, nicotine abuse - Current Medication List Current Medications: Active Medications Acetaminophen (Ofirmev Injection -) 1,000 mg IVPB Q6H PRN PRN Reason: PAIN LEVEL 6-10 Last Admin: 06/10/19 10:39 Dose: 1,000 mg Amlodipine Besylate (Norvasc -) 10 mg PO DAILY [facility] Last Admin: 06/13/19 09:11 Dose: 10 mg Aspirin (Asa -) 81 mg PO DAILY [facility] Last Admin: 06/13/19 09:11 Dose: 81 mg Lactated Ringer's (Lactated Ringers Solution) 1,000 mls @ 75 mls/hr IV ASDIR [facility] Last Admin: 06/13/19 11:47 Dose: Not Given Insulin Aspart (Novolog Vial Sliding Scale -) 1 vial SQ ACHS [facility]; Protocol Last Admin: 06/13/19 11:59 Dose: 2 units Labetalol HCl (Normodyne -) 200 mg PO TID [facility] Last Admin: 06/13/19 06:34 Dose: Not Given Losartan Potassium (Cozaar -) 100 mg PO DAILY [facility] Last Admin: 06/13/19 09:12 Dose: 100 mg Pantoprazole Sodium (Protonix Iv) 40 mg IVPUSH BID [facility] Last Admin: 06/13/19 09:12 Dose: 40 mg Quetiapine Fumarate (Seroquel -) 200 mg PO BID [facility] Last Admin: 06/13/19 09:13 Dose: 200 mg Simethicone (Mylicon -) 80 mg PO QID [facility] Last Admin: 06/13/19 09:11 Dose: 80 mg Trazodone HCl (Desyrel -) 100 mg PO HS [facility] Last Admin: 06/12/19 21:57 Dose: 100 mg - Objective Vital Signs: Vital Signs Temperature 98.3 F 06/13/19 09:04 Pulse Rate 87 06/13/19 09:04 Respiratory Rate 18 06/13/19 09:04 Blood Pressure 137/90 06/13/19 09:04 O2 Sat by Pulse Oximetry (%) 99 06/13/19 09:00 Constitutional: Yes: Obese Labs: CBC, BMP 06/12/19 09:51 06/12/19 09:51 INR, PTT INR 1.13 (0.83-1.09) H 06/11/19 07:52 Problem List - Problems (1) Abdominal pain Code(s): R10.9 - UNSPECIFIED ABDOMINAL PAIN Qualifiers: Abdominal location: right lower quadrant Qualified Code(s): R10.31 - Right lower quadrant pain (2) Depression Code(s): F32.9 - MAJOR DEPRESSIVE DISORDER, SINGLE EPISODE, UNSPECIFIED (3) Diastolic heart failure Code(s): I50.30 - UNSPECIFIED DIASTOLIC (CONGESTIVE) HEART FAILURE (4) Substance abuse Code(s): F19.10 - OTHER PSYCHOACTIVE SUBSTANCE ABUSE, UNCOMPLICATED (5) Alcohol dependence Code(s): F10.20 - ALCOHOL DEPENDENCE, UNCOMPLICATED (6) Anxiety Code(s): F41.9 - ANXIETY DISORDER, UNSPECIFIED (7) Aortic dissection Code(s): I71.00 - DISSECTION OF UNSPECIFIED SITE OF AORTA Qualifiers: Aortic location: thoracic aorta Qualified Code(s): I71.01 - Dissection of thoracic aorta (8) HTN (hypertension) Code(s): I10 - ESSENTIAL (PRIMARY) HYPERTENSION (9) Hyperlipidemia Code(s): E78.5 - HYPERLIPIDEMIA, UNSPECIFIED (10) Obesity (BMI 30-39.9) Code(s): E66.9 - OBESITY, UNSPECIFIED (11) DM2 (diabetes mellitus, type 2) Code(s): E11.9 - TYPE 2 DIABETES MELLITUS WITHOUT COMPLICATIONS Qualifiers: Diabetes mellitus senior living insulin use: without manager intermediate use Diabetes mellitus complication status: with unspecified complications (12) History of DVT (deep vein thrombosis) Code(s): Z86.718 - PERSONAL HISTORY OF OTHER VENOUS THROMBOSIS AND EMBOLISM (13) Hypercholesterolemia Code(s): E78.00 - PURE HYPERCHOLESTEROLEMIA, UNSPECIFIED (14) Nicotine dependence Code(s): F17.200 - NICOTINE DEPENDENCE, UNSPECIFIED, UNCOMPLICATED Qualifiers: Nicotine product type: cigarettes Substance use status: uncomplicated Qualified Code(s): F17.210 - Nicotine dependence, cigarettes, uncomplicated (15) Schizo affective schizophrenia Code(s): F25.9 - SCHIZOAFFECTIVE DISORDER, UNSPECIFIED (16) CAD (coronary artery disease) Code(s): I25.10 - ATHSCL HEART DISEASE OF [place] CORONARY ARTERY W/O ANG PCTRS
== END 2019-06-13 11:55 | disposition short-term general hospital (02) | DRG 251 ==
LOC: JER 22:49 → JERBED 06-09 03:05 → J7W 06-09 12:19
PROVIDERS: ADMIT Internal Medicine; ATTEND Nurse Practitioner Family
DX: R10.31 Right lower quadrant pain (principal); I25.10 Atherosclerotic heart disease of native coronary artery without angina pectoris; E78.5 Hyperlipidemia, unspecified; F17.210 Nicotine dependence, cigarettes, uncomplicated; I10 Essential (primary) hypertension; E11.9 Type 2 diabetes mellitus without complications; I50.30 Unspecified diastolic (congestive) heart failure; E66.01 Morbid (severe) obesity due to excess calories; Z68.37 Body mass index [BMI] 37.0-37.9, adult; I71.00 Dissection of unspecified site of aorta; Z95.1 Presence of aortocoronary bypass graft; F31.9 Bipolar disorder, unspecified; F25.9 Schizoaffective disorder, unspecified
CPT/HCPCS: 36415; 71046-TC-FY; 71275-TC; 74177-TC; 74240-TC-FY; 80053; 81003; 82550; 82553; 82803; 82962; 83690; 83735; 84100; 84484; 85025; 85610; 85730; 87086; 93005; 93010; 99284-25; J0131; J7030; Q9967

== ENCOUNTER 2019-06-13 13:54 | Inpatient (IN) | payer OTHER ==
[2019-06-13 14:16] VITALS: BMI 37.3
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
[2019-06-13] MEDS ORDERED: MENTHOL/PHENOL 1 EACH UD MM PRN (15:40)
[2019-06-13] MEDS ORDERED: MAG HYDROX/AL HYDROX/SIMETH 30 ML UNIT-DOSE CUP PO PRN (15:40)
[2019-06-13] MEDS ORDERED: LOPERAMIDE HCL 2 MG CAPSULE PO PRN (15:40)
[2019-06-13] MEDS ORDERED: MAGNESIUM HYDROX 2400MG/30ML ORAL SUSPENSION 30 ML CUP PO PRN (15:40)
[2019-06-13] MEDS ORDERED: P-EPHED 60MG/TRIPROLIDI 2.5MG TABLET PO PRN (15:40)
[2019-06-13] MEDS ORDERED: MAGNESIUM CITRATE 300 ML BOTTLE PO PRN (15:40)
[2019-06-13] MEDS ORDERED: guaiFENesin 200 MG/10 ML 10 ML UNIT-DOSE CUPS PO PRN (15:40)
[2019-06-13] MEDS ORDERED: PANTOPRAZOLE 40 MG TABLET PO ONE (15:43)
[2019-06-13] MEDS ORDERED: INSULIN (NOVOLOG) ASPART 100 UNITS/ML 10ML VIAL ONE (16:43)
[2019-06-13] MEDS: ACETAMINOPHEN 325 MG TABLET (FP) PO PRN (16:53)
[2019-06-13] MEDS: INSULIN SLIDING SCALE (NOVOLOG) 1 VIAL SQ SCH ×2 (18:46→21:55)
[2019-06-13] MEDS: THIAMINE HCL 100 MG TABLET (FP) PO SCH (21:51)
[2019-06-13] MEDS: LABETALOL HCL 200 MG TABLET (FP) PO SCH (21:51)
[2019-06-13] MEDS ORDERED: MELATONIN 5 MG TABLETS PO ONE (23:20)
[2019-06-14] MEDS: LABETALOL HCL 200 MG TABLET (FP) PO SCH ×3 (06:20→21:02)
[2019-06-14] MEDS ORDERED: INSULIN (NOVOLOG) ASPART 100 UNITS/ML 10ML VIAL ONE ×2 (06:45→16:23)
[2019-06-14] MEDS: INSULIN SLIDING SCALE (NOVOLOG) 1 VIAL SQ SCH ×4 (06:45→21:03)
[2019-06-14] MEDS: ASPIRIN 81 MG CHEWABLE TABLETS PO SCH (10:53)
[2019-06-14] MEDS: amLODIPine BESYLATE 10 MG TABLET (FP) PO SCH (10:53)
[2019-06-14] MEDS: PRENATAL VITAMINS W/ FOLIC ACID TABLET (FP) PO SCH (10:53)
[2019-06-14] MEDS: LOSARTAN POTASSIUM 50 MG TABLET (FP) PO SCH (10:53)
--- NOTE | 2019-06-14 13:41 | PN ---
[facility] Progress Note Note: Patient admitted to rehab for alcohol dependence. Was admitted 06/07/2019 but transferred to [facility] on 06/09/2019 due to abdominal pain. Patient dx with Enteritis. Had GI series done in hospital and results normal. Admitted to rehab at [facility] yesterday evening. PMH: DM, HTN, HLD, CABG, HLD Vital Signs Temperature 98.2 F 06/14/19 11:30 Pulse Rate 85 06/14/19 11:30 Respiratory Rate 18 06/14/19 11:30 Blood Pressure 149/86 06/14/19 11:30 O2 Sat by Pulse Oximetry (%) Laboratory Tests 06/13/19 06/13/19 06/13/19 15:21 16:51 21:52 POC Glucometer 140 119 169 06/14/19 06/14/19 06:03 11:45 POC Glucometer 172 125 PE: alert and oriented x 3 skin warm and dry neck supple,no jvd gi nt,nd ext full rom, mild tremors amb ab noé A/P alcohol dependence DM htn s/p cabg HLD Patient's preferred pharmacy, [facility] called at [phone] and medications verified. PCP Brandee Del Valle MD. Continue rehab services
[2019-06-14] MEDS: metFORMIN HCL 500 MG TABLET (FP) PO SCH (16:24)
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
[2019-06-14] MEDS: THIAMINE HCL 100 MG TABLET (FP) PO SCH (21:00)
[2019-06-14] MEDS: ATORVASTATIN CA 40 MG TABLET (FP) PO SCH (21:01)
[2019-06-14] MEDS: QUEtiapine FUMARATE 100 MG TABLET (FP) PO SCH (21:01)
[2019-06-14] MEDS: traZODone HCL 50 MG TABLET (FP) PO SCH (21:02)
[2019-06-14] MEDS: MELATONIN 5 MG TABLETS PO PRN (21:02)
[2019-06-14] MEDS ORDERED: QUEtiapine FUMARATE 200 MG TABLET PO SCH (22:00)
[2019-06-15] MEDS: glipiZIDE-XL 2.5 MG TAB.ER.24 PO SCH (06:18)
[2019-06-15] MEDS: LABETALOL HCL 200 MG TABLET (FP) PO SCH ×3 (06:18→21:03)
[2019-06-15] MEDS: metFORMIN HCL 500 MG TABLET (FP) PO SCH ×2 (06:18→16:23)
[2019-06-15] MEDS: INSULIN SLIDING SCALE (NOVOLOG) 1 VIAL SQ SCH ×4 (06:20→21:02)
[2019-06-15] MEDS ORDERED: INSULIN (NOVOLOG) ASPART 100 UNITS/ML 10ML VIAL ONE ×3 (06:21→21:51)
[2019-06-15] MEDS: LOSARTAN POTASSIUM 50 MG TABLET (FP) PO SCH ×2 (08:11→10:12)
[2019-06-15] MEDS: ASPIRIN 81 MG CHEWABLE TABLETS PO SCH ×2 (08:12→10:12)
[2019-06-15] MEDS: amLODIPine BESYLATE 10 MG TABLET (FP) PO SCH ×2 (08:12→10:14)
--- NOTE | 2019-06-15 09:13 | PN ---
[facility] Progress Note Note: Patient is referred for chest pain 7-12/29. Patient has extensive cardiac history which includes aortic dissection 6 years ago; repaired, CAD ( s/p CABG) , HFpEF, HTN, HLD. Other history includes DM, duodenal mass, pancreatitis 2 months ago, Bipolar d/o, schizophrenia, insomnia and depression. Patient is examined in bed, in no apparent distress. He reports mild palpitation (HR 93), chest pain without radiation. He denies SOB, chills, headache, nausea or vomiting. PE General Appearance: A&Ox3,lying comfortably in bed,no apparent distress BP 119/72 HR 89 RR 18 T97.9 HEENT: AT/NC, oral mucosa moist with no lesions, CVS: S1S2, mild tachycardia CHEST: Lungs clear in all val[place] ABD: BS X 4, soft, non-tender, non-distended A/P Chest Pain-Patient is a 49 year old AA male with extensive cardiac history who presents with chest pain this morning. Patient was on imdure 30mg that was discontinued yesterday, reason unknown. Patient has list of outside medication that includes imdur. 1. Imdur 30mg ER restarted 2.EKG done, NSR with LVH possible normal variant. 3.Continue to monitor, if symptoms persist, will transfer to ED for further evaluation. Patient agrees with POC Discussed with nursing
[2019-06-15] MEDS ORDERED: ISOSORBIDE MONONITRATE 30 MG TAB.SR.24H (FP) PO SCH (10:00)
[2019-06-15] MEDS: PRENATAL VITAMINS W/ FOLIC ACID TABLET (FP) PO SCH (10:14)
--- NOTE | 2019-06-15 10:36 | EKG ---
Test Reason : Blood Pressure : / mmHG Vent. Rate : 086 BPM Atrial Rate : 086 BPM P-R Int : 140 ms QRS Dur : 082 ms QT Int : 382 ms P-R-T Axes : 073 000 -27 degrees QTc Int : 457 ms NORMAL SINUS RHYTHM MINIMAL VOLTAGE CRITERIA FOR LVH, MAY BE NORMAL VARIANT NONSPECIFIC T WAVE ABNORMALITY ABNORMAL ECG WHEN COMPARED WITH ECG OF 09-JUN-2019 10:42, INVERTED T WAVES HAVE REPLACED NONSPECIFIC T WAVE ABNORMALITY IN LATERAL LEADS Confirmed by NEW CARTER MD ([id number]) on 06/15/2019 10:36:25 AM Referred By: JANET FONTANEZ Confirmed By:ENW CARTER MD
[2019-06-15] MEDS: ISOSORBIDE MONONITRATE 30 MG TAB.SR.24H (FP) PO SCH (10:48)
[2019-06-15] MEDS: IBUPROFEN 400 MG TABLET (FP) PO PRN (13:18)
[2019-06-15] MEDS ORDERED: ALBUTEROL SO4 HFA INHALER IH PRN (13:19)
--- NOTE | 2019-06-15 13:24 | PN ---
[facility] Progress Note Note: As per RN, patient reports h/o asthma currently not documented in his medical history. He continues to report chest pain when he breathes, he has no cough, SOB or wheeze. Albuterol inhaler ordered, motrin for intercostal muscle pain.
[2019-06-15] MEDS: ALBUTEROL SO4 HFA INHALER IH PRN (13:45)
[2019-06-15] MEDS: ACETAMINOPHEN 325 MG TABLET (FP) PO PRN (15:06)
[2019-06-15] MEDS: ATORVASTATIN CA 40 MG TABLET (FP) PO SCH (21:01)
[2019-06-15] MEDS: MELATONIN 5 MG TABLETS PO PRN (21:01)
[2019-06-15] MEDS: QUEtiapine FUMARATE 100 MG TABLET (FP) PO SCH (21:01)
[2019-06-15] MEDS: THIAMINE HCL 100 MG TABLET (FP) PO SCH (21:01)
[2019-06-15] MEDS: traZODone HCL 50 MG TABLET (FP) PO SCH (21:01)
[2019-06-16] MEDS: metFORMIN HCL 500 MG TABLET (FP) PO SCH ×2 (06:35→16:59)
[2019-06-16] MEDS: LABETALOL HCL 200 MG TABLET (FP) PO SCH ×3 (06:35→23:05)
[2019-06-16] MEDS: glipiZIDE-XL 2.5 MG TAB.ER.24 PO SCH (06:35)
[2019-06-16] MEDS: INSULIN SLIDING SCALE (NOVOLOG) 1 VIAL SQ SCH ×4 (06:37→23:05)
[2019-06-16] MEDS ORDERED: INSULIN (NOVOLOG) ASPART 100 UNITS/ML 10ML VIAL ONE (06:44)
[2019-06-16] MEDS: IBUPROFEN 400 MG TABLET (FP) PO PRN ×2 (08:35→14:34)
[2019-06-16] MEDS: ALBUTEROL SO4 HFA INHALER IH PRN (08:36)
[2019-06-16] MEDS: PRENATAL VITAMINS W/ FOLIC ACID TABLET (FP) PO SCH (10:38)
[2019-06-16] MEDS: LOSARTAN POTASSIUM 50 MG TABLET (FP) PO SCH (10:38)
[2019-06-16] MEDS: ASPIRIN 81 MG CHEWABLE TABLETS PO SCH (10:38)
[2019-06-16] MEDS: ISOSORBIDE MONONITRATE 30 MG TAB.SR.24H (FP) PO SCH (10:38)
[2019-06-16] MEDS: amLODIPine BESYLATE 10 MG TABLET (FP) PO SCH (10:38)
[2019-06-16] MEDS: ACETAMINOPHEN 325 MG TABLET (FP) PO PRN (10:40)
--- NOTE | 2019-06-16 15:48 | PN ---
[facility] Progress Note Note: Patient was seen yesterday morning for chest pain 7-12/29. EKG done had no significant changes. Imdur 30mg that was discontinued on 06/14/19 was restarted. Later on in the afternoon, he reported chest pain with breathing and also reported h/o asthma, Motrin was encouraged, albuterol inhaler was ordered. Patient had an uneventful night but this afternoon, he c/o again of chest pain at which time he refused to be examined and requested to be evaluated in the ED. Discussed with Dr. Wilks, patient will be transferred for further evaluation.
[2019-06-16] MEDS: traZODone HCL 50 MG TABLET (FP) PO SCH (23:05)
[2019-06-16] MEDS: THIAMINE HCL 100 MG TABLET (FP) PO SCH (23:05)
[2019-06-16] MEDS: ATORVASTATIN CA 40 MG TABLET (FP) PO SCH (23:05)
[2019-06-16] MEDS: QUEtiapine FUMARATE 100 MG TABLET (FP) PO SCH (23:05)
[2019-06-17] MEDS ORDERED: traZODone HCL 50 MG TABLET (FP) PO ONE (01:36)
[2019-06-17] MEDS ORDERED: QUEtiapine FUMARATE 100 MG TABLET (FP) PO ONE (01:38)
[2019-06-17] MEDS: MELATONIN 5 MG TABLETS PO PRN ×2 (01:40→21:25)
[2019-06-17] MEDS: LABETALOL HCL 200 MG TABLET (FP) PO SCH ×3 (06:08→21:25)
[2019-06-17] MEDS: glipiZIDE-XL 2.5 MG TAB.ER.24 PO SCH (06:08)
[2019-06-17] MEDS: metFORMIN HCL 500 MG TABLET (FP) PO SCH ×2 (06:08→16:43)
[2019-06-17] MEDS: INSULIN SLIDING SCALE (NOVOLOG) 1 VIAL SQ SCH ×4 (06:08→21:26)
[2019-06-17] MEDS: LOSARTAN POTASSIUM 50 MG TABLET (FP) PO SCH (10:26)
[2019-06-17] MEDS: ISOSORBIDE MONONITRATE 30 MG TAB.SR.24H (FP) PO SCH (10:27)
[2019-06-17] MEDS: amLODIPine BESYLATE 10 MG TABLET (FP) PO SCH (10:27)
[2019-06-17] MEDS: PRENATAL VITAMINS W/ FOLIC ACID TABLET (FP) PO SCH (10:27)
[2019-06-17] MEDS: ASPIRIN 81 MG CHEWABLE TABLETS PO SCH (10:27)
[2019-06-17] MEDS ORDERED: INSULIN (NOVOLOG) ASPART 100 UNITS/ML 10ML VIAL ONE ×3 (11:46→22:22)
[2019-06-17] MEDS: ACETAMINOPHEN 325 MG TABLET (FP) PO PRN ×2 (15:08→19:23)
[2019-06-17] MEDS: THIAMINE HCL 100 MG TABLET (FP) PO SCH (21:24)
[2019-06-17] MEDS: ATORVASTATIN CA 40 MG TABLET (FP) PO SCH (21:24)
[2019-06-17] MEDS: traZODone HCL 50 MG TABLET (FP) PO SCH (21:25)
[2019-06-17] MEDS: QUEtiapine FUMARATE 100 MG TABLET (FP) PO SCH (21:25)
[2019-06-18] MEDS: glipiZIDE-XL 2.5 MG TAB.ER.24 PO SCH (06:07)
[2019-06-18] MEDS: LABETALOL HCL 200 MG TABLET (FP) PO SCH ×3 (06:07→21:00)
[2019-06-18] MEDS: metFORMIN HCL 500 MG TABLET (FP) PO SCH ×2 (06:07→16:21)
[2019-06-18] MEDS: INSULIN SLIDING SCALE (NOVOLOG) 1 VIAL SQ SCH ×4 (06:07→21:02)
[2019-06-18] MEDS: amLODIPine BESYLATE 10 MG TABLET (FP) PO SCH (10:37)
[2019-06-18] MEDS: PRENATAL VITAMINS W/ FOLIC ACID TABLET (FP) PO SCH (10:38)
[2019-06-18] MEDS: ISOSORBIDE MONONITRATE 30 MG TAB.SR.24H (FP) PO SCH (10:38)
[2019-06-18] MEDS: LOSARTAN POTASSIUM 50 MG TABLET (FP) PO SCH (10:38)
[2019-06-18] MEDS: ASPIRIN 81 MG CHEWABLE TABLETS PO SCH (10:38)
[2019-06-18] MEDS: ACETAMINOPHEN 325 MG TABLET (FP) PO PRN ×2 (13:10→19:12)
--- NOTE | 2019-06-18 13:13 | PN ---
[facility] Progress Note (SOAP) Subjective: Patient c/o sub-sternal pain. Recently seen in [facility] for same.PMH of Alcohol abuse, Aortic dissection( s/p repair 6 y ago), duodenal mass, CAD ( s/p CABG) , DM, HTN, HLD, recent pancreatitis ( 2 mo ago). States pain is at 8/10, non- radiating, Objective: BP: 120/68, O2 Sat: 98% at this examination 06/18/19 13:09 Laboratory Last Values POC Glucometer 84 UNITS (80-120) 06/18/19 12:29 Vital Signs (72 hours) 06/15/19 06/15/19 06/16/19 13:14 20:46 03:30 Temperature Pulse Rate 102 H 91 H Respiratory 18 16 18 Rate Blood Pressure 113/59 L 109/61 06/16/19 06/16/19 06/16/19 07:23 09:30 14:25 Temperature 97.8 F Pulse Rate 92 H 93 H 99 H Respiratory 18 18 16 Rate Blood Pressure 126/66 122/66 111/59 L 06/16/19 06/17/19 06/17/19 15:40 01:41 03:30 Temperature 98 F 98.2 F Pulse Rate 101 H 90 Respiratory 18 18 18 Rate Blood Pressure 103/58 L 141/79 06/17/19 06/17/19 06/17/19 06:48 09:30 21:31 Temperature 97.5 F L 96.1 F L Pulse Rate 101 H 91 H 101 H Respiratory 16 18 19 Rate Blood Pressure 127/70 149/93 140/72 06/18/19 06/18/19 06/18/19 00:30 03:30 06:35 Temperature 97.9 F Pulse Rate 84 Respiratory 18 18 18 Rate Blood Pressure 124/68 06/18/19 13:10 P/E: General: no apparent distress, sitting in chair comfortably Neck: NNo JVD Lungs: clear Heart: s1 s2 Abd: soft, non-tender +BS, obese 06/18/19 13:14 Assessment: atypical chest pain. 06/18/19 13:13 Plan: Pt took tylenol Rest, Continue to monitor F/U w/cardiology when discharged.
[2019-06-18] MEDS ORDERED: INSULIN (NOVOLOG) ASPART 100 UNITS/ML 10ML VIAL ONE ×2 (16:20→21:00)
[2019-06-18] MEDS: THIAMINE HCL 100 MG TABLET (FP) PO SCH (21:00)
[2019-06-18] MEDS: ATORVASTATIN CA 40 MG TABLET (FP) PO SCH (21:00)
[2019-06-18] MEDS: traZODone HCL 50 MG TABLET (FP) PO SCH (21:00)
[2019-06-18] MEDS: MELATONIN 5 MG TABLETS PO PRN (21:00)
[2019-06-18] MEDS: QUEtiapine FUMARATE 100 MG TABLET (FP) PO SCH (21:00)
[2019-06-18] MEDS: TOLNAFTATE 1% CREAM 15 GM TUBE TP SCH (21:02)
[2019-06-19] MEDS: glipiZIDE-XL 2.5 MG TAB.ER.24 PO SCH (06:11)
[2019-06-19] MEDS: metFORMIN HCL 500 MG TABLET (FP) PO SCH ×2 (06:11→16:18)
[2019-06-19] MEDS: LABETALOL HCL 200 MG TABLET (FP) PO SCH ×3 (06:12→21:01)
[2019-06-19] MEDS: INSULIN SLIDING SCALE (NOVOLOG) 1 VIAL SQ SCH ×4 (06:44→21:02)
[2019-06-19] MEDS: LOSARTAN POTASSIUM 50 MG TABLET (FP) PO SCH (10:17)
[2019-06-19] MEDS: ASPIRIN 81 MG CHEWABLE TABLETS PO SCH (10:17)
[2019-06-19] MEDS: ACETAMINOPHEN 325 MG TABLET (FP) PO PRN ×2 (10:17→14:51)
[2019-06-19] MEDS: PRENATAL VITAMINS W/ FOLIC ACID TABLET (FP) PO SCH (10:17)
[2019-06-19] MEDS: ISOSORBIDE MONONITRATE 30 MG TAB.SR.24H (FP) PO SCH (10:17)
[2019-06-19] MEDS: TOLNAFTATE 1% CREAM 15 GM TUBE TP SCH ×2 (10:23→21:02)
[2019-06-19] MEDS: amLODIPine BESYLATE 10 MG TABLET (FP) PO SCH (10:25)
--- NOTE | 2019-06-19 11:21 | PN ---
[facility] Progress Note Note: Patient is scheduled for discharge tomorrow. Scripts for 30 days supply of medications(Seroquel 100 mg/hs, Trazadone 100 mg/hs) will be electronically transmitted to [facility] at [address] [place] [address]
--- NOTE | 2019-06-19 15:07 | DS ---
[facility] Rehab Discharge Summary - [facility] Rehab Discharge Summary Admission Date: 06/13/19 Discharge Date: 06/20/19 - History Present History: Alcohol dependence, Cannabis dependence Pertinent Past History: 49 yo M PMH of Alcohol abuse, Aortic dissection( s/p repair 6 y ago), duodenal mass, CAD ( s/p CABG) , HFpEF, DM, HTN, HLD, recent pancreatitis ( 2 mo ago), Bipolar d/o, schizophrenia, insomnia, depression. Alcohol use began at age 18. Currently drinking approx 2 pints liquor daily along w/ 2 40's beer daily. Last drink prior to initial detox admission. Marijuana use began at age 18. Currently uses 1 joint/week. Nicotine use began at age 19. Smokes 1/2 PPD. Denies hx seizures or overdoses. States one blackout years ago. PSH: aortic dissection surgery at [facility] 6 y ago Psych Hx: Bipolar disorder/Schizophrenia; Insomnia, Depression . Denies thoughts of harming self or others. denies prior suicide attempts . requesting to see psych. States compliant w/ meds. States Provider @ [facility]. Last saw Provider 2 months ago. - Discharge Physical Exam Vital Signs: Vital Signs Temperature 97.7 F 06/19/19 07:43 Pulse Rate 91 H 06/19/19 09:30 Respiratory Rate 18 06/19/19 09:30 Blood Pressure 131/80 06/19/19 09:30 O2 Sat by Pulse Oximetry (%) Pertinent Admission Physical Exam Findings: Physical General Appearance: No Apparent Distress, HEENTM: Normocephalic, Respiratory: Lungs Clear, Cardiology: S1, S2. 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 He was evaluated at [facility] for c/o chest pain and returned to [facility]. he c/o intermittently of chest pain that resolved with tylenol. - Medication Discharge Medications: Ambulatory Orders Losartan Potassium 100 mg PO DAILY 03/19/19 Isosorbide Mononitrate [Isosorbide Mononitrate ER] 30 mg PO DAILY 06/07/19 Amlodipine Besylate [Norvasc -] 10 mg PO DAILY #30 tablet 06/19/19 Aspirin [ASA -] 81 mg PO DAILY #30 tab.chew 06/19/19 Atorvastatin Ca [Lipitor] 40 mg PO HS #30 tablet 06/19/19 Gemfibrozil [Lopid -] 600 mg PO BID #60 tablet 06/19/19 Glipizide [Glipizide Xl] 2.5 mg PO DAILY #30 tab.er.24 06/19/19 Insulin Sliding Scale [Novolog Vial Sliding Scale -] 1 vial SQ ACHS #1 units Labetalol HCl [Normodyne -] 200 mg PO TID #90 tablet 06/19/19 Metformin HCl [Glucophage] 500 mg PO BID #60 tablet 06/19/19 Quetiapine Fumarate [Seroquel -] 100 mg PO HS #30 tablet 06/19/19 traZODone HCL [Trazodone HCl] 100 mg PO HS #30 tablet 06/19/19 - Discharge Instructions Diet, activity, other medical instructions: Diet: Activity: Other medical instructions: - Diagnosis (1) Alcohol dependence with uncomplicated withdrawal Status: Chronic - Follow-up Referral Minutes to complete discharge: 20 - AMA Did Patient Leave Against Medical Advice: No
[2019-06-19] MEDS: THIAMINE HCL 100 MG TABLET (FP) PO SCH (21:01)
[2019-06-19] MEDS: ATORVASTATIN CA 40 MG TABLET (FP) PO SCH (21:01)
[2019-06-19] MEDS: QUEtiapine FUMARATE 100 MG TABLET (FP) PO SCH (21:01)
[2019-06-19] MEDS: traZODone HCL 50 MG TABLET (FP) PO SCH (21:01)
[2019-06-19] MEDS: MELATONIN 5 MG TABLETS PO PRN (21:01)
[2019-06-20] MEDS: metFORMIN HCL 500 MG TABLET (FP) PO SCH (06:01)
[2019-06-20] MEDS: glipiZIDE-XL 2.5 MG TAB.ER.24 PO SCH (06:01)
[2019-06-20] MEDS: LABETALOL HCL 200 MG TABLET (FP) PO SCH (06:01)
[2019-06-20] MEDS: INSULIN SLIDING SCALE (NOVOLOG) 1 VIAL SQ SCH (06:03)
[2019-06-20 06:47] VITALS: BP 148/82; PULSE 82; TEMP 97.8
[2019-06-20] MEDS: TOLNAFTATE 1% CREAM 15 GM TUBE TP SCH (09:00)
[2019-06-20] MEDS: PRENATAL VITAMINS W/ FOLIC ACID TABLET (FP) PO SCH (09:00)
[2019-06-20] MEDS: LOSARTAN POTASSIUM 50 MG TABLET (FP) PO SCH (09:00)
[2019-06-20] MEDS: amLODIPine BESYLATE 10 MG TABLET (FP) PO SCH (09:00)
[2019-06-20] MEDS: ASPIRIN 81 MG CHEWABLE TABLETS PO SCH (09:00)
[2019-06-20] MEDS: ISOSORBIDE MONONITRATE 30 MG TAB.SR.24H (FP) PO SCH (09:00)
== END 2019-06-20 09:08 | disposition home or self-care (01) | DRG 772 ==
LOC: YASAS 13:54 → Y3W 15:12
PROVIDERS: ADMIT Allergy & Immunology; ATTEND Allergy & Immunology
PROC: HZ42ZZZ Group Counseling for Substance Abuse Treatment, Cognitive-Behavioral (ICD-10-PCS; principal; 2019-06-13)
DX: F10.20 Alcohol dependence, uncomplicated (principal); F12.20 Cannabis dependence, uncomplicated; F17.210 Nicotine dependence, cigarettes, uncomplicated; F25.9 Schizoaffective disorder, unspecified; F19.24 Other psychoactive substance dependence with psychoactive substance-induced mood disorder; I10 Essential (primary) hypertension; E78.5 Hyperlipidemia, unspecified; E11.9 Type 2 diabetes mellitus without complications; B18.2 Chronic viral hepatitis C; I25.10 Atherosclerotic heart disease of native coronary artery without angina pectoris; G47.00 Insomnia, unspecified; R07.89 Other chest pain; Z87.19 Personal history of other diseases of the digestive system; Z95.1 Presence of aortocoronary bypass graft; Z79.4 Long term (current) use of insulin; Z79.84 Long term (current) use of oral hypoglycemic drugs; Z86.79 Personal history of other diseases of the circulatory system; Z88.8 Allergy status to other drugs, medicaments and biological substances; Z91.018 Allergy to other foods
CPT/HCPCS: 82962; 93005; 93010

== ENCOUNTER 2019-06-16 16:24 | Emergency (ER) | payer OTHER ==
[2019-06-16 17:05] VITALS: BMI 31.3
--- NOTE | 2019-06-16 17:11 | PDOC ---
History of Present Illness - General Chief Complaint: Chest Pain Stated Complaint: DIFFICULTY BREATHING Time Seen by Provider: 06/16/19 16:59 - History of Present Illness Initial Comments: Thompson Venegas is a 49yo man with a PMH of CAD s/p CABG, HFpEF, aortic dissection (s/p repair 6y ago), DM, HTN, HLD, pancreatitis, bipolar disorder, scheizophrenia, alcohol abuse, insomnia who presents from detox with 2 days of chest pain and continued abdominal pain. He states that the chest pain is left- sided, sharp, constant, and non-radiating. It is not associated with any other symptoms including difficulty breathing, nausea, sweating, or lightheadedness. He has not had fever or cough. He reports that the pain worsens when laying flat and improves when sitting up. He endorses SOB when laying flat as well, needing 3 pillows to sleep, but this has not changed recently. Mr Venegas states that the he has been taking Tylenol and Motrin at detox without any improvement in the pain. Past History - Past Medical History Allergies/Adverse Reactions: Allergies Allergy/AdvReac Type Severity Reaction Status Date / Time nitroglycerin Allergy Intermediate Rash Verified 06/13/19 14:08 Pork/Porcine Containing AdvReac Verified 06/13/19 14:08 Products Home Medications: Ambulatory Orders Aspirin [ASA -] 81 mg PO DAILY 03/19/19 Atorvastatin Ca [Lipitor] 40 mg PO HS 03/19/19 Gemfibrozil [Lopid -] 600 mg PO BID 03/19/19 Losartan Potassium 100 mg PO DAILY 03/19/19 Metformin HCl [Glucophage] 500 mg PO BID 03/19/19 Quetiapine Fumarate [Seroquel -] 200 mg PO BID 03/19/19 traZODone HCL [Trazodone HCl] 100 mg PO HS 03/19/19 Amlodipine Besylate [Norvasc -] 10 mg PO DAILY tablet 03/27/19 Labetalol HCl [Normodyne -] 200 mg PO TID tablet 03/27/19 Glipizide [Glipizide Xl] 2.5 mg PO DAILY 06/07/19 Isosorbide Mononitrate [Isosorbide Mononitrate ER] 30 mg PO DAILY 06/07/19 Insulin Sliding Scale [Novolog Vial Sliding Scale -] 1 vial SQ ACHS units 06/12 Anemia: No Asthma: No Cancer: No Cardiac Disorders: Yes CVA: No COPD: No CHF: No Dementia: No Diabetes: Yes GI Disorders: No Disorders: No HTN: Yes Hypercholesterolemia: Yes (on med) Kidney Stones: No Liver Disease: No Seizures: No Thyroid Disease: No - Surgical History Abdominal Surgery: No Appendectomy: No Cardiac Surgery: Yes (CABG 2014 AORTIC DISSECTION IN 2014,Repair of aorta) Cholecystectomy: No Lung Surgery: No Neurologic Surgery: No Orthopedic Surgery: Yes (torn ligaments in rt ankle 1 month ago) - Reproductive History Testicular Surgery: No - Immunization History Immunization Up to Date: Yes - Psycho Social/Smoking Cessation Hx Smoking History: Current every day smoker Have you smoked in the past 12 months: Yes Number of Cigarettes Smoked Daily: 10 Cigars Per Day: 0 Information on smoking cessation initiated: Yes 'Breaking Loose' booklet given: 06/09/19 Hx Alcohol Use: Yes Drug/Substance Use Hx: Yes Substance Use Type: Alcohol, Marijuana Hx Substance Use Treatment: Yes (detox, rehab) Review of Systems - Review of Systems Comments:: General: No fevers, no chills, no weight or appetite change, no malaise HEENT: No changes in vision, no changes in hearing, no congestion, no sore throat CV: + chest pain, no palpitations, no LE edema Pulm: No SOB, no cough, no wheezing GI: No nausea or vomiting, no change in bowel habits, no melena. +RLQ pain : No frequency, no urgency, no dysuria Musc: No back pain, no joint swelling, no recent injury Skin: No rash, no lesions, no erythema Endo: No excessive thirst, no heat/cold intolerance Heme: No unusual bruising or bleeding, no swollen glands Neuro: No syncope, no numbness/tingling, no focal weakness Vasc: No claudication Psych: No recent change in mood, no SI or HI *Physical Exam - Vital Signs Last Vital Signs Temp Pulse Resp BP Pulse Ox 81 17 125/85 96 06/16/19 16:35 06/16/19 16:35 06/16/19 16:35 06/16/19 16:35 - Physical Exam General: Comfortable, no acute distress HEENT: Atraumatic, PERRL, EOMI, MMM, voice normal, normal neck ROM Cards: RRR, no murmur appreciated. No reproducible tenderness Pulm: Comfortable on room air, clear to auscultation bilaterally Abd: Soft, nontender to palpation, nondistended Ext: Atraumatic. No LE edema. ROM intact. WWP Skin: Normal color, no rashes or lesions Neuro: A&Ox3, CN grossly intact, normal speech, motor/sensory grossly intact and symmetric Psych: Mood appropriate to situation ED Treatment Course - LABORATORY CBC & Chemistry Diagram: 06/16/19 17:35 06/16/19 17:35 Medical Decision Making - Medical Decision Making 06/16/19 17:11 Thompson Venegas is a 49yo man with a PMH of CAD s/p CABG, HFpEF, aortic dissection (s/p repair 6y ago), DM, HTN, HLD, pancreatitis, bipolar disorder, scheizophrenia, alcohol abuse, insomnia who presents from detox with 2 days of sharp, non-radiating, constant, left-sided chest pain that has not improved with Tylenol or Motrin while at detox. He reports that the pain worsens when laying down, improves when sitting up. He additionally endorses chronic 3 pillow orthopnea. - Left-sided chest pain concerning for ACS given history of CAD and dissection. Could also be pericarditis given improvement when sitting. - EKG completed on arrival. NSR, HR 93, normal intervals, LVH. No ST changes. Inverted t-waves in lateral leads. - CBC, CMP, trop, CXR for workup. BNP given report of orthopnea - Toradol - Bedside echo planned to evaluate for effusion or other abnormalities 06/16/19 18:29 - Chemistry, trop, BNP hemolized. Reordered - CBC unremarkable - CXR without acute pathology appreciated. Sternal wires visualized 06/16/19 19:12 - Pt signed out to Dr Emerson for the remainder of his ED care Jennifer Franklin PGY2 Discharge - Discharge Information Problems reviewed: Yes Clinical Impression/Diagnosis: Chest pain - Follow up/Referral - Patient Discharge Instructions - Post Discharge Activity
--- NOTE | 2019-06-16 17:24 | PDOC ---
Attending Attestation - Resident Resident Name: Jennifer Franklin - ED Attending Attestation I have performed the following: I have examined & evaluated the patient, The case was reviewed & discussed with the resident, I agree w/resident's findings & plan - HPI HPI: 06/16/19 18:36 49yo man with a PMH of CAD s/p CABG, HFpEF, aortic dissection (s/p repair 6y ago ), DM, HTN, HLD, pancreatitis, bipolar disorder, schizophrenia, alcohol abuse, insomnia who presents from [facility] with 2 days of left sided chest pain and continued abdominal pain. Patient was seen yesterday morning for chest pain 7-12/29. EKG done had no significant changes. Imdur 30mg that was discontinued on 06/14/19 was restarted. CP described as sharp, constant, and non-radiating. It is not associated with any other symptoms including difficulty breathing, nausea, sweating, or lightheadedness. He has not had fever or cough. He reports that the pain worsens when laying flat and improves when sitting up. He endorses SOB when laying flat as well, needing 3 pillows to sleep, but this has not changed recently. Has taken Tylenol and Motrin at detox without any improvement in the pain. Later on in the afternoon, he reported chest pain with breathing and also reported h/o asthma, Motrin was encouraged, albuterol inhaler was ordered. Patient had an uneventful night but this afternoon, he c/o again of chest pain at which time he refused to be examined and requested to be evaluated in the ED. Discussed with Dr. Wilks, patient will be transferred for further evaluation. Of note, recent admission from 06/09- for his abdominal and chest pain. CT a/p on 06/09/19 w/wo contrast: duodenal inflammation but no evidence of acute pancreatitis. No pulmonary embolism on chest/thorax CTA. Dissection in the descending thoracic aorta extending from the distal aortic arch after the origin of the left brachio-cephalic artery. Descending thoracic aorta is aneurysmally dilated 3.6cm. otherwise stable. upper GI Series also negative for acute pathology 06/16/19 18:39 - Physicial Exam PE: 06/16/19 17:24 Agree with the resident's HPI and PE as documented in the electronic medical record. NAD, EOMI, PERRL, nl conjunctiva, anicteric; neck supple. lungs clear, RRR, no murmur, no chest wall tenderness. abdomen soft protuberant, no focal area of tenderness. No rebound, no guarding. Back nontender, no CVAT. RASHID x4, no focal neuro deficits. No peripheral edema. normal color for ethnicity, WWP. 06/16/19 18:37 - Medical Decision Making 06/16/19 17:24 Vital Signs Temp Pulse Resp BP Pulse Ox 81 17 125/85 96 06/16/19 16:35 06/16/19 16:35 06/16/19 16:35 06/16/19 16:35 DDx abdominal pain: Renal colic, biliary colic, metabolic/electrolyte derangements. GERD, PUD, esophageal spasm, pancreatitis, hepatitis, constipation , colitis, gastroenteritis, cholecystitis, UTI, pyelonephritis, ileus, SBO, medication side effect, hernia, appendicitis, diverticulitis, mesenteric ischemia. msk strain, mesenteric adenitis, psoas abscess. no e/o GIB no RLQ tenderness to suggest appy. no rebound or guarding VS wnl, reassuring also recent CTA done with upper GI series without development of his dissection plan for labs/trop, EKG unchanged from prior. analgesia, reassess. 06/16/19 18:38 Heart Score/ECG Review #1 ECG reviewed & interpreted by me at: 17:10 General ECG Interpretation: Sinus Rhythm, Normal Rate, Normal Intervals Compared to previous ECG there are: No significant change 06/16/19 17:45 EKG normal sinus rhythm at 93 bpm, no interval abnormalities, narrow QRS, ST and T wave segments and morphology normal. Nonspecific T wave abnormalities
[2019-06-16 17:42] LABS: BASO % 0.4 % (0-2.0); EOS % 2.6 % (0-4.5); HEMATOCRIT 38.2 % (35.4-49); HEMOGLOBIN 13.2 GM/dL (11.7-16.9); LYMPH % 32.6 % (8-40); MCH 34.9 pg (25.7-33.7); MCHC 34.6 g/dl (32.0-35.9); MEAN CELL VOLUME 100.8 fl (80-96); MEAN PLT VOLUME 7.6 fl (7.5-11.1); MONO % 13.9 % (3.8-10.2); NEUT % 50.5 % (42.8-82.8); PLATELET COUNT 334 K/MM3 (134-434); RBC 3.79 M/mm3 (4.00-5.60); RDW 18.2 % (11.9-15.9); WHITE BLOOD COUNT 6.8 K/mm3 (4.0-10.0)
[2019-06-16] MEDS ORDERED: KETOROLAC TROMETHAMINE 15 MG/ML VIAL IVPUSH ONE (18:15)
[2019-06-16] MEDS ORDERED: KETOROLAC TROMETHAMINE 15 MG/ML VIAL ONE (18:22)
[2019-06-16] MEDS ORDERED: ACETAMINOPHEN 1000 MG/100 ML VIAL (NON FORMULARY) IVPB ONE (19:04)
[2019-06-16] MEDS ORDERED: ACETAMINOPHEN INJECTION 100 ML IVPB ONE (19:45)
[2019-06-16 19:49] LABS: ALK PHOS 49 U/L (45-117); ANION GAP 6 MMOL/L (8-16); BILIRUBIN,TOTAL 0.5 mg/dL (0.2-1); BLOOD UREA NITROGEN 14.3 mg/dL (7-18); CALCIUM 9.1 mg/dL (8.5-10.1); CHLORIDE 106 mmol/L (98-107); CO2 24 mmol/L (21-32); CREATININE 1.1 mg/dL (0.55-1.3); GLUCOSE,RANDOM 88 mg/dL (74-106); POTASSIUM 4.2 mmol/L (3.5-5.1); SGOT/AST 60 U/L (15-37); SGPT/ALT 57 U/L (13-61); SODIUM 136 mmol/L (136-145); TOT PROT 7.8 g/dl (6.4-8.2)
[2019-06-16] MEDS ORDERED: ONDANSETRON 4 MG/2 ML VIAL IVPUSH ONE (21:09)
[2019-06-16] MEDS ORDERED: FAMOTIDINE 20 MG/50 ML IVPB 20 MG/50 ML MG IVPB ONE ×2 (21:09→21:50)
--- NOTE | 2019-06-16 21:10 | PDOC ---
*Physical Exam - Vital Signs Last Vital Signs Temp Pulse Resp BP Pulse Ox 81 17 125/85 96 06/16/19 16:35 06/16/19 16:35 06/16/19 16:35 06/16/19 16:35 - Physical Exam 49 yo M with a hx of CAD s/p CABG, HTN, HFpED, aortic dissection (s/p repair 6 years ago), DM, HTN, HLD, bipolar disorder, alcohol abuse, and schizophrenia presents to the emergency department from [facility] (2nd day of detox) with left sided chest wall pain. At the time of sign out, the patient had pending laboratory work. EKG: Sinus rhythm at [address] elevations or depressions. ED Treatment Course - LABORATORY CBC & Chemistry Diagram: 06/16/19 17:35 06/16/19 19:00 - ADDITIONAL ORDERS Additional order review: Laboratory Results 06/16/19 06/16/19 06/16/19 19:00 19:00 17:35 Sodium 136 Potassium 4.2 Chloride 106 Carbon Dioxide 24 Anion Gap 6 L BUN 14.3 Creatinine 1.1 Est GFR (CKD-EPI)AfAm 92.16 Est GFR (CKD-EPI)NonAf 79.52 Random Glucose 88 Calcium 9.1 Total Bilirubin 0.5 AST 60 H ALT 57 Alkaline Phosphatase 49 Creatine Kinase 794 H Cancelled Creatine Kinase Index 0.4 CK-MB (CK-2) 3.3 Troponin I < 0.02 Cancelled B-Natriuretic Peptide 39.9 Cancelled Total Protein 7.8 Albumin 4.0 06/16/19 17:35 Sodium Cancelled Potassium Cancelled Chloride Cancelled Carbon Dioxide Cancelled Anion Gap Cancelled BUN Cancelled Creatinine Cancelled Est GFR (CKD-EPI)AfAm Cancelled Est GFR (CKD-EPI)NonAf Cancelled Random Glucose Cancelled Calcium Cancelled Total Bilirubin Cancelled AST Cancelled ALT Cancelled Alkaline Phosphatase Cancelled Creatine Kinase Creatine Kinase Index CK-MB (CK-2) Troponin I B-Natriuretic Peptide Total Protein Cancelled Albumin Cancelled 06/16/19 17:35 RBC 3.79 L MCV 100.8 H MCHC 34.6 RDW 18.2 H MPV 7.6 D Neutrophils % 50.5 D Lymphocytes % 32.6 D Monocytes % 13.9 H Eosinophils % 2.6 Basophils % 0.4 - Medications Given in the ED: ED Medications Discontinued Medications Generic Name Dose Route Start Last Admin Trade Name Mirtha PRN Reason Stop Dose Admin Acetaminophen 1,000 mg 06/16/19 19:04 06/16/19 19:12 Ofirmev Injection - IVPB 06/16/19 19:05 1,000 mg ONCE ONE Administration Ketorolac Tromethamine 15 mg 06/16/19 18:15 06/16/19 18:25 Toradol Injection - IVPUSH 06/16/19 18:16 15 mg ONCE ONE Administration Medical Decision Making - Medical Decision Making Laboratory Tests 06/16/19 06/16/19 06/16/19 17:35 17:35 17:35 WBC 6.8 RBC 3.79 L Hgb 13.2 Hct 38.2 MCV 100.8 H MCH 34.9 H MCHC 34.6 RDW 18.2 H Plt Count 334 D MPV 7.6 D Absolute Neuts (auto) 3.4 Neutrophils % 50.5 D Lymphocytes % 32.6 D Monocytes % 13.9 H Eosinophils % 2.6 Basophils % 0.4 Nucleated RBC % 0 Sodium Cancelled Potassium Cancelled Chloride Cancelled Carbon Dioxide Cancelled Anion Gap Cancelled BUN Cancelled Creatinine Cancelled Est GFR (CKD-EPI)AfAm Cancelled Est GFR (CKD-EPI)NonAf Cancelled Random Glucose Cancelled Lactic Acid Calcium Cancelled Total Bilirubin Cancelled AST Cancelled ALT Cancelled Alkaline Phosphatase Cancelled Creatine Kinase Cancelled Creatine Kinase Index CK-MB (CK-2) Troponin I Cancelled B-Natriuretic Peptide Cancelled Total Protein Cancelled Albumin Cancelled 06/16/19 06/16/19 06/16/19 19:00 19:00 21:05 WBC RBC Hgb Hct MCV MCH MCHC RDW Plt Count MPV Absolute Neuts (auto) Neutrophils % Lymphocytes % Monocytes % Eosinophils % Basophils % Nucleated RBC % Sodium 136 Potassium 4.2 Chloride 106 Carbon Dioxide 24 Anion Gap 6 L BUN 14.3 Creatinine 1.1 Est GFR (CKD-EPI)AfAm 92.16 Est GFR (CKD-EPI)NonAf 79.52 Random Glucose 88 Lactic Acid 0.9 Calcium 9.1 Total Bilirubin 0.5 AST 60 H ALT 57 Alkaline Phosphatase 49 Creatine Kinase 794 H Creatine Kinase Index 0.4 CK-MB (CK-2) 3.3 Troponin I < 0.02 B-Natriuretic Peptide 39.9 Total Protein 7.8 Albumin 4.0 troponin negative the patient was given analgesics in the emergency department with resolution of symptoms Patient to be discharged back to [facility] to complete detox. Discharge - Discharge Information Problems reviewed: Yes Clinical Impression/Diagnosis: Chest pain Condition: Fair Disposition: I.P. ALCOHOL/SUBS ABUSE REHAB - Follow up/Referral - Patient Discharge Instructions Patient Printed Discharge Instructions: DI for Atypical Chest Pain Additional Instructions: Please follow up with your primary medical doctor within 1 week after discharge for follow up care and management .please return to the emergency department if you have worsening symptoms or new concerning symptoms. Thank you. - Post Discharge Activity
[2019-06-16] MEDS ORDERED: ONDANSETRON 4 MG/2 ML VIAL ONE (21:50)
[2019-06-16 23:59] VITALS: BP 117/80; PULSE 82; TEMP 98.2
--- NOTE | 2019-06-17 13:59 | EKG ---
Test Reason : Blood Pressure : / mmHG Vent. Rate : 093 BPM Atrial Rate : 093 BPM P-R Int : 126 ms QRS Dur : 068 ms QT Int : 354 ms P-R-T Axes : 054 -16 -15 degrees QTc Int : 440 ms NORMAL SINUS RHYTHM POSSIBLE LEFT ATRIAL ENLARGEMENT LEFT VENTRICULAR HYPERTROPHY Nonspecific T changes CANNOT RULE OUT SEPTAL INFARCT , AGE UNDETERMINED ABNORMAL ECG WHEN COMPARED WITH ECG OF 15-JUN-2019 08:54, MINIMAL CRITERIA FOR SEPTAL INFARCT ARE NOW PRESENT Confirmed by Skye Vargas ([id number]) on 06/17/2019 1:59:38 PM Referred By: Confirmed By:Skye Vargas
== END 2019-06-17 01:06 | disposition other institution (70) ==
LOC: JER 16:24
PROC: 3E033GC Introduction of Other Therapeutic Substance into Peripheral Vein, Percutaneous Approach (ICD-10-PCS; principal; 2019-06-16)
PROC: 3E033GC Introduction of Other Therapeutic Substance into Peripheral Vein, Percutaneous Approach (ICD-10-PCS; 2019-06-16)
PROC: 3E033NZ Introduction of Analgesics, Hypnotics, Sedatives into Peripheral Vein, Percutaneous Approach (ICD-10-PCS; 2019-06-16)
PROC: 3E0333Z Introduction of Anti-inflammatory into Peripheral Vein, Percutaneous Approach (ICD-10-PCS; 2019-06-16)
DX: R07.89 Other chest pain (principal); I25.10 Atherosclerotic heart disease of native coronary artery without angina pectoris; I11.0 Hypertensive heart disease with heart failure; I50.9 Heart failure, unspecified; F17.210 Nicotine dependence, cigarettes, uncomplicated; E11.9 Type 2 diabetes mellitus without complications; Z79.4 Long term (current) use of insulin; I71.2 Thoracic aortic aneurysm, without rupture; E78.5 Hyperlipidemia, unspecified; G47.00 Insomnia, unspecified; K86.9 Disease of pancreas, unspecified; F31.9 Bipolar disorder, unspecified; F20.9 Schizophrenia, unspecified; F10.10 Alcohol abuse, uncomplicated; Z86.79 Personal history of other diseases of the circulatory system; Z88.0 Allergy status to penicillin; Z91.018 Allergy to other foods
CPT/HCPCS: 36415; 71046-TC-FY; 80053; 82550; 82553; 83605; 83880; 84484; 85025; 93005; 93010; 96365; 96372; 96375; 99284-25; J0131